=== PATIENT | female | born 1955 | race Caucasian/White ===

== ENCOUNTER 2016-05-12 13:57 | Emergency (ER) | payer OTHER ==
[2016-05-12] MEDS ORDERED: SODIUM CHLORIDE 0.9% 1,000 ML IV STA ×2 (14:44)
[2016-05-12] MEDS ORDERED: MORPHINE SULFATE 4 MG/ML SYRINGE IV STA (14:44)
--- NOTE | 2016-05-12 14:47 | ED ---
General Adult HPI - General Chief complaint: Abdominal Pain Stated complaint: RLQ pain Time Seen by Provider: 05/12/16 14:30 Source: patient, RN notes reviewed, old records reviewed Mode of arrival: ambulatory Limitations: no limitations - History of Present Illness Initial comments: This is a 61-year-old female here for evaluation of pain. Patient having right lower quadrant without pain and off for 2 weeks. Patient does have history of abdominal surgery, appendicitis and cholecystectomy, patient also has history of high blood pressure cholesterol diabetes fibromyalgia etc. Patient has no new medications for symptoms. No nausea vomiting or diarrhea. No fevers. No sick contacts or travel history. - Related Data Home Medications Medication Instructions Recorded Confirmed Aspirin 81 mg PO DAILY 05/09/14 05/12/16 Biedqck-Tqos-Mjhw [id number] 1 each PO Q6HR 05/09/14 05/12/16 [Excedrin] Butalb/Acetaminophen/Caffeine 1 - 2 tab PO Q4HR 05/09/14 05/12/16 [Fioricet 50-300-40 mg Capsule] Cholecalciferol [Vitamin D3] 400 unit PO DAILY@1200 05/09/14 05/12/16 DULoxetine HCL [Cymbalta] 60 mg PO DAILY 05/09/14 05/12/16 Diazepam 2 mg PO HS PRN 05/09/14 05/12/16 Hydrocodone/Acetaminophen [[place] 1 tab PO Q6HR PRN 05/09/14 05/12/16 7.5-325] Latanoprost Ophth [Xalatan 0.005%] 1 drops BOTH EYES HS 05/09/14 05/12/16 Levothyroxine Sodium [Synthroid] 25 mcg PO DAILY 05/09/14 05/12/16 Lisinopril [Zestril] 5 mg PO DAILY 05/09/14 05/12/16 Multivitamins, Thera [Multivitamin] 1 tab PO DAILY 05/09/14 05/12/16 Omeprazole [PriLOSEC] 20 mg PO AC-BRKFST 05/09/14 05/12/16 metFORMIN HCL [metFORMIN HCL ER] 1,000 mg PO BID 05/09/14 05/12/16 Methocarbamol [Robaxin] 500 mg PO BID 05/12/16 05/12/16 Pravastatin Sodium [Pravachol] 20 mg PO HS 05/12/16 05/12/16 Allergies Allergy/AdvReac Type Severity Reaction Status Date / Time Penicillins Allergy Nausea & Verified 05/12/16 14:57 Vomiting Review of Systems ROS Statement: Those systems with pertinent positive or pertinent negative responses have been documented in the HPI. ROS Other: All systems not noted in ROS Statement are negative. Past Medical History Past Medical History: Diabetes Mellitus, Fibromyalgia, GERD/Reflux, Hypertension , Rheumatoid Arthritis (RA), Thyroid Disorder Additional Past Medical History / Comment(s): sarcoidosis, ibs migraines optic nerve damage short term memory issues chronic back pain keratodermia urinary incontinence glaucoma History of Any Multi-Drug Resistant Organisms: None Reported Past Surgical History: Appendectomy, Cholecystectomy Additional Past Surgical History / Comment(s): bronchoscopy laproscopic young removal cyst removal Past Psychological History: Anxiety, Depression Smoking Status: Light tobacco smoker Past Alcohol Use History: None Reported Past Drug Use History: None Reported General Exam Limitations: no limitations Course Vital Signs 05/12/16 14:02 Temperature 97.3 F L Pulse Rate 91 Respiratory 18 Rate Blood Pressure 170/76 O2 Sat by Pulse 98 Oximetry - Reevaluation(s) Reevaluation #1: 05/12/16 16:14 At this time patient's pain appears to be improved, no distress Medical Decision Making - Medical Decision Making 61 female ear with right lower quadrant of bowel pain. No nausea vomiting no diarrhea no specific symptoms. Patient is low in her pelvis, patient will follow-up with OB as directed for possible ovarian issue, CT and pelvis is negative lab is normal urine is negative patient will be discharged - Lab Data Result diagrams: 05/12/16 14:47 05/12/16 14:47 Lab Results 05/12/16 05/12/16 05/12/16 Range/Units 14:47 14:47 14:47 WBC 5.7 (3.8-10.6) k/uL RBC 4.35 (3.80-5.40) m/uL Hgb 12.4 (11.4-16.0) gm/dL Hct 38.0 (34.0-46.0) % MCV 87.4 (80.0-100.0) fL MCH 28.4 (25.0-35.0) pg MCHC 32.5 (31.0-37.0) g/dL RDW 14.3 (11.5-15.5) % Plt Count 259 (150-450) k/uL Neutrophils % 55 % Lymphocytes % 32 % Monocytes % 6 % Eosinophils % 2 % Basophils % 1 % Neutrophils # 3.1 (1.3-7.7) k/uL Lymphocytes # 1.8 (1.0-4.8) k/uL Monocytes # 0.4 (0-1.0) k/uL Eosinophils # 0.1 (0-0.7) k/uL Basophils # 0.0 (0-0.2) k/uL Sodium 141 (137-145) mmol/L Potassium 4.3 (3.5-5.1) mmol/L Chloride 101 (98-107) mmol/L Carbon Dioxide 27 (22-30) mmol/L Anion Gap 13 mmol/L BUN 15 (7-17) mg/dL Creatinine 0.81 (0.52-1.04) mg/dL Est GFR (MDRD) Af Amer >60 (>60 ml/min/1.73 sqM) Est GFR (MDRD) Non-Af >60 (>60 ml/min/1.73 sqM) Glucose 101 H (74-99) mg/dL Plasma Lactic Acid [place] (0.7-2.0) mmol/L Calcium 10.0 (8.4-10.2) mg/dL Total Bilirubin 0.7 (0.2-1.3) mg/dL AST 26 (14-36) U/L ALT 42 (9-52) U/L Alkaline Phosphatase 61 (38-126) U/L Total Creatine Kinase 54 (30-135) U/L CK-MB (CK-2) 0.6 (0.0-2.4) ng/mL CK-MB (CK-2) Rel Index 1.1 Troponin I <0.012 (0.000-0.034) ng/mL Total Protein 7.6 (6.3-8.2) g/dL Albumin 4.5 (3.5-5.0) g/dL Amylase 61 (30-110) U/L Lipase 112 (23-300) U/L Urine Color Urine Appearance (Clear) Urine pH (5.0-8.0) Ur Specific [place] (1.001-1.035) Urine Protein (Negative) Urine Glucose (UA) (Negative) Urine Ketones (Negative) Urine Blood (Negative) Urine Nitrate (Negative) Urine Bilirubin (Negative) Urine Urobilinogen (<2.0) mg/dL Ur Leukocyte Esterase (Negative) 05/12/16 05/12/16 Range/Units 14:47 15:10 WBC (3.8-10.6) k/uL RBC (3.80-5.40) m/uL Hgb (11.4-16.0) gm/dL Hct (34.0-46.0) % MCV (80.0-100.0) fL MCH (25.0-35.0) pg MCHC (31.0-37.0) g/dL RDW (11.5-15.5) % Plt Count (150-450) k/uL Neutrophils % % Lymphocytes % % Monocytes % % Eosinophils % % Basophils % % Neutrophils # (1.3-7.7) k/uL Lymphocytes # (1.0-4.8) k/uL Monocytes # (0-1.0) k/uL Eosinophils # (0-0.7) k/uL Basophils # (0-0.2) k/uL Sodium (137-145) mmol/L Potassium (3.5-5.1) mmol/L Chloride (98-107) mmol/L Carbon Dioxide (22-30) mmol/L Anion Gap mmol/L BUN (7-17) mg/dL Creatinine (0.52-1.04) mg/dL Est GFR (MDRD) Af Amer (>60 ml/min/1.73 sqM) Est GFR (MDRD) Non-Af (>60 ml/min/1.73 sqM) Glucose (74-99) mg/dL Plasma Lactic Acid [place] 1.0 (0.7-2.0) mmol/L Calcium (8.4-10.2) mg/dL Total Bilirubin (0.2-1.3) mg/dL AST (14-36) U/L ALT (9-52) U/L Alkaline Phosphatase (38-126) U/L Total Creatine Kinase (30-135) U/L CK-MB (CK-2) (0.0-2.4) ng/mL CK-MB (CK-2) Rel Index Troponin I (0.000-0.034) ng/mL Total Protein (6.3-8.2) g/dL Albumin (3.5-5.0) g/dL Amylase (30-110) U/L Lipase (23-300) U/L Urine Color Colorless Urine Appearance Clear (Clear) Urine pH 6.5 (5.0-8.0) Ur Specific [place] 1.002 (1.001-1.035) Urine Protein Negative (Negative) Urine Glucose (UA) Negative (Negative) Urine Ketones Negative (Negative) Urine Blood Negative (Negative) Urine Nitrate Negative (Negative) Urine Bilirubin Negative (Negative) Urine Urobilinogen <2.0 (<2.0) mg/dL Ur Leukocyte Esterase Negative (Negative) - Radiology Data Radiology results: report reviewed (X-ray KUB and computed tomography scan of pelvis negative for acute disease), image reviewed Disposition Clinical Impression: Abdominal pain, Pelvic pain Disposition: HOME SELF-CARE Condition: Good Instructions: Abdominal Pain (ED), Pelvic Pain in Women (ED) Referrals: Esther Barragan MD [Primary Care Provider] - 1-2 days
[2016-05-12 15:00] LABS: Basophils % (A) 1 %; CH 28.1; CHCM 32.3; Eosinophils # (A) 0.1 k/uL (0-0.7); Eosinophils % (A) 2 %; HDW 2.48; HGB 12.4 gm/dL (11.4-16.0); Luc # (Auto) 0.24; Luc % (Auto) 4; Lymphocytes # (A) 1.8 k/uL (1.0-4.8); Lymphocytes % (A) 32 %; MCH 28.4 pg (25.0-35.0); MCHC 32.5 g/dL (31.0-37.0); MCV 87.4 fL (80.0-100.0); Mean Platelet Volume 7.4; Monocytes # (A) 0.4 k/uL (0-1.0); Monocytes % (A) 6 %; Neutrophils # (A) 3.1 k/uL (1.3-7.7); Neutrophils % (A) 55 %; RBC 4.35 m/uL (3.80-5.40); RDW 14.3 % (11.5-15.5); WBC 5.7 k/uL (3.8-10.6); WBC (Perox) 5.71
--- NOTE | 2016-05-12 15:11 | XR ---
EXAMINATION TYPE: XR KUB DATE OF EXAM: 05/12/2016 3:07 PM CLINICAL HISTORY: Right lower quadrant pain for a few weeks. TECHNIQUE: 2 upright KUB images of the abdomen are obtained COMPARISON: CT abdomen pelvis May 03, 2014. FINDINGS: Scattered gas is seen in non-distended small bowel loops. Gas and fecal material is seen in non-distended colon. Cholecystectomy clips are present. Surgical sutures right lower quadrant are noted consistent with prior appendectomy. Lung bases are clear. No pneumoperitoneum is identified. Th ere is moderate joint space loss in both hips, right slightly worse than left. There is prior vertebr oplasty at right T12 level redemonstrated. IMPRESSION: Overall nonobstructive bowel gas pattern.
[2016-05-12 15:12] LABS: Amylase 61 U/L (30-110); Carbon Dioxide 27 mmol/L (22-30)
[2016-05-12 15:18] LABS: ALT 42 U/L (9-52); AST 26 U/L (14-36); Alkaline Phosphatase 61 U/L (38-126); Anion Gap 13 mmol/L; Blood Urea Nitrogen 15 mg/dL (7-17); Chloride 101 mmol/L (98-107); Creatine Kinase 54 U/L (30-135); Glucose 101 mg/dL (74-99); Non-African American GFR(MDRD) >60 (>60 ml/min/1.73 sqM); Potassium 4.3 mmol/L (3.5-5.1); Sodium 141 mmol/L (137-145); Total Bilirubin 0.7 mg/dL (0.2-1.3); Total Protein 7.6 g/dL (6.3-8.2)
[2016-05-12] MEDS ORDERED: RX INFO: IV CONTRAST WAS GIVEN 1 EACH MISC MISCELLANE PRN (15:18)
[2016-05-12 15:28] LABS: Appearance,Urine Clear (Clear); Bilirubin,Urine Negative (Negative); Glucose,Urine (UA) Negative (Negative); Ketones,Urine Negative (Negative); Leukocyte Esterase,Urine Negative (Negative); Nitrite,Urine Negative (Negative); PH, Urine 6.5 (5.0-8.0); Protein,Urine Negative (Negative); Specific Gravity,Urine 1.002 (1.001-1.035); UA Billing (MACRO vs. MICRO) CHEM; Urobilinogen,Urine <2.0 mg/dL (<2.0)
[2016-05-12 15:30] LABS: Creatine Kinase MB 0.6 ng/mL (0.0-2.4); Troponin I <0.012 ng/mL (0.000-0.034)
--- NOTE | 2016-05-12 16:20 | CT ---
EXAMINATION TYPE: CT abdomen pelvis w con DATE OF EXAM: 05/12/2016 3:56 PM COMPARISON: 05/03/2014 INDICATION: Right lower quadrant pain DLP: 884.6 mGycm, Automated exposure control for dose reduction was used. CONTRAST: 100 mL of Omnipaque 300. Study performed without Oral Contrast TECHNIQUE: Axial images were obtained from above the diaphragm to the pubic rami in the axial plane a t 5 mm thick sections. Reconstructed images are reviewed on the computer in the coronal plane. FINDINGS: Limited CT sections are obtained the lung bases. The lung bases are clear. CT ABDOMEN: Liver: There is moderate fatty infiltration of the liver. Spleen: Normal Pancreas: Normal Adrenal glands: The adrenal glands are normal. Gallbladder: Surgically absent. Kidneys: No masses are evident. No hydronephrosis is present. No cysts are present. Delayed images were obtained through the kidneys, which remain unremarkable. Aorta: Minimal Vascular calcification is within the aorta. Inferior vena cava: Normal. CT PELVIS: Loops of bowel within the abdomen and pelvis are normal. There are loops of bowel which are incom pletely distended or lack oral contrast limiting their evaluation. Appendix: Surgically absent. Urinary bladder: Normal. Genitourinary structures: Uterus and adnexal regions appear clear Osseous structures: No suspicious lytic or sclerotic lesions. There may be prior vertebroplasty at th e T12 level. IMPRESSIONS: 1. No suspicious acute changes.
[2016-05-12 16:38] VITALS: BP 132/62; PULSE 67; RESP 16; TEMP 98
== END 2016-05-12 16:38 | disposition home or self-care (01) ==
LOC: EC 13:57
DX: R10.2 Pelvic and perineal pain (principal); R10.31 Right lower quadrant pain; E07.9 Disorder of thyroid, unspecified; E11.9 Type 2 diabetes mellitus without complications; M79.7 Fibromyalgia; K21.9 Gastro-esophageal reflux disease without esophagitis; I10 Essential (primary) hypertension; M19.90 Unspecified osteoarthritis, unspecified site; F41.9 Anxiety disorder, unspecified; F32.9 Major depressive disorder, single episode, unspecified; F17.200 Nicotine dependence, unspecified, uncomplicated; Z79.82 Long term (current) use of aspirin; Z79.899 Other long term (current) drug therapy; Z79.84 Long term (current) use of oral hypoglycemic drugs; Z88.0 Allergy status to penicillin; Z90.49 Acquired absence of other specified parts of digestive tract
CPT/HCPCS: 36415; 80053; 82150; 82550; 82553; 83605; 83690; 84484; 85025; 81003; 87086; 74000; 74177; 99285; 96374; 96361 ×2; J2270; Q9967

== ENCOUNTER → 2016-07-28 | Outpatient (CLI) | payer OTHER ==
[2016-07-28 15:24] LABS: Blood Urea Nitrogen 17 mg/dL (7-17); Non-African American GFR(MDRD) >60 (>60 ml/min/1.73 sqM)
== END | disposition home or self-care (01) ==
LOC: LABWHC1 14:47
PROVIDERS: ATTEND Psychiatry & Neurology Pain Medicine
DX: Z01.812 Encounter for preprocedural laboratory examination (principal); R51 Headache
CPT/HCPCS: 36415; 82565; 84520

== ENCOUNTER → 2016-07-29 | Outpatient (CLI) | payer OTHER ==
--- NOTE | 2016-07-29 21:45 | MR ---
EXAMINATION TYPE: MR brain wo/w con DATE OF EXAM: 07/29/2016 COMPARISON: MRI brain November 20, 2015. Prior MRI brain June 15, 2014. HISTORY: Headaches unusual duration per order. Headaches with memory problems, difficulty sleeping, l eft-sided hearing loss, and history of neurosarcoidosis per patient. TECHNIQUE: Multiplanar, multisequence images of the brain and brainstem is performed without and with IV contras t, utilizing 15 mL intravenous MultiHance . FINDINGS: Diffusion weighted images demonstrate no evidence of a recent infarct or other diffusion ab normality. There is no extra-axial fluid collection or significant white matter signal abnormality. The ventricular system and cisternal spaces are normal in size and appearance. The brain volume is age appropriate. Midline structures demonstrate normal morphology. There is stable appearance to the clivus with poste rior tubular shaped area of low T1 signal seen on sagittal image 10 redemonstrated, possible venous a ngioma. The craniocervical junction appears within normal limits. Post contrast images demonstrate n o new areas of abnormal enhancement. Possible 2 small venous angiomas over bilateral frontal temporal lobes are felt stable from older studies. The dural venous sinuses appear patent. There is no air-fl uid level in left maxillary sinus with mild mucosal thickening inferiorly. IMPRESSION: New left maxillary sinus disease, other findings stable and presumed benign.
== END | disposition home or self-care (01) ==
LOC: RADMRIMAIN 19:11
PROVIDERS: ATTEND Psychiatry & Neurology Pain Medicine
DX: R51 Headache (principal)
CPT/HCPCS: 70553; A9577

== ENCOUNTER → 2016-09-17 | Outpatient (CLI) | payer OTHER ==
--- NOTE | 2016-09-17 23:04 | MR ---
EXAMINATION TYPE: MR cervical spine wo con DATE OF EXAM: 09/17/2016 COMPARISON: NONE HISTORY: Neck pain. Decreased range of motion. TECHNIQUE: Multiplanar, multisequence images of the cervical spine were acquired. The cervical vertebra have normal alignment. There are is a small posterior disc herniation at C5-6 i nto the spinal canal in the midline and to the left side.. Cervical spinal cord has normal signal pat tern. There is no evidence of edema. Disc herniation is more towards the left side at the C5-6. The b rainstem appears intact. There is no compression fracture. There is mild multilevel hypertrophic face t arthropathy. There is a small posterior disc herniation at C6-7. I see no focal bone destruction. T here is no cervical paraspinal mass. 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 This i s worse at C5-6 the left side. There is left-sided neural foraminal impingement. The canal measures 9 mm. No significant spinal stenosis.
== END | disposition home or self-care (01) ==
LOC: RADMRIMAIN 18:27
PROVIDERS: ATTEND Psychiatry & Neurology Pain Medicine
DX: M50.222 Other cervical disc displacement at C5-C6 level (principal); M47.812 Spondylosis without myelopathy or radiculopathy, cervical region
CPT/HCPCS: 72141

== ENCOUNTER 2016-09-26 20:40 | Emergency (ER) | payer OTHER ==
[2016-09-26 20:52] VITALS: RESP 18
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
[2016-09-26 21:43] LABS: Basophils % (A) 1 %; CH 27.8; CHCM 31.9; Eosinophils # (A) 0.2 k/uL (0-0.7); Eosinophils % (A) 3 %; HCT 37.9 % (34.0-46.0); HDW 2.52; Luc # (Auto) 0.21; Luc % (Auto) 4; Lymphocytes # (A) 2.4 k/uL (1.0-4.8); Lymphocytes % (A) 40 %; MCH 27.7 pg (25.0-35.0); MCHC 31.7 g/dL (31.0-37.0); MCV 87.3 fL (80.0-100.0); Mean Platelet Volume 7.2; Monocytes # (A) 0.4 k/uL (0-1.0); Monocytes % (A) 7 %; Neutrophils # (A) 2.8 k/uL (1.3-7.7); Neutrophils % (A) 47 %; RBC 4.34 m/uL (3.80-5.40); RDW 14.8 % (11.5-15.5)
[2016-09-26 21:54] LABS: ALT 38 U/L (9-52); AST 26 U/L (14-36); Alcohol <10 mg/dL; Alkaline Phosphatase 56 U/L (38-126); Anion Gap 15 mmol/L; Blood Urea Nitrogen 18 mg/dL (7-17); Calcium 9.6 mg/dL (8.4-10.2); Carbon Dioxide 24 mmol/L (22-30); Chloride 103 mmol/L (98-107); Glucose 177 mg/dL (74-99); Non-African American GFR(MDRD) >60 (>60 ml/min/1.73 sqM); Potassium 4.3 mmol/L (3.5-5.1); Sodium 142 mmol/L (137-145); Total Bilirubin 0.4 mg/dL (0.2-1.3); Total Protein 7.3 g/dL (6.3-8.2)
[2016-09-26 21:59] LABS: Prothrombin Time 10.1 sec (9.0-12.0)
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
[2016-09-26 23:03] VITALS: BP 118/70; PULSE 82; TEMP 98.6
[2016-09-26 23:29] LABS: Appearance,Urine Cloudy (Clear); Bacteria,Urine Rare /hpf; Bilirubin,Urine Negative (Negative); Glucose,Urine (UA) Negative (Negative); Ketones,Urine Negative (Negative); Leukocyte Esterase,Urine Small (Negative); Mucus,Urine Rare /hpf; Nitrite,Urine Negative (Negative); Particle Count 2699; Protein,Urine Trace (Negative); RBC,Urine 2 /hpf (0-5); Specific Gravity,Urine 1.013 (1.001-1.035); Squamous Epithelial Cell,Urine 1 /hpf (0-4); UA Billing (MACRO vs. MICRO) MICRO; Urobilinogen,Urine <2.0 mg/dL (<2.0); WBC,Urine 11 /hpf (0-5)
== END 2016-09-26 23:50 | disposition home or self-care (01) ==
LOC: EC 20:40
DX: M54.2 Cervicalgia (principal); R51 Headache; I10 Essential (primary) hypertension; K21.9 Gastro-esophageal reflux disease without esophagitis; E11.9 Type 2 diabetes mellitus without complications; M06.9 Rheumatoid arthritis, unspecified; G89.29 Other chronic pain; E07.9 Disorder of thyroid, unspecified; F32.9 Major depressive disorder, single episode, unspecified; F41.9 Anxiety disorder, unspecified; F17.200 Nicotine dependence, unspecified, uncomplicated; Z79.82 Long term (current) use of aspirin; Z79.84 Long term (current) use of oral hypoglycemic drugs; Z79.899 Other long term (current) drug therapy; Z88.0 Allergy status to penicillin; Z86.69 Personal history of other diseases of the nervous system and sense organs; V43.52XA Car driver injured in collision with other type car in traffic accident, initial encounter; Y92.410 Unspecified street and highway as the place of occurrence of the external cause
CPT/HCPCS: 36415; 70450; 72125; 80053; 80306; 80320; 81001; 84484; 85025; 85610; 85730; 93005; 99285

== ENCOUNTER → 2016-10-13 | Outpatient (CLI) | payer OTHER ==
--- NOTE | 2016-10-15 08:12 | MM ---
Reason for exam: screening (asymptomatic). Last mammogram was performed 1 year and 2 months ago. History: Patient is postmenopausal. Family history of breast cancer in paternal grandmother. Benign stereotactic core biopsy. Physical Findings: A clinical breast exam by your physician is recommended on an annual basis and results should be correlated with mammographic findings. MG Screening Mammo w CAD Bilateral CC and MLO view(s) were taken. Prior study comparison: August 20, 2015, bilateral MG diagnostic mammo w CAD [facility]. There are scattered fibroglandular densities. Previous mammotome biopsy in the left breast. No significant changes when compared with prior studies. ASSESSMENT: Negative, BI-RAD 1 RECOMMENDATION: Routine screening mammogram of both breasts in 1 year.
== END | disposition home or self-care (01) ==
LOC: RADMAMWWP 14:02
PROVIDERS: ATTEND Family Medicine
DX: Z12.31 Encounter for screening mammogram for malignant neoplasm of breast (principal)

== ENCOUNTER → 2016-10-13 | Outpatient (CLI) | payer OTHER ==
--- NOTE | 2016-10-13 15:21 | US ---
EXAMINATION TYPE: US carotid duplex BILAT DATE OF EXAM: 10/13/2016 COMPARISON: US CLINICAL HISTORY: R55 Syncope. Syncope EXAM MEASUREMENTS: RIGHT: Peak Systolic Velocity (PSV) cm/sec ----- Right CCA: 51.0 ----- Right ICA: 94.3 ----- Right ECA: 79.0 ICA/CCA ratio: 1.8 RIGHT: End Diastole cm/sec ----- Right CCA: 17.4 ----- Right ICA: 34.3 ----- Right ECA: 17.8 LEFT: Peak Systolic Velocity (PSV) cm/sec ----- Left CCA: 69.8 ----- Left ICA: 88.9 ----- Left ECA: 88.8 ICA/CCA ratio: 1.3 LEFT: End Diastole cm/sec ----- Left CCA: 26.9 ----- Left ICA: 36.5 ----- Left ECA: 25.4 VERTEBRALS (direction of flow): Right Vertebral: Antegrade Left Vertebral: Antegrade IMPRESSION: Bilateral intimal thickening, plaque bilateral bulb, no elevated velocities, no signific ant stenosis. Criteria for Assigning % of Stenosis / Diameter reduction (Estimation based on the indirect measurements of the internal carotid artery velocities (ICA PSV). 1. Normal (no stenosis)=ICA PSV < 125 cm/s: ratio < 2.0: ICA EDV<40 cm/s. 2. Less than 50% stenosis=ICA PSV < 125 cm/s: ratio < 2.0: ICA EDV<40 cm/s. 3. 50 to 69% stenosis=ICA PSV of 125 to 230 cm/s: ration 2.0 ? 4.0: ICA EDV 40-100 cm/s. 4. Greater than 70% stenosis to near occlusion= ICA PSV > 230 cm/s: ratio > 4.0: ICA EDV > 100 cm/s. 5. Near occlusion= ICA PSV velocities may be low or undetectable: variable ratio and ICA EDV. 6. Total occlusion=unable to detect flow.
== END | disposition home or self-care (01) ==
LOC: RADUSWWP 13:48
PROVIDERS: ATTEND Psychiatry & Neurology Neurology
DX: I77.89 Other specified disorders of arteries and arterioles (principal); R55 Syncope and collapse
CPT/HCPCS: 93880

== ENCOUNTER → 2017-01-05 | Outpatient (CLI) | payer OTHER ==
--- NOTE | 2017-01-05 15:22 | WWHP ---
[facility] - HISTORY AND PHYSICAL DATE OF SERVICE: 01/05/2017 CHIEF COMPLAINT: The patient is here for her routine gynecologic exam. HPI: This is a 61-year-old G1, P1, with an LMP of 2000. She is without gynecologic complaints and denies any postmenopausal bleeding. 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 MEDICATIONS: 1. Levothyroxine 25 mcg daily. 2. Omeprazole 20 mg daily. 3. Cymbalta generic 60 mg 1 daily. 4. Lisinopril 5 mg daily. 5. Metformin 1000 mg b.i.d. 6. Pravastatin 20 mg daily. 7. Aspirin 81 mg daily. 8. Latanoprost eyedrops 1 drop in each eye at bedtime. 9. Calcium 1200 mg with 1000 units of vitamin D3 daily. 10.Multivitamin daily. 11.She also takes a digestive supplement daily. 12.Methocarbamol 500 mg p.r.n. 13.Diazepam 2 mg p.r.n. 14.[place] generic 7.5 mg p.r.n. 15.Fiorinal with codeine generic p.r.n. ALLERGIES: PENICILLIN and SULFA. PAST SURGICAL, OFFICE SPEC AND FAMILY HISTORIES: Unchanged from the 08/20/2015. SOCIAL HISTORY: She smokes about 2 packs of cigarettes per week. She quit alcohol use and previously used marijuana, but denies any drug use at this time. She is considered disabled. REVIEW OF SYSTEMS: Weight has been stable. She denies respiratory or cardiac problems. GI: She does have IBS and gastric reflux symptoms at times. PHYSICAL EXAM: Blood pressure 138/71, height 5 feet 7-1/2 inches, weight 175 pounds, BMI 27, temperature 96.6, pulse 79. This is a well-developed, well-nourished, white female, who is alert and oriented x3, in no acute distress. HEENT is within normal limits. NECK: Supple without mass or thyromegaly. CHEST AND LUNGS: Clear to auscultation. HEART: Regular rate and rhythm. Breasts are without mass or discharge. Axillary exam is negative for adenopathy. BACK: Negative for CVA tenderness. ABDOMEN: Soft, nontender, without palpable masses. PELVIC EXAM: External genitalia reveals [id number] atrophy without lesions. Cervix and vagina reveal [id number]-[id number] atrophy without lesions. There is no evidence of prolapse. The uterus is mid position, nongravid size and nontender. There are no palpable adnexal masses or tenderness. Rectovaginal exam is negative for mass or tenderness and is negative for occult blood. EXTREMITIES: Nontender. IMPRESSION: A 61-year-old menopausal female with normal gynecologic exam. PLAN: 1. Pap smear was deferred since she had a normal one last year. 2. Self breast examination was discussed. 3. Mammogram was done on 10/13/2016 and was benign and this will be repeated in 1 year. 4. Osteoporosis prevention was discussed. I have recommended repeating the bone density testing since her bone density test was in 2010 and this one was normal. She states she would like to do this next year. 5. She will return in 1 year. MMODL / IJN: [id number] /
== END | disposition home or self-care (01) ==
LOC: WWCWWP 12:44
PROVIDERS: ATTEND Obstetrics & Gynecology
DX: Z01.419 Encounter for gynecological examination (general) (routine) without abnormal findings (principal)

== ENCOUNTER → 2017-05-21 | Outpatient (CLI) | payer OTHER ==
[2017-05-21 11:20] LABS: ALT 29 U/L (9-52); AST 20 U/L (14-36); Albumin 4.6 g/dL (3.5-5.0); Alkaline Phosphatase 63 U/L (38-126); Anion Gap 15 mmol/L; Blood Urea Nitrogen 14 mg/dL (7-17); Carbon Dioxide 26 mmol/L (22-30); Chloride 101 mmol/L (98-107); Cholesterol 234 mg/dL (<200); Glucose 151 mg/dL (74-99); HDL Cholesterol 68 mg/dL (40-60); LDL Cholesterol,Calculated 134 mg/dL (0-99); Potassium 4.5 mmol/L (3.5-5.1); Sodium 142 mmol/L (137-145); Total Bilirubin 0.5 mg/dL (0.2-1.3); Total Protein 7.7 g/dL (6.3-8.2); Triglycerides 160 mg/dL (<150)
[2017-05-21 11:34] LABS: T4, Free (Free Thyroxine) 1.06 ng/dL (0.78-2.19)
[2017-05-21 18:35] LABS: Hemoglobin A1C 7.3 % (4.0-6.0)
== END | disposition home or self-care (01) ==
LOC: LABWHC1 10:17
PROVIDERS: ATTEND Family Medicine
DX: E11.65 Type 2 diabetes mellitus with hyperglycemia (principal); E03.9 Hypothyroidism, unspecified; E55.9 Vitamin D deficiency, unspecified; E78.2 Mixed hyperlipidemia
CPT/HCPCS: 36415; 80053; 80061; 82306; 83036; 84439; 84443; 84481

== ENCOUNTER 2017-06-20 00:35 | Emergency (ER) | payer OTHER ==
[2017-06-20] MEDS ORDERED: KETOROLAC 30 MG/ML 1 ML VIAL IVP STA (01:14)
[2017-06-20] MEDS ORDERED: ACETAMINOPHEN TAB 500 MG TAB PO STA (01:47)
[2017-06-20 02:03] LABS: Anisocytosis Slight; Basophils % (A) 1 %; Eosinophils # (A) 0.2 k/uL (0-0.7); Eosinophils % (A) 3 %; HCT 36.4 % (34.0-46.0); HGB 11.4 gm/dL (11.4-16.0); Hypochromasia Slight; Lymphocytes # (A) 2.8 k/uL (1.0-4.8); Lymphocytes % (A) 48 %; MCH 25.4 pg (25.0-35.0); MCHC 31.4 g/dL (31.0-37.0); Mean Platelet Volume 6.8; Monocytes # (A) 0.5 k/uL (0-1.0); Monocytes % (A) 9 %; Neutrophils # (A) 2.1 k/uL (1.3-7.7); Neutrophils % (A) 37 %; Platelet Count 301 k/uL (150-450); RDW 16.1 % (11.5-15.5); WBC 5.9 k/uL (3.8-10.6)
[2017-06-20 02:06] LABS: Calcium 10.1 mg/dL (8.4-10.2); Potassium 4.5 mmol/L (3.5-5.1)
--- NOTE | 2017-06-20 02:20 | XR ---
EXAMINATION TYPE: XR chest 2V DATE OF EXAM: 06/20/2017 COMPARISON: 08/29/2010 HISTORY: Sarcoidosis. Chest pain TECHNIQUE: Frontal and lateral views of the chest are obtained. FINDINGS: Heart is normal. There are calcified granulomata in the mediastinum. There is no pleural e ffusion. Lungs are clear of infiltrate. Bony thorax is intact. IMPRESSION: Old granulomatous disease. Normal heart. No acute lung disease. Calcification is increas ed compared to old exam.
--- NOTE | 2017-06-20 02:21 | XR ---
EXAMINATION TYPE: XR knee complete RT DATE OF EXAM: 06/20/2017 COMPARISON: NONE HISTORY: Knee pain TECHNIQUE: 3 views FINDINGS: There is minor spurring of the medial femoral and tibial condyles. Joint spaces are fairly normal. There is a small knee joint effusion. I see no fracture. There is mild spurring on the superi or patella. IMPRESSION: Small joint effusion. Minimal spurring. No fracture.
--- NOTE | 2017-06-20 02:24 | CT ---
EXAMINATION TYPE: CT brain wo con DATE OF EXAM: 06/20/2017 COMPARISON: 09/26/2016 HISTORY: headache CT DLP: 978.20 mGycm Automated exposure control for dose reduction was used. FINDINGS: Ventricles and sulci appear normal. There is no mass effect nor midline shift. There is no sign of in tracranial hemorrhage. The calvarium is intact. IMPRESSION: NORMAL CT SCAN OF THE BRAIN. NO CHANGE.
--- NOTE | 2017-06-20 03:10 | ED ---
General Adult HPI - General Chief complaint: Extremity Problem,Nontraumatic Stated complaint: Knee injury Time Seen by Provider: 06/20/17 00:46 Source: patient, RN notes reviewed, old records reviewed Mode of arrival: wheelchair Limitations: no limitations - History of Present Illness Initial comments: Patient is a 62-year-old female chief complaint of right knee pain. She reports that she's been walking more frequently for exercise and complains of worsening pain over the past few days. She did walk multiple miles for exercise yesterday. Patient also reports that she stop her Cymbalta. She complains of a lightheaded feeling since then. She also complains of a headache. She reports that she's had a history of brain lesions. Patient appears somewhat anxious of all of these symptoms. - Related Data Home Medications Medication Instructions Recorded Confirmed Aspirin 81 mg PO DAILY 05/09/14 12/16/16 [id number] 1 tab PO Q6HR PRN 05/09/14 12/16/16 [Excedrin] Butalb/Acetaminophen/Caffeine 1 - 2 tab PO Q4HR 05/09/14 12/16/16 [Fioricet 50-300-40 mg Capsule] Cholecalciferol [Vitamin D3] 400 unit PO DAILY@1200 05/09/14 12/16/16 DULoxetine HCL [Cymbalta] 60 mg PO DAILY 05/09/14 12/16/16 Diazepam 2 mg PO HS PRN 05/09/14 12/16/16 Hydrocodone/Acetaminophen [[place] 1 tab PO Q6HR PRN 05/09/14 12/16/16 7.5-325] Latanoprost Ophth [Xalatan 0.005%] 1 drops BOTH EYES HS 05/09/14 12/16/16 Levothyroxine Sodium [Synthroid] 25 mcg PO DAILY 05/09/14 12/16/16 Lisinopril [Zestril] 5 mg PO DAILY 05/09/14 12/16/16 Multivitamins, Thera [Multivitamin] 1 tab PO DAILY 05/09/14 12/16/16 Omeprazole [PriLOSEC] 20 mg PO AC-BRKFST 05/09/14 12/16/16 metFORMIN HCL [metFORMIN HCL ER] 1,000 mg PO BID 05/09/14 12/16/16 Methocarbamol [Robaxin] 500 mg PO BID 05/12/16 12/16/16 Pravastatin Sodium [Pravachol] 20 mg PO HS 05/12/16 12/16/16 Previous Rx's Medication Instructions Recorded Naproxen [Naprosyn] 500 mg PO Q12HR #20 tab 06/20/17 Allergies Allergy/AdvReac Type Severity Reaction Status Date / Time Penicillins Allergy Nausea & Verified 12/16/16 16:01 Vomiting Review of Systems ROS Statement: Those systems with pertinent positive or pertinent negative responses have been documented in the HPI. ROS Other: All systems not noted in ROS Statement are negative. Past Medical History Past Medical History: Diabetes Mellitus, Fibromyalgia, GERD/Reflux, Hypertension , Rheumatoid Arthritis (RA), Thyroid Disorder Additional Past Medical History / Comment(s): sarcoidosis, ibs migraines optic nerve damage short term memory issues chronic back pain keratodermia urinary incontinence glaucoma, brain lesion, pulmonary leasion History of Any Multi-Drug Resistant Organisms: None Reported Past Surgical History: Appendectomy, Cholecystectomy Additional Past Surgical History / Comment(s): bronchoscopy laproscopic young removal cyst removal Past Psychological History: Anxiety, Depression Smoking Status: Light tobacco smoker Past Alcohol Use History: None Reported Past Drug Use History: None Reported General Exam - General Exam Comments Initial Comments: This patient is a 62 year old anxious female, no distress. Limitations: no limitations General appearance: alert, in no apparent distress Head exam: Present: atraumatic, normocephalic, normal inspection Eye exam: Present: normal appearance, PERRL, EOMI. Absent: scleral icterus, conjunctival injection, periorbital swelling ENT exam: Present: normal exam, mucous membranes moist Neck exam: Present: normal inspection. Absent: tenderness, meningismus, lymphadenopathy Respiratory exam: Present: normal lung sounds bilaterally. Absent: respiratory distress, wheezes, rales, rhonchi, stridor Cardiovascular Exam: Present: regular rate, normal rhythm, normal heart sounds. Absent: systolic murmur, diastolic murmur, rubs, gallop, clicks GI/Abdominal exam: Present: soft, normal bowel sounds. Absent: distended, tenderness, guarding, rebound, rigid Right Upper Leg exam: Present: normal inspection, full ROM Knee exam: Present: normal inspection, full ROM (pain with Flexion. ), tenderness, swelling Lower Leg exam: Present: normal inspection, full ROM Foot/Toe exam: Present: normal inspection, full ROM Neurovascular tendon exam: Present: no vascular compromise Gait: observed and normal Back exam: Present: normal inspection Neurological exam: Present: alert, oriented X3, CN II-XII intact Expanded Patient oriented to: Present: person, place, time Speech: Present: fluid speech Cranial nerves: EOM's Intact: Normal, Facial Sensation: Normal Cerebellar function: Finger to Nose: Normal Upper motor neuron: Pronator Drift: Normal Sensory exam: Upper Extremity Light Touch: Normal, Lower Extremity Light Touch: Normal Motor strength exam: RUE: 5, LUE: 5, RLE: 5, LLE: 5 Eye Response: (4) open spontaneously Motor Response: (6) obeys commands Verbal Response: (5) oriented Mike Total: 15 Psychiatric exam: Present: normal affect, normal mood Skin exam: Present: warm, dry, intact, normal color. Absent: rash Course Vital Signs 06/20/17 06/20/17 00:38 03:35 Temperature 97.3 F L 98.7 F Pulse Rate 75 74 Respiratory 16 18 Rate Blood Pressure 144/62 134/76 O2 Sat by Pulse 99 99 Oximetry Medical Decision Making - Medical Decision Making This is a 62 year old female with CC of knee pain, and lightheadedness after stopping her Cymbalta. She has a history of sarcoidosis and conective tissue disorders. She has been walking frequently to cuase the knee pain. Moderate effusion noted. Xray show no fracture, discussed possibility of meniscus tear due to repeated stress due to her long walking. She was also concerned about her light headed feeling. CT was negative for any acute process. Labs were unremarkable. CXR shows sarcoid dosis and slightly increased calficifation compared to previous study. Discussed her symptoms are likely related to discontinuing her celelxa and "feeling foggy". Discussed ortho and PCP follow up. - Lab Data Result diagrams: 06/20/17 01:50 06/20/17 01:50 Lab Results 06/20/17 06/20/17 Range/Units 01:50 01:50 WBC 5.9 (3.8-10.6) k/uL RBC 4.50 (3.80-5.40) m/uL Hgb 11.4 (11.4-16.0) gm/dL Hct 36.4 (34.0-46.0) % MCV 81.0 (80.0-100.0) fL MCH 25.4 (25.0-35.0) pg MCHC 31.4 (31.0-37.0) g/dL RDW 16.1 H (11.5-15.5) % Plt Count 301 (150-450) k/uL Neutrophils % 37 % Lymphocytes % 48 % Monocytes % 9 % Eosinophils % 3 % Basophils % 1 % Neutrophils # 2.1 (1.3-7.7) k/uL Lymphocytes # 2.8 (1.0-4.8) k/uL Monocytes # 0.5 (0-1.0) k/uL Eosinophils # 0.2 (0-0.7) k/uL Basophils # 0.0 (0-0.2) k/uL Hypochromasia Slight Anisocytosis Slight Sodium 143 (137-145) mmol/L Potassium 4.5 (3.5-5.1) mmol/L Chloride 100 (98-107) mmol/L Carbon Dioxide 27 (22-30) mmol/L Anion Gap 16 mmol/L BUN 21 H (7-17) mg/dL Creatinine 0.90 (0.52-1.04) mg/dL Est GFR (CKD-EPI)AfAm 79 (>60 ml/min/1.73 sqM) Est GFR (CKD-EPI)NonAf 69 (>60 ml/min/1.73 sqM) Glucose 120 H (74-99) mg/dL Calcium 10.1 (8.4-10.2) mg/dL - Radiology Data Radiology results: report reviewed CXR shows old granulomatous disease. Normal heart. No acute lung disease. Calcification is increased ompared to old exam. Knee X-ray shows small joint effusion. Minimal spurring. No fracture. CT brain is normal. Disposition Clinical Impression: Effusion, right knee, Light-headed feeling Disposition: HOME SELF-CARE Condition: Good Instructions: Osteoarthritis (ED), Swollen Knee Joint (ED) Additional Instructions: I advised the restart your Cymbalta medication. Take anti-inflammatory medicine. Ice the knee is much as possible. Wear the [place] wrap and ambulate with crutches. Follow-up with orthopedic. Prescriptions: Naproxen [Naprosyn] 500 mg PO Q12HR #20 tab Is patient prescribed a controlled substance at d/c from ED?: No If prescribed controlled substance>3 days was MAPS reviewed?: No When asked, does pt state using other controlled substances?: No Referrals: Esther Barragan MD [Primary Care Provider] - 1-2 days Ranjit Bobby DO [Doctor of Osteopathic Medicine] - 1-2 days Time of Disposition: 03:09
[2017-06-20 03:36] VITALS: BP 134/76; PULSE 74; RESP 18; TEMP 98.7
== END 2017-06-20 03:35 | disposition home or self-care (01) ==
LOC: EC 00:35
DX: M25.461 Effusion, right knee (principal); R42 Dizziness and giddiness; R51 Headache; D86.9 Sarcoidosis, unspecified; E11.9 Type 2 diabetes mellitus without complications; M79.7 Fibromyalgia; K21.9 Gastro-esophageal reflux disease without esophagitis; I10 Essential (primary) hypertension; E07.9 Disorder of thyroid, unspecified; F41.9 Anxiety disorder, unspecified; F32.9 Major depressive disorder, single episode, unspecified; F17.200 Nicotine dependence, unspecified, uncomplicated; Z79.82 Long term (current) use of aspirin; Z79.84 Long term (current) use of oral hypoglycemic drugs; Z79.899 Other long term (current) drug therapy; Z88.0 Allergy status to penicillin
CPT/HCPCS: 36415; 80048; 85025; 73562; 71046; 70450; 99284; 96374; J1885

== ENCOUNTER → 2017-10-19 | Outpatient (CLI) | payer OTHER ==
[2017-10-19 14:02] LABS: Basophils % (A) 1 %; Eosinophils # (A) 0.1 k/uL (0-0.7); Eosinophils % (A) 3 %; HGB 11.6 gm/dL (11.4-16.0); Hypochromasia Moderate; Lymphocytes # (A) 1.8 k/uL (1.0-4.8); Lymphocytes % (A) 39 %; MCH 25.4 pg (25.0-35.0); MCHC 30.4 g/dL (31.0-37.0); MCV 83.5 fL (80.0-100.0); Mean Platelet Volume 6.2; Monocytes # (A) 0.3 k/uL (0-1.0); Monocytes % (A) 7 %; Neutrophils # (A) 2.2 k/uL (1.3-7.7); Neutrophils % (A) 48 %; Platelet Count 353 k/uL (150-450); RBC 4.56 m/uL (3.80-5.40); RDW 15.4 % (11.5-15.5); WBC 4.6 k/uL (3.8-10.6)
[2017-10-19 14:05] LABS: Albumin 4.4 g/dL (3.5-5.0); Calcium 9.8 mg/dL (8.4-10.2); Potassium 4.6 mmol/L (3.5-5.1); Total Bilirubin 0.6 mg/dL (0.2-1.3); Total Protein 7.6 g/dL (6.3-8.2)
[2017-10-19 14:21] LABS: T4, Free (Free Thyroxine) 0.88 ng/dL (0.78-2.19)
[2017-10-19 19:22] LABS: Vitamin D 25 Hydroxy 29.8 ng/mL (30.0-100.0)
[2017-10-19 19:29] LABS: Folate, Serum >24.0 ng/mL
[2017-10-19 21:42] LABS: Hemoglobin A1C 7.5 % (4.0-6.0)
[2017-10-20 15:07] LABS: Hepatits C Virus RNA Not detected (Not detected); Hepatits C Virus RNA, Quant <12 IU/mL (<12); LOG HCV IU/mL <1.08 (<1.08)
== END | disposition home or self-care (01) ==
LOC: LABWHC1 13:29
PROVIDERS: ATTEND Family Medicine
DX: E11.65 Type 2 diabetes mellitus with hyperglycemia (principal); E55.9 Vitamin D deficiency, unspecified; E03.9 Hypothyroidism, unspecified; I10 Essential (primary) hypertension; E78.2 Mixed hyperlipidemia
CPT/HCPCS: 36415; 80053; 80061; 82306; 82607; 82746; 83036; 84439; 84443; 85025; 87340; 87522

== ENCOUNTER → 2018-01-06 | Outpatient (CLI) | payer OTHER ==
--- NOTE | 2018-01-10 10:06 | MM ---
Reason for exam: screening (asymptomatic). Last mammogram was performed 1 year and 3 months ago. History: Patient is postmenopausal. Family history of breast cancer in paternal grandmother. Benign stereotactic core biopsy of the left breast. Excisional biopsy of the right breast. Physical Findings: A clinical breast exam by your physician is recommended on an annual basis and results should be correlated with mammographic findings. MG Screening Mammo w CAD Bilateral CC and MLO view(s) were taken. Prior study comparison: October 13, 2016, bilateral MG screening mammo w CAD. August 20, 2015, bilateral MG diagnostic mammo w CAD [facility]. Previous mammotome biopsy in the left breast. Focal asymmetry in the left breast. No significant changes when compared with prior studies. ASSESSMENT: Benign, BI-RAD 2 RECOMMENDATION: Routine screening mammogram of both breasts in 1 year.
== END | disposition home or self-care (01) ==
LOC: RADMAMWWP 14:53
PROVIDERS: ATTEND Family Medicine
DX: Z12.31 Encounter for screening mammogram for malignant neoplasm of breast (principal)
CPT/HCPCS: 77067

== ENCOUNTER 2018-02-18 17:14 | Emergency (ER) | payer OTHER ==
[2018-02-18] MEDS ORDERED: SODIUM CHLORIDE 0.9% 1,000 ML IV ONE (18:20)
[2018-02-18] MEDS ORDERED: ASPIRIN 81 MG PO STA (18:20)
[2018-02-18] MEDS ORDERED: IPRATROPIUM-ALBUTEROL 3 ML NEB INHALATION STA (18:20)
[2018-02-18] MEDS ORDERED: methylPREDNISolone SOD SUCCI 125 MG/2 ML VIAL IV STA (18:20)
[2018-02-18 18:31] LABS: Anisocytosis Slight; Basophils % (A) 1 %; Eosinophils # (A) 0.2 k/uL (0-0.7); Eosinophils % (A) 2 %; HGB 11.6 gm/dL (11.4-16.0); Hypochromasia Slight; Lymphocytes # (A) 2.5 k/uL (1.0-4.8); Lymphocytes % (A) 34 %; MCH 25.8 pg (25.0-35.0); MCHC 31.4 g/dL (31.0-37.0); MCV 82.1 fL (80.0-100.0); Mean Platelet Volume 6.6; Monocytes # (A) 0.4 k/uL (0-1.0); Monocytes % (A) 5 %; Neutrophils # (A) 4.1 k/uL (1.3-7.7); Neutrophils % (A) 55 %; Platelet Count 303 k/uL (150-450); RBC 4.51 m/uL (3.80-5.40); RDW 16.7 % (11.5-15.5); WBC 7.4 k/uL (3.8-10.6)
--- NOTE | 2018-02-18 18:36 | ED ---
General Adult HPI - General Chief complaint: Shortness of Breath Stated complaint: Diff Breathing Time Seen by Provider: 02/18/18 17:56 Source: patient Mode of arrival: ambulatory Limitations: no limitations - History of Present Illness Initial comments: Patient is a 62-year-old female with a history of sarcoidosis who presents with a chief complaint of shortness of breath and decreased exercise tolerance over the last 3 or 4 days. Patient cannot identify inciting incident, aggravating factors including exertion, there are no alleviating factors. Having been constant. Patient is concerned that she may be having a sarcoidosis flareup. - Related Data Home Medications Medication Instructions Recorded Confirmed Aspirin 81 mg PO DAILY 05/09/14 02/18/18 Butalb/Acetaminophen/Caffeine 1 - 2 tab PO Q4HR PRN 05/09/14 02/18/18 [Fioricet 50-300-40 mg Capsule] DULoxetine HCL [Cymbalta] 60 mg PO DAILY 05/09/14 02/18/18 Diazepam 2 mg PO HS PRN 05/09/14 02/18/18 Hydrocodone/Acetaminophen [[place] 1 tab PO Q6HR PRN 05/09/14 02/18/18 7.5-325] Latanoprost Ophth [Xalatan 0.005%] 1 drops BOTH EYES HS 05/09/14 02/18/18 Levothyroxine Sodium [Synthroid] 25 mcg PO DAILY 05/09/14 02/18/18 Lisinopril [Zestril] 5 mg PO DAILY 05/09/14 02/18/18 Multivitamins, Thera [Multivitamin] 1 tab PO DAILY 05/09/14 02/18/18 Omeprazole [PriLOSEC] 20 mg PO AC-BRKFST 05/09/14 02/18/18 metFORMIN HCL [metFORMIN HCL ER] 1,000 mg PO BID 05/09/14 02/18/18 Methocarbamol [Robaxin] 500 mg PO BID PRN 05/12/16 02/18/18 Calcium Carbonate/Vitamin D3 1 cap PO DAILY 02/18/18 02/18/18 [Calcium 600-Vit D3 500 Softgel] L.acidoph,Paracasei, B.lactis 1 cap PO DAILY 02/18/18 02/18/18 [Probiotic] Melatonin 10 mg PO HS 02/18/18 02/18/18 Pravastatin Sodium [Pravachol] 40 mg PO HS 02/18/18 02/18/18 Previous Rx's Medication Instructions Recorded Albuterol Inhaler [Ventolin Hfa 1 - 2 puff INHALATION RT-Q6H #1 02/18/18 Inhaler] inhaler predniSONE 60 mg PO DAILY 4 Days #12 tab 02/18/18 Allergies Allergy/AdvReac Type Severity Reaction Status Date / Time Sulfa (Sulfonamide Allergy Unknown Verified 02/18/18 18:06 Antibiotics) Penicillins AdvReac Nausea & Verified 02/18/18 18:06 Vomiting Review of Systems ROS Statement: Those systems with pertinent positive or pertinent negative responses have been documented in the HPI. ROS Other: All systems not noted in ROS Statement are negative. Respiratory: Reports: dyspnea Cardiovascular: Reports: chest pain Past Medical History Past Medical History: Diabetes Mellitus, Fibromyalgia, GERD/Reflux, Hypertension , Rheumatoid Arthritis (RA), Thyroid Disorder Additional Past Medical History / Comment(s): sarcoidosis, ibs migraines optic nerve damage short term memory issues chronic back pain keratodermia urinary incontinence glaucoma, brain lesion, pulmonary leasion History of Any Multi-Drug Resistant Organisms: None Reported Past Surgical History: Appendectomy, Cholecystectomy Additional Past Surgical History / Comment(s): bronchoscopy laproscopic young removal cyst removal Past Psychological History: Anxiety, Depression Smoking Status: Former smoker Past Alcohol Use History: None Reported Past Drug Use History: None Reported General Exam Limitations: no limitations General appearance: alert, in no apparent distress Head exam: Present: atraumatic, normocephalic Eye exam: Present: normal appearance ENT exam: Present: normal exam Neck exam: Present: normal inspection Respiratory exam: Present: normal lung sounds bilaterally, respiratory distress Cardiovascular Exam: Present: regular rate, normal rhythm GI/Abdominal exam: Present: soft. Absent: distended, tenderness Rectal exam: Present: deferred Extremities exam: Present: normal inspection, joint swelling Back exam: Present: normal inspection Neurological exam: Present: alert, oriented X3 Psychiatric exam: Present: normal affect, normal mood Skin exam: Present: warm, dry, intact Course Vital Signs 02/18/18 02/18/18 02/18/18 17:36 19:33 19:49 Temperature 98.3 F Pulse Rate 90 90 90 Respiratory 20 Rate Blood Pressure 141/88 O2 Sat by Pulse 97 Oximetry 02/18/18 02/18/1818 20:02 21:00 22:00 Temperature Pulse Rate 96 Respiratory 16 16 18 Rate Blood Pressure 143/77 O2 Sat by Pulse 97 Oximetry Medical Decision Making - Medical Decision Making Presents with a chief complaint of weakness and chest pain 3-4 days. On initial evaluation, vitals are stable, patient is in no acute distress. Patient states that she had a stress test recently within the last few months that was unremarkable. Patient will be evaluated with basic labs, cardiac enzymes, computed tomography scan of the chest with IV contrast. Patient given aspirin. 10:55 PM Evaluation this patient is unremarkable. Urinalysis is negative. Patient states that her breathing treatments and steroids she feels improved. She states that after the albuterol she is able to cough and feels as if she is clearing mucous out of her lungs. Patient remains stable for discharge. She was instructed to follow up with primary care and recommended 2 days, return to the ED if symptoms worsen or change. She was prescribed prednisone and albuterol to cover bronchitis and a flare of sarcoidosis. - Lab Data Result diagrams: 02/18/18 18:06 02/18/18 18:06 Lab Results 02/18/18 02/18/18 02/18/18 Range/Units 18:06 18:06 18:06 WBC 7.4 (3.8-10.6) k/uL RBC 4.51 (3.80-5.40) m/uL Hgb 11.6 (11.4-16.0) gm/dL Hct 37.0 (34.0-46.0) % MCV 82.1 (80.0-100.0) fL MCH 25.8 (25.0-35.0) pg MCHC 31.4 (31.0-37.0) g/dL RDW 16.7 H (11.5-15.5) % Plt Count 303 (150-450) k/uL Neutrophils % 55 % Lymphocytes % 34 % Monocytes % 5 % Eosinophils % 2 % Basophils % 1 % Neutrophils # 4.1 (1.3-7.7) k/uL Lymphocytes # 2.5 (1.0-4.8) k/uL Monocytes # 0.4 (0-1.0) k/uL Eosinophils # 0.2 (0-0.7) k/uL Basophils # 0.0 (0-0.2) k/uL Hypochromasia Slight Anisocytosis Slight PT (9.0-12.0) sec INR (<1.2) Sodium 138 (137-145) mmol/L Potassium 4.3 (3.5-5.1) mmol/L Chloride 102 (98-107) mmol/L Carbon Dioxide 24 (22-30) mmol/L Anion Gap 12 mmol/L BUN 14 (7-17) mg/dL Creatinine 0.93 (0.52-1.04) mg/dL Est GFR (CKD-EPI)AfAm 76 (>60 ml/min/1.73 sqM) Est GFR (CKD-EPI)NonAf 66 (>60 ml/min/1.73 sqM) Glucose 115 H (74-99) mg/dL Calcium 9.9 (8.4-10.2) mg/dL Troponin I <0.012 (0.000-0.034) ng/mL NT-Pro-B Natriuret Pep pg/mL Urine Color Urine Appearance (Clear) Urine pH (5.0-8.0) Ur Specific [place] (1.001-1.035) Urine Protein (Negative) Urine Glucose (UA) (Negative) Urine Ketones (Negative) Urine Blood (Negative) Urine Nitrite (Negative) Urine Bilirubin (Negative) Urine Urobilinogen (<2.0) mg/dL Ur Leukocyte Esterase (Negative) Urine RBC (0-5) /hpf Urine Mucus (None) /hpf 02/18/18 02/18/18 02/18/18 Range/Units 18:06 18:06 19:36 WBC (3.8-10.6) k/uL RBC (3.80-5.40) m/uL Hgb (11.4-16.0) gm/dL Hct (34.0-46.0) % MCV (80.0-100.0) fL MCH (25.0-35.0) pg MCHC (31.0-37.0) g/dL RDW (11.5-15.5) % Plt Count (150-450) k/uL Neutrophils % % Lymphocytes % % Monocytes % % Eosinophils % % Basophils % % Neutrophils # (1.3-7.7) k/uL Lymphocytes # (1.0-4.8) k/uL Monocytes # (0-1.0) k/uL Eosinophils # (0-0.7) k/uL Basophils # (0-0.2) k/uL Hypochromasia Anisocytosis PT 10.1 (9.0-12.0) sec INR 0.9 (<1.2) Sodium (137-145) mmol/L Potassium (3.5-5.1) mmol/L Chloride (98-107) mmol/L Carbon Dioxide (22-30) mmol/L Anion Gap mmol/L BUN (7-17) mg/dL Creatinine (0.52-1.04) mg/dL Est GFR (CKD-EPI)AfAm (>60 ml/min/1.73 sqM) Est GFR (CKD-EPI)NonAf (>60 ml/min/1.73 sqM) Glucose (74-99) mg/dL Calcium (8.4-10.2) mg/dL Troponin I (0.000-0.034) ng/mL NT-Pro-B Natriuret Pep 87 pg/mL Urine Color Light Yellow Urine Appearance Cloudy H (Clear) Urine pH 5.5 (5.0-8.0) Ur Specific [place] 1.008 (1.001-1.035) Urine Protein Negative (Negative) Urine Glucose (UA) Negative (Negative) Urine Ketones Negative (Negative) Urine Blood Negative (Negative) Urine Nitrite Negative (Negative) Urine Bilirubin Negative (Negative) Urine Urobilinogen <2.0 (<2.0) mg/dL Ur Leukocyte Esterase Negative (Negative) Urine RBC 4 (0-5) /hpf Urine Mucus Rare H (None) /hpf Disposition Clinical Impression: Bronchitis, Sarcoidosis Disposition: HOME SELF-CARE Condition: Good Instructions: Bronchiolitis (ED) Prescriptions: Albuterol Inhaler [Ventolin Hfa Inhaler] 1 - 2 puff INHALATION RT-Q6H #1 inhaler predniSONE 60 mg PO DAILY 4 Days #12 tab Is patient prescribed a controlled substance at d/c from ED?: No Referrals: Esther Barragan MD [Primary Care Provider] - 1-2 days
[2018-02-18 18:42] LABS: INR 0.9 (<1.2); Prothrombin Time 10.1 sec (9.0-12.0)
[2018-02-18 18:45] LABS: Calcium 9.9 mg/dL (8.4-10.2); Potassium 4.3 mmol/L (3.5-5.1)
--- NOTE | 2018-02-18 20:32 | CT ---
EXAMINATION TYPE: CT chest angio for PE DATE OF EXAM: 02/18/2018 COMPARISON: June 30, 2012 HISTORY: difficulty breathing, hx asthma, HTN CT DLP: 353 mGycm Automated exposure control for dose reduction was used. CONTRAST: CT Chest for pulmonary embolism performed with with IV Contrast, patient injected with 100 mL of Isov ue 370. FINDINGS: There are 3-D post processed images. The lungs are clear of infiltrate. There is no pleural effusion. Heart size is normal. There is no mediastinal adenopathy. There are calcified granulomata in the ant erior mediastinum. There is normal contrast opacification of the pulmonary arteries. There are no javier ling defects. Heart size is normal. There is no pleural effusion. The bony thorax is intact. There ar e numerous calcified bronchial and subcarinal lymph nodes. IMPRESSION: No evidence of pulmonary embolism. Old granulomatous disease.
[2018-02-18] MEDS ORDERED: HYDROcodone/APAP 5-325MG 1 EACH TAB PO STA (21:03)
[2018-02-18 22:28] LABS: Appearance,Urine Cloudy (Clear); Bilirubin,Urine Negative (Negative); Blood,Urine Negative (Negative); Color,Urine Light Yellow; Glucose,Urine (UA) Negative (Negative); Ketones,Urine Negative (Negative); Leukocyte Esterase,Urine Negative (Negative); Mucus,Urine Rare /hpf; Nitrite,Urine Negative (Negative); PH, Urine 5.5 (5.0-8.0); Protein,Urine Negative (Negative); RBC,Urine 4 /hpf (0-5); Specific Gravity,Urine 1.008 (1.001-1.035); Urobilinogen,Urine <2.0 mg/dL (<2.0)
[2018-02-18 23:09] VITALS: BP 138/74; PULSE 77; RESP 16; TEMP 97.4
== END 2018-02-18 23:05 | disposition home or self-care (01) ==
LOC: EC 17:14
DX: J40 Bronchitis, not specified as acute or chronic (principal); D86.9 Sarcoidosis, unspecified; I10 Essential (primary) hypertension; K21.9 Gastro-esophageal reflux disease without esophagitis; H40.9 Unspecified glaucoma; E07.9 Disorder of thyroid, unspecified; M06.9 Rheumatoid arthritis, unspecified; F32.9 Major depressive disorder, single episode, unspecified; F41.9 Anxiety disorder, unspecified; Z87.891 Personal history of nicotine dependence; Z88.0 Allergy status to penicillin; Z88.2 Allergy status to sulfonamides; Z79.82 Long term (current) use of aspirin; Z79.84 Long term (current) use of oral hypoglycemic drugs; Z79.899 Other long term (current) drug therapy
CPT/HCPCS: 36415; 94640; 83880; 80048; 84484; 85025; 85610; 81001; 71275; 99285; 96374; 96361 ×2; J2930; Q9967

== ENCOUNTER 2018-03-02 13:55 | Emergency (ER) | payer OTHER ==
[2018-03-02 14:56] LABS: Anisocytosis Slight; Basophils % (A) 1 %; Eosinophils # (A) 0.1 k/uL (0-0.7); Eosinophils % (A) 2 %; HCT 37.5 % (34.0-46.0); HGB 11.3 gm/dL (11.4-16.0); Hypochromasia Slight; Lymphocytes # (A) 2.5 k/uL (1.0-4.8); Lymphocytes % (A) 37 %; MCH 24.8 pg (25.0-35.0); MCHC 30.3 g/dL (31.0-37.0); MCV 81.8 fL (80.0-100.0); Mean Platelet Volume 6.2; Monocytes # (A) 0.5 k/uL (0-1.0); Monocytes % (A) 7 %; Neutrophils # (A) 3.4 k/uL (1.3-7.7); Neutrophils % (A) 50 %; Platelet Count 354 k/uL (150-450); RBC 4.58 m/uL (3.80-5.40); RDW 16.3 % (11.5-15.5); WBC 6.8 k/uL (3.8-10.6)
[2018-03-02 15:07] LABS: Albumin 4.5 g/dL (3.5-5.0); Calcium 10.1 mg/dL (8.4-10.2); Potassium 4.9 mmol/L (3.5-5.1); Total Bilirubin 0.5 mg/dL (0.2-1.3); Total Protein 7.7 g/dL (6.3-8.2)
--- NOTE | 2018-03-02 15:15 | XR ---
EXAMINATION TYPE: XR KUB DATE OF EXAM: 03/02/2018 CLINICAL DATA: 62-year-old female with abdominal pain, H COMPARISON: 05/12/2016 FINDINGS: Lung bases are clear. No evidence for free intraperitoneal air. No dilated small bowel or air-fluid levels. Cholecystectomy clips. Vertebroplasty cement within the T12 vertebral body. Some additional surgical material along the right mid abdomen. Moderate overall stool burden. No suspicious calcifications seen. IMPRESSION: No evidence for free air or bowel obstruction. Moderate stool burden.
[2018-03-02 15:21] LABS: Appearance,Urine Clear (Clear); Bilirubin,Urine Negative (Negative); Blood,Urine Negative (Negative); Color,Urine Light Yellow; Glucose,Urine (UA) Negative (Negative); Ketones,Urine Negative (Negative); Leukocyte Esterase,Urine Negative (Negative); Nitrite,Urine Negative (Negative); PH, Urine 5.5 (5.0-8.0); Protein,Urine Negative (Negative); Specific Gravity,Urine 1.003 (1.001-1.035); Urobilinogen,Urine <2.0 mg/dL (<2.0)
--- NOTE | 2018-03-02 17:13 | CT ---
EXAMINATION TYPE: CT abdomen pelvis w con DATE OF EXAM: 03/02/2018 COMPARISON: 05/12/2016 HISTORY: RLQ pain for [address] DLP: 897.1 mGycm Automated exposure control for dose reduction was used. TECHNIQUE: Helical acquisition of images was performed from the lung bases through the pelvis. CONTRAST: Performed without Oral Contrast and with IV Contrast, patient injected with 100 mL of Isovue 300. FINDINGS: Heart size is normal. There is no pericardial effusion. Liver shows no focal defect. There are clips from cholecystectomy. Spleen appears normal. There is no pancreatic mass. There is no adrenal mass. Kidneys show satisfactory contrast opacification. There is no hydronephrosi s. The ureters are not dilated. There is no retroperitoneal adenopathy. Bladder distends smoothly. There is no inguinal hernia. There is no free fluid in the pelvis. There a re clips at the cecum consistent with appendectomy. Appendix is not seen. There is no ascites. There is no mesenteric edema. There is no evidence of free air. There is apparen t vertebroplasty of T12. There is no significant compression deformity. I see no focal bone destructi on. Uterus is anteverted. There are a few calcifications at the vagina the could be phleboliths. I se e no intestinal wall thickening. There is no evidence of a bowel obstruction. Stomach appears normal. IMPRESSION: NEGATIVE CT SCAN ABDOMEN AND PELVIS. NO ADVERSE CHANGE COMPARED TO OLD EXAM. I DO NOT SEE A CAUSE FOR RIGHT LOWER QUADRANT PAIN.
[2018-03-02] MEDS ORDERED: SODIUM CHLORIDE 0.9% 1,000 ML IV STA (17:32)
[2018-03-02] MEDS ORDERED: PANTOPRAZOLE 40 MG/10 ML VIAL IVP STA (17:32)
[2018-03-02] MEDS ORDERED: MORPHINE SULFATE 4 MG/ML SYRINGE IVP STA ×2 (17:32→20:37)
[2018-03-02] MEDS ORDERED: ONDANSETRON 4 MG/2 ML VIAL IVP STA (17:32)
--- NOTE | 2018-03-02 17:44 | ED ---
Abdominal Pain HPI - General Chief Complaint: Abdominal Pain Stated Complaint: Abd pain, Dr Barragan sent Time Seen by Provider: 03/02/18 16:10 Source: patient, RN notes reviewed, old records reviewed Mode of arrival: ambulatory Limitations: no limitations - History of Present Illness Initial Comments: This is a 62-year-old female the ER for evaluation of abdominal pain. 5 days of right lower quadrant abdominal pain. Patient is accompanied to medical history chronic neck his tissue disease sarcoidosis, diabetes. No real recent surgical history. Patient did see family doctor earlier today and instructed to come to emergency room. Patient denies fevers no change in bowel habits no dysuria. She admits to right, suprapubic pelvic pain. No travel history no sick contacts no prior history of sore pain. Pain 5 days. -: days(s) (5) Location: RLQ Radiation: RLQ Migration to: suprapubic Severity: mild Severity scale (1-10): 3 Quality: cramping, aching Consistency: constant Improves With: nothing Worsens With: nothing Associated Symptoms: nausea Treatments Prior to Arrival: prescription analgesics, other (None) - Related Data Home Medications Medication Instructions Recorded Confirmed Aspirin 81 mg PO DAILY 05/09/14 03/02/18 Butalb/Acetaminophen/Caffeine 1 - 2 tab PO Q4HR PRN 05/09/14 03/02/18 [Fioricet 50-300-40 mg Capsule] DULoxetine HCL [Cymbalta] 60 mg PO DAILY 05/09/14 03/02/18 Diazepam 2 mg PO HS PRN 05/09/14 03/02/18 Hydrocodone/Acetaminophen [[place] 1 tab PO Q6HR PRN 05/09/14 03/02/18 7.5-325] Latanoprost Ophth [Xalatan 0.005%] 1 drops BOTH EYES HS 05/09/14 03/02/18 Levothyroxine Sodium [Synthroid] 25 mcg PO DAILY 05/09/14 03/02/18 Lisinopril [Zestril] 5 mg PO DAILY 05/09/14 03/02/18 Multivitamins, Thera [Multivitamin] 1 tab PO DAILY 05/09/14 03/02/18 Omeprazole [PriLOSEC] 20 mg PO AC-BRKFST 05/09/14 03/02/18 metFORMIN HCL [metFORMIN HCL ER] 1,000 mg PO BID 05/09/14 03/02/18 Methocarbamol [Robaxin] 500 mg PO BID PRN 05/12/16 03/02/18 Calcium Carbonate/Vitamin D3 1 cap PO DAILY 02/18/18 03/02/18 [Calcium 600-Vit D3 500 Softgel] L.acidoph,Paracasei, B.lactis 1 cap PO DAILY 02/18/18 03/02/18 [Probiotic] Melatonin 10 mg PO HS 02/18/18 03/02/18 Pravastatin Sodium [Pravachol] 40 mg PO HS 02/18/18 03/02/18 Magnesium Oxide [[place]] 500 mg PO DAILY 03/02/18 03/02/18 Allergies Allergy/AdvReac Type Severity Reaction Status Date / Time Sulfa (Sulfonamide Allergy Unknown Verified 03/02/18 17:06 Antibiotics) Penicillins AdvReac Nausea & Verified 03/02/18 17:06 Vomiting Review of Systems ROS Statement: Those systems with pertinent positive or pertinent negative responses have been documented in the HPI. ROS Other: All systems not noted in ROS Statement are negative. Past Medical History Past Medical History: Diabetes Mellitus, Fibromyalgia, GERD/Reflux, Hypertension , Rheumatoid Arthritis (RA), Thyroid Disorder Additional Past Medical History / Comment(s): sarcoidosis, ibs migraines optic nerve damage short term memory issues chronic back pain keratodermia urinary incontinence glaucoma, brain lesion, pulmonary leasion History of Any Multi-Drug Resistant Organisms: None Reported Past Surgical History: Appendectomy, Cholecystectomy Additional Past Surgical History / Comment(s): bronchoscopy laproscopic young removal cyst removal Past Psychological History: Anxiety, Depression Smoking Status: Former smoker Past Alcohol Use History: None Reported Past Drug Use History: None Reported General Exam Limitations: no limitations General appearance: alert, in no apparent distress Head exam: Present: atraumatic, normocephalic, normal inspection Eye exam: Present: normal appearance, PERRL, EOMI. Absent: scleral icterus, conjunctival injection, periorbital swelling ENT exam: Present: normal exam, mucous membranes moist Neck exam: Present: normal inspection. Absent: tenderness, meningismus, lymphadenopathy Respiratory exam: Present: normal lung sounds bilaterally. Absent: respiratory distress, wheezes, rales, rhonchi, stridor Cardiovascular Exam: Present: regular rate, normal rhythm, normal heart sounds. Absent: systolic murmur, diastolic murmur, rubs, gallop, clicks GI/Abdominal exam: Present: soft, tenderness (Right lower quadrant, suprapubic) , normal bowel sounds. Absent: distended, guarding, rebound, rigid Extremities exam: Present: normal inspection, full ROM, normal capillary refill. Absent: tenderness, pedal edema, joint swelling, calf tenderness Back exam: Present: normal inspection Neurological exam: Present: alert, oriented X3, CN II-XII intact Psychiatric exam: Present: normal affect, normal mood Skin exam: Present: warm, dry, intact, normal color. Absent: rash Course Vital Signs 03/02/18 03/02/18 03/02/18 14:22 18:51 19:20 Temperature 98.4 F Pulse Rate 90 81 81 Respiratory 18 16 18 Rate Blood Pressure 109/73 102/64 155/105 O2 Sat by Pulse 96 97 99 Oximetry 03/02/18 20:46 Temperature 98.7 F Pulse Rate 84 Respiratory 19 Rate Blood Pressure 149/73 O2 Sat by Pulse 99 Oximetry - Reevaluation(s) Reevaluation #1: 03/02/18 17:44 Medical record is reviewed Reevaluation #2: 03/02/18 17:44 Patient does have mild improvement in symptoms Reevaluation #3: 03/02/18 17:44 Patient severely frustrated that time, wait time, patient being put in a hallway with no privacy. Medical Decision Making - Medical Decision Making 62 female the ER for evaluation of abdominal pain. Left suprapubic pain. Patient is CT as well as ultrasound are negative. The emergency room. Labwork normal patient can be discharged home - Lab Data Result diagrams: 03/02/18 14:33 03/02/18 14:33 Lab Results 03/02/18 03/02/18 03/02/18 Range/Units 14:33 14:33 14:33 WBC 6.8 (3.8-10.6) k/uL RBC 4.58 (3.80-5.40) m/uL Hgb 11.3 L (11.4-16.0) gm/dL Hct 37.5 (34.0-46.0) % MCV 81.8 (80.0-100.0) fL MCH 24.8 L (25.0-35.0) pg MCHC 30.3 L (31.0-37.0) g/dL RDW 16.3 H (11.5-15.5) % Plt Count 354 (150-450) k/uL Neutrophils % 50 % Lymphocytes % 37 % Monocytes % 7 % Eosinophils % 2 % Basophils % 1 % Neutrophils # 3.4 (1.3-7.7) k/uL Lymphocytes # 2.5 (1.0-4.8) k/uL Monocytes # 0.5 (0-1.0) k/uL Eosinophils # 0.1 (0-0.7) k/uL Basophils # 0.0 (0-0.2) k/uL Hypochromasia Slight Anisocytosis Slight ESR (0-20) mm/hr Sodium 139 (137-145) mmol/L Potassium 4.9 (3.5-5.1) mmol/L Chloride 102 (98-107) mmol/L Carbon Dioxide 25 (22-30) mmol/L Anion Gap 12 mmol/L BUN 14 (7-17) mg/dL Creatinine 0.86 (0.52-1.04) mg/dL Est GFR (CKD-EPI)AfAm 84 (>60 ml/min/1.73 sqM) Est GFR (CKD-EPI)NonAf 73 (>60 ml/min/1.73 sqM) Glucose 110 H (74-99) mg/dL Calcium 10.1 (8.4-10.2) mg/dL Total Bilirubin 0.5 (0.2-1.3) mg/dL AST 25 (14-36) U/L ALT 28 (9-52) U/L Alkaline Phosphatase 51 (38-126) U/L C-Reactive Protein <5.0 (<10.0) mg/L Total Protein 7.7 (6.3-8.2) g/dL Albumin 4.5 (3.5-5.0) g/dL Amylase 64 (30-110) U/L Lipase 86 (23-300) U/L Urine Color Urine Appearance (Clear) Urine pH (5.0-8.0) Ur Specific [place] (1.001-1.035) Urine Protein (Negative) Urine Glucose (UA) (Negative) Urine Ketones (Negative) Urine Blood (Negative) Urine Nitrite (Negative) Urine Bilirubin (Negative) Urine Urobilinogen (<2.0) mg/dL Ur Leukocyte Esterase (Negative) 03/02/18 03/02/18 Range/Units 14:53 17:40 WBC (3.8-10.6) k/uL RBC (3.80-5.40) m/uL Hgb (11.4-16.0) gm/dL Hct (34.0-46.0) % MCV (80.0-100.0) fL MCH (25.0-35.0) pg MCHC (31.0-37.0) g/dL RDW (11.5-15.5) % Plt Count (150-450) k/uL Neutrophils % % Lymphocytes % % Monocytes % % Eosinophils % % Basophils % % Neutrophils # (1.3-7.7) k/uL Lymphocytes # (1.0-4.8) k/uL Monocytes # (0-1.0) k/uL Eosinophils # (0-0.7) k/uL Basophils # (0-0.2) k/uL Hypochromasia Anisocytosis ESR 24 H (0-20) mm/hr Sodium (137-145) mmol/L Potassium (3.5-5.1) mmol/L Chloride (98-107) mmol/L Carbon Dioxide (22-30) mmol/L Anion Gap mmol/L BUN (7-17) mg/dL Creatinine (0.52-1.04) mg/dL Est GFR (CKD-EPI)AfAm (>60 ml/min/1.73 sqM) Est GFR (CKD-EPI)NonAf (>60 ml/min/1.73 sqM) Glucose (74-99) mg/dL Calcium (8.4-10.2) mg/dL Total Bilirubin (0.2-1.3) mg/dL AST (14-36) U/L ALT (9-52) U/L Alkaline Phosphatase (38-126) U/L C-Reactive Protein (<10.0) mg/L Total Protein (6.3-8.2) g/dL Albumin (3.5-5.0) g/dL Amylase (30-110) U/L Lipase (23-300) U/L Urine Color Light Yellow Urine Appearance Clear (Clear) Urine pH 5.5 (5.0-8.0) Ur Specific [place] 1.003 (1.001-1.035) Urine Protein Negative (Negative) Urine Glucose (UA) Negative (Negative) Urine Ketones Negative (Negative) Urine Blood Negative (Negative) Urine Nitrite Negative (Negative) Urine Bilirubin Negative (Negative) Urine Urobilinogen <2.0 (<2.0) mg/dL Ur Leukocyte Esterase Negative (Negative) - Radiology Data Radiology results: report reviewed (CT abdomen pelvis ultrasound pelvis negative for acute disease), image reviewed Disposition Clinical Impression: Abdominal pain, Sarcoidosis Disposition: HOME SELF-CARE Condition: Good Instructions: Abdominal Pain (ED) Is patient prescribed a controlled substance at d/c from ED?: No Referrals: Esther Barragan MD [Primary Care Provider] - 1-2 days
--- NOTE | 2018-03-02 20:17 | US ---
EXAMINATION TYPE: US transvaginal DATE OF EXAM: 03/02/2018 COMPARISON: NONE CLINICAL HISTORY: Pain. RLQ Pain TECHNIQUE: Transvaginal (TV). EXAM MEASUREMENTS: Uterus: 4.1 x 2.2 x 2.7 cm 1. Uterus: Retroflexed Heterogenous 2. Endometrium: Not well visualized. 3. Right Ovary: Obscured by overlying bowel gas 4. Left Ovary: Obscured by overlying bowel gas 5. Bilateral Adnexa: wnl 6. Posterior cul-de-sac: wnl IMPRESSION: Limited visualization of the uterus. Ovaries are not seen. No demonstrated abnormality. N o free fluid.
[2018-03-02 21:00] VITALS: BP 149/73; PULSE 84; RESP 19; TEMP 98.7
== END 2018-03-02 20:47 | disposition home or self-care (01) ==
LOC: EC 13:55
DX: D86.9 Sarcoidosis, unspecified (principal); R10.31 Right lower quadrant pain; E11.9 Type 2 diabetes mellitus without complications; M79.7 Fibromyalgia; K21.9 Gastro-esophageal reflux disease without esophagitis; I10 Essential (primary) hypertension; M06.9 Rheumatoid arthritis, unspecified; E07.9 Disorder of thyroid, unspecified; K58.9 Irritable bowel syndrome, unspecified; H40.9 Unspecified glaucoma; F32.9 Major depressive disorder, single episode, unspecified; F41.9 Anxiety disorder, unspecified; Z87.891 Personal history of nicotine dependence; Z79.82 Long term (current) use of aspirin; Z79.84 Long term (current) use of oral hypoglycemic drugs; Z79.899 Other long term (current) drug therapy; Z88.0 Allergy status to penicillin; Z88.2 Allergy status to sulfonamides; Z90.49 Acquired absence of other specified parts of digestive tract
CPT/HCPCS: 36415; 80053; 85652; 82150; 83690; 85025; 86140; 81003; 74018; 76830; 74177; 99285; 96374; 96375 ×2; 96376; 96361; J2270; J2405; C9113; Q9967

== ENCOUNTER → 2018-03-25 | Outpatient (CLI) | payer OTHER | END | disposition home or self-care (01) | LOC: LABWHC1 15:20 | PROVIDERS: ATTEND Internal Medicine Critical Care Medicine | DX: D86.0 Sarcoidosis of lung (principal) | CPT/HCPCS: 36415; 82164 ==

== ENCOUNTER → 2018-04-05 | Outpatient (CLI) | payer OTHER ==
--- NOTE | 2018-04-05 15:30 | US ---
EXAMINATION TYPE: US extremity nonvasculr ltd RT DATE OF EXAM: 04/05/2018 COMPARISON: NONE CLINICAL HISTORY: R22.9 Localized swelling, mass and lump, unspecifi. Patient states she has palp area anterior right arm, just below elbow, for years. It is more prominen t and painful since last fall, when aggravated by doing lawn work. Patient states she has sarcoidosis and other immune deficiencies. Scanned area of concern over lump, just below elbow, as well as left arm for comparison purposes. No definite abnormality noted. IMPRESSION: 1. No discrete abnormality at the palpable region just below the medial below
== END | disposition home or self-care (01) ==
LOC: RADUSWWP 13:47
PROVIDERS: ATTEND Family Medicine
DX: R22.31 Localized swelling, mass and lump, right upper limb (principal)

== ENCOUNTER → 2018-05-24 | Outpatient (CLI) | payer OTHER ==
[2018-05-24 12:04] LABS: Basophils % (A) 1 %; Eosinophils # (A) 0.2 k/uL (0-0.7); Eosinophils % (A) 4 %; HCT 36.7 % (34.0-46.0); HGB 11.4 gm/dL (11.4-16.0); Hypochromasia Marked; Lymphocytes # (A) 1.6 k/uL (1.0-4.8); Lymphocytes % (A) 37 %; MCH 25.9 pg (25.0-35.0); MCV 83.5 fL (80.0-100.0); Mean Platelet Volume 7.1; Monocytes # (A) 0.3 k/uL (0-1.0); Monocytes % (A) 7 %; Neutrophils # (A) 2.1 k/uL (1.3-7.7); Neutrophils % (A) 49 %; Platelet Count 339 k/uL (150-450); RBC 4.39 m/uL (3.80-5.40); RDW 15.5 % (11.5-15.5); WBC 4.3 k/uL (3.8-10.6)
[2018-05-24 16:33] LABS: Albumin 4.5 g/dL (3.80-4.90); Albumin/Globulin Ratio 2.05 (1.60-3.17); Anion Gap 10.7 mmol/L (4.00-12.00); Calcium 9.3 mg/dL (8.7-10.3); Carbon Dioxide 25.3 mmol/L (21.6-31.8); Globulin 2.2 g/dL (1.6-3.3); Magnesium 1.6 mg/dL (1.5-2.4); Potassium 4.4 mmol/L (3.5-5.5); Total Bilirubin 0.4 mg/dL (0.3-1.2); Total Protein 6.7 g/dL (6.2-8.2)
[2018-05-24 16:37] LABS: Vitamin D 25 Hydroxy 35.6 ng/mL (30.0-100.0)
[2018-05-24 16:41] LABS: T4, Free (Free Thyroxine) 1.1 ng/dL (0.80-1.80)
[2018-05-24 16:58] LABS: Folate, Serum >24.0 ng/mL
== END | disposition home or self-care (01) ==
LOC: LABWHC1 11:14
PROVIDERS: ATTEND Family Medicine
DX: E11.65 Type 2 diabetes mellitus with hyperglycemia (principal); E55.9 Vitamin D deficiency, unspecified; E03.9 Hypothyroidism, unspecified; E78.2 Mixed hyperlipidemia; R05 Cough; R06.2 Wheezing
CPT/HCPCS: 36415; 80053; 80061; 82043; 82306; 82570; 82607; 82746; 83735; 84439; 84443; 85025

== ENCOUNTER 2018-10-30 19:55 | Emergency (ER) | payer OTHER ==
[2018-10-30 20:05] VITALS: TEMP 98.2
[2018-10-30] MEDS: SODIUM CHLORIDE 0.9% 500 ML 500 ML IV SCH (21:54)
[2018-10-30 22:15] LABS: Anisocytosis Slight; Basophils # (A) 0.1 k/uL (0-0.2); Basophils % (A) 1 %; Eosinophils # (A) 0.2 k/uL (0-0.7); Eosinophils % (A) 2 %; HCT 34.3 % (34.0-46.0); HGB 10.9 gm/dL (11.4-16.0); Hypochromasia Moderate; Lymphocytes # (A) 2.9 k/uL (1.0-4.8); Lymphocytes % (A) 37 %; MCH 25.8 pg (25.0-35.0); MCHC 31.9 g/dL (31.0-37.0); MCV 80.6 fL (80.0-100.0); Mean Platelet Volume 6.7; Monocytes # (A) 0.5 k/uL (0-1.0); Monocytes % (A) 6 %; Neutrophils % (A) 51 %; Platelet Count 386 k/uL (150-450); RBC 4.25 m/uL (3.80-5.40); RDW 16.4 % (11.5-15.5); WBC 7.7 k/uL (3.8-10.6)
[2018-10-30 22:24] LABS: Albumin 4.5 g/dL (3.5-5.0); Calcium 9.8 mg/dL (8.4-10.2); Potassium 4.6 mmol/L (3.5-5.1); Total Bilirubin 0.3 mg/dL (0.2-1.3); Total Protein 7.8 g/dL (6.3-8.2)
[2018-10-30 22:29] LABS: INR 0.9 (<1.2); Prothrombin Time 9.7 sec (9.0-12.0)
[2018-10-30 22:32] LABS: Partial Thromboplastin Time 20.7 sec (22.0-30.0)
--- NOTE | 2018-10-30 22:32 | ED ---
Abdominal Pain HPI - General Chief Complaint: Abdominal Pain Stated Complaint: Abd pain Time Seen by Provider: 10/30/18 21:17 Source: patient Mode of arrival: ambulatory Limitations: no limitations - History of Present Illness Initial Comments: Bernice is a 63-year-old female who presents to the emergency department today for evaluation of pressure-like crampy abdominal pain throughout her abdomen. Patient reports this is been progressively worsening for a few days. Patient reports today she had waves of crampy pain and felt like her stomach was bulging more on the right than the left. Patient reports waves of nausea but no vomiting. She reports she had some loose stools today but hasn't had a solid bowel movement in a couple of days. She denies any dysuria or hematuria. Patient states initially she thought this crampy pain was a kidney stone however she hasn't had any pain radiating to her back or her flank like she has experienced in the past. Patient reports that she is arty had an appendectomy and cholecystectomy she's never had a small bowel obstruction. She also complains of intermittent cramps in her right lower extremity though she's noted no color change or edema. Describes the cramps as cramping in her calf. - Related Data Home Medications Medication Instructions Recorded Confirmed Aspirin 81 mg PO DAILY 05/09/14 10/30/18 Butalb/Acetaminophen/Caffeine 1 - 2 tab PO Q4HR PRN 05/09/14 10/30/18 [Fioricet 50-300-40 mg Capsule] DULoxetine HCL [Cymbalta] 60 mg PO DAILY 05/09/14 10/30/18 Diazepam 2 mg PO HS PRN 05/09/14 10/30/18 Hydrocodone/Acetaminophen [[place] 1 tab PO Q6HR PRN 05/09/14 10/30/18 7.5-325] Latanoprost Ophth [Xalatan 0.005%] 1 drops BOTH EYES HS 05/09/14 10/30/18 Levothyroxine Sodium [Synthroid] 25 mcg PO DAILY 05/09/14 10/30/18 Lisinopril [Zestril] 5 mg PO DAILY 05/09/14 10/30/18 Multivitamins, Thera [Multivitamin] 1 tab PO DAILY 05/09/14 10/30/18 Omeprazole [PriLOSEC] 20 mg PO AC-BRKFST 05/09/14 10/30/18 metFORMIN HCL [metFORMIN HCL ER] 1,000 mg PO BID 05/09/14 10/30/18 Methocarbamol [Robaxin] 500 mg PO BID PRN 05/12/16 10/30/18 Calcium Carbonate/Vitamin D3 1 cap PO DAILY 02/18/18 10/30/18 [Calcium 600-Vit D3 500 Softgel] L.acidoph,Paracasei, B.lactis 1 cap PO DAILY 02/18/18 10/30/18 [Probiotic] Melatonin 10 mg PO HS 02/18/18 10/30/18 Pravastatin Sodium [Pravachol] 40 mg PO HS 02/18/18 10/30/18 Magnesium Oxide [Beckham] 500 mg PO DAILY 03/02/18 10/30/18 Allergies Allergy/AdvReac Type Severity Reaction Status Date / Time Sulfa (Sulfonamide Allergy Unknown Verified 10/30/18 21:11 Antibiotics) Penicillins AdvReac Nausea & Verified 10/30/18 21:11 Vomiting Review of Systems ROS Statement: Those systems with pertinent positive or pertinent negative responses have been documented in the HPI. ROS Other: All systems not noted in ROS Statement are negative. Past Medical History Past Medical History: Diabetes Mellitus, Fibromyalgia, GERD/Reflux, Hypertension, Rheumatoid Arthritis (RA), Thyroid Disorder Additional Past Medical History / Comment(s): sarcoidosis, ibs migraines optic nerve damage short term memory issues chronic back pain keratodermia urinary incontinence glaucoma, brain lesion, pulmonary leasion History of Any Multi-Drug Resistant Organisms: None Reported Past Surgical History: Appendectomy, Cholecystectomy Additional Past Surgical History / Comment(s): bronchoscopy laproscopic young removal cyst removal Past Psychological History: Anxiety, Depression Smoking Status: Former smoker Past Alcohol Use History: Rare Past Drug Use History: None Reported General Exam - General Exam Comments Initial Comments: Physical Exam GENERAL: Patient is well-developed and well-nourished. Patient is nontoxic and well- hydrated and is in no distress. HENT: Normocephalic, Atraumatic. EYES: PERRL, EOMI PULMONARY: Unlabored respirations. No audible rales rhonchi or wheezing was noted. CARDIOVASCULAR: There is a regular rate and rhythm without any murmurs gallops or rubs. Warm and well perfused lower extremities, no edema no discoloration ABDOMEN: Soft with normal bowel sounds. Mild tenderness to deep palpation in all quadrants, no focal tenderness SKIN: Skin is clear with no lesions or rashes and otherwise unremarkable. : Deferred NEUROLOGIC: Patient is alert and oriented x3. Moving all extremities spontaneously MUSCULOSKELETAL: Normal extremities with adequate strength and full range of motion. No lower extremity swelling or edema. No calf tenderness. PSYCHIATRIC: Normal psychiatric evaluation. Limitations: no limitations Course Vital Signs 10/30/18 10/30/18 10/30/18 20:03 21:58 22:00 Temperature 98.2 F Pulse Rate 120 H 88 78 Respiratory 18 18 17 Rate Blood Pressure 135/73 118/76 118/76 O2 Sat by Pulse 97 99 98 Oximetry 10/30/18 10/30/18 10/30/18 22:30 23:00 23:30 Temperature Pulse Rate 86 87 77 Respiratory 14 13 13 Rate Blood Pressure 114/87 138/79 107/95 O2 Sat by Pulse 98 98 98 Oximetry Medical Decision Making - Medical Decision Making The patient was seen and evaluated, history is obtained from the patient Physical exam is relatively unremarkable, the abdomen is obese mildly distended mildly tender non-peritoneal Patient has been experiencing crampy pain in her right calf however there is no edema no color change no signs of DVT Labs and imaging were ordered Labs are relatively unremarkable, CT imaging reveals significant colonic stool burden no other abnormalities This results were discussed with patient. I offered the patient medication including lactulose, magnesium citrate and relax. Patient states that she doesn't want to try anything aggressive as she doesn't do well when she does bowel prep for colonoscopies. Patient states she will take some MiraLAX tomorrow and drink plenty of fluids. - Lab Data Result diagrams: 10/30/18 21:55 10/30/18 21:55 Lab Results 10/30/18 10/30/18 10/30/18 Range/Units 21:55 21:55 21:55 WBC 7.7 (3.8-10.6) k/uL RBC 4.25 (3.80-5.40) m/uL Hgb 10.9 L (11.4-16.0) gm/dL Hct 34.3 (34.0-46.0) % MCV 80.6 (80.0-100.0) fL MCH 25.8 (25.0-35.0) pg MCHC 31.9 (31.0-37.0) g/dL RDW 16.4 H (11.5-15.5) % Plt Count 386 (150-450) k/uL Neutrophils % 51 % Lymphocytes % 37 % Monocytes % 6 % Eosinophils % 2 % Basophils % 1 % Neutrophils # 4.0 (1.3-7.7) k/uL Lymphocytes # 2.9 (1.0-4.8) k/uL Monocytes # 0.5 (0-1.0) k/uL Eosinophils # 0.2 (0-0.7) k/uL Basophils # 0.1 (0-0.2) k/uL Hypochromasia Moderate Anisocytosis Slight PT (9.0-12.0) sec INR (<1.2) APTT (22.0-30.0) sec Sodium 139 (137-145) mmol/L Potassium 4.6 (3.5-5.1) mmol/L Chloride 100 (98-107) mmol/L Carbon Dioxide 26 (22-30) mmol/L Anion Gap 13 mmol/L BUN 17 (7-17) mg/dL Creatinine 1.00 (0.52-1.04) mg/dL Est GFR (CKD-EPI)AfAm 69 (>60 ml/min/1.73 sqM) Est GFR (CKD-EPI)NonAf 60 (>60 ml/min/1.73 sqM) Glucose 116 H (74-99) mg/dL Lactic Ac Sepsis Rflx Plasma Lactic Acid Tya 2.5 H* (0.7-2.0) mmol/L Calcium 9.8 (8.4-10.2) mg/dL Total Bilirubin 0.3 (0.2-1.3) mg/dL AST 24 (14-36) U/L ALT 25 (9-52) U/L Alkaline Phosphatase 57 (38-126) U/L Total Protein 7.8 (6.3-8.2) g/dL Albumin 4.5 (3.5-5.0) g/dL 10/30/18 10/30/18 Range/Units 21:55 22:31 WBC (3.8-10.6) k/uL RBC (3.80-5.40) m/uL Hgb (11.4-16.0) gm/dL Hct (34.0-46.0) % MCV (80.0-100.0) fL MCH (25.0-35.0) pg MCHC (31.0-37.0) g/dL RDW (11.5-15.5) % Plt Count (150-450) k/uL Neutrophils % % Lymphocytes % % Monocytes % % Eosinophils % % Basophils % % Neutrophils # (1.3-7.7) k/uL Lymphocytes # (1.0-4.8) k/uL Monocytes # (0-1.0) k/uL Eosinophils # (0-0.7) k/uL Basophils # (0-0.2) k/uL Hypochromasia Anisocytosis PT 9.7 (9.0-12.0) sec INR 0.9 (<1.2) APTT 20.7 L (22.0-30.0) sec Sodium (137-145) mmol/L Potassium (3.5-5.1) mmol/L Chloride (98-107) mmol/L Carbon Dioxide (22-30) mmol/L Anion Gap mmol/L BUN (7-17) mg/dL Creatinine (0.52-1.04) mg/dL Est GFR (CKD-EPI)AfAm (>60 ml/min/1.73 sqM) Est GFR (CKD-EPI)NonAf (>60 ml/min/1.73 sqM) Glucose (74-99) mg/dL Lactic Ac Sepsis Rflx Y Plasma Lactic Acid Tay (0.7-2.0) mmol/L Calcium (8.4-10.2) mg/dL Total Bilirubin (0.2-1.3) mg/dL AST (14-36) U/L ALT (9-52) U/L Alkaline Phosphatase (38-126) U/L Total Protein (6.3-8.2) g/dL Albumin (3.5-5.0) g/dL Disposition Clinical Impression: Abdominal pain Disposition: HOME SELF-CARE Instructions (If sedation given, give patient instructions): Abdominal Pain (ED) Additional Instructions: I recommend he take MiraLAX and drink plenty of fluids as you have significant stool burden in your colon. Is patient prescribed a controlled substance at d/c from ED?: No Referrals: Esther Barragan MD [Primary Care Provider] - 1-2 days
[2018-10-30] MEDS ORDERED: MORPHINE SULFATE 4 MG/ML SYRINGE IVP STA (22:42)
--- NOTE | 2018-10-30 22:56 | CT ---
EXAM: CT Abdomen and Pelvis With Intravenous Contrast CLINICAL HISTORY: ITS.REASON CT Reason: Pain TECHNIQUE: Axial computed tomography images of the abdomen and pelvis with intravenous contrast. CTDI is 26 mGy and DLP is 1191 mGy-cm. This CT exam was performed using one or more of the following dose reduction techniques: automated exposure control, adjustment of the mA and/or kV according to patient size, and/or use of iterative reconstruction technique. COMPARISON: 03/02/2018 CT abdomen FINDINGS: Lung bases: No mass. No consolidation. ABDOMEN: Liver: Steatosis. Enlarged. Gallbladder and bile ducts: Removed. Pancreas: Unremarkable. Spleen: Unremarkable. Adrenals: Unremarkable. Kidneys and ureters: No hydronephrosis. Stomach and bowel: No bowel obstruction. No bowel wall thickening. Copious amounts of stool throughout the colon. PELVIS: Appendix: No appendicitis. Bladder: Unremarkable. Reproductive: Unremarkable. ABDOMEN and PELVIS: Intraperitoneal space: Unremarkable. Bones/joints: No acute fractures. Cement placed in the T12 vertebral body without significant height loss. Soft tissues: Unremarkable. Vasculature: No abdominal aortic aneurysm. Lymph nodes: No enlarged lymph nodes. IMPRESSION: 1. Hepatomegaly with steatosis. 2. Copious amounts of stool throughout the colon.
[2018-10-30 23:23] VITALS: RESP 13
[2018-10-30 23:47] VITALS: BP 107/95; PULSE 77
== END 2018-10-30 23:59 | disposition home or self-care (01) ==
LOC: EC 19:55
DX: R10.84 Generalized abdominal pain (principal); R14.0 Abdominal distension (gaseous); M79.661 Pain in right lower leg; R11.0 Nausea; E11.9 Type 2 diabetes mellitus without complications; K21.9 Gastro-esophageal reflux disease without esophagitis; M79.7 Fibromyalgia; I10 Essential (primary) hypertension; M06.9 Rheumatoid arthritis, unspecified; H40.9 Unspecified glaucoma; E07.9 Disorder of thyroid, unspecified; F32.9 Major depressive disorder, single episode, unspecified; F41.9 Anxiety disorder, unspecified; Z87.891 Personal history of nicotine dependence; Z88.0 Allergy status to penicillin; Z88.2 Allergy status to sulfonamides; Z79.82 Long term (current) use of aspirin; Z79.84 Long term (current) use of oral hypoglycemic drugs; Z79.890 Hormone replacement therapy; Z79.899 Other long term (current) drug therapy; Z90.49 Acquired absence of other specified parts of digestive tract
CPT/HCPCS: 36415; 93005; 80053; 83605; 85025; 85610; 85730; 87040; 74177; 99284; 96374; 96361 ×2; J2270; Q9967

== ENCOUNTER → 2018-12-07 | Outpatient (CLI) | payer OTHER ==
[2018-12-07 11:41] LABS: Basophils # (A) 0.1 k/uL (0-0.2); Basophils % (A) 1 %; Eosinophils # (A) 0.1 k/uL (0-0.7); Eosinophils % (A) 2 %; HCT 34.4 % (34.0-46.0); HGB 10.7 gm/dL (11.4-16.0); Hypochromasia Marked; Lymphocytes # (A) 1.9 k/uL (1.0-4.8); Lymphocytes % (A) 39 %; MCH 25.6 pg (25.0-35.0); MCHC 31.1 g/dL (31.0-37.0); MCV 82.2 fL (80.0-100.0); Mean Platelet Volume 5.8; Monocytes # (A) 0.3 k/uL (0-1.0); Monocytes % (A) 7 %; Neutrophils # (A) 2.4 k/uL (1.3-7.7); Neutrophils % (A) 48 %; Platelet Count 368 k/uL (150-450); RBC 4.18 m/uL (3.80-5.40); RDW 15.3 % (11.5-15.5); WBC 4.9 k/uL (3.8-10.6)
[2018-12-07 16:26] LABS: Vitamin D 25 Hydroxy 36.4 ng/mL (30.0-100.0)
[2018-12-07 16:56] LABS: African American GFR (CKD) 68.9 (60.0-200.0); Albumin 4.7 g/dL (3.80-4.90); Albumin/Globulin Ratio 2.14 (1.60-3.17); Anion Gap 10.3 mmol/L (4.00-12.00); Calcium 10.4 mg/dL (8.7-10.3); Carbon Dioxide 25.7 mmol/L (21.6-31.8); Chol/HDL Ratio 3.2; Globulin 2.2 g/dL (1.6-3.3); LDL Cholesterol,Calculated 134.6 mg/dL (0.0-131.0); Magnesium 1.5 mg/dL (1.5-2.4); Potassium 4.7 mmol/L (3.5-5.5); Total Bilirubin 0.4 mg/dL (0.3-1.2); Total Protein 6.9 g/dL (6.2-8.2); Uric Acid 5.9 mg/dL (2.9-7.7); VLDL Calculation 19.4 mg/dL (5.00-40.00)
[2018-12-07 16:58] LABS: Folate, Serum >24.0 ng/mL
== END | disposition home or self-care (01) ==
LOC: LABWHC1 10:32
PROVIDERS: ATTEND Family Medicine
DX: E11.65 Type 2 diabetes mellitus with hyperglycemia (principal); E03.9 Hypothyroidism, unspecified; E78.2 Mixed hyperlipidemia; R10.31 Right lower quadrant pain; R10.2 Pelvic and perineal pain
CPT/HCPCS: 36415; 80053; 80061; 82150; 82306; 82607; 82746; 83690; 83735; 84550; 85025

== ENCOUNTER → 2018-12-19 | Outpatient (CLI) | payer OTHER ==
--- NOTE | 2018-12-19 16:18 | US ---
EXAMINATION TYPE: US pelvic complete DATE OF EXAM: 12/19/2018 COMPARISON: US 03/02/18, CT 10/30/18 CLINICAL HISTORY: 63-year-old female R10.31 RLQ ABD PAIN/R10.2 PELVIC PAIN. TECHNIQUE: Transvaginal (TV) and Transabdominal (TA) . Transabdominal sonographic images of the pel vis were acquired. Transvaginal sonographic images were medically necessary to better assess the fol lowing anatomy: Ovaries Date of LMP: Post menopausal FINDINGS: EXAM MEASUREMENTS: Uterus: 6.8 x 4.6 x 4.2 cm Endometrial Stripe: Not well seen Right Ovary: Not seen Left Ovary: Not seen 1. Uterus: Retroverted and largely obscured by overlying bowel gas 2. Endometrium: Not well seen. 3. Right Ovary: Not seen 4. Left Ovary: Not seen. 6. Posterior cul-de-sac: wnl IMPRESSION: Retroverted uterus visualized with difficulty on transabdominal scanning. Uterus is largely obscured on both transabdominal and transvaginal scanning due to bowel gas. Neither ovary could be visualized.
== END | disposition home or self-care (01) ==
LOC: RADUSWWP 12:39
PROVIDERS: ATTEND Family Medicine
DX: N85.4 Malposition of uterus (principal)
CPT/HCPCS: 76830; 76856

== ENCOUNTER → 2019-02-09 | Outpatient (CLI) | payer OTHER ==
--- NOTE | 2019-02-13 08:46 | MM ---
Reason for exam: screening (asymptomatic). Last mammogram was performed 1 year and 1 month ago. History: Patient is postmenopausal. Family history of breast cancer in paternal grandmother. Benign stereotactic core biopsy of the left breast. Excisional biopsy of the right breast. Physical Findings: A clinical breast exam by your physician is recommended on an annual basis and results should be correlated with mammographic findings. MG 3D Screening Mammo W/Cad Bilateral CC and MLO view(s) were taken. Prior study comparison: January 06, 2018, bilateral MG screening mammo w CAD. October 13, 2016, bilateral MG screening mammo w CAD. The breast tissue is heterogeneously dense. This may lower the sensitivity of mammography. Previous mammotome biopsy in the left breast. No significant changes when compared with prior studies. ASSESSMENT: Benign, BI-RAD 2 RECOMMENDATION: Routine screening mammogram of both breasts in 1 year.
== END | disposition home or self-care (01) ==
LOC: RADMAMWWP 13:41
PROVIDERS: ATTEND Family Medicine
DX: Z12.39 Encounter for other screening for malignant neoplasm of breast (principal)
CPT/HCPCS: 77063; 77067

== ENCOUNTER 2019-03-17 04:03 | Emergency (ER) | payer MEDICARE, OTHER ==
[2019-03-17 04:12] VITALS: TEMP 99.4
[2019-03-17] MEDS ORDERED: ALBUTEROL NEBULIZED 2.5 MG/3 ML INHALATION STA (04:50)
--- NOTE | 2019-03-17 05:10 | XR ---
EXAMINATION TYPE: XR chest 2V DATE OF EXAM: 03/17/2019 COMPARISON: 06/20/2017 HISTORY: Cough TECHNIQUE: FINDINGS: Heart is normal. Lungs are clear of consolidation. There are densely calcified bilateral br onchial lymph nodes. There is vertebroplasty of lower thoracic T12 vertebra. There is no pleural effu tracy. IMPRESSION: Old granulomatous disease. No active cardiopulmonary disease. No change.
[2019-03-17] MEDS ORDERED: predniSONE 20 MG TAB PO STA (05:29)
--- NOTE | 2019-03-17 05:29 | ED ---
URI HPI - General Chief Complaint: Upper Respiratory Infection Stated Complaint: URI Time Seen by Provider: 03/17/19 04:44 Source: patient Mode of arrival: ambulatory Limitations: no limitations - History of Present Illness Initial Comments: 's patient is a 63-year-old woman who presents with upper respiratory symptoms as well as cough and rib aching with the cough. Patient states that her had been having similar symptoms, was seen here and was diagnosed with bronchitis. Patient states her symptoms started with congestion and cough. She then was feeling the symptoms moved down to her chest. She also has sore throat and left ear pressure. MD Complaint: cough, sore throat, rhinorrhea -: days(s) Severity: mild Consistency: constant Improves With: nothing Context: sick contacts Associated Symptoms: rhinorrhea, sore throat, cough, shortness of breath Treatments Prior to Arrival: none - Related Data Home Medications Medication Instructions Recorded Confirmed Aspirin 81 mg PO DAILY 05/09/14 10/30/18 Butalb/Acetaminophen/Caffeine 1 - 2 tab PO Q4HR PRN 05/09/14 10/30/18 [Fioricet 50-300-40 mg Capsule] DULoxetine HCL [Cymbalta] 60 mg PO DAILY 05/09/14 10/30/18 Diazepam 2 mg PO HS PRN 05/09/14 10/30/18 Hydrocodone/Acetaminophen [[place] 1 tab PO Q6HR PRN 05/09/14 10/30/18 7.5-325] Latanoprost Ophth [Xalatan 0.005%] 1 drops BOTH EYES HS 05/09/14 10/30/18 Levothyroxine Sodium [Synthroid] 25 mcg PO DAILY 05/09/14 10/30/18 Lisinopril [Zestril] 5 mg PO DAILY 05/09/14 10/30/18 Multivitamins, Thera [Multivitamin] 1 tab PO DAILY 05/09/14 10/30/18 Omeprazole [PriLOSEC] 20 mg PO AC-BRKFST 05/09/14 10/30/18 metFORMIN HCL [metFORMIN HCL ER] 1,000 mg PO BID 05/09/14 10/30/18 Methocarbamol [Robaxin] 500 mg PO BID PRN 05/12/16 10/30/18 Calcium Carbonate/Vitamin D3 1 cap PO DAILY 02/18/18 10/30/18 [Calcium 600-Vit D3 500 Softgel] L.acidoph,Paracasei, B.lactis 1 cap PO DAILY 02/18/18 10/30/18 [Probiotic] Melatonin 10 mg PO HS 02/18/18 10/30/18 Pravastatin Sodium [Pravachol] 40 mg PO HS 02/18/18 10/30/18 Magnesium Oxide [[place]] 500 mg PO DAILY 03/02/18 10/30/18 Previous Rx's Medication Instructions Recorded Albuterol Inhaler [Ventolin Hfa 1 - 2 puff INHALATION Q6HR PRN #1 03/17/19 Inhaler] inhaler predniSONE 60 mg PO DAILY #30 tab 03/17/19 Allergies Allergy/AdvReac Type Severity Reaction Status Date / Time Sulfa (Sulfonamide Allergy Unknown Verified 03/17/19 04:12 Antibiotics) Penicillins AdvReac Nausea & Verified 03/17/19 04:12 Vomiting Review of Systems ROS Statement: Those systems with pertinent positive or pertinent negative responses have been documented in the HPI. ROS Other: All systems not noted in ROS Statement are negative. Constitutional: Denies: fever, weakness ENT: Reports: ear pain, throat pain, congestion. Denies: hearing loss Respiratory: Reports: cough, dyspnea, wheezes. Denies: hemoptysis Cardiovascular: Denies: chest pain, palpitations, edema, syncope Gastrointestinal: Denies: abdominal pain, nausea, vomiting Genitourinary: Denies: dysuria, hematuria Musculoskeletal: Denies: back pain Skin: Denies: rash Neurological: Denies: headache, weakness, numbness Past Medical History Past Medical History: Diabetes Mellitus, Fibromyalgia, GERD/Reflux, Hypertension, Rheumatoid Arthritis (RA), Thyroid Disorder Additional Past Medical History / Comment(s): sarcoidosis, ibs migraines optic nerve damage short term memory issues chronic back pain keratodermia urinary inc ontinence glaucoma, brain lesion, pulmonary leasion, eye probelms History of Any Multi-Drug Resistant Organisms: None Reported Past Surgical History: Appendectomy, Cholecystectomy Additional Past Surgical History / Comment(s): bronchoscopy laproscopic young removal cyst removal Past Psychological History: Anxiety, Depression Smoking Status: Former smoker Past Alcohol Use History: Rare Past Drug Use History: None Reported General Exam Limitations: no limitations General appearance: alert, in no apparent distress Head exam: Present: atraumatic, normocephalic Eye exam: Present: normal appearance. Absent: scleral icterus, conjunctival injection ENT exam: Present: normal oropharynx, mucous membranes moist, normal external ear exam, other (Left ear with clear effusion) Respiratory exam: Present: wheezes. Absent: respiratory distress, rales, rhonch i, stridor, chest wall tenderness, accessory muscle use, decreased breath sounds Cardiovascular Exam: Present: regular rate, normal rhythm, normal heart sounds. Absent: systolic murmur, diastolic murmur, rubs, gallop GI/Abdominal exam: Present: soft. Absent: distended, tenderness, guarding, rebound, rigid, mass Extremities exam: Present: normal inspection, normal capillary refill. Absent: pedal edema, calf tenderness Back exam: Present: normal inspection. Absent: CVA tenderness (R), CVA tend erness (L) Neurological exam: Present: alert Skin exam: Present: warm, dry, intact, normal color. Absent: rash Course Vital Signs 03/17/19 03/17/19 03/17/19 04:10 05:12 05:23 Temperature 99.4 F Pulse Rate 112 H 100 104 H Respiratory 20 Rate Blood Pressure 148/88 O2 Sat by Pulse 97 Oximetry 03/17/19 05:51 Temperature Pulse Rate 103 H Respiratory 16 Rate Blood Pressure 122/61 O2 Sat by Pulse 97 Oximetry Medical Decision Making - Lab Data Lab Results 03/17/19 Range/Units 05:00 Influenza Type A RNA Not Detected (Not Detectd) Influenza Type B (PCR) Not Detected (Not Detectd) Disposition Clinical Impression: Bronchitis Disposition: HOME SELF-CARE Condition: Good Instructions (If sedation given, give patient instructions): Acute Bronchitis (ED) Prescriptions: predniSONE 60 mg PO DAILY #30 tab Albuterol Inhaler [Ventolin Hfa Inhaler] 1 - 2 puff INHALATION Q6HR PRN #1 inhaler PRN Reason: Wheezing Is patient prescribed a controlled substance at d/c from ED?: No Referrals: Esther Barragan MD [Primary Care Provider] - 1-2 days
[2019-03-17 05:52] VITALS: BP 122/61; PULSE 103; RESP 16
== END 2019-03-17 05:54 | disposition home or self-care (01) ==
LOC: EC 04:03
DX: J40 Bronchitis, not specified as acute or chronic (principal); H93.8X2 Other specified disorders of left ear; E11.9 Type 2 diabetes mellitus without complications; M79.7 Fibromyalgia; K21.9 Gastro-esophageal reflux disease without esophagitis; I10 Essential (primary) hypertension; M06.9 Rheumatoid arthritis, unspecified; E07.9 Disorder of thyroid, unspecified; H40.9 Unspecified glaucoma; G89.29 Other chronic pain; F32.9 Major depressive disorder, single episode, unspecified; Z88.0 Allergy status to penicillin; F41.9 Anxiety disorder, unspecified; Z88.2 Allergy status to sulfonamides; Z79.82 Long term (current) use of aspirin; Z79.84 Long term (current) use of oral hypoglycemic drugs; Z79.890 Hormone replacement therapy; Z79.899 Other long term (current) drug therapy; Z87.09 Personal history of other diseases of the respiratory system; Z98.890 Other specified postprocedural states
CPT/HCPCS: 94640; 87502; 71046; 99285; J7512

== ENCOUNTER 2019-03-24 18:19 | Inpatient (IN) | payer MEDICARE, OTHER ==
[2019-03-24] MEDS ORDERED: IPRATROPIUM-ALBUTEROL 3 ML NEB INHALATION STA ×2 (19:02→21:45)
--- NOTE | 2019-03-24 19:04 | ED ---
SOB HPI - General Chief Complaint: Shortness of Breath Stated Complaint: cough, SOB Time Seen by Provider: 03/24/19 18:27 Source: patient, RN notes reviewed, old records reviewed Mode of arrival: ambulatory Limitations: no limitations - History of Present Illness Initial Comments: This is a 63-year-old female here for evaluation shortness of breath persistent shortness of breath and not feeling well. Increased cough and congestion history of sarcoid patient of pulmonology here in town. Patient states she is been on outpatient treatment for shortness of breath. Congestion and not feeling well. No improvement here. Patient is denying significant chest pain currently but no fevers increased cough no congestion no travel history no sick contacts. Patient has multiple prior hospitalizations and visits for similar complaints MD Complaint: shortness of breath, cough -: week(s) Severity: moderate Severity scale (1-10): 7 Quality: aching Consistency: constant Improves With: oxygen, rest, medication Worsens With: exertion, movement Known History Of: COPD, other (sarcoidosis) Context: recent URI Associated Symptoms: chest pain, pain with inspiration, fever, cough, sputum production Treatments Prior to Arrival: none - Related Data Home Medications Medication Instructions Recorded Confirmed Butalb/Acetaminophen/Caffeine 1 - 2 tab PO Q4HR PRN 05/09/14 03/24/19 [Fioricet 50-300-40 mg Capsule] DULoxetine HCL [Cymbalta] 60 mg PO DAILY 05/09/14 03/24/19 Hydrocodone/Acetaminophen [[place] 1 tab PO Q6HR PRN 05/09/14 03/24/19 7.5-325] Latanoprost Ophth [Xalatan 0.005%] 1 drops BOTH EYES HS 05/09/14 03/24/19 Levothyroxine Sodium [Synthroid] 25 mcg PO DAILY 05/09/14 03/24/19 Lisinopril [Zestril] 5 mg PO DAILY 05/09/14 03/24/19 Multivitamins, Thera [Multivitamin] 1 tab PO Q48H 05/09/14 03/24/19 Omeprazole [PriLOSEC] 20 mg PO AC-BRKFST 05/09/14 03/24/19 RX: Aspirin 81 mg PO DAILY 05/09/14 03/24/19 RX: Diazepam 2 mg PO HS PRN 05/09/14 03/24/19 metFORMIN HCL [metFORMIN HCL ER] 1,000 mg PO BID 05/09/14 03/24/19 Methocarbamol [Robaxin] 500 mg PO BID PRN 05/12/16 03/24/19 Calcium Carbonate/Vitamin D3 1 cap PO Q48H 02/18/18 03/24/19 [Calcium 600-Vit D3 500 Softgel] L.acidoph,Paracasei, B.lactis 1 cap PO DAILY 02/18/18 03/24/19 [Probiotic] Pravastatin Sodium [Pravachol] 40 mg PO HS 02/18/18 03/24/19 RX: Melatonin 10 mg PO HS PRN 02/18/18 03/24/19 Magnesium Oxide [[place]] 500 mg PO DAILY 03/02/18 03/24/19 Pseudoephedrine 12Hr [Sudafed 12Hr] 120 mg PO Q12H 03/24/19 03/24/19 Previous Rx's Medication Instructions Recorded RX: Albuterol Inhaler [Ventolin 1 - 2 puff INHALATION Q6HR PRN #1 03/17/19 Hfa Inhaler] inhaler Allergies Allergy/AdvReac Type Severity Reaction Status Date / Time Sulfa (Sulfonamide Allergy Unknown Verified 03/24/19 21:01 Antibiotics) Penicillins AdvReac Nausea & Verified 03/24/19 21:01 Vomiting Review of Systems ROS Statement: Those systems with pertinent positive or pertinent negative responses have been documented in the HPI. ROS Other: All systems not noted in ROS Statement are negative. Past Medical History Past Medical History: Diabetes Mellitus, Fibromyalgia, GERD/Reflux, Hypertension, Rheumatoid Arthritis (RA), Thyroid Disorder Additional Past Medical History / Comment(s): sarcoidosis, ibs migraines optic nerve damage short term memory issues chronic back pain keratodermia urinary incontinence glaucoma, brain lesion, pulmonary leasion, eye probelms History of Any Multi-Drug Resistant Organisms: None Reported Past Surgical History: Appendectomy, Cholecystectomy Additional Past Surgical History / Comment(s): bronchoscopy laproscopic young removal cyst removal Past Psychological History: Anxiety, Depression Smoking Status: Former smoker Past Alcohol Use History: Rare Past Drug Use History: None Reported General Exam General appearance: alert, in no apparent distress Head exam: Present: atraumatic, normocephalic, normal inspection Eye exam: Present: normal appearance, PERRL, EOMI. Absent: scleral icterus, con junctival injection, periorbital swelling ENT exam: Present: normal exam, mucous membranes moist Neck exam: Present: normal inspection. Absent: tenderness, meningismus, lymphadenopathy Respiratory exam: Present: respiratory distress, wheezes, accessory muscle use, decreased breath sounds, prolonged expiratory. Absent: rales, rhonchi, stridor Cardiovascular Exam: Present: normal rhythm, tachycardia, normal heart sounds. Absent: systolic murmur, diastolic murmur, rubs, gallop, clicks GI/Abdominal exam: Present: soft, normal bowel sounds. Absent: distended, tenderness, guarding, rebound, rigid Extremities exam: Present: normal inspection, full ROM, normal capillary refill. Absent: tenderness, pedal edema, joint swelling, calf tenderness Back exam: Present: normal inspection Neurological exam: Present: alert, oriented X3, CN II-XII intact Psychiatric exam: Present: normal affect, normal mood Skin exam: Present: warm, dry, intact, normal color. Absent: rash Course Vital Signs 03/24/19 03/24/19 03/24/19 18:21 19:00 20:00 Temperature 98.2 F 98.5 F 98.7 F Pulse Rate 130 H 117 H 96 Respiratory 20 17 23 Rate Blood Pressure 122/79 130/67 131/73 O2 Sat by Pulse 98 98 96 Oximetry 03/24/19 03/24/19 03/24/19 20:25 20:31 20:52 Temperature 98.6 F Pulse Rate 96 96 101 H Respiratory 22 Rate Blood Pressure 157/97 O2 Sat by Pulse 96 Oximetry - Reevaluation(s) Reevaluation #1: 03/24/19 21:51 Medical records reviewed Reevaluation #2: 03/24/19 21:51 No other complaints noted currently. No current chest pain Reevaluation #3: 03/24/19 21:51 Feeling improved but no significant improvement in symptoms. Treatment here in the ER - Consultations Consultation #1: spoke w KATIE paula for admission Medical Decision Making - Medical Decision Making 63 female here for evaluation patient has cough congestion shortness of breath likely underlying bronchitis possible pneumonia with failed outpatient treatment, patient does have underlying sarcoidosis as well. Patient will be admitted for continued hydration as she does have significant dehydration here i n the ER, no real improvement here breathing situation status - Lab Data Result diagrams: 03/24/19 18:50 03/24/19 18:50 Lab Results 03/24/19 03/24/19 03/24/19 Range/Units 18:50 18:50 18:50 WBC 12.4 H (3.8-10.6) k/uL RBC 4.91 (3.80-5.40) m/uL Hgb 11.9 (11.4-16.0) gm/dL Hct 39.0 (34.0-46.0) % MCV 79.4 L (80.0-100.0) fL MCH 24.2 L (25.0-35.0) pg MCHC 30.5 L (31.0-37.0) g/dL RDW 16.7 H (11.5-15.5) % Plt Count 490 H (150-450) k/uL Neutrophils % 57 % Lymphocytes % 31 % Monocytes % 5 % Eosinophils % 2 % Basophils % 3 % Neutrophils # 7.0 (1.3-7.7) k/uL Lymphocytes # 3.9 (1.0-4.8) k/uL Monocytes # 0.6 (0-1.0) k/uL Eosinophils # 0.3 (0-0.7) k/uL Basophils # 0.3 H (0-0.2) k/uL Hypochromasia Moderate Anisocytosis Slight Microcytosis Slight PT 10.1 (9.0-12.0) sec INR 1.0 (<1.2) APTT 21.7 L (22.0-30.0) sec D-Dimer 0.61 H (<0.60) mg/L FEU Sodium 136 L (137-145) mmol/L Potassium 5.1 (3.5-5.1) mmol/L Chloride 99 (98-107) mmol/L Carbon Dioxide 21 L (22-30) mmol/L Anion Gap 16 mmol/L BUN 19 H (7-17) mg/dL Creatinine 0.92 (0.52-1.04) mg/dL Est GFR (CKD-EPI)AfAm 76 (>60 ml/min/1.73 sqM) Est GFR (CKD-EPI)NonAf 66 (>60 ml/min/1.73 sqM) Glucose 242 H (74-99) mg/dL Plasma Lactic Acid Tay (0.7-2.0) mmol/L Calcium 9.8 (8.4-10.2) mg/dL Magnesium 1.4 L (1.6-2.3) mg/dL Total Bilirubin 0.4 (0.2-1.3) mg/dL AST 26 (14-36) U/L ALT 24 (4-34) U/L Alkaline Phosphatase 70 (38-126) U/L Troponin I (0.000-0.034) ng/mL NT-Pro-B Natriuret Pep pg/mL Total Protein 7.8 (6.3-8.2) g/dL Albumin 4.5 (3.5-5.0) g/dL 03/24/19 03/24/19 03/24/19 Range/Units 18:50 18:50 18:50 WBC (3.8-10.6) k/uL RBC (3.80-5.40) m/uL Hgb (11.4-16.0) gm/dL Hct (34.0-46.0) % MCV (80.0-100.0) fL MCH (25.0-35.0) pg MCHC (31.0-37.0) g/dL RDW (11.5-15.5) % Plt Count (150-450) k/uL Neutrophils % % Lymphocytes % % Monocytes % % Eosinophils % % Basophils % % Neutrophils # (1.3-7.7) k/uL Lymphocytes # (1.0-4.8) k/uL Monocytes # (0-1.0) k/uL Eosinophils # (0-0.7) k/uL Basophils # (0-0.2) k/uL Hypochromasia Anisocytosis Microcytosis PT (9.0-12.0) sec INR (<1.2) APTT (22.0-30.0) sec D-Dimer (<0.60) mg/L FEU Sodium (137-145) mmol/L Potassium (3.5-5.1) mmol/L Chloride (98-107) mmol/L Carbon Dioxide (22-30) mmol/L Anion Gap mmol/L BUN (7-17) mg/dL Creatinine (0.52-1.04) mg/dL Est GFR (CKD-EPI)AfAm (>60 ml/min/1.73 sqM) Est GFR (CKD-EPI)NonAf (>60 ml/min/1.73 sqM) Glucose (74-99) mg/dL Plasma Lactic Acid Tay 3.9 H* (0.7-2.0) mmol/L Calcium (8.4-10.2) mg/dL Magnesium (1.6-2.3) mg/dL Total Bilirubin (0.2-1.3) mg/dL AST (14-36) U/L ALT (4-34) U/L Alkaline Phosphatase (38-126) U/L Troponin I <0.012 (0.000-0.034) ng/mL NT-Pro-B Natriuret Pep 39 pg/mL Total Protein (6.3-8.2) g/dL Albumin (3.5-5.0) g/dL - EKG Data -: EKG Interpreted by Me (EKG shows sinus tachycardia rate of 113, para 150, QRS 74, QTc 458) - Radiology Data Radiology results: report reviewed (Chest x-ray CT chest negative for significant new acute disease), image reviewed Disposition Clinical Impression: Bronchitis, Acute exacerbation of chronic obstructive pulmonary disease Disposition: ADMITTED IP TO THIS HOSP Condition: Fair Is patient prescribed a controlled substance at d/c from ED?: No Referrals: Esther Barragan MD [Primary Care Provider] - 1-2 days
[2019-03-24 19:20] LABS: Anisocytosis Slight; Basophils # (A) 0.3 k/uL (0-0.2); Basophils % (A) 3 %; Eosinophils # (A) 0.3 k/uL (0-0.7); Eosinophils % (A) 2 %; HGB 11.9 gm/dL (11.4-16.0); Hypochromasia Moderate; Lymphocytes # (A) 3.9 k/uL (1.0-4.8); Lymphocytes % (A) 31 %; MCH 24.2 pg (25.0-35.0); MCHC 30.5 g/dL (31.0-37.0); MCV 79.4 fL (80.0-100.0); Mean Platelet Volume 7.2; Microcytosis Slight; Monocytes # (A) 0.6 k/uL (0-1.0); Monocytes % (A) 5 %; Neutrophils % (A) 57 %; Platelet Count 490 k/uL (150-450); RBC 4.91 m/uL (3.80-5.40); RDW 16.7 % (11.5-15.5); WBC 12.4 k/uL (3.8-10.6)
[2019-03-24 19:29] LABS: Albumin 4.5 g/dL (3.5-5.0); Calcium 9.8 mg/dL (8.4-10.2); Magnesium 1.4 mg/dL (1.6-2.3); Potassium 5.1 mmol/L (3.5-5.1); Total Bilirubin 0.4 mg/dL (0.2-1.3); Total Protein 7.8 g/dL (6.3-8.2)
[2019-03-24] MEDS ORDERED: SODIUM CHLORIDE 0.9% 2,000 ML IV ONE (19:37)
--- NOTE | 2019-03-24 19:47 | XR ---
EXAMINATION TYPE: XR chest 2V DATE OF EXAM: 03/24/2019 COMPARISON: 03/17/2019 HISTORY: Cough TECHNIQUE: 2 views FINDINGS: There is no heart failure nor confluent pneumonic infiltrate. There are calcified bronchial granulomata. Mediastinum is normal. There is no pleural effusion. There are chest leads. Bony thorax is intact. IMPRESSION: Old granulomatous disease. No active cardiopulmonary disease. No change.
[2019-03-24 20:13] LABS: Partial Thromboplastin Time 21.7 sec (22.0-30.0); Prothrombin Time 10.1 sec (9.0-12.0)
[2019-03-24 20:16] LABS: D-Dimer 0.61 mg/L FEU (<0.60)
--- NOTE | 2019-03-24 21:09 | CT ---
EXAMINATION TYPE: CT angio chest DATE OF EXAM: 03/24/2019 COMPARISON: 02/18/2018 HISTORY: elevated d-dimer CT DLP: 374.2 mGycm Automated exposure control for dose reduction was used. CONTRAST: Performed with IV Contrast, patient injected with 75cc mL of Isovue 370. There are 3-D post processed images. There is no mediastinal adenopathy. Thoracic aorta is intact. There are numerous calcified mediastina l and bronchial lymph nodes. I see no filling defects in the pulmonary arteries. Heart size is normal . There is no pericardial effusion. There is no pleural effusion. The lungs are clear of infiltrate. The thoracic spine is intact. There is lower thoracic vertebroplasty at T12. IMPRESSION: Old granulomatous disease. No evidence of pulmonary embolism. No adverse change compared to old exam. No acute lung disease.
[2019-03-24] MEDS ORDERED: methylPREDNISolone SOD SUCCI 125 MG/2 ML VIAL IV STA (21:45)
[2019-03-24] MEDS: SODIUM CHLORIDE 0.9% 1,000 ML IV SCH (22:16)
[2019-03-24] MEDS ORDERED: ACETAMINOPHEN TAB 325 MG TAB PO STA (22:17)
[2019-03-24] MEDS ORDERED: AZITHROMYCIN 500 MG in SODIUM CHLORIDE 0.9% 250 ML IVPB ONE (23:00)
[2019-03-24 23:10] LABS: Glucose,Whole Blood 171 mg/dL (75-99)
[2019-03-24] MEDS: methylPREDNISolone SOD SUCCI 125 MG/2 ML VIAL IV SCH (23:46)
[2019-03-25] MEDS: LATANOPROST 0.005% OPHTH DROPS 2.5 ML BTL BOTH EYES SCH ×2 (00:43→21:49)
[2019-03-25] MEDS: PRAVASTATIN SODIUM 40 MG TAB PO SCH ×2 (00:43→21:47)
[2019-03-25] MEDS: methylPREDNISolone SOD SUCCI 125 MG/2 ML VIAL IV SCH (05:28)
[2019-03-25] MEDS: SODIUM CHLORIDE 0.9% 1,000 ML IV SCH ×3 (05:29→22:03)
[2019-03-25] MEDS: PANTOPRAZOLE 40 MG TABLET PO SCH (05:34)
--- NOTE | 2019-03-25 05:52 | XR ---
EXAMINATION TYPE: XR chest 1V portable DATE OF EXAM: 03/25/2019 COMPARISON: 03/24/2019 HISTORY: Difficulty breathing TECHNIQUE: FINDINGS: Heart is normal. Lungs are clear of infiltrate. There is densely calcified granulomata at t he pulmonary kenny. There is no pleural effusion. IMPRESSION: Old granulomatous disease. No acute lung disease. No change.
[2019-03-25] MEDS ORDERED: LEVOTHYROXINE 25 MCG TAB PO SCH (06:30)
[2019-03-25 07:04] LABS: Glucose,Whole Blood 277 mg/dL (75-99)
[2019-03-25] MEDS ORDERED: MELATONIN 5 MG TABLET PO PRN (07:52)
[2019-03-25] MEDS ORDERED: METHOCARBAMOL 500 MG TAB PO PRN (07:52)
[2019-03-25] MEDS: INSULIN ASPART (NovoLOG) 100 UNIT/ML VIAL SQ SCH ×4 (08:02→21:59)
[2019-03-25] MEDS: IPRATROPIUM-ALBUTEROL 3 ML NEB INHALATION SCH ×4 (08:19→19:52)
--- NOTE | 2019-03-25 08:39 | P.HPIM ---
History of Present Illness This is a pleasant 64 years old female with past medical history of sarcoidosis, rheumatoid arthritis, hypertension, fibromyalgia, diabetes mellitus, GERD, irritable bowel syndrome, migraine, chronic back pain, urinary incontinence, optic nerve damage with glaucoma, short-term memory problems Patient presents because of dyspnea, patient states that she's been dyspneic for more than a week or week and a half. She came to the emergency room about one week ago she was given steroids and discharged home after finishing her steroids in one week her shortness of breath came back, and it is associated with stuffy nose with yellowish greenish discharge, only minimal cuff but not currently and no more chest pain or heaviness. She complains from pain all over her body but no specific chest pain or abdominal pain. She complains from pain in her legs. She has history of mild depression but no overt hopelessness or helplessness, no suicidal or homicidal ideation. Used to smoke about 3 packs per week and she quit about more than a year in 2018.No alcohol or illicit drugs. 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 Layton last week but she canceled that because of her health issue. Vitals stable and she is saturating 94% on room air, she is slightly tachycardic with heart rate this morning 93-105. Blood pressure 119/73. On admission her WBC is 12.4 K. Hemoglobin 11.9. D-dimer is elevated at 0.61. Elevated lactic acid 3.9, 3.3 and 5.9. Glucose 171-277. Creatinine and electrolytes are normal, sodium 136, liver enzymes elevated. Troponin are negative, proBNP 39. Chest x-ray showing no acute process. Chest CTA: No pulmonary embolism, alternatives disease. Sinus tachycardia on EKG with heart rate at 113, QTC 458, no significant ST-T changes. In the emergency room patient received 2 L of normal saline and started on antibiotics with Rocephin and Zithromax and Solu- Medrol MAPS was checked and patient knows those off [place] 7.5 mg given to her was on 04/25/2018 which is about 1 year ago and Urised was on 03/13/2018 and Valium was on 03/09/2018 Review of Systems CONSTITUTIONAL: No fever, no malaise, no fatigue. HEENT: No recent visual problems or hearing problems. Denied any sore throat. CARDIOVASCULAR: No orthopnea, PND, no palpitations, no syncope. PULMONARY: No shortness of breath, no cough, no hemoptysis. GASTROINTESTINAL: No diarrhea, no nausea, no vomiting, no abdominal pain. Normoactive bowel sounds. NEUROLOGICAL: No headaches, no weakness, no numbness. HEMATOLOGICAL: Denies any bleeding or petechiae. GENITOURINARY: Denies any burning micturition, frequency, or urgency. MUSCULOSKELETAL/RHEUMATOLOGICAL: Denies any joint pain, swelling, or any muscle pain. ENDOCRINE: Denies any polyuria or polydipsia. Past Medical History Past Medical History: Diabetes Mellitus, Fibromyalgia, GERD/Reflux, Hypertension, Rheumatoid Arthritis (RA), Thyroid Disorder Additional Past Medical History / Comment(s): sarcoidosis, ibs migraines optic nerve damage short term memory issues chronic back pain keratodermia urinary incontinence glaucoma, brain lesion, pulmonary leasion, eye probelms History of Any Multi-Drug Resistant Organisms: None Reported Past Surgical History: Appendectomy, Cholecystectomy Additional Past Surgical History / Comment(s): bronchoscopy laproscopic young removal cyst removal , cataracts Past Anesthesia/Blood Transfusion Reactions: No Reported Reaction Past Psychological History: Anxiety, Depression Smoking Status: Former smoker Past Alcohol Use History: Rare Additional Past Alcohol Use History / Comment(s): quit smoking in 2018 Past Drug Use History: None Reported - Past Family History Mother Family Medical History: Cancer, Hyperlipidemia Additional Family Medical History / Comment(s): lung cancer Father Family Medical History: Cancer, Diabetes Mellitus, Hyperlipidemia Medications and Allergies Home Medications Medication Instructions Recorded Confirmed Type Aspirin 81 mg PO DAILY 05/09/14 03/24/19 History Butalb/Acetaminophen/Caffeine 1 - 2 tab PO Q4HR PRN 05/09/14 03/24/19 History [Fioricet 50-300-40 mg Capsule] DULoxetine HCL [Cymbalta] 60 mg PO DAILY 05/09/14 03/24/19 History Diazepam 2 mg PO HS PRN 05/09/14 03/24/19 History Hydrocodone/Acetaminophen [[place] 1 tab PO Q6HR PRN 05/09/14 03/24/19 History 7.5-325] Latanoprost Ophth [Xalatan 0.005%] 1 drops BOTH EYES HS 05/09/14 03/24/19 History Levothyroxine Sodium [Synthroid] 25 mcg PO DAILY 05/09/14 03/24/19 History Lisinopril [Zestril] 5 mg PO DAILY 05/09/14 03/24/19 History Multivitamins, Thera [Multivitamin] 1 tab PO Q48H 05/09/14 03/24/19 History Omeprazole [PriLOSEC] 20 mg PO AC-BRKFST 05/09/14 03/24/19 History metFORMIN HCL [metFORMIN HCL ER] 1,000 mg PO BID 05/09/14 03/24/19 History Methocarbamol [Robaxin] 500 mg PO BID PRN 05/12/16 03/24/19 History Calcium Carbonate/Vitamin D3 1 cap PO Q48H 02/18/18 03/24/19 History [Calcium 600-Vit D3 500 Softgel] L.acidoph,Paracasei, B.lactis 1 cap PO DAILY 02/18/18 03/24/19 History [Probiotic] Melatonin 10 mg PO HS PRN 02/18/18 03/24/19 History Pravastatin Sodium [Pravachol] 40 mg PO HS 02/18/18 03/24/19 History Magnesium Oxide [[place]] 500 mg PO DAILY 03/02/18 03/24/19 History Albuterol Inhaler [Ventolin Hfa 1 - 2 puff INHALATION Q6HR PRN #1 03/17/19 03/24/19 Rx Inhaler] inhaler Pseudoephedrine 12Hr [Sudafed 12Hr] 120 mg PO Q12H 03/24/19 03/24/19 History Allergies Allergy/AdvReac Type Severity Reaction Status Date / Time Sulfa (Sulfonamide Allergy Unknown Verified 03/24/19 21:01 Antibiotics) Penicillins AdvReac Nausea & Verified 03/24/19 21:01 Vomiting Physical Exam Vitals: Vital Signs Temp Pulse Pulse Resp BP BP Pulse Ox 03/25/19 04:58 97.7 F 93 18 119/73 94 L 03/25/19 00:00 105 H 20 03/24/19 22:22 105 H 03/24/19 22:07 97.7 F 20 152/77 01/24/20 22:04 98 03/24/19 22:00 103 H 20 117/70 100 03/24/19 20:52 98.6 F 101 H 22 157/97 96 03/24/19 20:31 96 03/24/19 20:25 96 03/24/19 20:00 98.7 F 96 23 131/73 96 03/24/19 19:00 98.5 F 117 H 17 130/67 98 03/24/19 18:21 98.2 F 130 H 20 122/79 98 Intake and Output 03/24/19 03/25/19 03/25/19 22:59 06:59 14:59 Intake Total 1999 Balance 1999 Intake: Amount of Fluid Infused ( 2000 ml) Other: Voiding Method Toilet Toilet # Voids 2 Weight 79.379 kg 81.9 kg GENERAL: The patient is alert and oriented x3, not in any acute distress. Well developed, well nourished. -HEENT: Pupils are round and equally reacting to light. EOMI. No scleral icterus. No conjunctival pallor. Normocephalic, atraumatic. No pharyngeal erythema. No thyromegaly. Bilateral conjunctivitis CARDIOVASCULAR: S1 and S2 present. No murmurs, rubs, or gallops. -PULMONARY: Chest is clear to auscultation, no wheezing or crackles. No expiratory prolongation or obstruction is appreciated on my exam ABDOMEN: Soft, nontender, nondistended, normoactive bowel sounds. No palpable organomegaly. MUSCULOSKELETAL: No joint swelling or deformity. EXTREMITIES: No cyanosis, clubbing, or pedal edema. NEUROLOGICAL: Gross neurological examination did not reveal any focal deficits. SKIN: No rashes. No petechiae Results CBC & Chem 7: 03/24/19 18:50 03/24/19 18:50 Labs: Abnormal Lab Results - Last 24 Hours (Table) 03/24/19 03/24/19 03/24/19 Range/Units 18:50 18:50 18:50 WBC 12.4 H (3.8-10.6) k/uL MCV 79.4 L (80.0-100.0) fL MCH 24.2 L (25.0-35.0) pg MCHC 30.5 L (31.0-37.0) g/dL RDW 16.7 H (11.5-15.5) % Plt Count 490 H (150-450) k/uL Basophils # 0.3 H (0-0.2) k/uL APTT 21.7 L (22.0-30.0) sec D-Dimer 0.61 H (<0.60) mg/L FEU Sodium 136 L (137-145) mmol/L Carbon Dioxide 21 L (22-30) mmol/L BUN 19 H (7-17) mg/dL Glucose 242 H (74-99) mg/dL POC Glucose (mg/dL) (75-99) mg/dL Plasma Lactic Acid Tay (0.7-2.0) mmol/L Magnesium 1.4 L (1.6-2.3) mg/dL 03/24/19 03/24/19 03/24/19 Range/Units 18:50 23:06 23:09 WBC (3.8-10.6) k/uL MCV (80.0-100.0) fL MCH (25.0-35.0) pg MCHC (31.0-37.0) g/dL RDW (11.5-15.5) % Plt Count (150-450) k/uL Basophils # (0-0.2) k/uL APTT (22.0-30.0) sec D-Dimer (<0.60) mg/L FEU Sodium (137-145) mmol/L Carbon Dioxide (22-30) mmol/L BUN (7-17) mg/dL Glucose (74-99) mg/dL POC Glucose (mg/dL) 171 H (75-99) mg/dL Plasma Lactic Acid Tay 3.9 H* 3.3 H* (0.7-2.0) mmol/L Magnesium (1.6-2.3) mg/dL 03/25/19 03/25/19 Range/Units 03:45 07:01 WBC (3.8-10.6) k/uL MCV (80.0-100.0) fL MCH (25.0-35.0) pg MCHC (31.0-37.0) g/dL RDW (11.5-15.5) % Plt Count (150-450) k/uL Basophils # (0-0.2) k/uL APTT (22.0-30.0) sec D-Dimer (<0.60) mg/L FEU Sodium (137-145) mmol/L Carbon Dioxide (22-30) mmol/L BUN (7-17) mg/dL Glucose (74-99) mg/dL POC Glucose (mg/dL) 277 H (75-99) mg/dL Plasma Lactic Acid Tay 5.9 H* (0.7-2.0) mmol/L Magnesium (1.6-2.3) mg/dL Thrombosis Risk Factor Assmnt - Choose All That Apply Each Risk Factor Represents 2 Points: Age 61-74 years Thrombosis Risk Factor Assessment Total Risk Factor Score: 2 Thrombosis Risk Factor Assessment Level: Low Risk Assessment and Plan Assessment: Ongoing dyspnea, failed outpatient therapy. Could be viral upper respiratory infection with acute bronchitis. Rule out cardiac causes\ Bilateral leg pain Elevated lactic acid Sarcoidosis Generalized body pain in view of her fibromyalgia and possible viral infection Rheumatoid arthritis Diabetes mellitus, type II Hypertension Gastroesophageal reflux disease Irritable bowel syndrome Migraine Chronic back pain Urinary incontinence Optic nerve damage with glaucoma Short-term memory problems Plan: This is a pleasant 64 years old female who presents with dyspnea and resolved with steroids and outpatient therapy. Continue with steroids and antibiotics, consult cardiology to rule out cardiac causes, and do serial troponins and EKG. We'll check Doppler of the lower extremity in view of her leg pain and elevated d-dimer. We'll check the influenza. Check TSH. Hold metformin in view of her lactic acid and continue with normal saline at 75 mL/h Labs and medication were reviewed.. Continue same treatment. Continue with symptomatic treatment. Resume home medication. Monitor lytes and vitals. DVT and GI prophylaxis. Further recommendations of the clinical course of the patient DVT prophylaxis: Subcutaneous heparin GI Prophylaxis: Pepcid PT/OT: Pending Prognosis is guarded
--- NOTE | 2019-03-25 10:01 | US ---
EXAMINATION TYPE: US venous doppler duplex LE DATE OF EXAM: 03/25/2019 9:32 AM COMPARISON: NONE CLINICAL HISTORY: Rule out DVT. pain in legs, no swelling, no h/o dvt SIDE PERFORMED: Bilateral TECHNIQUE: The lower extremity deep venous system is examined utilizing real time linear array sonog venus with graded compression, doppler sonography and color-flow sonography. VESSELS IMAGED: External Iliac Vein (EIV) Common Femoral Vein Deep Femoral Vein Greater Saphenous Vein * Femoral Vein Popliteal Vein Small Saphenous Vein * Proximal Calf Veins (* superficial vessels) Right Leg: Appears negative for DVT Left Leg: Appears negative for DVT 4.9cm fluid collection seen anterior and medial to vessels, pro bable Land's cyst IMPRESSION: 1. THIS EXAMINATION IS NEGATIVE FOR DVT WITHIN BOTH LEGS. 2. LEFT-SIDED POPLITEAL FOSSA CYST.
[2019-03-25] MEDS: DULoxetine HCL 60 MG CAPSULE.DR PO SCH (10:11)
[2019-03-25] MEDS: CALCIUM CARB-VIT D 500MG-200UN 1 EACH TAB PO SCH (10:11)
[2019-03-25] MEDS: FAMOTIDINE 20 MG/2 ML VIAL IV SCH ×2 (10:11→21:48)
[2019-03-25] MEDS: ASPIRIN 81 MG PO SCH (10:11)
[2019-03-25] MEDS: HEPARIN SODIUM,PORCINE 5,000 UNIT/ML 1 ML VIAL SQ SCH ×2 (10:12→21:48)
[2019-03-25] MEDS: LISINOPRIL 5 MG TAB PO SCH (10:12)
[2019-03-25 11:00] LABS: T4, Free (Free Thyroxine) 1.27 ng/dL (0.78-2.19)
[2019-03-25 11:31] LABS: Glucose,Whole Blood 260 mg/dL (75-99)
--- NOTE | 2019-03-25 12:52 | CONS ---
CONSULTATION PULMONARY/CRITICAL CARE CONSULTATION: REASON FOR CONSULTATION: Shortness of breath. This is a 64-year-old female who has seen my partner Dr. Stanley in the past for sarcoidosis. Currently, her sarcoid is inactive. She comes into the emergency room with complaints of increasing shortness of breath which has been present for a couple of days. It has gotten progressively worse and at that time she presented to the emergency room, she thought she was going to "." In addition to shortness of breath, she complains of cough and chest congestion. The patient has not seen Dr. Stanley for about a year or so. There is no fever or chills. There is no chest pain or chest discomfort. No nausea, vomiting, diarrhea. No genitourinary complaints. Currently, she is feeling much better. She is sitting at the bedside with her . She is able to talk in full sentences without any difficulty whatsoever. She even admits to the fact that she is feeling much improved. HOME MEDICATIONS: Quite extensive and include Fioricet, Cymbalta, [place], eye drops, Synthroid, lisinopril, multivitamins, Prilosec, aspirin, Valium, metformin, Robaxin, calcium with vitamin D, probiotic, Pravachol, melatonin, magnesium, and Sudafed. She also has a rescue inhaler at home. ALLERGIES: SULFA, ANTIBIOTICS and PENICILLIN. PAST MEDICAL HISTORY: Positive for diabetes mellitus, fibromyalgia, acid reflux disease, hypertension, rheumatoid arthritis, and hypothyroidism. Other medical problems include quiescent or inactive sarcoidosis, migraine cephalgia, short-term memory loss, urinary incontinence, glaucoma, and a number of different eye issues. SURGICAL HISTORY: Includes previous bronchoscopy, laparoscopy, appendectomy, cholecystectomy. SOCIAL HISTORY: Positive for previous tobacco use. Does not smoke currently. She denies illicit drug use. Drinks rarely. FAMILY HISTORY: Noncontributory. Both mother and father were healthy. REVIEW OF SYSTEMS: CONSTITUTIONAL: Negative. NEUROLOGIC: Negative. HEENT: Negative. CARDIOVASCULAR: Negative. PULMONARY: Shortness of breath, chest tightness, wheezing, cough, minimal phlegm production. GI: Negative. : Negative. RHEUMATOLOGIC: Negative. IMMUNOLOGIC: Negative. ENDOCRINOLOGIC: Negative. DERMATOLOGIC: Negative. Current vital signs are reviewed, temperature is 97.7, heart rate 90, respiratory rate 18, blood pressure 119/73 mean 88, saturations on room air are 94%. She appears in no acute distress. There is no audible wheezing, use of accessory muscles or conversational dyspnea. HEENT: Examination is grossly unremarkable. Mucous membranes are moist. NECK: Supple, full range of motion. No adenopathy or thyromegaly. Neck veins are flat. CARDIOVASCULAR:: Examination reveals regular rhythm and rate. S1, S2 normal. LUNGS: Reveal some mild expiratory rhonchi and wheezes. She has prolongation on forced maneuver. Adventitious lung sounds are more prominent on forced maneuver. Breath sounds equal bilaterally. No crackles. ABDOMEN: Soft, bowel sounds are heard. EXTREMITIES: Intact. No cyanosis, clubbing, or edema. SKIN: Without rash. NEUROLOGIC: Examination is brief but nonfocal. Her chest x-ray shows changes of old granulomatous disease. There is no acute infiltrate. Chest CT shows granulomatous disease without evidence of pulmonary embolism. Venous Doppler studies are negative. LABS: Reviewed. White count 12.4, hemoglobin 11.9, hematocrit 39.0, platelet count 490,000. PT, INR normal, PTT normal,. D-dimer is 0.61. Sodium 136, potassium 5.1, chloride 99, CO2 is 21, anion gap is 16, BUN and creatinine were 19 and 0.92, glucose 242. Lactic acid 3.3 and 4.2 respectively. Magnesium 1.4. TSH 0.419, free T4 was normal. Influenza studies were negative. Microbiologic studies were negative or pending. Medications are reviewed. The patient is currently on Zithromax IV and Rocephin IV. She is also on updrafts and corticosteroids. ASSESSMENT: 1. Acute bronchitis with bronchospasm, much improved. 2. No evidence of pneumonia on chest x-ray or CT scan. 3. History of inactive sarcoidosis. 4. Prior history of tobacco use, with only mild COPD based on office PFTs. 5. History of diabetes mellitus. 6. Fibromyalgia. 7. Gastroesophageal reflux disease. 8. Hypertension. 9. Rheumatoid arthritis. 10.Hypothyroidism. 11.Irritable bowel syndrome. 12.Migraine cephalgia. 13.Memory impairment. PLAN: The patient's antibiotics can be escalated. She does not have an active infection at least not pneumonia. Steroids are appropriate. Breathing treatments are appropriate. We will continue to follow. Possible discharge in 24-48 hours. The patient should follow up with Dr. Stanley in the future. MMEDSONL / IJN: [id number] /
[2019-03-25] MEDS ORDERED: BUTALB/APAP/CAFF 50-325-40MG TAB PO STA (14:46)
[2019-03-25] MEDS ORDERED: traMADol 50 MG TAB PO PRN (14:46)
[2019-03-25] MEDS ORDERED: BUTA/APAP/CAF/COD 50-325-40-30 CAP PO STA (15:15)
[2019-03-25] MEDS: methylPREDNISolone SOD SUCCI 40 MG/ML 1 ML VIAL IV SCH (16:02)
--- NOTE | 2019-03-25 16:43 | P.CRDCN ---
History of Present Illness Consult date: 03/25/19 Consult reason: shortness of breath History of present illness: The patient is a 64-year-old female with past medical history of sarcoidosis, rheumatoid arthritis, hypertension, fibromyalgia, diabetes mellitus, who presents to the emergency room with new onset of shortness of breath. She was recently treated for bronchitis and was given steroids. She states she was not discharged on antibiotics. On admission to the emergency room she was noted to have an elevated d-dimer at 0.61 followed by a CAT scan which was negative for PE and lower extremity venous Doppler which was negative for DVT. Her troponins were negative 1. And her lactic acid has been trending upward, which started at 3.9. Cardiology was consulted for tachycardia, for which EKG shows sinus tachycardia with a rate of 113 bpm. She was referred to see Dr. Larios in the office and recently underwent echocardiogram and carotid Doppler. This diagnosis with vascular atherosclerosis by her business records manager. Unfortunately she had to cancel her Lexiscan scheduled for last week due to diarrhea. She is currently resting comfortably in bed. She states she does have some shortness of breath with exertion but denies any orthopnea or dyspnea at rest. She denies any chest pain, chest pressure, palpitations, dizziness, or lightheadedness. PAST MEDICAL HISTORY: sarcoidosis, rheumatoid arthritis, hypertension, fibromyalgia, diabetes mellitus, GERD, IBS, migraine, chronic back pain REVIEW OF SYSTEMS: No fever or chills. No cough or expectoration. No diaphoresis. Patient denies headache, dizziness, blurred vision, double vision. Patient denies any stomach discomfort. No nausea, vomiting. No hematochezia. No hematemesis. Denies any black stools or blood in his stools. Denies dysuria or hematuria. No muscle weakness or numbness. Positive for shortness of breath. PHYSICAL EXAMINATION: This is a 64-year-old email in no apparent distress at the time of my examination. HEENT: Head is atraumatic, normocephalic. Pupils are equal, round. Sclerae anicteric. Conjunctivae are clear. Mucous membranes of the mouth are moist. Neck is supple. There is no jugular venous distention. No carotid bruit is heard. CHEST EXAMINATION: Lungs are clear to auscultation. No chest wall tenderness is noted on palpation or with deep breathing. HEART EXAMINATION: Heart regular rate and rhythm. S1, S2 heard. No murmurs, gall ops or rub. ABDOMEN: Soft, nontender. Bowel sounds are heard. No organomegaly noted. EXTREMITIES: 2+ peripheral pulses with no evidence of peripheral edema and no calf tenderness noted. NEUROLOGIC EXAMINATION: Patient is awake, alert and oriented x3. LABORATORY DATA: WBC 12.4, hemoglobin 11.9, hematocrit 39.0, platelet 490, d- dimer 0.61 sodium 136, potassium 5.1, BUN 19, creatinine 0.92, AST 26, ALT 24, troponin negative 1, TSH 0.419 Chest x-ray shows no acute lung disease FINAL ASSESSMENT AND PLAN: #1 shortness of breath, URI versus acute bronchitis #2 tachycardia, TSH currently 0.419 and elevated lactic acid #3 hypertension #4 hypothyroidism #5 elevated lactic acid #6 Diabetes mellitus type 2 PLAN: We will continue current medication regimen as her vital signs are stable. Primary care provider to address abnormal TSH, which is likely attributed to her tachycardia. Continue to follow outpatient with Dr. Larios and reschedule stress testing. Thank you kindly for this consultation and we will continue to follow on an as-needed basis. Past Medical History Past Medical History: Diabetes Mellitus, Fibromyalgia, GERD/Reflux, Hypertension, Rheumatoid Arthritis (RA), Thyroid Disorder Additional Past Medical History / Comment(s): sarcoidosis, ibs migraines optic nerve damage short term memory issues chronic back pain keratodermia urinary incontinence glaucoma, brain lesion, pulmonary leasion, eye probelms History of Any Multi-Drug Resistant Organisms: None Reported Past Surgical History: Appendectomy, Cholecystectomy Additional Past Surgical History / Comment(s): bronchoscopy laproscopic young removal cyst removal , cataracts Past Anesthesia/Blood Transfusion Reactions: No Reported Reaction Past Psychological History: Anxiety, Depression Smoking Status: Former smoker Past Alcohol Use History: Rare Additional Past Alcohol Use History / Comment(s): quit smoking in 2018 Past Drug Use History: None Reported - Past Family History Mother Family Medical History: Cancer, Hyperlipidemia Additional Family Medical History / Comment(s): lung cancer Father Family Medical History: Cancer, Diabetes Mellitus, Hyperlipidemia Medications and Allergies Home Medications Medication Instructions Recorded Confirmed Type Aspirin 81 mg PO DAILY 05/09/14 03/24/19 History DULoxetine HCL [Cymbalta] 60 mg PO DAILY 05/09/14 03/24/19 History Diazepam 2 mg PO HS PRN 05/09/14 03/24/19 History Hydrocodone/Acetaminophen [[place] 1 tab PO Q6HR PRN 05/09/14 03/24/19 History 7.5-325] Latanoprost Ophth [Xalatan 0.005%] 1 drops BOTH EYES HS 05/09/14 03/24/19 History Levothyroxine Sodium [Synthroid] 25 mcg PO DAILY 05/09/14 03/24/19 History Lisinopril [Zestril] 5 mg PO DAILY 05/09/14 03/24/19 History Multivitamins, Thera [Multivitamin] 1 tab PO Q48H 05/09/14 03/24/19 History Omeprazole [PriLOSEC] 20 mg PO AC-BRKFST 05/09/14 03/24/19 History metFORMIN HCL [metFORMIN HCL ER] 1,000 mg PO BID 05/09/14 03/24/19 History Methocarbamol [Robaxin] 500 mg PO BID PRN 05/12/16 03/24/19 History Calcium Carbonate/Vitamin D3 1 cap PO Q48H 02/18/18 03/24/19 History [Calcium 600-Vit D3 500 Softgel] L.acidoph,Paracasei, B.lactis 1 cap PO DAILY 02/18/18 03/24/19 History [Probiotic] Melatonin 10 mg PO HS PRN 02/18/18 03/24/19 History Pravastatin Sodium [Pravachol] 40 mg PO HS 02/18/18 03/24/19 History Magnesium Oxide [[place]] 500 mg PO DAILY 03/02/18 03/24/19 History Albuterol Inhaler [Ventolin Hfa 1 - 2 puff INHALATION Q6HR PRN #1 03/17/19 03/24/19 Rx Inhaler] inhaler Pseudoephedrine 12Hr [Sudafed 12Hr] 120 mg PO Q12H 03/24/19 03/24/19 History Buta/APAP/Caf/Cod 72-403-36-30 1 cap PO BID PRN 03/25/19 03/25/19 History [Fioricet w/Cod 20-518-38-30MG] Allergies Allergy/AdvReac Type Severity Reaction Status Date / Time Sulfa (Sulfonamide Allergy Unknown Verified 03/24/19 21:01 Antibiotics) Penicillins AdvReac Nausea & Verified 03/24/19 21:01 Vomiting Physical Exam Vitals: Vital Signs Temp Pulse Pulse Resp BP BP Pulse Ox 03/25/19 16:09 92 03/25/19 15:53 92 03/25/19 14:34 98.3 F 100 16 174/76 97 03/25/19 11:54 96 03/25/19 11:36 95 03/25/19 08:29 95 03/25/19 08:19 95 03/25/19 04:58 97.7 F 93 18 119/73 94 L 03/25/19 00:00 105 H 20 03/24/19 22:22 105 H 03/24/19 22:07 97.7 F 20 152/77 03/24/19 22:04 98 03/24/19 22:00 103 H 20 117/70 100 03/24/19 20:52 98.6 F 101 H 22 157/97 96 03/24/19 20:31 96 03/24/19 20:25 96 03/24/19 20:00 98.7 F 96 23 131/73 96 03/24/19 19:00 98.5 F 117 H 17 130/67 98 03/24/19 18:21 98.2 F 130 H 20 122/79 98 Intake and Output 03/25/19 03/25/19 03/25/19 06:59 14:59 22:59 Other: Voiding Method Toilet Toilet # Voids 2 2 Weight 81.9 kg Results 03/24/19 18:50 03/24/19 18:50 Cardiac Enzymes 03/24/19 03/24/19 Range/Units 18:50 18:50 AST 26 (14-36) U/L Troponin I <0.012 (0.000-0.034) ng/mL Coagulation 03/24/19 Range/Units 18:50 PT 10.1 (9.0-12.0) sec APTT 21.7 L (22.0-30.0) sec CBC 03/24/19 Range/Units 18:50 WBC 12.4 H (3.8-10.6) k/uL RBC 4.91 (3.80-5.40) m/uL Hgb 11.9 (11.4-16.0) gm/dL Hct 39.0 (34.0-46.0) % Plt Count 490 H (150-450) k/uL Comprehensive Metabolic Panel 03/24/19 Range/Units 18:50 Sodium 136 L (137-145) mmol/L Potassium 5.1 (3.5-5.1) mmol/L Chloride 99 (98-107) mmol/L Carbon Dioxide 21 L (22-30) mmol/L BUN 19 H (7-17) mg/dL Creatinine 0.92 (0.52-1.04) mg/dL Glucose 242 H (74-99) mg/dL Calcium 9.8 (8.4-10.2) mg/dL AST 26 (14-36) U/L ALT 24 (4-34) U/L Alkaline Phosphatase 70 (38-126) U/L Total Protein 7.8 (6.3-8.2) g/dL Albumin 4.5 (3.5-5.0) g/dL Current Medications Generic Name Dose Route Start Last Admin Trade Name Freq PRN Reason Stop Dose Admin Albuterol/Ipratropium 3 ml 03/25/19 08:00 03/25/19 15:52 Duoneb 0.5 Mg-3 Mg/3 Ml Soln INHALATION 3 ml RT-QID REINALDO Administration Aspirin 81 mg 03/25/19 09:00 03/25/19 10:11 Aspirin PO 81 mg DAILY REINALDO Administration Azithromycin 500 mg 03/25/19 21:00 Zithromax PO HS REINALDO Calcium Carbonate 1 each 03/25/19 09:00 03/25/19 10:11 Oscal 500+D PO 1 each Q48H REINALDO Administration Duloxetine HCl 60 mg 03/25/19 09:00 03/25/19 10:11 Cymbalta PO 60 mg DAILY REINALDO Administration Famotidine 20 mg 03/25/19 09:00 03/25/19 10:11 Pepcid IV 20 mg Q12HR REINALDO Administration Heparin Sodium (Porcine) 5,000 unit 03/25/19 09:00 03/25/19 10:12 Heparin SQ 5,000 unit Q12HR REINALDO Administration Sodium Chloride 1,000 mls @ 75 mls/hr 03/24/19 21:45 03/25/19 10:12 Saline 0.9% IV 75 mls/hr .[id number] REINALDO Administration Insulin Aspart 0 unit 03/25/19 07:30 03/25/19 12:48 Novolog SQ 260 unit ACHS REINALDO Administration Protocol Latanoprost 1 drops 03/25/19 00:15 03/25/19 00:43 Xalatan 0.005% BOTH EYES 1 drops HS REINALDO Administration Levothyroxine Sodium 25 mcg 03/25/19 06:30 03/25/19 05:28 Synthroid PO 25 mcg DAILY@0630 REINALDO Administration Lisinopril 5 mg 03/25/19 09:00 03/25/19 10:12 Zestril PO 5 mg DAILY REINALDO Administration Melatonin 10 mg 03/25/19 07:52 Melatonin PO HS PRN SLEEP Methocarbamol 500 mg 03/25/19 07:52 Robaxin PO BID PRN Muscle Spasm Methylprednisolone Sodium Succinate 40 mg 03/25/19 16:00 03/25/19 16:02 Solu-Medrol IV 40 mg Q8HR REINALDO Administration Pantoprazole Sodium 40 mg 03/25/19 07:30 03/25/19 05:34 Protonix PO 40 mg AC-BRKFST REINALDO Administration Pravastatin Sodium 40 mg 03/25/19 00:15 03/25/19 00:43 Pravachol PO 40 mg HS [facility] Administration Tramadol HCl 25 mg 03/25/19 14:46 Ultram PO TID PRN Pain Intake and Output 03/25/19 03/25/19 03/25/19 06:59 14:59 22:59 Other: Voiding Method Toilet Toilet # Voids 2 2 Weight 81.9 kg 03/24/19 18:50 03/24/19 18:50
[2019-03-25 16:47] LABS: Glucose,Whole Blood 251 mg/dL (75-99)
[2019-03-25 20:21] LABS: Hemoglobin A1C 8.7 % (4.0-6.0)
[2019-03-25] MEDS ORDERED: Magnesium Replacement Protocol 1 EACH MISC MISCELLANE PRN (20:28)
[2019-03-25 20:34] LABS: Glucose,Whole Blood 206 mg/dL (75-99)
[2019-03-25] MEDS ORDERED: AZITHROMYCIN 500 MG in SODIUM CHLORIDE 0.9% 250 ML IVPB SCH (21:00)
[2019-03-25] MEDS: AZITHROMYCIN 500 MG TAB PO SCH (21:47)
[2019-03-26] MEDS: methylPREDNISolone SOD SUCCI 40 MG/ML 1 ML VIAL IV SCH ×3 (01:20→16:34)
[2019-03-26] MEDS: PANTOPRAZOLE 40 MG TABLET PO SCH (06:28)
[2019-03-26 07:05] LABS: Glucose,Whole Blood 244 mg/dL (75-99)
[2019-03-26] MEDS: FAMOTIDINE 20 MG/2 ML VIAL IV SCH ×2 (07:05→22:12)
[2019-03-26] MEDS: INSULIN ASPART (NovoLOG) 100 UNIT/ML VIAL SQ SCH ×4 (07:33→22:25)
--- NOTE | 2019-03-26 08:22 | P.PN ---
Subjective This is a pleasant 64 years old female with past medical history of sarcoidosis, rheumatoid arthritis, hypertension, fibromyalgia, diabetes mellitus, GERD, irritable bowel syndrome, migraine, chronic back pain, urinary incontinence, optic nerve damage with glaucoma, short-term memory problems Patient presents because of dyspnea, patient states that she's been dyspneic for more than a week or week and a half. She came to the emergency room about one week ago she was given steroids and discharged home after finishing her steroids in one week her shortness of breath came back, and it is associated with stuffy nose with yellowish greenish discharge, only minimal cuff but not currently and no more chest pain or heaviness. She complains from pain all over her body but no specific chest pain or abdominal pain. She complains from pain in her legs. She has history of mild depression but no overt hopelessness or helplessness, no suicidal or homicidal ideation. Used to smoke about 3 packs per week and she quit about more than a year in 2018 .No alcohol or illicit drugs. 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 Layton last week but she canceled that because of her health issue. Vitals stable and she is saturating 94% on room air, she is slightly tachycardic with heart rate this morning 93-105. Blood pressure 119/73. On admission her WBC is 12.4 K. Hemoglobin 11.9. D-dimer is elevated at 0.61. Elevated lactic acid 3.9, 3.3 and 5.9. Glucose 171-277. Creatinine and electrolytes are norm al, sodium 136, liver enzymes elevated. Troponin are negative, proBNP 39. Chest x-ray showing no acute process. Chest CTA: No pulmonary embolism, alternatives disease. Sinus tachycardia on EKG with heart rate at 113, QTC 458, no significant ST-T changes. In the emergency room patient received 2 L of normal saline and started on antibiotics with Rocephin and Zithromax and Solu- Medrol MAPS was checked and patient knows those off [place] 7.5 mg given to her was on 04/25/2018 which is about 1 year ago and Urised was on 03/13/2018 and Valium was on 03/09/2018 03/26/2019 Patient still feeling stuffiness in her nose, this chest tightness. She is constipated with some abdominal discomfort on the right side. Vitals are stable and patient is afebrile. Lactic acid is back to normal. Serial troponins are negative. Magnesium 2.0. Sugar is 244. Ultrasound of the lower extremity is negative for DVT. She is on normal saline at 50 milliliters per hour, salmeterol 14 mg and Zithromax 500 mg daily. Flonase and Senokot . freight rate specialist recommended stress test as an outpatient Objective - Vital Signs Vital signs: Vital Signs Temp 97.8 F 03/26/19 05:00 Pulse 81 03/26/19 05:00 Resp 18 03/26/19 05:00 BP 161/83 03/26/19 05:00 Pulse Ox 96 03/26/19 05:00 Intake & Output 03/25/19 03/26/19 03/26/19 18:59 06:59 18:59 Intake Total 800 Balance 800 Intake: Oral 800 Other: Voiding Method Toilet Toilet # Voids 2 2 # Bowel Movements 0 - Exam GENERAL: The patient is alert and oriented x3, not in any acute distress. Well developed, well nourished. -HEENT: Pupils are round and equally reacting to light. EOMI. No scleral ict erus. No conjunctival pallor. Normocephalic, atraumatic. No pharyngeal erythema. No thyromegaly. Bilateral conjunctivitis CARDIOVASCULAR: S1 and S2 present. No murmurs, rubs, or gallops. -PULMONARY: Chest is clear to auscultation, no wheezing or crackles. No expiratory prolongation or obstruction is appreciated on my exam ABDOMEN: Soft, nontender, nondistended, normoactive bowel sounds. No palpable organomegaly. MUSCULOSKELETAL: No joint swelling or deformity. EXTREMITIES: No cyanosis, clubbing, or pedal edema. NEUROLOGICAL: Gross neurological examination did not reveal any focal deficits. SKIN: No rashes. No petechiae - Labs CBC & Chem 7: 03/24/19 18:50 03/24/19 18:50 Labs: Abnormal Lab Results - Last 24 Hours (Table) 03/25/19 03/25/19 03/25/19 Range/Units 07:47 07:47 08:06 POC Glucose (mg/dL) (75-99) mg/dL Hemoglobin A1c 8.7 H (4.0-6.0) % Plasma Lactic Acid Tay 4.2 H* (0.7-2.0) mmol/L TSH 0.419 L (0.465-4.680) mIU/L 03/25/19 03/25/19 03/25/19 Range/Units 11:24 14:03 16:42 POC Glucose (mg/dL) 260 H 251 H (75-99) mg/dL Hemoglobin A1c (4.0-6.0) % Plasma Lactic Acid Tay 3.8 H* (0.7-2.0) mmol/L TSH (0.465-4.680) mIU/L 03/25/19 03/25/19 03/25/19 Range/Units 18:34 20:30 22:33 POC Glucose (mg/dL) 206 H (75-99) mg/dL Hemoglobin A1c (4.0-6.0) % Plasma Lactic Acid Tay 4.3 H* 2.6 H* (0.7-2.0) mmol/L TSH (0.465-4.680) mIU/L 03/26/19 Range/Units 07:03 POC Glucose (mg/dL) 244 H (75-99) mg/dL Hemoglobin A1c (4.0-6.0) % Plasma Lactic Acid Tay (0.7-2.0) mmol/L TSH (0.465-4.680) mIU/L Microbiology - Last 24 Hours (Table) 03/24/19 15:40 Blood Culture - Preliminary Blood No Growth after 24 hours Assessment and Plan Assessment: Ongoing dyspnea, failed outpatient therapy. Could be viral upper respiratory infection with acute bronchitis. Rule out cardiac causes\ Bilateral leg pain Elevated lactic acid , came back to normal constipation Sarcoidosis Generalized body pain in view of her fibromyalgia and possible viral infection Rheumatoid arthritis Diabetes mellitus, type II Hypertension Gastroesophageal reflux disease Irritable bowel syndrome Migraine Chronic back pain Urinary incontinence Optic nerve damage with glaucoma Short-term memory problems Plan: This is a pleasant 64 years old female who presents with dyspnea and resolved with steroids and outpatient therapy. Continue with steroids and antibiotics, consult cardiology to rule out cardiac causes, and do serial troponins and EKG. We'll check Doppler of the lower extremity in view of her leg pain and elevated d-dimer. We'll check the influenza. Check TSH. Hold metformin in view of her lactic acid and continue with normal saline at 75 mL/h Labs and medication were reviewed.. Continue same treatment. Continue with symptomatic treatment. Resume home medication. Monitor lytes and vitals. DVT and GI prophylaxis. Further recommendations of the clinical course of the patient DVT prophylaxis: Subcutaneous heparin GI Prophylaxis: Pepcid PT/OT: Pending Prognosis is guarded
[2019-03-26] MEDS: ASPIRIN 81 MG PO SCH (08:36)
[2019-03-26] MEDS: DULoxetine HCL 60 MG CAPSULE.DR PO SCH (08:36)
[2019-03-26] MEDS: SENNOSIDES-DOCUSATE SODIUM 1 EACH TAB PO SCH ×2 (08:37→22:11)
[2019-03-26] MEDS: LISINOPRIL 5 MG TAB PO SCH (08:37)
[2019-03-26] MEDS: HEPARIN SODIUM,PORCINE 5,000 UNIT/ML 1 ML VIAL SQ SCH ×2 (08:37→22:12)
[2019-03-26] MEDS: IPRATROPIUM-ALBUTEROL 3 ML NEB INHALATION SCH ×4 (09:14→20:21)
[2019-03-26 11:49] LABS: Glucose,Whole Blood 313 mg/dL (75-99)
[2019-03-26] MEDS: SODIUM CHLORIDE 0.9% 1,000 ML IV SCH (12:15)
--- NOTE | 2019-03-26 15:34 | PN ---
PROGRESS NOTE DATE OF SERVICE: March 26, 2019 This is a 64-year-old female that we saw in consultation yesterday. We thought she had acute bronchitis with reactive bronchospasm and bronchial inflammation. The patient was still having some difficulty with breathing. She probably will not be discharged until maybe tomorrow. There is no evidence of any pneumonia on chest x-ray. In addition, she has a history of inactive sarcoidosis, prior tobacco use with mild COPD, diabetes, fibromyalgia, GERD, hypertension, rheumatoid arthritis, hypothyroidism, irritable bowel syndrome, migraine cephalgia, and memory impairment. The patient is feeling better. Still has some tightness in her chest with additional cough and wheezing. She was seen by the primary. The primary says the patient will not be discharged at the very earliest till tomorrow. PHYSICAL EXAMINATION: VITAL SIGNS: Current vital signs are reviewed. Temperature 97.8. Heart rate 97. Respiratory rate 18, blood pressure 161/83, mean 109, saturations on room air 95% to 96%. GENERAL: Appears in no acute distress. HEENT examination is grossly unremarkable. Mucous membranes are moist. No oral lesions. NECK: Supple. Full range of motion. No adenopathy or thyromegaly. Neck veins are flat. CARDIOVASCULAR: Examination reveals regular rhythm and rate. S1, S2 normal. No S3, S4, or murmur. LUNGS: Reveal some expiratory wheezes, rhonchi. There is prolongation. She coughs and wheezes on forced maneuver. No crackles. ABDOMEN: Soft. Bowel sounds are heard. EXTREMITIES are intact. No cyanosis, clubbing, or edema. SKIN: Without rash. NEUROLOGIC: Examination is brief but nonfocal. No new labs from today. Microbiology is pending. No recent chest x-rays or other x-rays to evaluate. Medications are reviewed as they were yesterday. ASSESSMENT: 1. Acute bronchitis with bronchospasm and reactive bronchial inflammation. 2. No evidence of pneumonia on chest x-ray or CT scan. 3. History of quiescent sarcoidosis. 4. Prior history of tobacco use, with only mild chronic obstructive pulmonary disease based on office PFTs. 5. History of diabetes mellitus. 6. Fibromyalgia. 7. Gastroesophageal reflux disease. 8. Hypertension. 9. Rheumatoid arthritis. 10.Hypothyroidism. 11.Irritable bowel syndrome. 12.Migraine cephalgia. 13.Memory impairment. PLANS: Currently, the patient is doing reasonably well. We are hoping for discharge in next 24-48 hours. From the medication standpoint, she is on oral Zithromax. We also have her on updrafts with both albuterol and Atrovent. In addition, she is on a small dose of Solu-Medrol 40 mg q.8h. She is feeling improved. We will continue to follow. Prognosis is guarded. She should follow up with her primary associate sales representative who I believe is Dr. Wooten. MMSEDRICK / YVONNEN: [id number] /
[2019-03-26 16:30] LABS: Glucose,Whole Blood 232 mg/dL (75-99)
[2019-03-26 18:47] LABS: African American GFR (CKD) >90 (>60 ml/min/1.73 sqM); Anion Gap 11 mmol/L; Blood Urea Nitrogen 16 mg/dL (7-17); Calcium 9.6 mg/dL (8.4-10.2); Carbon Dioxide 26 mmol/L (22-30); Chloride 100 mmol/L (98-107); Glucose 255 mg/dL (74-99); Non-African American GFR(CKD) 80 (>60 ml/min/1.73 sqM); Potassium 4.7 mmol/L (3.5-5.1); Sodium 137 mmol/L (137-145)
[2019-03-26 20:57] LABS: Glucose,Whole Blood 195 mg/dL (75-99)
[2019-03-26] MEDS: LATANOPROST 0.005% OPHTH DROPS 2.5 ML BTL BOTH EYES SCH (22:11)
[2019-03-26] MEDS: AZITHROMYCIN 500 MG TAB PO SCH (22:11)
[2019-03-26] MEDS: PRAVASTATIN SODIUM 40 MG TAB PO SCH (22:11)
[2019-03-27] MEDS: methylPREDNISolone SOD SUCCI 40 MG/ML 1 ML VIAL IV SCH ×4 (00:18→23:03)
[2019-03-27 07:09] LABS: Glucose,Whole Blood 226 mg/dL (75-99)
[2019-03-27] MEDS ORDERED: LACTULOSE 20 GM/30 ML CUP PO PRN (07:49)
--- NOTE | 2019-03-27 07:52 | P.PN ---
Subjective This is a pleasant 64 years old female with past medical history of sarcoidosis, rheumatoid arthritis, hypertension, fibromyalgia, diabetes mellitus, GERD, irritable bowel syndrome, migraine, chronic back pain, urinary incontinence, optic nerve damage with glaucoma, short-term memory problems Patient presents because of dyspnea, patient states that she's been dyspneic for more than a week or week and a half. She came to the emergency room about one week ago she was given steroids and discharged home after finishing her steroids in one week her shortness of breath came back, and it is associated with stuffy nose with yellowish greenish discharge, only minimal cuff but not currently and no more chest pain or heaviness. She complains from pain all over her body but no specific chest pain or abdominal pain. She complains from pain in her legs. She has history of mild depression but no overt hopelessness or helplessness, no suicidal or homicidal ideation. Used to smoke about 3 packs per week and she quit about more than a year in 2018 .No alcohol or illicit drugs. 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 Layton last week but she canceled that because of her health issue. Vitals stable and she is saturating 94% on room air, she is slightly tachycardic with heart rate this morning 93-105. Blood pressure 119/73. On admission her WBC is 12.4 K. Hemoglobin 11.9. D-dimer is elevated at 0.61. Elevated lactic acid 3.9, 3.3 and 5.9. Glucose 171-277. Creatinine and electrolytes are norm al, sodium 136, liver enzymes elevated. Troponin are negative, proBNP 39. Chest x-ray showing no acute process. Chest CTA: No pulmonary embolism, alternatives disease. Sinus tachycardia on EKG with heart rate at 113, QTC 458, no significant ST-T changes. In the emergency room patient received 2 L of normal saline and started on antibiotics with Rocephin and Zithromax and Solu- Medrol MAPS was checked and patient knows those off Sunray 7.5 mg given to her was on 04/25/2018 which is about 1 year ago and Urised was on 03/13/2018 and Valium was on 03/09/2018 03/26/2019 Patient still feeling stuffiness in her nose, this chest tightness. She is constipated with some abdominal discomfort on the right side. Vitals are stable and patient is afebrile. Lactic acid is back to normal. Serial troponins are negative. Magnesium 2.0. Sugar is 244. Ultrasound of the lower extremity is negative for DVT. She is on normal saline at 50 milliliters per hour, salmeterol 14 mg and Zithromax 500 mg daily. Flonase and Senokot . snow plow tractor operator recommended stress test as an outpatient 03/27/2019 Patient with only mild improvement, her nose is still stable and her chest still tight, she has difficulty blowing of her nose. She still complains from wheezing but no chest pain and she still constipated. Patient does not feel she is ready to go home this morning however she will see how she feels by the day. Vitals are stable and she is saturating 97% on room air. She still on Solu- Medrol 40 mg, Zithromax 500 mg on normal saline at 50 mL per hour. He is going to add Flonase She has maxillary tenderness and stuffiness, she complains from chronic sinusitis. Objective - Vital Signs Vital signs: Vital Signs Temp 98.0 F 03/27/19 06:25 Pulse 66 03/27/19 06:25 Resp 18 03/27/19 06:25 BP 154/71 03/27/19 06:25 Pulse Ox 97 03/27/19 06:25 Intake & Output 03/26/19 03/27/19 03/27/19 18:59 06:59 18:59 Other: Voiding Method Toilet Toilet # Voids 3 2 # Bowel Movements 0 - Exam GENERAL: The patient is alert and oriented x3, not in any acute distress. Well developed, well nourished. -HEENT: Pupils are round and equally reacting to light. EOMI. No scleral icterus. No conjunctival pallor. Normocephalic, atraumatic. No pharyngeal erythema. No thyromegaly. Bilateral conjunctivitis CARDIOVASCULAR: S1 and S2 present. No murmurs, rubs, or gallops. -PULMONARY: Chest is clear to auscultation, no wheezing or crackles. No expiratory prolongation or obstruction is appreciated on my exam ABDOMEN: Soft, nontender, nondistended, normoactive bowel sounds. No palpable organomegaly. MUSCULOSKELETAL: No joint swelling or deformity. EXTREMITIES: No cyanosis, clubbing, or pedal edema. NEUROLOGICAL: Gross neurological examination did not reveal any focal deficits. SKIN: No rashes. No petechiae - Labs CBC & Chem 7: 03/24/19 18:50 03/26/19 18:16 Labs: Abnormal Lab Results - Last 24 Hours (Table) 03/26/19 03/26/19 03/26/19 Range/Units 11:48 16:28 18:16 Glucose 255 H (74-99) mg/dL POC Glucose (mg/dL) 313 H 232 H (75-99) mg/dL 03/26/19 03/27/19 Range/Units 20:55 07:06 Glucose (74-99) mg/dL POC Glucose (mg/dL) 195 H 226 H (75-99) mg/dL Microbiology - Last 24 Hours (Table) 03/24/19 15:40 Blood Culture - Preliminary Blood No Growth after 48 hours Assessment and Plan Assessment: Ongoing dyspnea, failed outpatient therapy. Could be viral upper respiratory infection with acute bronchitis. Bilateral leg pain with negative Doppler for DVT in both legs Acute on chronic sinusitis Elevated lactic acid , came back to normal constipation Sarcoidosis Generalized body pain in view of her fibromyalgia and possible viral infection Rheumatoid arthritis Diabetes mellitus, type II Hypertension Gastroesophageal reflux disease Irritable bowel syndrome Migraine Chronic back pain Urinary incontinence Optic nerve damage with glaucoma Short-term memory problems Plan: This is a pleasant 64 years old female who presents with dyspnea and resolved with steroids and outpatient therapy. Continue with steroids and antibiotics, cardiology recommended stress test as an outpatient. Continue with symptomatic treatment and follow-up with pulmonary recommendation. Labs and medication were reviewed.. Continue same treatment. Continue with symptomatic treatment. Resume home medication. Monitor lytes and vitals. DVT and GI prophylaxis. Further recommendations of the clinical course of the patient DVT prophylaxis: Subcutaneous heparin GI Prophylaxis: Pepcid PT/OT: Pending Prognosis is guarded
[2019-03-27] MEDS: HEPARIN SODIUM,PORCINE 5,000 UNIT/ML 1 ML VIAL SQ SCH ×2 (07:59→21:20)
[2019-03-27] MEDS: FAMOTIDINE 20 MG/2 ML VIAL IV SCH ×2 (08:00→21:20)
[2019-03-27] MEDS: INSULIN ASPART (NovoLOG) 100 UNIT/ML VIAL SQ SCH ×4 (08:00→21:21)
[2019-03-27] MEDS: PANTOPRAZOLE 40 MG TABLET PO SCH (08:01)
[2019-03-27] MEDS: ASPIRIN 81 MG PO SCH (08:01)
[2019-03-27] MEDS: SENNOSIDES-DOCUSATE SODIUM 1 EACH TAB PO SCH ×2 (08:01→21:21)
[2019-03-27] MEDS: CALCIUM CARB-VIT D 500MG-200UN 1 EACH TAB PO SCH (08:01)
[2019-03-27] MEDS: DULoxetine HCL 60 MG CAPSULE.DR PO SCH (08:02)
[2019-03-27] MEDS: LISINOPRIL 5 MG TAB PO SCH (08:02)
[2019-03-27] MEDS: FLUTICASONE 50MCG/SPRAY NASAL 16GM EA NOSTRIL SCH (08:55)
[2019-03-27] MEDS: IPRATROPIUM-ALBUTEROL 3 ML NEB INHALATION SCH ×4 (11:23→19:12)
[2019-03-27 11:51] LABS: Glucose,Whole Blood 133 mg/dL (75-99)
[2019-03-27] MEDS: SODIUM CHLORIDE 0.9% 1,000 ML IV SCH (12:34)
[2019-03-27 15:13] VITALS: RESP 16
[2019-03-27 17:05] LABS: Glucose,Whole Blood 228 mg/dL (75-99)
--- NOTE | 2019-03-27 17:18 | P.PN ---
Subjective Progress Note Date: 03/27/19 Principal diagnosis: The patient is seen today March 27 2019 in follow-up on the regular medical floor. She is awake and alert in no acute distress. Up ambulating in her room. She is still short of breath with exertion. Still somewhat bronchospastic and wheezy. Not quite back to her baseline. Blood culture reveals no growth. She is continued on DuoNeb inhalations, IV Solu-Medrol, azithromycin. Objective - Vital Signs Vital signs: Vital Signs Temp 97.8 F 03/27/19 15:00 Pulse 90 03/27/19 15:43 Resp 16 03/27/19 16:00 BP 133/76 03/27/19 15:00 Pulse Ox 97 03/27/19 15:33 Intake & Output 03/26/19 03/27/19 03/27/19 18:59 06:59 18:59 Intake Total 240 Balance 240 Intake: Oral 240 Other: Voiding Method Toilet Toilet Toilet # Voids 3 2 2 # Bowel Movements 0 - Exam GENERAL EXAM: Alert, active, pleasant 64-year-old female patient, on room air, comfortable in no apparent distress. HEAD: Normocephalic. EYES: Normal reaction of pupils, equal size. NOSE: Clear with pink turbinates. THROAT: No erythema or exudates. NECK: No masses, no JVD. CHEST: No chest wall deformity. LUNGS: Equal air entry with bilateral end x-ray wheeze. CVS: S1 and S2 normal with no audible murmur, regular rhythm. ABDOMEN: No hepatosplenomegaly, normal bowel sounds, no guarding or rigidity. SPINE: No scoliosis or deformity SKIN: No rashes CENTRAL NERVOUS SYSTEM: No focal deficits, tone is normal in all 4 extremities. EXTREMITIES: There is no peripheral edema. No clubbing, no cyanosis. Peripheral pulses are intact. - Labs CBC & Chem 7: 03/24/19 18:50 03/26/19 18:16 Labs: Abnormal Lab Results - Last 24 Hours (Table) 03/26/19 03/26/19 03/27/19 Range/Units 18:16 20:55 07:06 Glucose 255 H (74-99) mg/dL POC Glucose (mg/dL) 195 H 226 H (75-99) mg/dL 03/27/19 03/27/19 Range/Units 11:49 17:03 Glucose (74-99) mg/dL POC Glucose (mg/dL) 133 H 228 H (75-99) mg/dL Microbiology - Last 24 Hours (Table) 03/24/19 15:40 Blood Culture - Preliminary Blood No Growth after 48 hours Assessment and Plan Assessment: 1 Acute bronchitis with bronchospasm and reactive bronchial inflammation, no evidence of pneumonia 2 Remote history of sarcoidosis 3 Previous chronic tobacco dependence with mild chronic obstructive pulmonary disease 4 Diabetes mellitus 5 Fibromyalgia 6 GERD 7 Hypertension 8 Rheumatoid arthritis 9 Hypothyroidism 10 Irritable bowel syndrome 11 Migraine cephalgia Plan: The patient was seen and evaluated by Dr. Stanley. She is improved today compared to yesterday. We'll continue with the current treatment plan. Probable discharge in the a.m. Continue to follow. I, the cosigning physician, performed a history & physical examination of the patient. Lungs sounds bilateral end expiratory wheezes. Maintaining good O2 saturations in the 90s on room air. I discussed the assessment and plan of care with my nurse practitioner, Roxane Obrien. I attest to the above note as dictated by her.
[2019-03-27 20:56] LABS: Glucose,Whole Blood 261 mg/dL (75-99)
[2019-03-27] MEDS: AZITHROMYCIN 500 MG TAB PO SCH (21:21)
[2019-03-27] MEDS: LATANOPROST 0.005% OPHTH DROPS 2.5 ML BTL BOTH EYES SCH (21:21)
[2019-03-27] MEDS: PRAVASTATIN SODIUM 40 MG TAB PO SCH (21:21)
[2019-03-28] MEDS: SODIUM CHLORIDE 0.9% 1,000 ML IV SCH (05:42)
[2019-03-28 06:28] VITALS: BP 187/89; TEMP 98
[2019-03-28 07:29] LABS: Glucose,Whole Blood 216 mg/dL (75-99)
[2019-03-28] MEDS: methylPREDNISolone SOD SUCCI 40 MG/ML 1 ML VIAL IV SCH (08:19)
[2019-03-28] MEDS: LISINOPRIL 5 MG TAB PO SCH (08:19)
[2019-03-28] MEDS: SENNOSIDES-DOCUSATE SODIUM 1 EACH TAB PO SCH (08:19)
[2019-03-28] MEDS: INSULIN ASPART (NovoLOG) 100 UNIT/ML VIAL SQ SCH (08:19)
[2019-03-28] MEDS: PANTOPRAZOLE 40 MG TABLET PO SCH (08:19)
[2019-03-28] MEDS: HEPARIN SODIUM,PORCINE 5,000 UNIT/ML 1 ML VIAL SQ SCH (08:20)
[2019-03-28] MEDS: ASPIRIN 81 MG PO SCH (08:20)
[2019-03-28] MEDS: FLUTICASONE 50MCG/SPRAY NASAL 16GM EA NOSTRIL SCH (08:20)
[2019-03-28] MEDS: FAMOTIDINE 20 MG/2 ML VIAL IV SCH (08:20)
[2019-03-28] MEDS: DULoxetine HCL 60 MG CAPSULE.DR PO SCH (08:20)
[2019-03-28] MEDS: IPRATROPIUM-ALBUTEROL 3 ML NEB INHALATION SCH (08:53)
[2019-03-28 09:04] VITALS: PULSE 100
--- NOTE | 2019-03-28 10:11 | P.PN ---
Subjective Progress Note Date: 03/28/19 Principal diagnosis: Acute bronchitis with bronchospasm and reactive bronchial inflammation, no evidence of pneumonia On 03/28/2019 patient seen in follow-up on general medical floor, patient is on room air, her pulse ox is 95%, her lung sounds are clear, no wheezing, no rhonchi, occasional nonproductive cough, patient states she has a sore throat, but upon inspection there are no exudates, no redness, no evidence of yeast in the posterior oral pharynx, no significant nasal drainage noted in the posterior pharynx. Patient has been afebrile, white blood cell count is within normal limits, no tachycardia, no fever or chills, remains on Zithromax, IV steroids, nebulized bronchodilators, improving, she has been tolerating ambulation, she states she has had some sinus issues for which she has to follow up with the ENT service. CTA chest has shown no evidence of pulmonary embolism, no evidence of acute pulmonary process, but did show old granulomatous disease. Bilateral lower extremity ultrasounds were negative for evidence of DVT. Objective - Vital Signs Vital signs: Vital Signs Temp 98.0 F 03/28/19 05:38 Pulse 100 03/28/19 09:03 Resp 16 03/28/19 05:38 BP 187/89 03/28/19 05:38 Pulse Ox 95 03/28/19 05:38 Intake & Output 03/27/19 03/28/19 03/28/19 18:59 06:59 18:59 Intake Total 240 Balance 240 Intake: Oral 240 Other: Voiding Method Toilet Toilet # Voids 2 2 - Exam GENERAL EXAM: Alert, very pleasant, 64-year-old white female on room air, with a pulse ox of 95% comfortable in no apparent distress. HEAD: Normocephalic/atraumatic. EYES: Normal reaction of pupils, equal size. Conjunctiva pink, sclera white. NOSE: Clear with pink turbinates. THROAT: No erythema or exudates. NECK: No masses, no JVD, no thyroid enlargement, no adenopathy. CHEST: No chest wall deformity. Symmetrical expansion. LUNGS: Equal air entry with no crackles, wheeze, rhonchi or dullness. CVS: Regular rate and rhythm, normal S1 and S2, no gallops, no murmurs, no rubs ABDOMEN: Soft, nontender. No hepatosplenomegaly, normal bowel sounds, no guarding or rigidity. EXTREMITIES: No clubbing, no edema, no cyanosis, 2+ pulses and upper and lower extremities. MUSCULOSKELETAL: Muscle strength and tone normal. SPINE: No scoliosis or deformity SKIN: No rashes CENTRAL NERVOUS SYSTEM: Alert and oriented -3. No focal deficits, tone is normal in all 4 extremities. PSYCHIATRIC: Alert and oriented -3. Appropriate affect. Intact judgment and insight. - Labs CBC & Chem 7: 03/24/19 18:50 03/26/19 18:16 Labs: Abnormal Lab Results - Last 24 Hours (Table) 03/27/19 03/27/19 03/27/19 Range/Units 11:49 17:03 20:54 POC Glucose (mg/dL) 133 H 228 H 261 H (75-99) mg/dL 03/28/19 Range/Units 07:26 POC Glucose (mg/dL) 216 H (75-99) mg/dL Microbiology - Last 24 Hours (Table) 03/24/19 15:40 Blood Culture - Preliminary Blood No Growth after 72 hours Assessment and Plan Plan: Assessment: 1 Acute bronchitis with bronchospasm and reactive bronchial inflammation, no evidence of pneumonia 2 Remote history of sarcoidosis 3 Previous chronic tobacco dependence with mild chronic obstructive pulmonary disease 4 Diabetes mellitus 5 Fibromyalgia 6 GERD 7 Hypertension 8 Rheumatoid arthritis 9 Hypothyroidism 10 Irritable bowel syndrome 11 Migraine cephalgia Plan: Vital signs are stable, patient is tolerating ambulation, she is mentating stable oxygenation on room air, she is 95% on room air, no fever or chills, no tachycardia, no wheezing, no congestion, from pulmonary perspective patient is stable for discharge home today and she can finish outpatient course of Zithromax and prednisone taper, we will give her a prescription for nebulizer machine and nebulized treatments follow-up with Dr. Cantu in the office I performed a history & physical examination of the patient and discussed their management with my nurse practitioner, Trisha Morris. I reviewed the nurse practitioner's note and agree with the documented findings and plan of care. Lung sounds are positive for clear breath sounds. The findings and the impressi on was discussed with the patient. I attest to the documentation by the nurse practitioner. Time with Patient: Less than 30
[2019-03-28 11:16] LABS: Anisocytosis Slight; Basophils # (A) 0.1 k/uL (0-0.2); Basophils % (A) 1 %; Eosinophils % (A) 0 %; HCT 31.6 % (34.0-46.0); Hypochromasia Marked; Lymphocytes # (A) 2.5 k/uL (1.0-4.8); Lymphocytes % (A) 28 %; MCH 23.7 pg (25.0-35.0); MCHC 29.6 g/dL (31.0-37.0); MCV 80.2 fL (80.0-100.0); Mean Platelet Volume 7.8; Monocytes # (A) 0.6 k/uL (0-1.0); Monocytes % (A) 6 %; Neutrophils # (A) 5.8 k/uL (1.3-7.7); Neutrophils % (A) 64 %; Platelet Count 452 k/uL (150-450); RBC 3.93 m/uL (3.80-5.40); RDW 16.9 % (11.5-15.5)
[2019-03-28 11:19] LABS: Albumin 3.7 g/dL (3.5-5.0); Calcium 9.1 mg/dL (8.4-10.2); Potassium 4.7 mmol/L (3.5-5.1); Total Bilirubin 0.5 mg/dL (0.2-1.3); Total Protein 6.6 g/dL (6.3-8.2)
[2019-03-28 11:21] LABS: HGB 9.3 gm/dL (11.4-16.0)
--- NOTE | 2019-03-29 07:14 | DS ---
DISCHARGE SUMMARY DATE OF SERVICE: 03/28/2019 FINAL DIAGNOSES: 1. Acute asthmatic bronchitis with acute purulent tracheobronchitis. 2. Bilateral leg pain with negative Doppler. 3. Acute on chronic sinusitis. 4. Elevated lactic acid. 5. Constipation. 6. Sarcoidosis. 7. Generalized pain. 8. Rheumatoid arthritis. 9. Diabetes mellitus type 2. 10.Hypertension. 11.Gastroesophageal reflux disease. 12.Irritable bowel system syndrome. 13.Migraine. 14.Chronic back pain. 15.Urinary incontinence. 16.Optic nerve damage with glaucoma history. 17.Short-term memory problems. DISCHARGE DISPOSITION: PATIENT LEFT THE HOSPITAL AGAINST MEDICAL ADVICE. HISTORY OF PRESENT ILLNESS: This is a 64-year-old woman with a past medical history of multiple medical problems being followed by Dr. Esther Barragan in the outpatient was admitted with shortness of breath and multiple medical problems as mentioned earlier. Patient was treated conditionally by Dr. Stanley, but; however, the PATIENT LEFT THE HOSPITAL AGAINST MEDICAL ADVICE. Please refer to the discharge medication list or recommendations. The patient become very upset and the patient apparently had a panic reaction but; however, the patient is not willing to stay. The patient signed out AMA and left with ex- . MMODL / IJN: [id number] /
== END 2019-03-28 11:45 | disposition left against medical advice (07) | DRG 192 ==
LOC: EC 18:19 → 6NMEDSUR 21:45
PROVIDERS: ADMIT Hospitalist; ATTEND Hospitalist
DX: J44.0 Chronic obstructive pulmonary disease with (acute) lower respiratory infection (principal); D86.9 Sarcoidosis, unspecified; J01.90 Acute sinusitis, unspecified; E11.39 Type 2 diabetes mellitus with other diabetic ophthalmic complication; E03.9 Hypothyroidism, unspecified; J20.9 Acute bronchitis, unspecified; I10 Essential (primary) hypertension; E86.0 Dehydration; J44.1 Chronic obstructive pulmonary disease with (acute) exacerbation; H40.9 Unspecified glaucoma; H42 Glaucoma in diseases classified elsewhere; M79.7 Fibromyalgia; J32.9 Chronic sinusitis, unspecified; M06.9 Rheumatoid arthritis, unspecified; K21.9 Gastro-esophageal reflux disease without esophagitis; G43.909 Migraine, unspecified, not intractable, without status migrainosus; Q82.8 Other specified congenital malformations of skin; H26.9 Unspecified cataract; R32 Unspecified urinary incontinence; K58.9 Irritable bowel syndrome, unspecified; F32.9 Major depressive disorder, single episode, unspecified; F41.9 Anxiety disorder, unspecified; R41.3 Other amnesia; G93.9 Disorder of brain, unspecified; G89.29 Other chronic pain; M54.9 Dorsalgia, unspecified; Z79.82 Long term (current) use of aspirin; Z79.890 Hormone replacement therapy; Z79.84 Long term (current) use of oral hypoglycemic drugs; Z79.899 Other long term (current) drug therapy; Z87.891 Personal history of nicotine dependence; Z86.69 Personal history of other diseases of the nervous system and sense organs; Z98.890 Other specified postprocedural states; Z88.0 Allergy status to penicillin; Z88.2 Allergy status to sulfonamides; Z80.1 Family history of malignant neoplasm of trachea, bronchus and lung; Z83.49 Family history of other endocrine, nutritional and metabolic diseases; Z83.3 Family history of diabetes mellitus
CPT/HCPCS: 36415; 71045; 71046; 71275; 80048; 80053; 83036; 83605; 83735; 83880; 84439; 84443; 84484; 85025; 85379; 85610; 85730; 87040; 87502; 93005; 93970; 94640; 94760; 96361; 96374; 99285

== ENCOUNTER 2019-04-10 17:22 | Emergency (ER) | payer MEDICARE, OTHER ==
[2019-04-10 17:50] VITALS: TEMP 98.4
[2019-04-10 19:41] LABS: Amorphous Sediment,Urine Rare /hpf; Appearance,Urine Cloudy (Clear); Bacteria,Urine Rare /hpf; Bilirubin,Urine Negative (Negative); Blood,Urine Negative (Negative); Color,Urine Light Yellow; Glucose,Urine (UA) 4+ (Negative); Ketones,Urine Negative (Negative); Leukocyte Esterase,Urine Negative (Negative); Nitrite,Urine Negative (Negative); Protein,Urine Negative (Negative); RBC,Urine 6 /hpf (0-5); Specific Gravity,Urine 1.017 (1.001-1.035); Urobilinogen,Urine <2.0 mg/dL (<2.0); WBC,Urine 1 /hpf (0-5)
[2019-04-10 19:46] LABS: ALT 25 U/L (4-34); AST 24 U/L (14-36); African American GFR (CKD) 86 (>60 ml/min/1.73 sqM); Albumin 4.3 g/dL (3.5-5.0); Alkaline Phosphatase 51 U/L (38-126); Anion Gap 9 mmol/L; Blood Urea Nitrogen 17 mg/dL (7-17); Calcium 9.4 mg/dL (8.4-10.2); Carbon Dioxide 24 mmol/L (22-30); Chloride 100 mmol/L (98-107); Glucose 271 mg/dL (74-99); Non-African American GFR(CKD) 75 (>60 ml/min/1.73 sqM); Phosphorus 3.8 mg/dL (2.5-4.5); Potassium 5.1 mmol/L (3.5-5.1); Sodium 133 mmol/L (137-145); Total Bilirubin 0.5 mg/dL (0.2-1.3); Total Protein 7.1 g/dL (6.3-8.2)
[2019-04-10 19:50] LABS: Anisocytosis Slight; Basophils % (A) 0 %; Eosinophils # (A) 0.1 k/uL (0-0.7); Eosinophils % (A) 1 %; HCT 35.8 % (34.0-46.0); HGB 11.1 gm/dL (11.4-16.0); Hypochromasia Marked; Lymphocytes # (A) 2.8 k/uL (1.0-4.8); Lymphocytes % (A) 37 %; MCHC 30.9 g/dL (31.0-37.0); Mean Platelet Volume 6.8; Monocytes # (A) 0.4 k/uL (0-1.0); Monocytes % (A) 5 %; Neutrophils # (A) 4.1 k/uL (1.3-7.7); Neutrophils % (A) 54 %; Platelet Count 362 k/uL (150-450); RBC 4.42 m/uL (3.80-5.40); RDW 17.1 % (11.5-15.5); WBC 7.6 k/uL (3.8-10.6)
[2019-04-10] MEDS ORDERED: SODIUM CHLORIDE 0.9% 1,000 ML IV ONE (20:18)
[2019-04-10] MEDS ORDERED: SODIUM CHLORIDE 0.9% 500 ML 500 ML IV ONE (20:18)
--- NOTE | 2019-04-10 20:23 | XR ---
EXAMINATION TYPE: XR chest 2V DATE OF EXAM: 04/10/2019 COMPARISON: 03/25/2019 HISTORY: Shortness of breath TECHNIQUE: Frontal and lateral views of the chest are obtained. FINDINGS: Scattered senescent parenchymal changes noted. Hyperinflation compatible with COPD. No evidence for infiltrate. No evidence for atelectasis. Heart size is stable. Mediastinal structures are stable and grossly unremarkable. No evidence for hilar prominence. Degenerative changes dorsal spine. IMPRESSION: 1. No evidence for acute pulmonary disease.
[2019-04-10] MEDS ORDERED: SODIUM CHLORIDE 0.9% 1,000 ML IV SCH (20:30)
[2019-04-10 21:05] VITALS: BP 126/84; PULSE 94; RESP 18
--- NOTE | 2019-04-10 21:45 | ED ---
Recheck HPI - General Chief Complaint: Recheck/Abnormal Lab/Rx Stated Complaint: sore throat, swollen glands, sugar high, Dr sent Time Seen by Provider: 04/10/19 18:53 Source: patient Mode of arrival: ambulatory Limitations: no limitations - History of Present Illness Initial Comments: 64yo female with history of sarcoidosis, DMII on metformin, recent ec hocardiogram, holter monitor admission for bronchitis and SOB presenting to the ER today for cc of sore throat. Patient states that she was seen at an urgent care for sore throat itches why she presented which has been ongoing for the past few days. She states that they noted patient had elevation of heart rate as well as glucose and sent her to the ER for evaluation. Patient had negative monospot, rapid strep and influenza testing at the urgent care (results provided reviewed), UA revealed glucose in urine no ketones. Patient currently has 1 day left of 10 day steroid taper. Patient states she has cough that seems to be slightly improving but still has the SOB she experienced during her admission previously denies increase and states she is following this outpatient with cardiology and pulmonology. Patient denies leg swelling, hemoptysis, history of DVT. Denies fever, admits to chills and sensation that her glands of neck are swollen anteriorly. Patient denies abdominal pain, vomiting, diarrhea. Denies any other complaints, on arrival she appears well is very pleasant, appearing no ntoxic in no distress. HR noted to be elevated. - Related Data Home Medications Medication Instructions Recorded Confirmed Aspirin 81 mg PO DAILY 05/09/14 03/24/19 DULoxetine HCL [Cymbalta] 60 mg PO DAILY 05/09/14 03/24/19 Diazepam 2 mg PO HS PRN 05/09/14 03/24/19 Hydrocodone/Acetaminophen [[place] 1 tab PO Q6HR PRN 05/09/14 03/24/19 7.5-325] Latanoprost Ophth [Xalatan 0.005%] 1 drops BOTH EYES HS 05/09/14 03/24/19 Levothyroxine Sodium [Synthroid] 25 mcg PO DAILY 05/09/14 03/24/19 Lisinopril [Zestril] 5 mg PO DAILY 05/09/14 03/24/19 Multivitamins, Thera [Multivitamin] 1 tab PO Q48H 05/09/14 03/24/19 Omeprazole [PriLOSEC] 20 mg PO AC-BRKFST 05/09/14 03/24/19 metFORMIN HCL [metFORMIN HCL ER] 1,000 mg PO BID 05/09/14 03/24/19 Methocarbamol [Robaxin] 500 mg PO BID PRN 05/12/16 03/24/19 Calcium Carbonate/Vitamin D3 1 cap PO Q48H 02/18/18 03/24/19 [Calcium 600-Vit D3 500 Softgel] L.acidoph,Paracasei, B.lactis 1 cap PO DAILY 02/18/18 03/24/19 [Probiotic] Melatonin 10 mg PO HS PRN 02/18/18 03/24/19 Pravastatin Sodium [Pravachol] 40 mg PO HS 02/18/18 03/24/19 Magnesium Oxide [[place]] 500 mg PO DAILY 03/02/18 03/24/19 Pseudoephedrine 12Hr [Sudafed 12Hr] 120 mg PO Q12H 03/24/19 03/24/19 Buta/APAP/Caf/Cod [id number] 1 cap PO BID PRN 03/25/19 03/25/19 [Fioricet w/Cod [id number]] Previous Rx's Medication Instructions Recorded Albuterol Inhaler [Ventolin Hfa 1 - 2 puff INHALATION Q6HR PRN #1 03/17/19 Inhaler] inhaler Azithromycin [Zithromax] 500 mg PO HS 3 Days #3 tab 03/28/19 Fluticasone Nasal [place] [Flonase 2 spray EA NOSTRIL DAILY 30 Days 03/28/19 Nasal [place]] #1 spr Ipratropium-Albuterol Nebulize 3 ml INHALATION RT-QID 30 Days 03/28/19 [Duoneb 0.5 mg-3 mg/3 ml Soln] #120 ml Sennosides-Docusate Sodium 1 each PO BID 30 Days #60 tab 03/28/19 [Senokot-S] predniSONE 10 mg PO DIRECTED #30 tab 03/28/19 traMADol HCl [Ultram] 25 mg PO TID PRN #21 tab 03/28/19 Allergies Allergy/AdvReac Type Severity Reaction Status Date / Time Sulfa (Sulfonamide Allergy Unknown Verified 04/10/19 17:45 Antibiotics) Penicillins AdvReac Nausea & Verified 04/10/19 17:45 Vomiting Review of Systems ROS Statement: Those systems with pertinent positive or pertinent negative responses have been documented in the HPI. ROS Other: All systems not noted in ROS Statement are negative. Past Medical History Past Medical History: Diabetes Mellitus, Fibromyalgia, GERD/Reflux, Hypertension, Rheumatoid Arthritis (RA), Thyroid Disorder Additional Past Medical History / Comment(s): sarcoidosis, ibs migraines optic nerve damage short term memory issues chronic back pain keratodermia urinary incontinence glaucoma, brain lesion, pulmonary leasion, eye probelms History of Any Multi-Drug Resistant Organisms: None Reported Past Surgical History: Appendectomy, Cholecystectomy Additional Past Surgical History / Comment(s): bronchoscopy laproscopic young removal cyst removal , cataracts Past Anesthesia/Blood Transfusion Reactions: No Reported Reaction Past Psychological History: Anxiety, Depression Smoking Status: Former smoker Past Alcohol Use History: Rare Past Drug Use History: None Reported - Past Family History Mother Family Medical History: Cancer, Hyperlipidemia Additional Family Medical History / Comment(s): lung cancer Father Family Medical History: Cancer, Diabetes Mellitus, Hyperlipidemia General Exam - General Exam Comments Initial Comments: General: The patient is awake and alert, in no distress, and does not appear acutely ill. Eye: +3 mm pupils are equal, round and reactive to light, extra-ocular movements are intact. No nystagmus. There is normal conjunctiva bilaterally. No signs of icterus. Ears, nose, mouth and throat: There are moist mucous membranes and no oral lesions. Neck: The neck is supple, there is no tenderness or JVD. Cardiovascular: There is a regular rate and rhythm. No murmur, rub or gallop is appreciated. Respiratory: Lungs are clear to auscultation, respirations are non-labored, breath sounds are equal. No wheezes, stridor, rales, or rhonchi. Gastrointestinal: [Soft, non-distended, non-tender abdomen without masses or organomegaly noted. There is no rebound or guarding present. Musculoskeletal: Normal ROM, no tenderness. Strength 5/5. Sensation intact. Radial pulses equal bilaterally 2+. Neurological: A&O x 3. CN II-XII intact, There are no obvious motor or sensory deficits. Coordination appears grossly intact. Speech is normal. Skin: Skin is warm and dry and no rashes or lesions are noted. No LE edema. Psychiatric: Cooperative, appropriate mood & affect, normal judgment. Limitations: no limitations Course Vital Signs 04/10/19 04/10/19 04/10/19 17:45 19:24 21:04 Temperature 98.4 F Pulse Rate 125 H 94 Respiratory 18 20 18 Rate Blood Pressure 146/84 126/84 O2 Sat by Pulse 97 95 Oximetry Medical Decision Making - Medical Decision Making Very well appearing 64yo female presenting for sore throat. Monospot, strep pharyngitis and influenz testing (-). Mild erythema of the tonsils noted on physical examination. This is most likely viral pharyngitis. Patient CXR clear. Lung sounds clear. HR normalized. Patient ws in no distress. NO increase of SOB. Patient Troponin (-). EKG no acute findings. No LE edema. Discussed the case in detail by attending provider Dr. Cherry we feel patient is stable for discharge with outpatient pulmonology and cardiology follow-up as scheduled as well as primary care provider one to 2 days. Patient is agreeable to discharge at this time and aware of importance of return parameters. - Lab Data Result diagrams: 04/10/19 19:20 04/10/19 19:20 Lab Results 04/10/19 04/10/19 04/10/19 Range/Units 19:20 19:20 19:20 WBC 7.6 (3.8-10.6) k/uL RBC 4.42 (3.80-5.40) m/uL Hgb 11.1 L (11.4-16.0) gm/dL Hct 35.8 (34.0-46.0) % MCV 81.0 (80.0-100.0) fL MCH 25.0 (25.0-35.0) pg MCHC 30.9 L (31.0-37.0) g/dL RDW 17.1 H (11.5-15.5) % Plt Count 362 (150-450) k/uL Neutrophils % 54 % Lymphocytes % 37 % Monocytes % 5 % Eosinophils % 1 % Basophils % 0 % Neutrophils # 4.1 (1.3-7.7) k/uL Lymphocytes # 2.8 (1.0-4.8) k/uL Monocytes # 0.4 (0-1.0) k/uL Eosinophils # 0.1 (0-0.7) k/uL Basophils # 0.0 (0-0.2) k/uL Hypochromasia Marked Anisocytosis Slight Sodium 133 L (137-145) mmol/L Potassium 5.1 (3.5-5.1) mmol/L Chloride 100 (98-107) mmol/L Carbon Dioxide 24 (22-30) mmol/L Anion Gap 9 mmol/L BUN 17 (7-17) mg/dL Creatinine 0.83 (0.52-1.04) mg/dL Est GFR (CKD-EPI)AfAm 86 (>60 ml/min/1.73 sqM) Est GFR (CKD-EPI)NonAf 75 (>60 ml/min/1.73 sqM) Glucose 271 H (74-99) mg/dL Calcium 9.4 (8.4-10.2) mg/dL Phosphorus 3.8 (2.5-4.5) mg/dL Magnesium 2.0 (1.6-2.3) mg/dL Total Bilirubin 0.5 (0.2-1.3) mg/dL AST 24 (14-36) U/L ALT 25 (4-34) U/L Alkaline Phosphatase 51 (38-126) U/L Troponin I (0.000-0.034) ng/mL NT-Pro-B Natriuret Pep pg/mL Total Protein 7.1 (6.3-8.2) g/dL Albumin 4.3 (3.5-5.0) g/dL TSH (0.465-4.680) mIU/L Urine Color Light Yellow Urine Appearance Cloudy H (Clear) Urine pH 6.0 (5.0-8.0) Ur Specific [place] 1.017 (1.001-1.035) Urine Protein Negative (Negative) Urine Glucose (UA) 4+ H (Negative) Urine Ketones Negative (Negative) Urine Blood Negative (Negative) Urine Nitrite Negative (Negative) Urine Bilirubin Negative (Negative) Urine Urobilinogen <2.0 (<2.0) mg/dL Ur Leukocyte Esterase Negative (Negative) Urine RBC 6 H (0-5) /hpf Urine WBC 1 (0-5) /hpf Amorphous Sediment Rare H (None) /hpf Urine Bacteria Rare H (None) /hpf Acetone, Qual Negative (Negative) 04/10/19 04/10/19 04/10/19 Range/Units 19:20 20:11 20:11 WBC (3.8-10.6) k/uL RBC (3.80-5.40) m/uL Hgb (11.4-16.0) gm/dL Hct (34.0-46.0) % MCV (80.0-100.0) fL MCH (25.0-35.0) pg MCHC (31.0-37.0) g/dL RDW (11.5-15.5) % Plt Count (150-450) k/uL Neutrophils % % Lymphocytes % % Monocytes % % Eosinophils % % Basophils % % Neutrophils # (1.3-7.7) k/uL Lymphocytes # (1.0-4.8) k/uL Monocytes # (0-1.0) k/uL Eosinophils # (0-0.7) k/uL Basophils # (0-0.2) k/uL Hypochromasia Anisocytosis Sodium (137-145) mmol/L Potassium (3.5-5.1) mmol/L Chloride (98-107) mmol/L Carbon Dioxide (22-30) mmol/L Anion Gap mmol/L BUN (7-17) mg/dL Creatinine (0.52-1.04) mg/dL Est GFR (CKD-EPI)AfAm (>60 ml/min/1.73 sqM) Est GFR (CKD-EPI)NonAf (>60 ml/min/1.73 sqM) Glucose (74-99) mg/dL Calcium (8.4-10.2) mg/dL Phosphorus (2.5-4.5) mg/dL Magnesium (1.6-2.3) mg/dL Total Bilirubin (0.2-1.3) mg/dL AST (14-36) U/L ALT (4-34) U/L Alkaline Phosphatase (38-126) U/L Troponin I <0.012 (0.000-0.034) ng/mL NT-Pro-B Natriuret Pep 60 pg/mL Total Protein (6.3-8.2) g/dL Albumin (3.5-5.0) g/dL TSH 1.060 (0.465-4.680) mIU/L Urine Color Urine Appearance (Clear) Urine pH (5.0-8.0) Ur Specific [place] (1.001-1.035) Urine Protein (Negative) Urine Glucose (UA) (Negative) Urine Ketones (Negative) Urine Blood (Negative) Urine Nitrite (Negative) Urine Bilirubin (Negative) Urine Urobilinogen (<2.0) mg/dL Ur Leukocyte Esterase (Negative) Urine RBC (0-5) /hpf Urine WBC (0-5) /hpf Amorphous Sediment (None) /hpf Urine Bacteria (None) /hpf Acetone, Qual (Negative) Disposition Clinical Impression: Pharyngitis, Elevated glucose, Cough, SOB (shortness of breath) Disposition: HOME SELF-CARE Condition: Good Instructions (If sedation given, give patient instructions): Pharyngitis (ED) Additional Instructions: Please use medication as discussed. Please follow-up with family doctor in the next 2 days, as well as pulmonology and cardiology I recommend reviewing Holter monitor results, as well as echo and discussing stress testing vs cardiac catheterization. Please return to emergency room if the symptoms increase or worsen or for any other concerns. Is patient prescribed a controlled substance at d/c from ED?: No Referrals: Esther Barragan MD [Primary Care Provider] - 1-2 days Time of Disposition: 21:44
== END 2019-04-10 22:08 | disposition home or self-care (01) ==
LOC: EC 17:22
DX: E11.65 Type 2 diabetes mellitus with hyperglycemia (principal); R06.02 Shortness of breath; J02.0 Streptococcal pharyngitis; M79.7 Fibromyalgia; F41.9 Anxiety disorder, unspecified; F32.9 Major depressive disorder, single episode, unspecified; K21.9 Gastro-esophageal reflux disease without esophagitis; I10 Essential (primary) hypertension; D86.9 Sarcoidosis, unspecified; M06.9 Rheumatoid arthritis, unspecified; K58.9 Irritable bowel syndrome, unspecified; H40.9 Unspecified glaucoma; E07.9 Disorder of thyroid, unspecified; Z79.82 Long term (current) use of aspirin; Z79.890 Hormone replacement therapy; Z79.899 Other long term (current) drug therapy; Z79.84 Long term (current) use of oral hypoglycemic drugs; Z90.49 Acquired absence of other specified parts of digestive tract; Z87.891 Personal history of nicotine dependence; Z83.3 Family history of diabetes mellitus; Z88.2 Allergy status to sulfonamides; Z88.0 Allergy status to penicillin
CPT/HCPCS: 36415; 71046; 80053; 81001; 82009; 83735; 83880; 84100; 84443; 84484; 85025; 93005; 96360; 96361; 99285

== ENCOUNTER 2019-04-27 15:02 | Emergency (ER) | payer MEDICARE, OTHER ==
[2019-04-27 15:15] VITALS: RESP 18
[2019-04-27] MEDS ORDERED: SODIUM CHLORIDE 0.9% 1,000 ML IV STA (15:28)
[2019-04-27 15:44] LABS: Anisocytosis Slight; Basophils # (A) 0.1 k/uL (0-0.2); Basophils % (A) 1 %; Eosinophils # (A) 0.1 k/uL (0-0.7); Eosinophils % (A) 2 %; HCT 36.4 % (34.0-46.0); HGB 11.3 gm/dL (11.4-16.0); Hypochromasia Moderate; Lymphocytes % (A) 39 %; MCH 24.7 pg (25.0-35.0); MCV 79.8 fL (80.0-100.0); Mean Platelet Volume 7.2; Microcytosis Slight; Monocytes # (A) 0.5 k/uL (0-1.0); Monocytes % (A) 7 %; Neutrophils # (A) 3.6 k/uL (1.3-7.7); Neutrophils % (A) 47 %; Platelet Count 397 k/uL (150-450); RBC 4.56 m/uL (3.80-5.40); RDW 16.4 % (11.5-15.5); WBC 7.6 k/uL (3.8-10.6)
--- NOTE | 2019-04-27 15:49 | ED ---
General Adult HPI - General Chief complaint: Recheck/Abnormal Lab/Rx Stated complaint: High Heart rate and BP Time Seen by Provider: 04/27/19 15:06 Source: patient Mode of arrival: ambulatory Limitations: no limitations - History of Present Illness Initial comments: Dictation was produced using [employer] dictation software. please excuse any grammatical, word or spelling errors. Chief Complaint: 64-year-old female multiple comorbidities presents with tachycardia. History of Present Illness: 64-year-old female she has multiple comorbidities. She is here today because she has been experiencing some hot flashes. She checked her blood pressure was found to be high. Patient has a history of hypertension. She was recently admitted to the hospital where she was evaluated by cardiology. She was switched to metoprolol. Patient's been taking her metoprolol per usual. She tried to follow-up with cardiology however they would not be able to see her today so instead they told her to go to the emergency room. Patient tried to follow-up with her primary care physician who was not available today. She then decided come to the emergency department for medical evaluation. Patient has no pain complaints. Patient states she feels clammy. She reports that menopause occurred several years ago. Denies any shortness of breath nausea or abdominal pain. No diarrhea The ROS documented in this emergency department record has been reviewed and confirmed by me. Those systems with pertinent positive or negative responses have been documented in the HPI. All other systems are other negative and/or noncontributory. PHYSICAL EXAM: General Impression: Alert and oriented x3, not in acute distress HEENT: Normocephalic atraumatic, extra-ocular movements intact, pupils equal and reactive to light bilaterally, mucous membranes moist. Cardiovascular: Heart regular rate and rhythm, S1&S2 audible, no murmurs, rubs or gallops Chest: Lungs clear to auscultation bilaterally, no rhonchi, no wheeze, no rales Abdomen: Bowel sounds present, abdomen soft, non-tender, non-distended, no organomegaly Musculoskeletal: Pulses present and equal in all extremities, no peripheral edema Motor: no focal deficits noted Neurological: CN II-XII grossly intact, no focal motor or sensory deficits noted Skin: Intact with no visualized rashes Psych: Normal affect and mood ED course: 64-year-old female with chief complaint of tachycardia. His upon arrival are within acceptable limits. She is well-appearing at bedside. EKGs benign. Laboratory evaluation obtained. CBC, metabolic panel is unremarkable. No electrolyte derangement. Patient is given intravenous fluids and observed in emergency department for couple hours. Disposition options were discussed with patient. She was agreeable for discharge. She is told to follow-up with [facility] physician. Discussed the patient is unclear exactly what is causing her to feel her symptoms however at this point there is no apparent life- threatening pathology occurring at this time. reassurance is provided. EKG interpretation: Ventricular rate 90, normal sinus rhythm,. Interval 160, QRS 74, QTC 462. No IN prolongation, no QTC prolongation, no ST or T-wave changes noted. . Overall, this EKG is unremarkable - Related Data Home Medications Medication Instructions Recorded Confirmed Aspirin 81 mg PO DAILY 05/09/14 03/24/19 DULoxetine HCL [Cymbalta] 60 mg PO DAILY 05/09/14 03/24/19 Diazepam 2 mg PO HS PRN 05/09/14 03/24/19 Hydrocodone/Acetaminophen [[place] 1 tab PO Q6HR PRN 05/09/14 03/24/19 7.5-325] Latanoprost Ophth [Xalatan 0.005%] 1 drops BOTH EYES HS 05/09/14 03/24/19 Levothyroxine Sodium [Synthroid] 25 mcg PO DAILY 05/09/14 03/24/19 Lisinopril [Zestril] 5 mg PO DAILY 05/09/14 03/24/19 Multivitamins, Thera [Multivitamin] 1 tab PO Q48H 05/09/14 03/24/19 Omeprazole [PriLOSEC] 20 mg PO AC-BRKFST 05/09/14 03/24/19 metFORMIN HCL [metFORMIN HCL ER] 1,000 mg PO BID 05/09/14 03/24/19 Methocarbamol [Robaxin] 500 mg PO BID PRN 05/12/16 03/24/19 Calcium Carbonate/Vitamin D3 1 cap PO Q48H 02/18/18 03/24/19 [Calcium 600-Vit D3 500 Softgel] L.acidoph,Paracasei, B.lactis 1 cap PO DAILY 02/18/18 03/24/19 [Probiotic] Melatonin 10 mg PO HS PRN 02/18/18 03/24/19 Pravastatin Sodium [Pravachol] 40 mg PO HS 02/18/18 03/24/19 Magnesium Oxide [[place]] 500 mg PO DAILY 03/02/18 03/24/19 Pseudoephedrine 12Hr [Sudafed 12Hr] 120 mg PO Q12H 03/24/19 03/24/19 [place]/APAP/Caf/Cod [id number] 1 cap PO BID PRN 03/25/19 03/25/19 [Fioricet w/Cod [id number]] Previous Rx's Medication Instructions Recorded Albuterol Inhaler [Ventolin Hfa 1 - 2 puff INHALATION Q6HR PRN #1 03/17/19 Inhaler] inhaler Azithromycin [Zithromax] 500 mg PO HS 3 Days #3 tab 03/28/19 Fluticasone Nasal [place] [Flonase 2 spray EA NOSTRIL DAILY 30 Days 03/28/19 Nasal [place]] #1 spr Ipratropium-Albuterol Nebulize 3 ml INHALATION RT-QID 30 Days 03/28/19 [Duoneb 0.5 mg-3 mg/3 ml Soln] #120 ml Sennosides-Docusate Sodium 1 each PO BID 30 Days #60 tab 03/28/19 [Senokot-S] predniSONE 10 mg PO DIRECTED #30 tab 03/28/19 traMADol HCl [Ultram] 25 mg PO TID PRN #21 tab 03/28/19 Allergies Allergy/AdvReac Type Severity Reaction Status Date / Time Sulfa (Sulfonamide Allergy Unknown Verified 04/10/19 17:45 Antibiotics) Penicillins AdvReac Nausea & Verified 04/10/19 17:45 Vomiting Review of Systems ROS Statement: Those systems with pertinent positive or pertinent negative responses have been documented in the HPI. ROS Other: All systems not noted in ROS Statement are negative. Past Medical History Past Medical History: Diabetes Mellitus, Fibromyalgia, GERD/Reflux, Hypertension, Rheumatoid Arthritis (RA), Thyroid Disorder Additional Past Medical History / Comment(s): sarcoidosis, ibs migraines optic nerve damage short term memory issues chronic back pain keratodermia urinary incontinence glaucoma, brain lesion, pulmonary leasion, eye probelms History of Any Multi-Drug Resistant Organisms: None Reported Past Surgical History: Appendectomy, Cholecystectomy Additional Past Surgical History / Comment(s): bronchoscopy laproscopic young removal cyst removal , cataracts Past Anesthesia/Blood Transfusion Reactions: No Reported Reaction Past Psychological History: Anxiety, Depression Smoking Status: Former smoker Past Alcohol Use History: Rare Past Drug Use History: None Reported - Past Family History Mother Family Medical History: Cancer, Hyperlipidemia Additional Family Medical History / Comment(s): lung cancer Father Family Medical History: Cancer, Diabetes Mellitus, Hyperlipidemia General Exam Limitations: no limitations Course Vital Signs 04/27/19 04/27/19 04/27/19 15:11 15:15 15:48 Temperature 98.0 F 99.4 F Pulse Rate 100 86 Respiratory 18 18 Rate Blood Pressure 170/86 137/75 O2 Sat by Pulse 97 96 Oximetry 04/27/19 16:15 Temperature Pulse Rate 85 Respiratory 18 Rate Blood Pressure 137/75 O2 Sat by Pulse 100 Oximetry Medical Decision Making - Lab Data Result diagrams: 04/27/19 15:20 04/27/19 15:20 Lab Results 04/27/19 04/27/19 04/27/19 Range/Units 15:20 15:20 16:27 WBC 7.6 (3.8-10.6) k/uL RBC 4.56 (3.80-5.40) m/uL Hgb 11.3 L (11.4-16.0) gm/dL Hct 36.4 (34.0-46.0) % MCV 79.8 L (80.0-100.0) fL MCH 24.7 L (25.0-35.0) pg MCHC 31.0 (31.0-37.0) g/dL RDW 16.4 H (11.5-15.5) % Plt Count 397 (150-450) k/uL Neutrophils % 47 % Lymphocytes % 39 % Monocytes % 7 % Eosinophils % 2 % Basophils % 1 % Neutrophils # 3.6 (1.3-7.7) k/uL Lymphocytes # 3.0 (1.0-4.8) k/uL Monocytes # 0.5 (0-1.0) k/uL Eosinophils # 0.1 (0-0.7) k/uL Basophils # 0.1 (0-0.2) k/uL Hypochromasia Moderate Anisocytosis Slight Microcytosis Slight Sodium 136 L (137-145) mmol/L Potassium 4.5 (3.5-5.1) mmol/L Chloride 101 (98-107) mmol/L Carbon Dioxide 23 (22-30) mmol/L Anion Gap 12 mmol/L BUN 16 (7-17) mg/dL Creatinine 0.80 (0.52-1.04) mg/dL Est GFR (CKD-EPI)AfAm 90 (>60 ml/min/1.73 sqM) Est GFR (CKD-EPI)NonAf 78 (>60 ml/min/1.73 sqM) Glucose 190 H (74-99) mg/dL POC Glucose (mg/dL) 207 H (75-99) mg/dL POC Glu Tunnel Form Placing Supervisor ID Sailaja Higgins Calcium 9.8 (8.4-10.2) mg/dL Magnesium 1.7 (1.6-2.3) mg/dL Disposition Clinical Impression: Dizziness Disposition: HOME SELF-CARE Condition: Good Instructions (If sedation given, give patient instructions): Dehydration (ED) Is patient prescribed a controlled substance at d/c from ED?: No Referrals: Esther Barragan MD [Primary Care Provider] - 1-2 days Time of Disposition: 16:49
[2019-04-27 15:52] LABS: Calcium 9.8 mg/dL (8.4-10.2); Magnesium 1.7 mg/dL (1.6-2.3); Potassium 4.5 mmol/L (3.5-5.1)
[2019-04-27 16:30] LABS: Glucose,Whole Blood 207 mg/dL (75-99)
[2019-04-27 17:09] VITALS: BP 125/73; PULSE 79; TEMP 98.3
== END 2019-04-27 17:09 | disposition home or self-care (01) ==
LOC: EC 15:02
DX: R42 Dizziness and giddiness (principal); R00.0 Tachycardia, unspecified; E11.9 Type 2 diabetes mellitus without complications; M79.7 Fibromyalgia; K21.9 Gastro-esophageal reflux disease without esophagitis; I10 Essential (primary) hypertension; M06.9 Rheumatoid arthritis, unspecified; E07.9 Disorder of thyroid, unspecified; D86.9 Sarcoidosis, unspecified; F41.9 Anxiety disorder, unspecified; F32.9 Major depressive disorder, single episode, unspecified; G43.909 Migraine, unspecified, not intractable, without status migrainosus; G89.29 Other chronic pain; H40.9 Unspecified glaucoma; Z79.82 Long term (current) use of aspirin; Z79.890 Hormone replacement therapy; Z79.84 Long term (current) use of oral hypoglycemic drugs; Z79.899 Other long term (current) drug therapy; Z88.2 Allergy status to sulfonamides; Z88.0 Allergy status to penicillin; Z90.49 Acquired absence of other specified parts of digestive tract; Z87.891 Personal history of nicotine dependence
CPT/HCPCS: 36415; 80048; 83735; 85025; 93005; 96360; 99285

== ENCOUNTER → 2019-05-11 | Outpatient (CLI) | payer MEDICARE, OTHER ==
--- NOTE | 2019-05-11 14:59 | CT ---
EXAMINATION TYPE: CT chest wo con DATE OF EXAM: 05/11/2019 COMPARISON: 03/24/2019 HISTORY: Shortness of breath. History of sarcoidosis. CT DLP: 492 mGycm. Automated Exposure Control for Dose Reduction was Utilized. TECHNIQUE: CT scan of the thorax is performed without IV contrast. FINDINGS: LUNGS: There is no pneumothorax. There is mild hyperexpansion. Subpleural thickening seen bilaterally in the lung apices and posteriorly within the lungs. In the right perihilar region there is a faint tree-in-bud appearance. Best noted on axial image 21. No consolidative pneumonia or pleural effusion. No pneumothorax. Linear density axial image 26 within the anterior segment right upper lobe inferior ly is too small to characterize measuring 3 mm. MEDIASTINUM: Lack of IV contrast is noted to limit evaluation for mediastinal and especially hilar ad enopathy. There are no definitive greater than 1 cm hilar or mediastinal lymph nodes numerous calcifi ed mediastinal and hilar lymph nodes are seen compatible with granulomatous disease. Aorta of normal caliber. Heart size normal with no sizable pericardial effusion. Right pulmonary artery measures appr oximately 2 cm in the proximal left pulmonary artery measures 1.7 cm. OTHER: Evidence of vertebroplasty at the thoracolumbar junction noted. There is multilevel hypertroph ic and degenerative change of the spine. Benign calcification within the left breast.. IMPRESSION: 1. There is hyperexpansion correlate for COPD. There is a localized area of tree-in-bud pattern seen on axial image 21 which could be associated with an area of alveolitis measuring approximately 1.5 cm . This also could be associated with granulomatous disease or mycobacterium. 2. Numerous calcified lymph nodes compatible with chronic granulomatous disease. No pathologic sized adenopathy identified.
== END | disposition home or self-care (01) ==
LOC: RADCTMAIN 14:00
PROVIDERS: ATTEND Internal Medicine Pulmonary Disease
DX: R91.8 Other nonspecific abnormal finding of lung field (principal); I89.8 Other specified noninfective disorders of lymphatic vessels and lymph nodes; J44.9 Chronic obstructive pulmonary disease, unspecified; D86.9 Sarcoidosis, unspecified; E11.9 Type 2 diabetes mellitus without complications; M79.7 Fibromyalgia; F32.9 Major depressive disorder, single episode, unspecified; E78.00 Pure hypercholesterolemia, unspecified; I10 Essential (primary) hypertension; Z88.0 Allergy status to penicillin; Z88.2 Allergy status to sulfonamides
CPT/HCPCS: 71250

== ENCOUNTER 2019-09-28 13:59 | Emergency (ER) | payer MEDICARE, OTHER ==
[2019-09-28 14:13] VITALS: RESP 18
--- NOTE | 2019-09-28 15:03 | ED ---
General Adult HPI - General Chief complaint: Shortness of Breath Stated complaint: shortnes of breath, sore throat Time Seen by Provider: 09/28/19 14:21 Source: patient, RN notes reviewed, old records reviewed Mode of arrival: ambulatory Limitations: no limitations - History of Present Illness Initial comments: 64-year-old female presenting for evaluation of sore throat, cough and chest congestion. Patient has had symptoms for the past 3 days. Denies severe central radiating chest pain. Denies lower extremity pain or swelling. She is concerned she may have contracted coronavirus although she does not have any known direct contacts. No abdominal pain nausea vomiting. She does have some mild associated dyspnea. - Related Data Home Medications Medication Instructions Recorded Confirmed DULoxetine HCL [Cymbalta] 60 mg PO DAILY 05/09/14 09/28/19 Diazepam 2 mg PO DAILY PRN 05/09/14 09/28/19 Hydrocodone/Acetaminophen [[place] 1 tab PO BID PRN 05/09/14 09/28/19 7.5-325] Latanoprost Ophth [Xalatan 0.005%] 1 drop BOTH EYES HS 05/09/14 09/28/19 Omeprazole [PriLOSEC] 20 mg PO AC-BRKFST@0600 05/09/14 09/28/19 methocarbamoL [Robaxin] 500 mg PO BID PRN 05/12/16 09/28/19 L.acidoph,Paracasei, B.lactis 1 cap PO DAILY 02/18/18 09/28/19 [Probiotic] Melatonin 10 mg PO HS 02/18/18 09/28/19 Pravastatin Sodium [Pravachol] 40 mg PO HS 02/18/18 09/28/19 Albuterol Sulfate [Ventolin HFA] 2 puff INHALATION RT-QID PRN 09/28/19 09/28/19 Ascorbic Acid [Vitamin C] 500 mg PO DAILY 09/28/19 09/28/19 Aspirin EC [Ecotrin Low Dose] 81 mg PO DAILY 09/28/19 09/28/19 Budesonide [Pulmicort Flexhaler] 2 puff INHALATION RT-BID 09/28/19 09/28/19 Butalb/APAP/Caff 50-325-40Mg 1 tab PO TID PRN 09/28/19 09/28/19 [Fioricet 50-325-40] Calcium 1200mg/Vitamin D3 25mg 1 tab PO Q48H 09/28/19 09/28/19 Cholecalciferol [Vitamin D3 (25 2,000 unit PO DAILY 09/28/19 09/28/19 Mcg = 1000 Iu)] Cyanocobalamin (Vitamin B-12) 5,000 mcg PO Q48H 09/28/19 09/28/19 [Vitamin B-12] Elderberry Sambucus 1250mg 1 tab PO DAILY 09/28/19 09/28/19 Magnesium Oxide [Mag-Ox] 250 mg PO DAILY 09/28/19 09/28/19 Metoprolol Succinate [Toprol XL] 25 mg PO DAILY 09/28/19 09/28/19 Montelukast [Singulair] 10 mg PO HS 09/28/19 09/28/19 Multivit-Min/FA/Lycopen/Lutein 1 tab PO DAILY 09/28/19 09/28/19 [Centrum Silver Tablet] Potassium Gluconate 99 mg PO Q72H 09/28/19 09/28/19 metFORMIN HCL 1,000 mg PO BID 09/28/19 09/28/19 Allergies Allergy/AdvReac Type Severity Reaction Status Date / Time Penicillins AdvReac Nausea & Verified 09/28/19 15:50 Vomiting Sulfa (Sulfonamide AdvReac Nausea & Verified 09/28/19 15:50 Antibiotics) Vomiting Review of Systems ROS Statement: Those systems with pertinent positive or pertinent negative responses have been documented in the HPI. ROS Other: All systems not noted in ROS Statement are negative. Past Medical History Past Medical History: Diabetes Mellitus, Fibromyalgia, GERD/Reflux, Hypertension, Rheumatoid Arthritis (RA), Thyroid Disorder Additional Past Medical History / Comment(s): sarcoidosis, ibs migraines optic nerve damage short term memory issues chronic back pain keratodermia urinary incontinence glaucoma, brain lesion, pulmonary leasion, eye probelms History of Any Multi-Drug Resistant Organisms: None Reported Past Surgical History: Appendectomy, Cholecystectomy Additional Past Surgical History / Comment(s): bronchoscopy laproscopic young removal cyst removal , cataracts Past Anesthesia/Blood Transfusion Reactions: No Reported Reaction Past Psychological History: Anxiety, Depression Smoking Status: Former smoker Past Alcohol Use History: Rare Past Drug Use History: None Reported - Past Family History Mother Family Medical History: Cancer, Hyperlipidemia Additional Family Medical History / Comment(s): lung cancer Father Family Medical History: Cancer, Diabetes Mellitus, Hyperlipidemia General Exam Limitations: no limitations General appearance: alert, in no apparent distress Head exam: Present: atraumatic, normocephalic Eye exam: Present: normal appearance, PERRL ENT exam: Present: normal exam, normal oropharynx Neck exam: Present: normal inspection. Absent: tenderness, meningismus Respiratory exam: Present: normal lung sounds bilaterally. Absent: respiratory distress, wheezes, rales, rhonchi, stridor Cardiovascular Exam: Present: regular rate, normal rhythm GI/Abdominal exam: Present: soft. Absent: distended, tenderness, guarding Extremities exam: Present: normal inspection, normal capillary refill. Absent: pedal edema Back exam: Present: normal inspection, full ROM Neurological exam: Present: alert, oriented X3, CN II-XII intact Psychiatric exam: Present: normal affect, normal mood Skin exam: Present: warm, dry, intact. Absent: cyanosis, diaphoretic Course Vital Signs 09/28/19 09/28/19 14:11 14:17 Temperature 98.6 F Pulse Rate 82 Respiratory 18 18 Rate Blood Pressure 143/87 O2 Sat by Pulse 99 Oximetry EKG Findings - EKG Comments: EKG Findings:: EKG: Normal sinus rhythm, LVH, rate of 76, [place] interval 164, QRS duration 78, QTC 447, no ST segment elevation Medical Decision Making - Medical Decision Making 64-year-old female with concern that she may have contracted coronavirus. Chest is performed emergency department takes approximately 24 hours at this time. Additionally she did have a sore throat and is negative for strep. She has nor mal white blood cell count, hemoglobin is low at 10.1 but this is the patient's baseline. She has a mild lactic acid 2.5 likely secondary to dehydration. Negative troponin. Chest x-ray negative for focal pneumonia. She is afebrile and otherwise well-appearing. She does agree to quarantine herself until test results are available which is approximately 24 hours. She will monitor symptoms at home and return with worsening or changing symptoms. - Lab Data Result diagrams: 09/28/19 14:49 09/28/19 14:49 Lab Results 09/28/19 09/28/19 09/28/19 Range/Units 14:49 14:49 14:49 WBC 5.4 (3.8-10.6) k/uL RBC 4.36 (3.80-5.40) m/uL Hgb 10.1 L (11.4-16.0) gm/dL Hct 33.5 L (34.0-46.0) % MCV 76.8 L (80.0-100.0) fL MCH 23.1 L (25.0-35.0) pg MCHC 30.1 L (31.0-37.0) g/dL RDW 16.7 H (11.5-15.5) % Plt Count 339 (150-450) k/uL Neutrophils % 48 % Lymphocytes % 34 % Monocytes % 10 % Eosinophils % 3 % Basophils % 1 % Neutrophils # 2.6 (1.3-7.7) k/uL Lymphocytes # 1.8 (1.0-4.8) k/uL Monocytes # 0.6 (0-1.0) k/uL Eosinophils # 0.2 (0-0.7) k/uL Basophils # 0.0 (0-0.2) k/uL Hypochromasia Marked Anisocytosis Slight Microcytosis Slight PT 9.9 (9.0-12.0) sec INR 1.0 (<1.2) APTT 20.8 L (22.0-30.0) sec Sodium 135 L (137-145) mmol/L Potassium 4.1 (3.5-5.1) mmol/L Chloride 101 (98-107) mmol/L Carbon Dioxide 23 (22-30) mmol/L Anion Gap 11 mmol/L BUN 10 (7-17) mg/dL Creatinine 0.71 (0.52-1.04) mg/dL Est GFR (CKD-EPI)AfAm >90 (>60 ml/min/1.73 sqM) Est GFR (CKD-EPI)NonAf >90 (>60 ml/min/1.73 sqM) Glucose 195 H (74-99) mg/dL Plasma Lactic Acid Tay (0.7-2.0) mmol/L Calcium 9.6 (8.4-10.2) mg/dL Magnesium 1.6 (1.6-2.3) mg/dL Total Bilirubin 0.3 (0.2-1.3) mg/dL AST 26 (14-36) U/L ALT 22 (4-34) U/L Alkaline Phosphatase 57 (38-126) U/L Troponin I (0.000-0.034) ng/mL Total Protein 7.1 (6.3-8.2) g/dL Albumin 4.3 (3.5-5.0) g/dL Group A Strep Rapid (Negative) 09/28/19 09/28/19 09/28/19 Range/Units 14:49 14:49 15:51 WBC (3.8-10.6) k/uL RBC (3.80-5.40) m/uL Hgb (11.4-16.0) gm/dL Hct (34.0-46.0) % MCV (80.0-100.0) fL MCH (25.0-35.0) pg MCHC (31.0-37.0) g/dL RDW (11.5-15.5) % Plt Count (150-450) k/uL Neutrophils % % Lymphocytes % % Monocytes % % Eosinophils % % Basophils % % Neutrophils # (1.3-7.7) k/uL Lymphocytes # (1.0-4.8) k/uL Monocytes # (0-1.0) k/uL Eosinophils # (0-0.7) k/uL Basophils # (0-0.2) k/uL Hypochromasia Anisocytosis Microcytosis PT (9.0-12.0) sec INR (<1.2) APTT (22.0-30.0) sec Sodium (137-145) mmol/L Potassium (3.5-5.1) mmol/L Chloride (98-107) mmol/L Carbon Dioxide (22-30) mmol/L Anion Gap mmol/L BUN (7-17) mg/dL Creatinine (0.52-1.04) mg/dL Est GFR (CKD-EPI)AfAm (>60 ml/min/1.73 sqM) Est GFR (CKD-EPI)NonAf (>60 ml/min/1.73 sqM) Glucose (74-99) mg/dL Plasma Lactic Acid Tay 2.5 H* (0.7-2.0) mmol/L Calcium (8.4-10.2) mg/dL Magnesium (1.6-2.3) mg/dL Total Bilirubin (0.2-1.3) mg/dL AST (14-36) U/L ALT (4-34) U/L Alkaline Phosphatase (38-126) U/L Troponin I <0.012 (0.000-0.034) ng/mL Total Protein (6.3-8.2) g/dL Albumin (3.5-5.0) g/dL Group A Strep Rapid Negative (Negative) Disposition Clinical Impression: Viral upper respiratory illness Disposition: HOME SELF-CARE Condition: Fair Instructions (If sedation given, give patient instructions): Viral Syndrome (ED) Additional Instructions: Please quaritine until test results are available likely these results will be available tomorrow. Please return with worsening or changing symptoms. Is patient prescribed a controlled substance at d/c from ED?: No Referrals: Esther Barragan MD [Primary Care Provider] - 1-2 days Time of Disposition: 16:35
[2019-09-28 15:09] LABS: Anisocytosis Slight; Basophils % (A) 1 %; Eosinophils # (A) 0.2 k/uL (0-0.7); Eosinophils % (A) 3 %; HCT 33.5 % (34.0-46.0); HGB 10.1 gm/dL (11.4-16.0); Hypochromasia Marked; Lymphocytes # (A) 1.8 k/uL (1.0-4.8); Lymphocytes % (A) 34 %; MCH 23.1 pg (25.0-35.0); MCHC 30.1 g/dL (31.0-37.0); MCV 76.8 fL (80.0-100.0); Mean Platelet Volume 6.8; Microcytosis Slight; Monocytes # (A) 0.6 k/uL (0-1.0); Monocytes % (A) 10 %; Neutrophils # (A) 2.6 k/uL (1.3-7.7); Neutrophils % (A) 48 %; Platelet Count 339 k/uL (150-450); RBC 4.36 m/uL (3.80-5.40); RDW 16.7 % (11.5-15.5); WBC 5.4 k/uL (3.8-10.6)
[2019-09-28 15:11] LABS: ALT 22 U/L (4-34); AST 26 U/L (14-36); African American GFR (CKD) >90 (>60 ml/min/1.73 sqM); Albumin 4.3 g/dL (3.5-5.0); Alkaline Phosphatase 57 U/L (38-126); Anion Gap 11 mmol/L; Blood Urea Nitrogen 10 mg/dL (7-17); Calcium 9.6 mg/dL (8.4-10.2); Carbon Dioxide 23 mmol/L (22-30); Chloride 101 mmol/L (98-107); Glucose 195 mg/dL (74-99); Magnesium 1.6 mg/dL (1.6-2.3); Non-African American GFR(CKD) >90 (>60 ml/min/1.73 sqM); Potassium 4.1 mmol/L (3.5-5.1); Sodium 135 mmol/L (137-145); Total Bilirubin 0.3 mg/dL (0.2-1.3); Total Protein 7.1 g/dL (6.3-8.2)
[2019-09-28 15:20] LABS: Prothrombin Time 9.9 sec (9.0-12.0)
[2019-09-28 15:40] LABS: Partial Thromboplastin Time 20.8 sec (22.0-30.0)
[2019-09-28] MEDS ORDERED: SODIUM CHLORIDE 0.9% 500 ML 500 ML IV ONE (15:40)
--- NOTE | 2019-09-28 15:41 | XR ---
EXAMINATION TYPE: XR chest 2V DATE OF EXAM: 09/28/2019 COMPARISON: Prior chest x-ray 04/10/2019 HISTORY: Difficulty breathing TECHNIQUE: Frontal and lateral views of the chest are obtained. FINDINGS: There is no focal air space opacity, pleural effusion, or pneumothorax seen. The cardiac silhouette size is within normal limits. Again noted are findings of old granulomatous disease. The osseous structures are intact. IMPRESSION: No acute cardiopulmonary process.
[2019-09-28 17:18] VITALS: BP 135/82; PULSE 71; TEMP 98
== END 2019-09-28 17:15 | disposition home or self-care (01) ==
LOC: EC 13:59
DX: J02.9 Acute pharyngitis, unspecified (principal); E87.2 Acidosis; E11.9 Type 2 diabetes mellitus without complications; M79.7 Fibromyalgia; K21.9 Gastro-esophageal reflux disease without esophagitis; I10 Essential (primary) hypertension; M06.9 Rheumatoid arthritis, unspecified; E07.9 Disorder of thyroid, unspecified; D86.9 Sarcoidosis, unspecified; G43.909 Migraine, unspecified, not intractable, without status migrainosus; K58.9 Irritable bowel syndrome, unspecified; H40.9 Unspecified glaucoma; F41.9 Anxiety disorder, unspecified; F32.9 Major depressive disorder, single episode, unspecified; Z79.51 Long term (current) use of inhaled steroids; Z79.82 Long term (current) use of aspirin; Z79.84 Long term (current) use of oral hypoglycemic drugs; Z79.899 Other long term (current) drug therapy; Z87.891 Personal history of nicotine dependence; Z88.0 Allergy status to penicillin; Z88.2 Allergy status to sulfonamides; Z20.828 Contact with and (suspected) exposure to other viral communicable diseases
CPT/HCPCS: 99285; 96360; 36415; 93005; 80053; 83605; 83735; 84484; 85025; 85610; 85730; 87081; 87430; 71046; U0003

== ENCOUNTER → 2019-12-22 | Outpatient (CLI) | payer MEDICARE, OTHER ==
--- NOTE | 2019-12-25 09:23 | CT ---
EXAMINATION TYPE: CT angio head neck DATE OF EXAM: 12/22/2019 HISTORY: Headaches, dizziness, memory changes. COMPARISON: CT brain 06/20/2017. CT DLP: 1537.2 mGycm. Automated Exposure Control for Dose Reduction was Utilized. TECHNIQUE: CT exam of the head without contrast is performed. CTA scan of the head and neck is perfo rmed without and with IV Contrast, patient injected with 65 mL of Isovue 370, axial images are obtain ed, coronal and sagittal reformatted images are reviewed. Three-D reconstructed images are created on an independent workstation and reviewed. NASCET criteria utilized. FINDINGS: CT of the brain demonstrates no evidence of intracranial hemorrhage, midline shift, or mass effect. V entricles, sulci, and cisterns are normal in size. Diffuse volume loss. No extra-axial fluid collecti on. The globes are grossly symmetric with cataract changes. Mastoid air cells and paranasal sinuses a re clear. Calvarium is intact. Carotid/Vascular Structures: Calcified atherosclerotic disease of the bilateral carotid bulbs. No hem odynamically significant stenosis, occlusion, aneurysm, or dissection. Cervical of [place]: Vertebral basilar system appears normal. Posterior cerebral vasculature is unrema rkable. Internal carotid arteries bifurcate normally into A1 and M1 segments. A2 segments are normal. The anterior communicating artery is patent. Left Posterior communicating artery is patent. Right po sterior communicating artery is patent. IMPRESSION: 1. No flow-limiting stenosis bilateral carotid bifurcations. 2. Normal [place] 3. No acute intracranial hemorrhage, midline shift, or mass effect.
== END | disposition home or self-care (01) ==
LOC: RADCTMAIN 17:04
PROVIDERS: ATTEND Psychiatry & Neurology Neurology
DX: R42 Dizziness and giddiness (principal); R51.9 Headache, unspecified; R90.82 White matter disease, unspecified
CPT/HCPCS: 82565; 84520; 70496; 70498; 36415; Q9967

== ENCOUNTER → 2020-03-04 | Outpatient (CLI) | payer MEDICARE, OTHER ==
[2020-03-04 14:21] LABS: Anisocytosis Slight; Basophils % (A) 1 %; Eosinophils # (A) 0.2 k/uL (0-0.7); Eosinophils % (A) 3 %; HCT 37.3 % (34.0-46.0); HGB 11.1 gm/dL (11.4-16.0); Hypochromasia Marked; Lymphocytes # (A) 1.8 k/uL (1.0-4.8); Lymphocytes % (A) 36 %; MCH 22.9 pg (25.0-35.0); MCHC 29.7 g/dL (31.0-37.0); MCV 76.9 fL (80.0-100.0); Mean Platelet Volume 6.8; Microcytosis Slight; Monocytes # (A) 0.3 k/uL (0-1.0); Monocytes % (A) 6 %; Neutrophils # (A) 2.7 k/uL (1.3-7.7); Neutrophils % (A) 52 %; Platelet Count 382 k/uL (150-450); RBC 4.85 m/uL (3.80-5.40); RDW 16.7 % (11.5-15.5); WBC 5.1 k/uL (3.8-10.6)
[2020-03-04 20:58] LABS: % Iron Saturation 6.75 (12.00-45.00); Chol/HDL Ratio 4.61; Cholesterol 263 mg/dL (0-200); Iron 32 ug/dL (50-170); LDL Cholesterol,Calculated 161.4 mg/dL (0.0-131.0); Magnesium 1.6 mg/dL (1.5-2.4); Total Iron Binding Capacity 474 ug/dL (228-460); Uric Acid 5.2 mg/dL (2.9-7.7)
[2020-03-05 01:21] LABS: Ferritin 4.7 ng/mL (10.0-291.0); Folate, Serum >24.0 ng/mL
== END | disposition home or self-care (01) ==
LOC: LABWHC1 13:19
PROVIDERS: ATTEND Family Medicine
DX: Z12.31 Encounter for screening mammogram for malignant neoplasm of breast (principal); R10.31 Right lower quadrant pain; E78.2 Mixed hyperlipidemia; E55.9 Vitamin D deficiency, unspecified; E11.65 Type 2 diabetes mellitus with hyperglycemia; E03.9 Hypothyroidism, unspecified
CPT/HCPCS: 36415; 80061; 82306; 82607; 82728; 82746; 83540; 83550; 83735; 84439; 84443; 84550; 85025

== ENCOUNTER → 2020-03-07 | Outpatient (CLI) | payer MEDICARE, OTHER ==
--- NOTE | 2020-03-07 10:27 | US ---
EXAMINATION TYPE: US pelvic complete DATE OF EXAM: 03/07/2020 COMPARISON: NONE CLINICAL HISTORY: R10.31 RLQ abdominal pain. Lower abdomen and pelvic pain, post menopausal, 1, para 1 TECHNIQUE: . Transabdominal sonographic images of the pelvis were acquired. Transvaginal sonographi c images were medically necessary to better assess the following anatomy: uterus, endometrium, and ov gosia Date of LMP: 15+ years ago EXAM MEASUREMENTS: Uterus: 4.0 x 1.9 x 2.3 cm Endometrial Stripe: 0.2 cm 1. Uterus: limited visualization, retroverted, heterogeneous 2. Endometrium: limited visualization, appears wnl 3. Right Ovary: not seen 4. Left Ovary: not seen 5. Bilateral Adnexa: wnl 6. Posterior cul-de-sac: wnl IMPRESSION: 1. Pelvic ultrasound as visualized appears normal.
--- NOTE | 2020-03-07 11:15 | US ---
EXAMINATION TYPE: US abdomen complete DATE OF EXAM: 03/07/2020 COMPARISON: NONE CLINICAL HISTORY: R10.31 RLQ abdominal pain. Lower abdomen and pelvic pain, nausea, history of dennys cystectomy EXAM MEASUREMENTS: Liver Length: 17.6 cm CBD: 0.4 cm Spleen: 8.7 cm Right Kidney: 9.6 x 4.7 x 4.2 cm Left Kidney: 10.1 x 5.2 x 4.4 cm Pancreas: visualized portions wnl, limited by overlying midline bowel gas Liver: measures in upper limits of normal, attenuating, heterogeneous Gallbladder: surgically absent Evidence for sonographic Dias's sign: no CBD: visualized portions wnl, limited by overlying bowel gas Spleen: visualized portions wnl, limited by overlying bowel gas Right Kidney: wnl Left Kidney: wnl Upper IVC: wnl Abd Aorta: wnl IMPRESSION: 1. Hepatomegaly.
== END | disposition home or self-care (01) ==
LOC: RADUSWWP 08:55
PROVIDERS: ATTEND Family Medicine
DX: R16.0 Hepatomegaly, not elsewhere classified (principal); R10.31 Right lower quadrant pain
CPT/HCPCS: 76700; 76830; 76856

== ENCOUNTER → 2020-04-25 | Outpatient (CLI) | payer MEDICARE, OTHER ==
--- NOTE | 2020-04-29 09:53 | MM ---
Reason for exam: screening (asymptomatic). Last mammogram was performed 1 year and 2 months ago. History: Patient is postmenopausal. Family history of breast cancer in paternal grandmother. Benign stereotactic core biopsy of the left breast. Excisional biopsy of the right breast. Took hormonal contraceptives for 6 months. Physical Findings: A clinical breast exam by your physician is recommended on an annual basis and results should be correlated with mammographic findings. MG 3D Screening Mammo W/Cad Bilateral CC and MLO view(s) were taken. Prior study comparison: February 09, 2019, bilateral MG 3d screening mammo w/cad. January 06, 2018, bilateral MG screening mammo w CAD. There are scattered fibroglandular densities. Previous mammotome biopsy in the left breast. No significant changes when compared with prior studies. ASSESSMENT: Benign, BI-RAD 2 RECOMMENDATION: Routine screening mammogram of both breasts in 1 year.
== END | disposition home or self-care (01) ==
LOC: RADMAMWWP 13:09
PROVIDERS: ATTEND Family Medicine
DX: Z12.31 Encounter for screening mammogram for malignant neoplasm of breast (principal)
CPT/HCPCS: 77063; 77067

== ENCOUNTER → 2020-09-09 | Outpatient (CLI) | payer MEDICARE, OTHER ==
[2020-09-09 13:32] LABS: Anisocytosis Slight; Basophils % (A) 1 %; Eosinophils # (A) 0.1 k/uL (0-0.7); Eosinophils % (A) 3 %; HCT 37.6 % (34.0-46.0); HGB 11.4 gm/dL (11.4-16.0); Hypochromasia Marked; Lymphocytes % (A) 39 %; MCH 23.4 pg (25.0-35.0); MCHC 30.2 g/dL (31.0-37.0); MCV 77.5 fL (80.0-100.0); Mean Platelet Volume 6.7; Microcytosis Slight; Monocytes # (A) 0.3 k/uL (0-1.0); Monocytes % (A) 5 %; Neutrophils # (A) 2.6 k/uL (1.3-7.7); Neutrophils % (A) 50 %; Platelet Count 412 k/uL (150-450); RBC 4.86 m/uL (3.80-5.40); RDW 16.7 % (11.5-15.5); WBC 5.2 k/uL (3.8-10.6)
[2020-09-09 19:06] LABS: % Iron Saturation 5.84 (12.00-45.00); ALT 28 U/L (8-44); AST 25 U/L (13-35); African American GFR (CKD) 77.2 (60.0-200.0); Albumin/Globulin Ratio 1.78 (1.60-3.17); Alkaline Phosphatase 59 U/L (41-126); BUN/Creat Ratio 15.56 Ratio (12.00-20.00); Calcium 9.8 mg/dL (8.7-10.3); Carbon Dioxide 25.4 mmol/L (21.6-31.8); Chloride 101 mmol/L (96-109); Chol/HDL Ratio 4.85; Cholesterol 257 mg/dL (0-200); Globulin 2.7 g/dL (1.6-3.3); Glucose 221 mg/dL (70-110); Iron 29 ug/dL (50-170); LDL Cholesterol,Calculated 154.6 mg/dL (0.0-131.0); Non-African American GFR(CKD) 66.6 (60.0-200.0); Potassium 4.3 mmol/L (3.5-5.5); Sodium 138 mmol/L (135-145); Total Bilirubin 0.6 mg/dL (0.2-1.2); Total Iron Binding Capacity 497 ug/dL (228-460); Total Protein 7.5 g/dL (6.2-8.2); Uric Acid 5.8 mg/dL (2.9-7.7)
[2020-09-09 19:42] LABS: Ferritin 4.9 ng/mL (10.0-291.0); Folate, Serum >24.0 ng/mL
[2020-09-09 19:46] LABS: Hepatitis C IgG Antibody Non-Reactive (Non-Reactive)
[2020-09-09 21:46] LABS: Gliadin AB IgA, Deaminated NEGATIVE (NEGATIVE); Gliadin AB IgA, Unit 0.4 U/mL; Gliadin AB IgG, Deaminated NEGATIVE (NEGATIVE)
[2020-09-09 22:06] LABS: HIV 2 AB Non-Reactive (Non-Reactive); HIV AB P24 Non-Reactive (Non-Reactive); HIV P24 AG Non-Reactive (Non-Reactive)
== END | disposition home or self-care (01) ==
LOC: LABWHC1 12:19
PROVIDERS: ATTEND Family Medicine
DX: Z11.4 Encounter for screening for human immunodeficiency virus [HIV] (principal); Z13.820 Encounter for screening for osteoporosis; I10 Essential (primary) hypertension; E11.65 Type 2 diabetes mellitus with hyperglycemia; E78.2 Mixed hyperlipidemia; E61.1 Iron deficiency; Z87.19 Personal history of other diseases of the digestive system
CPT/HCPCS: 36415; 80053; 80061; 82306; 82607; 82728; 82746; 83516; 83540; 83550; 84443; 84550; 84681; 85025; 86803; 87390

== ENCOUNTER 2020-11-09 21:48 | Emergency (ER) | payer MEDICARE, OTHER ==
[2020-11-09 22:12] VITALS: BP 126/86; PULSE 96; RESP 20; TEMP 98
[2020-11-09] MEDS ORDERED: CLINDAMYCIN 150 MG CAP PO STA (22:50)
--- NOTE | 2020-11-09 22:51 | ED ---
Skin/Abscess/FB HPI - General Chief complaint: Skin/Abscess/Foreign Body Stated complaint: abscess Time Seen by Provider: 11/09/20 22:16 Source: patient, RN notes reviewed, old records reviewed Mode of arrival: ambulatory Limitations: no limitations - History of Present Illness Initial comments: This is a 65-year-old female to the ER today. She presents today with severe left arm pain left x-ray pain believed to be developing abscess which she has a history of. Otherwise no fevers and no new complaints patient does suffer from from diabetes MD complaint: abscess/boil, other (Axillary abscess) -: days(s) Tetanus Up to Date: yes Location: LUE Severity: moderate Severity scale (1-10): 7 Consistency: constant Improves with: none Worsens with: none Context: none Associated symptoms: denies other symptoms Treatments Prior to Arrival: none - Related Data Home Medications Medication Instructions Recorded Confirmed DULoxetine HCL [Cymbalta] 60 mg PO DAILY 05/09/14 09/28/19 Diazepam 2 mg PO DAILY PRN 05/09/14 09/28/19 Hydrocodone/Acetaminophen [[place] 1 tab PO BID PRN 05/09/14 09/28/19 7.5-325] Latanoprost Ophth [Xalatan 0.005%] 1 drop BOTH EYES HS 05/09/14 09/28/19 Omeprazole [PriLOSEC] 20 mg PO AC-BRKFST@0600 05/09/14 09/28/19 methocarbamoL [Robaxin] 500 mg PO BID PRN 05/12/16 09/28/19 L.acidoph,Paracasei, B.lactis 1 cap PO DAILY 02/18/18 09/28/19 [Probiotic] Melatonin 10 mg PO HS 02/18/18 09/28/19 Pravastatin Sodium [Pravachol] 40 mg PO HS 02/18/18 09/28/19 Albuterol Sulfate [Ventolin HFA] 2 puff INHALATION RT-QID PRN 09/28/19 09/28/19 Ascorbic Acid [Vitamin C] 500 mg PO DAILY 09/28/19 09/28/19 Aspirin EC [Ecotrin Low Dose] 81 mg PO DAILY 09/28/19 09/28/19 Budesonide [Pulmicort Flexhaler] 2 puff INHALATION RT-BID 09/28/19 09/28/19 Butalb/APAP/Caff 50-325-40Mg 1 tab PO TID PRN 09/28/19 09/28/19 [Fioricet 50-325-40] Calcium 1200mg/Vitamin D3 25mg 1 tab PO Q48H 09/28/19 09/28/19 Cholecalciferol [Vitamin D3 (25 2,000 unit PO DAILY 09/28/19 09/28/19 Mcg = 1000 Iu)] Cyanocobalamin (Vitamin B-12) 5,000 mcg PO Q48H 09/28/19 09/28/19 [Vitamin B-12] Elderberry Sambucus 1250mg 1 tab PO DAILY 09/28/19 09/28/19 Magnesium Oxide [Mag-Ox] 250 mg PO DAILY 09/28/19 09/28/19 Metoprolol Succinate [Toprol XL] 25 mg PO DAILY 09/28/19 09/28/19 Montelukast [Singulair] 10 mg PO HS 09/28/19 09/28/19 Multivit-Min/FA/Lycopen/Lutein 1 tab PO DAILY 09/28/19 09/28/19 [Centrum Silver Tablet] Potassium Gluconate [Potassium 99 mg PO Q72H 09/28/19 09/28/19 Gluconate ER] metFORMIN HCL [Glucophage] 1,000 mg PO BID 09/28/19 09/28/19 Previous Rx's Medication Instructions Recorded Clindamycin [Cleocin] 450 mg PO Q6H #30 cap 11/09/20 Allergies Allergy/AdvReac Type Severity Reaction Status Date / Time Penicillins AdvReac Nausea & Verified 11/09/20 22:12 Vomiting Sulfa (Sulfonamide AdvReac Nausea & Verified 11/09/20 22:12 Antibiotics) Vomiting Review of Systems ROS Statement: Those systems with pertinent positive or pertinent negative responses have been documented in the HPI. ROS Other: All systems not noted in ROS Statement are negative. Past Medical History Past Medical History: Diabetes Mellitus, Fibromyalgia, GERD/Reflux, Hypertension, Rheumatoid Arthritis (RA), Thyroid Disorder Additional Past Medical History / Comment(s): sarcoidosis, ibs migraines optic nerve damage short term memory issues chronic back pain keratodermia urinary incontinence glaucoma, brain lesion, pulmonary leasion, eye probelms History of Any Multi-Drug Resistant Organisms: None Reported Past Surgical History: Appendectomy, Cholecystectomy Additional Past Surgical History / Comment(s): bronchoscopy laproscopic young removal cyst removal , cataracts Past Anesthesia/Blood Transfusion Reactions: No Reported Reaction Past Psychological History: Anxiety, Depression Smoking Status: Former smoker Past Alcohol Use History: Rare Past Drug Use History: None Reported - Past Family History Mother Family Medical History: Cancer, Hyperlipidemia Additional Family Medical History / Comment(s): lung cancer Father Family Medical History: Cancer, Diabetes Mellitus, Hyperlipidemia General Exam - General Exam Comments Initial Comments: Patient does have left axillary abscess area of induration surrounding cellulitis Limitations: no limitations General appearance: alert, in no apparent distress Head exam: Present: atraumatic, normocephalic, normal inspection Eye exam: Present: normal appearance, PERRL, EOMI. Absent: scleral icterus, conjunctival injection, periorbital swelling ENT exam: Present: normal exam, mucous membranes moist Neck exam: Present: normal inspection. Absent: tenderness, meningismus, lymphadenopathy Respiratory exam: Present: normal lung sounds bilaterally. Absent: respiratory distress, wheezes, rales, rhonchi, stridor Cardiovascular Exam: Present: regular rate, normal rhythm, normal heart sounds. Absent: systolic murmur, diastolic murmur, rubs, gallop, clicks GI/Abdominal exam: Present: soft, normal bowel sounds. Absent: distended, tenderness, guarding, rebound, rigid Extremities exam: Present: normal inspection, full ROM, normal capillary refill. Absent: tenderness, pedal edema, joint swelling, calf tenderness Back exam: Present: normal inspection Neurological exam: Present: alert, oriented X3, CN II-XII intact Psychiatric exam: Present: normal affect, normal mood Skin exam: Present: warm, dry, intact, normal color. Absent: rash Course Vital Signs 11/09/20 22:09 Temperature 98.0 F Pulse Rate 96 Respiratory 20 Rate Blood Pressure 126/86 O2 Sat by Pulse 99 Oximetry - Reevaluation(s) Reevaluation #1: Medical record is reviewed Patient symptoms are improved here in the emergency department Patient is informed of results and questions are answered Patient no significant distress Procedures - Incision & Drainage Consent Obtained: verbal consent Site: upper extremity Anesthetic Used: lidocaine 1%, with epi I&D Cleaning Method: Chloroprep Sterile Field Used?: Yes Scalpel Used: #11 Needle Aspiration Performed?: Yes Irrigation Performed?: No I&D Drainage Obtained: Pus Culture Obtained?: No Patient Tolerated Procedure: well Medical Decision Making - Medical Decision Making 65 female with left axillary abscess. Incised and drained here in the emergency department patient can be discharged home Disposition Clinical Impression: Abscess of left axilla Disposition: HOME SELF-CARE Condition: Good Instructions (If sedation given, give patient instructions): Abscess (ED), Abscess Incision and Drainage (DC) Prescriptions: Clindamycin [Cleocin] 450 mg PO Q6H #30 cap Is patient prescribed a controlled substance at d/c from ED?: No Referrals: Esther Barragan MD [Primary Care Provider] - 1-2 days
== END 2020-11-09 23:28 | disposition home or self-care (01) ==
LOC: EC 21:48
DX: L02.412 Cutaneous abscess of left axilla (principal); E11.36 Type 2 diabetes mellitus with diabetic cataract; I10 Essential (primary) hypertension; K21.9 Gastro-esophageal reflux disease without esophagitis; Z79.51 Long term (current) use of inhaled steroids; Z79.84 Long term (current) use of oral hypoglycemic drugs; Z87.891 Personal history of nicotine dependence; Z88.0 Allergy status to penicillin; Z88.2 Allergy status to sulfonamides; Z79.899 Other long term (current) drug therapy
CPT/HCPCS: 10060; 99283

== ENCOUNTER 2021-01-28 03:09 | Emergency (ER) | payer MEDICARE, OTHER ==
[2021-01-28 05:20] VITALS: RESP 18; TEMP 97.9
[2021-01-28] MEDS ORDERED: IBUPROFEN 400 MG TAB PO STA (05:31)
[2021-01-28] MEDS ORDERED: methocarbamoL 750 MG TAB PO STA (05:32)
--- NOTE | 2021-01-28 07:23 | XR ---
EXAM: XR Cervical Spine, 2 or 3 Views CLINICAL HISTORY: ITS.REASON XR Reason: pain TECHNIQUE: Frontal and lateral views of the cervical spine. COMPARISON: No relevant prior studies available. FINDINGS: Vertebrae: No definite fracture. Normal alignment. Disc spaces: Multilevel cervical spondylosis noted, suboptimally evaluated by x-ray. Soft tissues: Unremarkable. IMPRESSION: Multilevel cervical spondylosis, suboptimally evaluated by x-ray.
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
[2021-01-28 08:13] VITALS: BP 169/77; PULSE 76
== END 2021-01-28 08:13 | disposition home or self-care (01) ==
LOC: EC 03:09
DX: M47.812 Spondylosis without myelopathy or radiculopathy, cervical region (principal); M54.2 Cervicalgia; G89.29 Other chronic pain; I10 Essential (primary) hypertension; K21.9 Gastro-esophageal reflux disease without esophagitis; M06.9 Rheumatoid arthritis, unspecified; E11.9 Type 2 diabetes mellitus without complications; Z87.891 Personal history of nicotine dependence; Z88.0 Allergy status to penicillin; Z88.2 Allergy status to sulfonamides; Z79.82 Long term (current) use of aspirin; Z79.899 Other long term (current) drug therapy; Z79.84 Long term (current) use of oral hypoglycemic drugs
CPT/HCPCS: 72050; 99283

== ENCOUNTER 2021-02-06 09:11 | Emergency (ER) | payer MEDICARE, OTHER ==
[2021-02-06 09:33] VITALS: BP 155/95; PULSE 105; RESP 18; TEMP 99.1
[2021-02-06] MEDS ORDERED: ACET/COD 300 MG/30 MG STARTER PACK 6 TAB BTL PO STA (10:10)
--- NOTE | 2021-02-06 10:13 | ED ---
ENT HPI - General Chief complaint: Dental/Oral Stated complaint: Swollen Lip/Abscess on neck Time Seen by Provider: 02/06/21 09:44 Source: patient, RN notes reviewed Mode of arrival: ambulatory Limitations: no limitations - History of Present Illness Initial comments: 65-year-old female presents to the emergency department complaining of right- sided lip swelling. She notes that she had a sore and which she popped and then it gradually got bigger. She notes she came to the emergency room for evaluation. Patient denied other symptoms or complaints. She was otherwise well-appearing. She denied any alleviating or aggravating factors. She denied chest pain first breath headache nausea vomiting diarrhea constipation fever fatigue chills difficulty swallowing eating or drinking. - Related Data Home Medications Medication Instructions Recorded Confirmed DULoxetine HCL [Cymbalta] 60 mg PO DAILY 05/09/14 09/28/19 Diazepam 2 mg PO DAILY PRN 05/09/14 09/28/19 Hydrocodone/Acetaminophen [[place] 1 tab PO BID PRN 05/09/14 09/28/19 7.5-325] Latanoprost Ophth [Xalatan 0.005%] 1 drop BOTH EYES HS 05/09/14 09/28/19 Omeprazole [PriLOSEC] 20 mg PO AC-BRKFST@0600 05/09/14 09/28/19 methocarbamoL [Robaxin] 500 mg PO BID PRN 05/12/16 09/28/19 L.acidoph,Paracasei, B.lactis 1 cap PO DAILY 02/18/18 09/28/19 [Probiotic] Melatonin 10 mg PO HS 02/18/18 09/28/19 Pravastatin Sodium [Pravachol] 40 mg PO HS 02/18/18 09/28/19 Albuterol Sulfate [Ventolin HFA] 2 puff INHALATION RT-QID PRN 09/28/19 09/28/19 Ascorbic Acid [Vitamin C] 500 mg PO DAILY 09/28/19 09/28/19 Aspirin EC [Ecotrin Low Dose] 81 mg PO DAILY 09/28/19 09/28/19 Budesonide [Pulmicort Flexhaler] 2 puff INHALATION RT-BID 09/28/19 09/28/19 Butalb/APAP/Caff 50-325-40Mg 1 tab PO TID PRN 09/28/19 09/28/19 [Fioricet 50-325-40] Calcium 1200mg/Vitamin D3 25mg 1 tab PO Q48H 09/28/19 09/28/19 Cholecalciferol [Vitamin D3 (25 2,000 unit PO DAILY 09/28/19 09/28/19 Mcg = 1000 Iu)] Cyanocobalamin (Vitamin B-12) 5,000 mcg PO Q48H 09/28/19 09/28/19 [Vitamin B-12] Elderberry Sambucus 1250mg 1 tab PO DAILY 09/28/19 09/28/19 Magnesium Oxide [Mag-Ox] 250 mg PO DAILY 09/28/19 09/28/19 Metoprolol Succinate [Toprol XL] 25 mg PO DAILY 09/28/19 09/28/19 Montelukast [Singulair] 10 mg PO HS 09/28/19 09/28/19 Multivit-Min/FA/Lycopen/Lutein 1 tab PO DAILY 09/28/19 09/28/19 [Centrum Silver Tablet] Potassium Gluconate [Potassium 99 mg PO Q72H 09/28/19 09/28/19 Gluconate ER] metFORMIN HCL [Glucophage] 1,000 mg PO BID 09/28/19 09/28/19 Previous Rx's Medication Instructions Recorded Clindamycin [Cleocin] 450 mg PO Q6H #30 cap 11/09/20 Doxycycline Monohydrate [Monodox] 100 mg PO Q12HR #20 cap 02/06/21 Allergies Allergy/AdvReac Type Severity Reaction Status Date / Time Penicillins AdvReac Nausea & Verified 02/06/21 09:30 Vomiting Sulfa (Sulfonamide AdvReac Nausea & Verified 02/06/21 09:30 Antibiotics) Vomiting Review of Systems ROS Statement: Those systems with pertinent positive or pertinent negative responses have been documented in the HPI. ROS Other: All systems not noted in ROS Statement are negative. Past Medical History Past Medical History: Diabetes Mellitus, Fibromyalgia, GERD/Reflux, Hypertension, Rheumatoid Arthritis (RA), Thyroid Disorder Additional Past Medical History / Comment(s): sarcoidosis, ibs migraines optic nerve damage short term memory issues chronic back pain keratodermia urinary incontinence glaucoma, brain lesion, pulmonary leasion, eye probelms History of Any Multi-Drug Resistant Organisms: None Reported Past Surgical History: Appendectomy, Cholecystectomy Additional Past Surgical History / Comment(s): bronchoscopy laproscopic young removal cyst removal , cataracts Past Anesthesia/Blood Transfusion Reactions: No Reported Reaction Past Psychological History: Anxiety, Depression Smoking Status: Former smoker Past Alcohol Use History: Rare Past Drug Use History: None Reported - Past Family History Mother Family Medical History: Cancer, Hyperlipidemia Additional Family Medical History / Comment(s): lung cancer Father Family Medical History: Cancer, Diabetes Mellitus, Hyperlipidemia General Exam Limitations: no limitations General appearance: alert, in no apparent distress Head exam: Present: atraumatic, normocephalic, normal inspection Eye exam: Present: normal appearance, PERRL, EOMI. Absent: scleral icterus, conjunctival injection, periorbital swelling ENT exam: Present: normal exam, mucous membranes moist Neck exam: Present: normal inspection Respiratory exam: Present: normal lung sounds bilaterally. Absent: respiratory distress, wheezes, rales, rhonchi, stridor Cardiovascular Exam: Present: regular rate, normal rhythm, normal heart sounds. Absent: systolic murmur, diastolic murmur, rubs, gallop, clicks Extremities exam: Present: normal inspection, full ROM, normal capillary refill. Absent: tenderness, pedal edema, joint swelling, calf tenderness Neurological exam: Present: alert, oriented X3 Psychiatric exam: Present: normal affect, normal mood Skin exam: Present: warm (Erythema and swelling to her right side upper lip consistent with a localized cellulitis), dry, intact, normal color. Absent: rash Course Vital Signs 02/06/21 09:30 Temperature 99.1 F Pulse Rate 105 H Respiratory 18 Rate Blood Pressure 155/95 O2 Sat by Pulse 96 Oximetry Medical Decision Making - Medical Decision Making 65-year-old female with a right upper lip cellulitis. Upon physical exam patient had localized swelling and tenderness to right upper lip. No difficulties eating drinking or swallowing. Antibiotics will be sent to pharmacy. Tylenol 3 starter pack ordered. Case discussed with Dr. Lambert. Patient is agreeable discharge home with follow-up to primary care and dentist as needed. Disposition Clinical Impression: Cellulitis Disposition: HOME SELF-CARE Condition: Stable Instructions (If sedation given, give patient instructions): Cellulitis (ED) Additional Instructions: Please return to the Emergency Department if symptoms worsen or any other concerns. Follow-up with primary care in 1-2 days. Take antibiotics as prescribed. Use Tylenol Motrin as needed for inflammation and pain. Can use ice packs or heating packs to help alleviate symptoms. Prescriptions: Doxycycline Monohydrate [Monodox] 100 mg PO Q12HR #20 cap Is patient prescribed a controlled substance at d/c from ED?: No Referrals: Esther Barragan MD [Primary Care Provider] - 1-2 days Time of Disposition: 10:13
== END 2021-02-06 10:35 | disposition home or self-care (01) ==
LOC: EC 09:11
DX: K13.0 Diseases of lips (principal); E11.9 Type 2 diabetes mellitus without complications; I10 Essential (primary) hypertension; K21.9 Gastro-esophageal reflux disease without esophagitis; M06.9 Rheumatoid arthritis, unspecified; Z88.0 Allergy status to penicillin; Z88.2 Allergy status to sulfonamides; Z79.899 Other long term (current) drug therapy; Z79.82 Long term (current) use of aspirin; Z87.891 Personal history of nicotine dependence; Z79.84 Long term (current) use of oral hypoglycemic drugs
CPT/HCPCS: 99283

== ENCOUNTER → 2021-03-14 | Outpatient (CLI) | payer MEDICARE, OTHER ==
[2021-03-14 20:18] LABS: Basophils # (A) 0.04 X 10*3/uL (0.00-0.10); Basophils % (A) 0.7 %; Eosinophils # (A) 0.19 X 10*3/uL (0.04-0.35); Eosinophils % (A) 3.5 %; HCT 38.6 % (37.2-46.3); HGB 11.4 g/dL (12.0-15.0); Lymphocytes # (A) 2.32 X 10*3/uL (0.90-5.00); Lymphocytes % (A) 43.2 %; MCH 23.6 pg (27.0-32.0); MCHC 29.5 g/dL (32.0-37.0); MCV 79.9 fL (80.0-97.0); Mean Platelet Volume 9.6 fL (9.5-12.2); Monocytes # (A) 0.38 X 10*3/uL (0.20-1.00); Monocytes % (A) 7.1 %; Neutrophils # (A) 2.43 X 10*3/uL (1.80-7.70); Neutrophils % (A) 45.3 %; Platelet Count 400 X 10*3/uL (140-440); RBC 4.83 X 10*6/uL (4.10-5.20); RDW 17.1 % (11.5-14.5); WBC 5.37 X 10*3/uL (4.50-10.00)
[2021-03-14 21:58] LABS: Ferritin 12.3 ng/mL (10.0-291.0)
[2021-03-14 22:49] LABS: Folate, Serum >20.00 ng/mL (4.40-31.00)
[2021-03-15] LABS: % Iron Saturation 6.67 (12.00-45.00); ALT 31 U/L (8-44); AST 20 U/L (13-35); African American GFR (CKD) 77.1 (60.0-200.0); Albumin 4.6 g/dL (3.8-4.9); Albumin/Globulin Ratio 1.58 (1.60-3.17); Alkaline Phosphatase 61 U/L (41-126); BUN/Creat Ratio 16.98 Ratio (12.00-20.00); Blood Urea Nitrogen 15.3 mg/dL (9.0-27.0); Calcium 10.1 mg/dL (8.7-10.3); Carbon Dioxide 25.1 mmol/L (20.0-27.5); Chloride 99 mmol/L (96-109); Chol/HDL Ratio 5.26 Ratio; Globulin 2.9 g/dL (1.6-3.3); Glucose 207 mg/dL (70-110); Iron 38 ug/dL (50-170); LDL Cholesterol,Calculated 208.7 mg/dL (0.0-131.0); Non-African American GFR(CKD) 66.5 (60.0-200.0); Potassium 4.7 mmol/L (3.5-5.5); Sodium 141 mmol/L (135-145); Total Iron Binding Capacity 575 ug/dL (228-460); Total Protein 7.5 g/dL (6.2-8.2); Uric Acid 5.5 mg/dL (2.9-7.7)
== END | disposition home or self-care (01) ==
LOC: LABWHC1 13:13
PROVIDERS: ATTEND Family Medicine
DX: I10 Essential (primary) hypertension (principal); M54.2 Cervicalgia; E11.65 Type 2 diabetes mellitus with hyperglycemia; E03.9 Hypothyroidism, unspecified; E78.2 Mixed hyperlipidemia; Z11.59 Encounter for screening for other viral diseases
CPT/HCPCS: 36415; 80053; 80061; 82306; 82607; 82728; 82746; 83540; 83550; 83735; 84443; 84550; 85025; 86803; 87522

== ENCOUNTER → 2021-03-25 | Outpatient (CLI) | payer MEDICARE, OTHER ==
--- NOTE | 2021-03-25 16:34 | MR ---
EXAMINATION TYPE: MR cervical spine wo con DATE OF EXAM: 03/25/2021 COMPARISON: MR cervical spine 09/17/2016 HISTORY: Neck pain that radiates down both arms to fingers TECHNIQUE: Multiplanar, multisequence images of the cervical spine were acquired without contrast. C2-C3: No disc herniation or significant spinal stenosis. No foraminal encroachment. C3-C4: Posterior extension and disc complex causes minimal anterior mass effect on the thecal sac. So me uncovertebral joint hypertrophy results in some foraminal encroachment similar to prior exam on th e left. No significant spinal stenosis. C4-C5: Right posterior paracentral extension of endplates is complex causes anterolateral aspect of t he thecal sac, there is uncovertebral joint hypertrophy resulting in right-sided foraminal encroachme nt, no significant spinal stenosis, findings similar to prior exam. C5-C6: Posterior extension of endplate disc complex causes anterior aspect of the thecal sac and crea benjie some spinal stenosis similar to prior exam due to progression of some disc bulging which is an in terval change, uncovertebral joint hypertrophy and facet arthropathy results in left-sided greater th an right foraminal encroachment similar to prior exam. C6-C7: Bilateral foraminal encroachment is present due to uncovertebral joint hypertrophy. Posterior disc bulge is present causing anterior mass effect on the thecal sac. There is mild spinal stenosis. C7-T1: No evidence for degenerative disc disease. No disc bulge/herniation or protrusion. No Canal stenosis. Foramina are patent bilaterally. Cervical segments are intact. There is normal alignment. Cervical spinal cord is of normal signal. Craniovertebral junction relationships are within normal limits. There is mild multilevel spondylos is with endplate discogenic marrow signal change. Cervical vertebral bodies show preserved height and alignment. IMPRESSION: There is been some progression of patient's degenerative disc disease at C5-6, there is multilevel fo raminal encroachment, degenerative disc disease as described.
== END | disposition home or self-care (01) ==
LOC: RADMRIMAIN 15:57
PROVIDERS: ATTEND Family Medicine
DX: M50.322 Other cervical disc degeneration at C5-C6 level (principal)
CPT/HCPCS: 72141

== ENCOUNTER → 2021-04-30 | Outpatient (CLI) | payer MEDICARE, OTHER ==
--- NOTE | 2021-05-01 14:42 | MM ---
Reason for exam: screening (asymptomatic). Last mammogram was performed 1 year ago. History: Patient is postmenopausal. Family history of breast cancer in paternal grandmother. Benign stereotactic core biopsy of the left breast. Excisional biopsy of the right breast. Took hormonal contraceptives for 6 months. Physical Findings: A clinical breast exam by your physician is recommended on an annual basis and results should be correlated with mammographic findings. MG 3D Screening Mammo W/Cad Bilateral CC and MLO view(s) were taken. Prior study comparison: April 25, 2020, bilateral MG 3d screening mammo w/cad. February 09, 2019, bilateral MG 3d screening mammo w/cad. The breast tissue is heterogeneously dense. This may lower the sensitivity of mammography. Asymmetries bilaterally. No significant changes when compared with prior studies. ASSESSMENT: Benign, BI-RAD 2 RECOMMENDATION: Routine screening mammogram of both breasts in 1 year.
== END | disposition home or self-care (01) ==
LOC: RADMAMWWP 15:48
PROVIDERS: ATTEND Family Medicine
DX: Z12.31 Encounter for screening mammogram for malignant neoplasm of breast (principal)
CPT/HCPCS: 77063; 77067

== ENCOUNTER 2021-06-30 12:42 | Emergency (ER) | payer MEDICARE, OTHER ==
[2021-06-30 12:48] VITALS: BP 133/84; PULSE 103; RESP 18; TEMP 98.2
--- NOTE | 2021-06-30 14:29 | XR ---
EXAMINATION TYPE: XR ankle complete RT DATE OF EXAM: 06/30/2021 COMPARISON: NONE HISTORY: Pain TECHNIQUE: Frontal, lateral and oblique images of the right ankle are obtained. COMPARISON: None. FINDINGS: Tiny ossific density adjacent to the lateral malleolus may reflect remote avulsion fracture . No radiopaque foreign body identified. The joint spaces appear within normal limits. The overlyin g soft tissue appears unremarkable. IMPRESSION: There is no acute fracture or dislocation seen.
[2021-06-30] MEDS ORDERED: KETOROLAC 15 MG/ML 1 ML VIAL IM STA (15:19)
--- NOTE | 2021-06-30 15:29 | ED ---
General Adult HPI - General Chief complaint: Extremity Injury, Lower Stated complaint: Foot injury Time Seen by Provider: 06/30/21 12:53 Source: patient Mode of arrival: ambulatory Limitations: no limitations - History of Present Illness Initial comments: This 66-year-old female presents emergency Department with scratch and irritation to right medial ankle x3 days. Patient states she was outside gardening on Wednesday when a piece of wire off blush scratched her right medial ankle. Patient states she did wash his scratch out with water and states ye began to have erythema and increased pain. Patient states she has had a history of a MRSA infection. Patient states on Wednesday there was a little bit of white pus draining out of state, however she states that this Has now formed and no oozing has been present for the last 2 days. Patient states she does have [place] at home which she has been taking to relieve pain. Patient states when she pushes on the area it causes pain. She denies any loss of sensation, loss of range of motion of right lower extremity. Patient denies any right calf pain, erythema or warmth. She denies any chest pain, shortness of breath, abdominal pain, nausea, vomiting, fever, rash, change in bowel or bladder, change in vision, lightheadedness, dizziness, change in appetite. - Related Data Home Medications Medication Instructions Recorded Confirmed DULoxetine HCL [Cymbalta] 60 mg PO DAILY 05/09/14 09/28/19 Diazepam 2 mg PO DAILY PRN 05/09/14 09/28/19 Hydrocodone/Acetaminophen [[place] 1 tab PO BID PRN 05/09/14 09/28/19 7.5-325] Latanoprost Ophth [Xalatan 0.005%] 1 drop BOTH EYES HS 05/09/14 09/28/19 Omeprazole [PriLOSEC] 20 mg PO AC-BRKFST@0600 05/09/14 09/28/19 methocarbamoL [Robaxin] 500 mg PO BID PRN 05/12/16 09/28/19 L.acidoph,Paracasei, B.lactis 1 cap PO DAILY 02/18/18 09/28/19 [Probiotic] Melatonin 10 mg PO HS 02/18/18 09/28/19 Pravastatin Sodium [Pravachol] 40 mg PO HS 02/18/18 09/28/19 Albuterol Sulfate [Ventolin HFA] 2 puff INHALATION RT-QID PRN 09/28/19 09/28/19 Ascorbic Acid [Vitamin C] 500 mg PO DAILY 09/28/19 09/28/19 Aspirin EC [Ecotrin Low Dose] 81 mg PO DAILY 09/28/19 09/28/19 Budesonide [Pulmicort Flexhaler] 2 puff INHALATION RT-BID 09/28/19 09/28/19 Butalb/APAP/Caff 50-325-40Mg 1 tab PO TID PRN 09/28/19 09/28/19 [Fioricet 50-325-40] Calcium 1200mg/Vitamin D3 25mg 1 tab PO Q48H 09/28/19 09/28/19 Cholecalciferol [Vitamin D3 (25 2,000 unit PO DAILY 09/28/19 09/28/19 Mcg = 1000 Iu)] Cyanocobalamin (Vitamin B-12) 5,000 mcg PO Q48H 09/28/19 09/28/19 [Vitamin B-12] Elderberry Sambucus 1250mg 1 tab PO DAILY 09/28/19 09/28/19 Magnesium Oxide [Mag-Ox] 250 mg PO DAILY 09/28/19 09/28/19 Metoprolol Succinate [Toprol XL] 25 mg PO DAILY 09/28/19 09/28/19 Montelukast [Singulair] 10 mg PO HS 09/28/19 09/28/19 Multivit-Min/FA/Lycopen/Lutein 1 tab PO DAILY 09/28/19 09/28/19 [Centrum Silver Tablet] Potassium Gluconate [Potassium 99 mg PO Q72H 09/28/19 09/28/19 Gluconate ER] metFORMIN HCL [Glucophage] 1,000 mg PO BID 09/28/19 09/28/19 Previous Rx's Medication Instructions Recorded Clindamycin [Cleocin] 450 mg PO Q6H #30 cap 11/09/20 Doxycycline Monohydrate [Monodox] 100 mg PO Q12HR #20 cap 02/06/21 Cephalexin [Keflex] 500 mg PO Q12HR 7 Days #14 cap 05/19/21 Clindamycin [Cleocin] 450 mg PO TID 10 Days #90 cap 06/30/21 Allergies Allergy/AdvReac Type Severity Reaction Status Date / Time Penicillins AdvReac Nausea & Verified 05/19/21 15:07 Vomiting Sulfa (Sulfonamide AdvReac Nausea & Verified 05/19/21 15:07 Antibiotics) Vomiting Review of Systems ROS Statement: Those systems with pertinent positive or pertinent negative responses have been documented in the HPI. ROS Other: All systems not noted in ROS Statement are negative. Past Medical History Past Medical History: Diabetes Mellitus, Fibromyalgia, GERD/Reflux, Hypertension, Rheumatoid Arthritis (RA), Thyroid Disorder Additional Past Medical History / Comment(s): sarcoidosis, ibs migraines optic nerve damage short term memory issues chronic back pain keratodermia urinary i ncontinence glaucoma, brain lesion, pulmonary leasion, eye probelms History of Any Multi-Drug Resistant Organisms: None Reported Past Surgical History: Appendectomy, Cholecystectomy Additional Past Surgical History / Comment(s): bronchoscopy laproscopic young removal cyst removal , cataracts Past Anesthesia/Blood Transfusion Reactions: No Reported Reaction Past Psychological History: Anxiety, Depression Smoking Status: Former smoker Past Alcohol Use History: Rare Past Drug Use History: None Reported - Past Family History Mother Family Medical History: Cancer, Hyperlipidemia Additional Family Medical History / Comment(s): lung cancer Father Family Medical History: Cancer, Diabetes Mellitus, Hyperlipidemia General Exam Limitations: no limitations General appearance: alert, in no apparent distress Head exam: Present: atraumatic, normocephalic, normal inspection Eye exam: Present: normal appearance, PERRL, EOMI. Absent: scleral icterus, conjunctival injection, periorbital swelling ENT exam: Present: normal exam, mucous membranes moist Neck exam: Present: normal inspection. Absent: tenderness, meningismus, lymphadenopathy Respiratory exam: Present: normal lung sounds bilaterally. Absent: respiratory distress, wheezes, rales, rhonchi, stridor Cardiovascular Exam: Present: regular rate, normal rhythm, normal heart sounds. Absent: systolic murmur, diastolic murmur, rubs, gallop, clicks GI/Abdominal exam: Present: soft, normal bowel sounds. Absent: distended, tenderness, guarding, rebound, rigid Extremities exam: Present: normal inspection (Patient with 1 cm abrasion to right medial/inner ankle with area of erythema the size of a quarter around area;scab formed over abrasion. No increased warmth present. No drainage present. Mild tenderness to palpation. DP pulses palpable. No induration or fluctuance noted. No abscess formation noted.), full ROM, normal capillary refill, other (Full range of motion of right leg, ankle and foot. Patient states it is painful when she is walking around on it as it causes pressure in the area.). Absent: tenderness, pedal edema, joint swelling, calf tenderness Back exam: Present: normal inspection, full ROM. Absent: CVA tenderness (R), CVA tenderness (L), paraspinal tenderness, vertebral tenderness Neurological exam: Present: alert, oriented X3, CN II-XII intact Psychiatric exam: Present: normal affect, normal mood Skin exam: Present: warm, dry, intact, normal color. Absent: rash Course Vital Signs 06/30/21 12:46 Temperature 98.2 F Pulse Rate 103 H Respiratory 18 Rate Blood Pressure 133/84 O2 Sat by Pulse 98 Oximetry Medical Decision Making - Medical Decision Making This 66-year-old female presents emergency Department with abrasion to her right medial ankle. Area of erythema the size of a quarter surrounding abrasion. X- ray without any acute abnormality seen. Patient placed on clindamycin 10 days. Patient instructed to follow up with her primary care provider next 1-2 days. Strict return precautions were discussed. Patient verbally agree to plan. Patient sent home in stable condition. Case discussed in detail my attending, Disposition Clinical Impression: Cellulitis of right ankle Disposition: HOME SELF-CARE Condition: Stable Instructions (If sedation given, give patient instructions): Cellulitis (ED) Additional Instructions: Please take antibiotics as directed. Follow up with her primary care provider in 1-2 days. Return to the emergency department with any new, worsening, or concerning symptoms. Prescriptions: Clindamycin [Cleocin] 450 mg PO TID 10 Days #90 cap Is patient prescribed a controlled substance at d/c from ED?: No Referrals: Esther Barragan MD [Primary Care Provider] - 1-2 days Time of Disposition: 15:20
== END 2021-06-30 15:37 | disposition home or self-care (01) ==
LOC: EC 12:42
DX: L03.115 Cellulitis of right lower limb (principal); E11.9 Type 2 diabetes mellitus without complications; I10 Essential (primary) hypertension; K21.9 Gastro-esophageal reflux disease without esophagitis; Z79.899 Other long term (current) drug therapy; E07.9 Disorder of thyroid, unspecified; Z79.1 Long term (current) use of non-steroidal anti-inflammatories (NSAID); Z87.891 Personal history of nicotine dependence; Z88.0 Allergy status to penicillin; Z88.2 Allergy status to sulfonamides
CPT/HCPCS: 73610; 99284; 96372; J1885

== ENCOUNTER 2021-10-04 19:20 | Emergency (ER) | payer MEDICARE, OTHER ==
[2021-10-04 19:35] VITALS: TEMP 98
--- NOTE | 2021-10-04 20:56 | ED ---
General Adult HPI - General Chief complaint: Dental/Oral Stated complaint: Lip pain Time Seen by Provider: 10/04/21 20:40 Source: patient, RN notes reviewed Mode of arrival: ambulatory Limitations: no limitations - History of Present Illness Initial comments: Patient is a pleasant 66-year-old female presenting to the emergency department with sore on her right lateral lip. He should states this started a couple days ago. Patient states some comfortable and does increase with movement. No discomfort inside of the mouth. No difficulty swallowing or breathing. No history of similar symptoms previously. - Related Data Home Medications Medication Instructions Recorded Confirmed DULoxetine HCL [Cymbalta] 60 mg PO DAILY 05/09/14 09/28/19 Diazepam 2 mg PO DAILY PRN 05/09/14 09/28/19 Hydrocodone/Acetaminophen [[place] 1 tab PO BID PRN 05/09/14 09/28/19 7.5-325] Latanoprost Ophth [Xalatan 0.005%] 1 drop BOTH EYES HS 05/09/14 09/28/19 Omeprazole [PriLOSEC] 20 mg PO AC-BRKFST@0600 05/09/14 09/28/19 methocarbamoL [Robaxin] 500 mg PO BID PRN 05/12/16 09/28/19 L.acidoph,Paracasei, B.lactis 1 cap PO DAILY 02/18/18 09/28/19 [Probiotic] Melatonin [Melatonin ER] 10 mg PO HS 02/18/18 09/28/19 Pravastatin Sodium [Pravachol] 40 mg PO HS 02/18/18 09/28/19 Albuterol Sulfate [Ventolin HFA] 2 puff INHALATION RT-QID PRN 09/28/19 09/28/19 Ascorbic Acid [Vitamin C] 500 mg PO DAILY 09/28/19 09/28/19 Aspirin EC [Ecotrin Low Dose] 81 mg PO DAILY 09/28/19 09/28/19 Budesonide [Pulmicort Flexhaler] 2 puff INHALATION RT-BID 09/28/19 09/28/19 Butalb/APAP/Caff 50-325-40Mg 1 tab PO TID PRN 09/28/19 09/28/19 [Fioricet 50-325-40] Calcium 1200mg/Vitamin D3 25mg 1 tab PO Q48H 09/28/19 09/28/19 Cholecalciferol [Vitamin D3 (25 2,000 unit PO DAILY 09/28/19 09/28/19 Mcg = 1000 Iu)] Cyanocobalamin (Vitamin B-12) 5,000 mcg PO Q48H 09/28/19 09/28/19 [Vitamin B-12] Elderberry Sambucus 1250mg 1 tab PO DAILY 09/28/19 09/28/19 Magnesium Oxide [Mag-Ox] 250 mg PO DAILY 09/28/19 09/28/19 Metoprolol Succinate [Toprol XL] 25 mg PO DAILY 09/28/19 09/28/19 Montelukast [Singulair] 10 mg PO HS 09/28/19 09/28/19 Multivit-Min/FA/Lycopen/Lutein 1 tab PO DAILY 09/28/19 09/28/19 [Centrum Silver Tablet] Potassium Gluconate [Potassium 99 mg PO Q72H 09/28/19 09/28/19 Gluconate ER] metFORMIN HCL [Glucophage] 1,000 mg PO BID 09/28/19 09/28/19 Previous Rx's Medication Instructions Recorded Clindamycin [Cleocin] 450 mg PO Q6H #30 cap 11/09/20 Doxycycline Monohydrate [Monodox] 100 mg PO Q12HR #20 cap 02/06/21 Cephalexin [Keflex] 500 mg PO Q12HR 7 Days #14 cap 05/19/21 Clindamycin [Cleocin] 450 mg PO TID 10 Days #90 cap 06/30/21 Mupirocin 2% Oint [Bactroban 2% 1 applic TOPICAL TID #22 gm 10/04/21 Oint] valACYclovir HCL [Valtrex] 1 tab PO BID #6 tablet 10/04/21 Allergies Allergy/AdvReac Type Severity Reaction Status Date / Time Penicillins AdvReac Nausea & Verified 10/04/21 19:35 Vomiting Sulfa (Sulfonamide AdvReac Nausea & Verified 10/04/21 19:35 Antibiotics) Vomiting Review of Systems ROS Statement: Those systems with pertinent positive or pertinent negative responses have been documented in the HPI. ROS Other: All systems not noted in ROS Statement are negative. Constitutional: Denies: fever Eyes: Denies: eye pain ENT: Denies: ear pain Respiratory: Denies: cough Cardiovascular: Denies: chest pain Endocrine: Denies: fatigue Gastrointestinal: Denies: nausea Genitourinary: Denies: urgency Past Medical History Past Medical History: Diabetes Mellitus, Fibromyalgia, GERD/Reflux, Hypertension, Rheumatoid Arthritis (RA), Thyroid Disorder Additional Past Medical History / Comment(s): sarcoidosis, ibs migraines optic nerve damage short term memory issues chronic back pain keratodermia urinary incontinence glaucoma, brain lesion, pulmonary leasion, eye probelms History of Any Multi-Drug Resistant Organisms: None Reported, MRSA Date of last positivie culture/infection: 08/08/2020 MDRO Source:: [facility] Past Surgical History: Appendectomy, Cholecystectomy Additional Past Surgical History / Comment(s): bronchoscopy laproscopic young removal cyst removal , cataracts Past Anesthesia/Blood Transfusion Reactions: No Reported Reaction Past Psychological History: Anxiety, Depression Smoking Status: Former smoker Past Alcohol Use History: Rare Past Drug Use History: None Reported - Past Family History Mother Family Medical History: Cancer, Hyperlipidemia Additional Family Medical History / Comment(s): lung cancer Father Family Medical History: Cancer, Diabetes Mellitus, Hyperlipidemia General Exam Limitations: no limitations General appearance: alert, in no apparent distress Head exam: Present: normocephalic Eye exam: Present: normal appearance ENT exam: Present: other (Right lower lateral lip with small area of erythema and possible early minimal ulceration) Neck exam: Present: normal inspection Respiratory exam: Present: normal lung sounds bilaterally Cardiovascular Exam: Present: regular rate, normal rhythm GI/Abdominal exam: Present: soft. Absent: tenderness Neurological exam: Present: alert Psychiatric exam: Present: normal affect, normal mood Course Vital Signs 10/04/21 19:31 Temperature 98.0 F Pulse Rate 94 Respiratory 17 Rate Blood Pressure 142/84 O2 Sat by Pulse 97 Oximetry Disposition Clinical Impression: Aphthous ulcer Disposition: HOME SELF-CARE Condition: Stable Instructions (If sedation given, give patient instructions): Canker Sores (ED) Additional Instructions: Prescription sent to pharmacy. Please follow-up with primary care physician in the next couple days for recheck. Return for increased pain, swelling, fever, worsening or changing symptoms or other concerns. Prescriptions: Mupirocin 2% Oint [Bactroban 2% Oint] 1 applic TOPICAL TID #22 gm valACYclovir HCL [Valtrex] 1 tab PO BID #6 tablet Is patient prescribed a controlled substance at d/c from ED?: No Referrals: Esther Barragan MD [Primary Care Provider] - 1-2 days Time of Disposition: 20:51
[2021-10-04 21:06] VITALS: BP 136/91; PULSE 72; RESP 16
== END 2021-10-04 21:06 | disposition home or self-care (01) ==
LOC: EC 19:20
DX: K12.0 Recurrent oral aphthae (principal); E11.9 Type 2 diabetes mellitus without complications; I10 Essential (primary) hypertension; K21.9 Gastro-esophageal reflux disease without esophagitis; Z79.83 Long term (current) use of bisphosphonates; Z87.891 Personal history of nicotine dependence; Z88.0 Allergy status to penicillin; Z88.2 Allergy status to sulfonamides
CPT/HCPCS: 99283

== ENCOUNTER → 2021-12-15 | Outpatient (CLI) | payer MEDICARE, OTHER ==
[2021-12-17 05:59] LABS: Herpes simplex I and/or II IgM 0.22 INDEX (<=0.90); Herpes simplex IgG I Ab 0.23 (< or = 0.90); Herpes simplex IgG II Ab 0.16 (< or = 0.90)
== END | disposition home or self-care (01) ==
LOC: LABWHC1 15:58
PROVIDERS: ATTEND Internal Medicine Infectious Disease
DX: L08.9 Local infection of the skin and subcutaneous tissue, unspecified (principal)
CPT/HCPCS: 36415; 86140; 86694; 86695; 86696

== ENCOUNTER → 2021-12-29 | Outpatient (CLI) | payer MEDICARE, OTHER ==
--- NOTE | 2021-12-30 06:30 | MR ---
EXAMINATION TYPE: MR lumbar spine wo con DATE OF EXAM: 12/29/2021 COMPARISON: NONE HISTORY: Low back pain that radiates down left leg. TECHNIQUE: Multiplanar, multisequence imaging of the lumbar spine is performed without IV contrast. FINDINGS: Sagittal images of the lumbar spine show vertebral body heights and alignment to appear sat isfactory. Multilevel disc desiccation. Mild to moderate disc space narrowing with vacuum disc phenom enon at L5-S1 level. The conus medullaris is normal in position and signal ending mid L1 level. Large hemangioma occupies the L1 vertebra. There is low T1 and T2 signal consistent with vertebroplasty in volving the T12 vertebra. Axial images at T12-L1 level appear within normal limits. Axial images at L1-L2 level mild broad-based right paracentral disc protrusion minimally effaces the anterior thecal sac. Patent bilateral neural foramina. Axial images at L2-L3 level show mild/moderate broad disc bulge mildly effacing the anterior thecal s ac along with mild facet arthropathy and ligamentum flavum hypertrophy effacing posterior lateral the dbeo sac. Patent bilateral neural foramina. Axial images at the L3-L4 level shows mild/moderate broad-based disc bulge minimally effacing the ant erior thecal sac. There is [id number] facet arthropathy and ligamentum flavum hypertrophy produ cing posterior lateral thecal sac. There is mild bilateral anterior inferior neural foraminal narrowi ng. Axial images at L4-L5 level moderate facet arthropathy and ligamentum flavum hypertrophy effacing pos terior left thecal sac. There is mild broad-based posterior disc protrusion. Patent bilateral neural foramina. Axial images at L5-S1 level show focal left paracentral disc protrusion encroaching near central left S1 nerve. Spinal canal is preserved as is increased epidural fat. Mild facet arthropathy bilaterally . Patent bilateral neural foramina. Paraspinal muscle bulk is maintained. IMPRESSION: Multilevel degenerative changes of the lumbar spine as detailed above. Attention to L5-S1 level where left paracentral disc protrusion encroaches in very close proximity to the central left S1 nerve.
== END | disposition home or self-care (01) ==
LOC: RADMRIMAIN 15:16
PROVIDERS: ATTEND Psychiatry & Neurology Neurology
DX: M51.37 Other intervertebral disc degeneration, lumbosacral region (principal); M47.817 Spondylosis without myelopathy or radiculopathy, lumbosacral region
CPT/HCPCS: 72148

== ENCOUNTER 2022-02-24 01:40 | Emergency (ER) | payer MEDICARE, OTHER ==
[2022-02-24 01:46] VITALS: RESP 18
[2022-02-24] MEDS ORDERED: diphenhydrAMINE 50 MG/ML 1 ML VIAL IVP STA (02:11)
[2022-02-24] MEDS ORDERED: SODIUM CHLORIDE 0.9% 1,000 ML IV STA (02:11)
[2022-02-24] MEDS ORDERED: KETOROLAC 15 MG/ML 1 ML VIAL IVP STA (02:11)
[2022-02-24] MEDS ORDERED: METOCLOPRAMIDE 5 MG/ML 2 ML VIAL IVP STA (02:11)
--- NOTE | 2022-02-24 02:15 | ED ---
Headache HPI - General Chief Complaint: Headache Stated Complaint: Left sided head pain Time Seen by Provider: 02/24/22 02:01 Source: RN notes reviewed Mode of arrival: ambulatory Limitations: no limitations - History of Present Illness Initial Comments: This is a pleasant 66-year-old female with a history of multiple medical issues. This includes diabetes mellitus, fibromyalgia, GERD, hypertension, rheumatoid arthritis, thyroid disorder, sarcoidosis, migraine headaches, optic nerve damage, multiple previous episodes of shingles, glaucoma, brain lesion, I problems. Patient presents to the emergency department today Finding of a nondescript headache in the parietal region on her left scalp. Patient states it started 1 week ago. Patient states was initially intermittent but now seems to be staying longer. Patient states it's fairly severe. Patient also ascertains that there is some numbness and tingling on the left side of her face, mainly around her left temporal area and just inferior to her left eye. Patient denying any vision disturbance. No slurred speech. Weakness. No difficulty swallowing. No difficulty hearing. No arm or leg weakness. He states earlier today she felt a bit tingly all over as well. The patient states that she suffers from autoimmune disorders. Patient denying any trauma. Denies any fever. no fever or chills, no changes in vision or hearing, no sore throat or difficulty with speech, no neck pain, no chest pain or shortness of breath, no abdominal pain, no nausea or vomiting, no changes in urination or bowel movements, , no extremity pain, no skin rashes or lesions. Past medical, surgical, social, and family history reviewed. MD Complaint: headache - Related Data Home Medications Medication Instructions Recorded Confirmed DULoxetine HCL [Cymbalta] 60 mg PO DAILY 05/09/14 09/28/19 Diazepam 2 mg PO DAILY PRN 05/09/14 09/28/19 Hydrocodone/Acetaminophen [[place] 1 tab PO BID PRN 05/09/14 09/28/19 7.5-325] Latanoprost Ophth [Xalatan 0.005%] 1 drop BOTH EYES HS 05/09/14 09/28/19 Omeprazole [PriLOSEC] 20 mg PO AC-BRKFST@0600 05/09/14 09/28/19 methocarbamoL [Robaxin] 500 mg PO BID PRN 05/12/16 09/28/19 L.acidoph,Paracasei, B.lactis 1 cap PO DAILY 02/18/18 09/28/19 [Probiotic] Melatonin [Melatonin ER] 10 mg PO HS 02/18/18 09/28/19 Pravastatin Sodium [Pravachol] 40 mg PO HS 02/18/18 09/28/19 Albuterol Sulfate [Ventolin HFA] 2 puff INHALATION RT-QID PRN 09/28/19 09/28/19 Ascorbic Acid [Vitamin C] 500 mg PO DAILY 09/28/19 09/28/19 Aspirin EC [Ecotrin Low Dose] 81 mg PO DAILY 09/28/19 09/28/19 Budesonide [Pulmicort Flexhaler] 2 puff INHALATION RT-BID 09/28/19 09/28/19 Butalb/APAP/Caff 50-325-40Mg 1 tab PO TID PRN 09/28/19 09/28/19 [Fioricet 50-325-40] Calcium 1200mg/Vitamin D3 25mg 1 tab PO Q48H 09/28/19 09/28/19 Cholecalciferol [Vitamin D3 (25 2,000 unit PO DAILY 09/28/19 09/28/19 Mcg = 1000 Iu)] Cyanocobalamin (Vitamin B-12) 5,000 mcg PO Q48H 09/28/19 09/28/19 [Vitamin B-12] Elderberry S[place] 1250mg 1 tab PO DAILY 09/28/19 09/28/19 Magnesium Oxide [Mag-Ox] 250 mg PO DAILY 09/28/19 09/28/19 Metoprolol Succinate [Toprol XL] 25 mg PO DAILY 09/28/19 09/28/19 Montelukast [Singulair] 10 mg PO HS 09/28/19 09/28/19 Multivit-Min/FA/Lycopen/Lutein 1 tab PO DAILY 09/28/19 09/28/19 [Centrum Silver Tablet] Potassium Gluconate [Potassium 99 mg PO Q72H 09/28/19 09/28/19 Gluconate ER] metFORMIN HCL [Glucophage] 1,000 mg PO BID 09/28/19 09/28/19 Previous Rx's Medication Instructions Recorded Clindamycin [Cleocin] 450 mg PO Q6H #30 cap 09/11/21 Doxycycline Monohydrate [Monodox] 100 mg PO Q12HR #20 cap 02/06/21 Cephalexin [Keflex] 500 mg PO Q12HR 7 Days #14 cap 05/19/21 Clindamycin [Cleocin] 450 mg PO TID 10 Days #90 cap 06/30/21 Mupirocin 2% Oint [Bactroban 2% 1 applic TOPICAL TID #22 gm 10/04/21 Oint] valACYclovir HCL [Valtrex] 1 tab PO BID #6 tablet 10/04/21 Allergies Allergy/AdvReac Type Severity Reaction Status Date / Time Penicillins AdvReac Nausea & Verified 02/24/22 01:46 Vomiting Sulfa (Sulfonamide AdvReac Nausea & Verified 02/24/22 01:46 Antibiotics) Vomiting Review of Systems ROS Statement: Those systems with pertinent positive or pertinent negative responses have been documented in the HPI. ROS Other: All systems not noted in ROS Statement are negative. Past Medical History Past Medical History: Diabetes Mellitus, Fibromyalgia, GERD/Reflux, Hypertension, Rheumatoid Arthritis (RA), Thyroid Disorder Additional Past Medical History / Comment(s): sarcoidosis, ibs migraines optic nerve damage short term memory issues chronic back pain keratodermia urinary incontinence glaucoma, brain lesion, pulmonary leasion, eye probelms History of Any Multi-Drug Resistant Organisms: None Reported, MRSA Date of last positivie culture/infection: 08/08/2020 MDRO Source:: [facility] Past Surgical History: Appendectomy, Cholecystectomy Additional Past Surgical History / Comment(s): bronchoscopy laproscopic young removal cyst removal , cataracts Past Anesthesia/Blood Transfusion Reactions: No Reported Reaction Past Psychological History: Anxiety, Depression Smoking Status: Former smoker Past Alcohol Use History: Rare Past Drug Use History: None Reported - Past Family History Mother Family Medical History: Cancer, Hyperlipidemia Additional Family Medical History / Comment(s): lung cancer Father Family Medical History: Cancer, Diabetes Mellitus, Hyperlipidemia General Exam - General Exam Comments Initial Comments: Cranial nerves II through XII are intact. [place] Coma Scale is 15. Alert and oriented 4. Patient does not appear to be ill or toxic. Vital signs stable, patient afebrile. No evidence of head trauma. No rashes or lesions. Limitations: no limitations General appearance: alert, in no apparent distress Head exam: Present: atraumatic, normocephalic, normal inspection Eye exam: Present: normal appearance, PERRL, EOMI. Absent: scleral icterus, conjunctival injection, periorbital swelling ENT exam: Present: normal exam, normal oropharynx, mucous membranes moist, TM's normal bilaterally, normal external ear exam, other (No rashes or lesions. No evidence of vesicles.). Absent: mucous membranes dry Neck exam: Present: normal inspection, full ROM. Absent: tenderness, meningismus, lymphadenopathy Respiratory exam: Present: normal lung sounds bilaterally. Absent: respiratory distress, wheezes, rales, rhonchi, stridor, chest wall tenderness, accessory muscle use, decreased breath sounds, prolonged expiratory Cardiovascular Exam: Present: regular rate, normal rhythm, normal heart sounds. Absent: systolic murmur, diastolic murmur, rubs, gallop, clicks GI/Abdominal exam: Present: soft, normal bowel sounds. Absent: distended, tenderness, guarding, rebound, rigid Extremities exam: Present: normal inspection, full ROM, normal capillary refill. Absent: tenderness, pedal edema, joint swelling, calf tenderness Back exam: Present: normal inspection Neurological exam: Present: alert, oriented X3, CN II-XII intact, normal gait. Absent: motor sensory deficit Expanded Patient oriented to: Present: person, place, time Speech: Present: fluid speech Cranial nerves: EOM's Intact: Normal, Gag Reflex: Normal, Tongue Deviation: Normal, Nystagmus: Normal, Facial Sensation: Normal, Facial Palsy with Forehead Movement: Normal Cerebellar function: Finger to Nose: Normal, Heel to Hall: Normal Sensory exam: Upper Extremity Light Touch: Normal, Lower Extremity Light Touch: Normal Motor strength exam: RUE: 5, LUE: 5, RLE: 5, LLE: 5 Psychiatric exam: Present: normal affect, normal mood Skin exam: Present: warm, dry, intact, normal color, other (No skin abnormality. No evidence of vesicles.). Absent: rash, cyanosis, diaphoretic, erythema, urticaria, vesicles, petechiae, pallor, mottled, abrasion Course Vital Signs 02/24/22 01:45 Temperature 97.9 F Pulse Rate 91 Respiratory 18 Rate Blood Pressure 139/83 O2 Sat by Pulse 99 Oximetry - Reevaluation(s) Reevaluation #1: 02/24/22 03:58 Medical record is reviewed Symptoms are improved here in the emergency department Patient is informed of results and questions answered Patient in no distress Patient states the irritation is still coming and going but is improved. Medical Decision Making - Medical Decision Making Was pt. sent in by a medical professional or institution? @ -no Did you speak to anyone other than the patient for history? @ -no Did you review nursing and triage notes? @ -yes Were old charts reviewed? @ -Old records reviewed Differential Diagnosis? @ -Differential Headache: Migraine, tension, cluster, temporal arteritis, intercranial hemorrhage, mastoiditis, sinusitis, head injury, trigeminal neuralgia, early shingles, this is not meant to be an all-inclusive list. CT interpreted by me (1pt min.)? @ -[Independent interpretation of the CT brain by me reveals no evidence of acute process. I did review radiology interpretation] What testing was considered but not performed? (CT, X-rays, U/S, labs)? Why? @ none What meds were considered but not given? Why? @ -[none] Did you discuss the management of the patient with other professionals? @ -ED attending physician What co-morbidities impacted this encounter? (DM, HTN, Smoking, COPD, CAD, Cancer, CVA, Hep., AIDS, mental health diagnosis, sleep apnea, morbid obesity)? @ -Reviewed patient's comorbidities to include migraine headaches and fibromyalgia. Does not appear to be consistent with acute CVA or TIA. Patient's symptoms are intermittent. Was patient admitted / discharged? @ -[Patient presented to Hospital with intermittent discomfort to the left parietal area of her head. Some tingling radiating to her left temporal area and just below her left eye. There was no vision disturbance. No slurred speech. No focal weakness. Symptoms were intermittent for one week. This does raise a suspicion of V1 involvement of the trigeminal nerve. 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 We'll have the patient follow up with her neurologist, Dr. Tom. She was told to call morning without fail. Patient agrees with this treatment plan. She was discharged in stable condition.] Undiagnosed new problem with uncertain prognosis? @ -[none] Drug Therapy requiring intensive monitoring for toxicity (Heparin, Nitro, Insulin, Cardizem)? @ -[none] Were any procedures done? @ -[none] Diagnosis/symptom? @ -Cephalgia Acute, or Chronic, or Acute on Chronic? @ -Acute Uncomplicated (without systemic symptoms) or Complicated (systemic symptoms)? @ -Uncomplicated Side effects of treatment? @ -[none] Exacerbation, Progression, or Severe Exacerbation] @ -[no] Poses a threat to life or bodily function? @ -Unlikely Patient was told to return to the ER for any signs or symptoms worsen. Told to return immediately if any other problems arise. All questions answered. Treatment plan discussed. Patient in agreement Every effort has been made to ensure accuracy of this dictation. However, due to the limitations of electronic medical records and dictation devices, errors in charting still occur. The case was discussed in detail with ED attending physician. Presentation, findings, treatment plan discussed in detail. Coagulating Operator Dr. Espino - Lab Data Result diagrams: 02/24/22 02:27 02/24/22 02: Lab Results 02/24/22 02/24/22 Range/Units 02: 02:27 WBC 8.1 (3.8-10.6) k/uL RBC 4.53 (3.80-5.40) m/uL Hgb 13.6 (11.4-16.0) gm/dL Hct 41.9 (34.0-46.0) % MCV 92.5 (80.0-100.0) fL MCH 30.1 (25.0-35.0) pg MCHC 32.5 (31.0-37.0) g/dL RDW 13.1 (11.5-15.5) % Plt Count 306 (150-450) k/uL MPV 7.6 Neutrophils % 37 % Lymphocytes % 51 % Monocytes % 6 % Eosinophils % 2 % Basophils % 1 % Neutrophils # 3.0 (1.3-7.7) k/uL Lymphocytes # 4.1 (1.0-4.8) k/uL Monocytes # 0.5 (0-1.0) k/uL Eosinophils # 0.2 (0-0.7) k/uL Basophils # 0.1 (0-0.2) k/uL ESR Cancelled Sodium 138 (137-145) mmol/L Potassium 4.4 (3.5-5.1) mmol/L Chloride 103 (98-107) mmol/L Carbon Dioxide 23 (22-30) mmol/L Anion Gap 12 mmol/L BUN 25 H (7-17) mg/dL Creatinine 1.09 H (0.52-1.04) mg/dL Est GFR (CKD-EPI)AfAm 61 (>60 ml/min/1.73 sqM) Est GFR (CKD-EPI)NonAf 53 (>60 ml/min/1.73 sqM) Glucose 163 H (74-99) mg/dL Calcium 9.5 (8.4-10.2) mg/dL Magnesium 2.0 (1.6-2.3) mg/dL Disposition Clinical Impression: Cephalgia Disposition: HOME SELF-CARE Condition: Good Instructions (If sedation given, give patient instructions): Acute Headache (ED) Additional Instructions: Follow-up with your neurologist tomorrow morning. Is patient prescribed a controlled substance at d/c from ED?: No Referrals: Esther Barragan MD [Primary Care Provider] - 1-2 days Brooke Snow MD [STAFF PHYSICIAN] - 02/26/22 Time of Disposition: 03:47
[2022-02-24 02:43] LABS: Basophils # (A) 0.1 k/uL (0-0.2); Basophils % (A) 1 %; Eosinophils # (A) 0.2 k/uL (0-0.7); Eosinophils % (A) 2 %; HCT 41.9 % (34.0-46.0); HGB 13.6 gm/dL (11.4-16.0); Lymphocytes # (A) 4.1 k/uL (1.0-4.8); Lymphocytes % (A) 51 %; MCH 30.1 pg (25.0-35.0); MCHC 32.5 g/dL (31.0-37.0); MCV 92.5 fL (80.0-100.0); Mean Platelet Volume 7.6; Monocytes # (A) 0.5 k/uL (0-1.0); Monocytes % (A) 6 %; Neutrophils % (A) 37 %; Platelet Count 306 k/uL (150-450); RBC 4.53 m/uL (3.80-5.40); RDW 13.1 % (11.5-15.5); WBC 8.1 k/uL (3.8-10.6)
[2022-02-24 02:59] LABS: Calcium 9.5 mg/dL (8.4-10.2); Potassium 4.4 mmol/L (3.5-5.1)
--- NOTE | 2022-02-24 03:02 | CT ---
EXAMINATION TYPE: CT brain wo con DATE OF EXAM: 02/24/2022 COMPARISON: 06/20/2017 HISTORY: [facility]OM[facility] CT DLP: 1143 mGycm Automated exposure control for dose reduction was used. Ventricles of normal size. There is no mass effect or midline shift. No sign of intracranial hemorrha ge. Calvarium is intact. IMPRESSION: Normal unenhanced head CT scan. No change.
[2022-02-24 04:51] VITALS: BP 122/67; PULSE 66; TEMP 98
== END 2022-02-24 04:51 | disposition home or self-care (01) ==
LOC: EC 01:40
DX: R51.9 Headache, unspecified (principal); E11.9 Type 2 diabetes mellitus without complications; K21.9 Gastro-esophageal reflux disease without esophagitis; I10 Essential (primary) hypertension; M06.9 Rheumatoid arthritis, unspecified; F41.9 Anxiety disorder, unspecified; F32.A Depression, unspecified; Z87.891 Personal history of nicotine dependence; Z88.0 Allergy status to penicillin; Z88.2 Allergy status to sulfonamides; Z79.82 Long term (current) use of aspirin; Z79.84 Long term (current) use of oral hypoglycemic drugs; Z79.899 Other long term (current) drug therapy
CPT/HCPCS: 36415; 80048; 85652; 83735; 85025; 70450; 99284; 96374; 96375 ×2; 96361; J1200; J2765; J1885

== ENCOUNTER 2022-03-24 15:41 | Emergency (ER) | payer MEDICARE, OTHER ==
[2022-03-24 16:09] LABS: Glucose,Whole Blood 131 mg/dL (70-110)
[2022-03-24 16:10] VITALS: TEMP 98.2
[2022-03-24] MEDS ORDERED: DEXAMETHASONE SOD PHOSPHATE 10 MG/ML 1 ML VIAL IVP STA (16:29)
[2022-03-24] MEDS ORDERED: METOCLOPRAMIDE 5 MG/ML 2 ML VIAL IVP STA (16:29)
[2022-03-24] MEDS ORDERED: KETOROLAC 15 MG/ML 1 ML VIAL IVP STA (16:29)
[2022-03-24] MEDS ORDERED: SODIUM CHLORIDE 0.9% 1,000 ML IV STA (16:29)
[2022-03-24] MEDS ORDERED: diphenhydrAMINE 50 MG/ML 1 ML VIAL IVP STA (16:29)
--- NOTE | 2022-03-24 16:36 | ED ---
Headache HPI - General Chief Complaint: Headache Stated Complaint: head & neck pain Time Seen by Provider: 03/24/22 16:12 Mode of arrival: ambulatory Limitations: no limitations - History of Present Illness Initial Comments: Patient is a 66-year-old female presenting with chief complaint of headache. Patient has had recurrent issues with migraines, has had recurrent headache to the left parietal region. Patient was recently evaluated [facility], had MRI and angiogram performed which were essentially negative. Patient states that this pain has not changed in character. This episode of pain started last night, patient takes fiorcet, ibuprofen, and aspirin as needed. She denies any nausea, vomiting, dizziness, weakness, numbness, tingling, chest pain, difficult y breathing, palpitations, abdominal pain. - Related Data Home Medications Medication Instructions Recorded Confirmed DULoxetine HCL [Cymbalta] 60 mg PO DAILY 05/09/14 03/24/22 Latanoprost Ophth [Xalatan 0.005%] 1 drop BOTH EYES HS 05/09/14 03/24/22 Omeprazole [PriLOSEC] 20 mg PO AC-BRKFST 05/09/14 03/24/22 Pravastatin Sodium [Pravachol] 80 mg PO HS 02/18/18 03/24/22 Ascorbic Acid [Vitamin C] 500 mg PO DAILY 09/28/19 03/24/22 Cholecalciferol [Vitamin D3 (25 50 mcg PO DAILY 09/28/19 03/24/22 Mcg = 1000 Iu)] Cyanocobalamin (Vitamin B-12) 5,000 mcg PO Q7D 09/28/19 03/24/22 [Vitamin B-12] Elderberry Sambucus 1250mg 1 tab PO Q48H 09/28/19 03/24/22 Magnesium Oxide [Mag-Ox] 250 mg PO Q48H 09/28/19 03/24/22 Metoprolol Succinate [Toprol XL] 25 mg PO DAILY 09/28/19 03/24/22 Montelukast [Singulair] 10 mg PO HS 09/28/19 03/24/22 Potassium Gluconate [Potassium 99 mg PO Q7D 09/28/19 03/24/22 Gluconate ER] metFORMIN HCL [Glucophage] 1,000 mg PO BID 09/28/19 03/24/22 Aspirin EC [Ecotrin Low Dose] 81 mg PO DAILY 03/24/22 03/24/22 Butalb/Acetaminophen/Caffeine 1 cap PO DAILY PRN 03/24/22 03/24/22 [Fioricet 50-300-40 mg Capsule] Calcium Citrate/Vitamin D3 1 tab PO Q72H 03/24/22 03/24/22 [Citracal + D Maximum Caplet] Cyclobenzaprine [Flexeril] 5 mg PO BID PRN 03/24/22 03/24/22 Fish Oil/Dha/Epa [Fish Oil 1,200 1 cap PO DAILY 03/24/22 03/24/22 mg Fish Oil] Fluticasone Propionate [Flovent 2 puff INHALATION RT-BID 03/24/22 03/24/22 Hfa 220 mcg] Iron Complex 1 cap PO DAILY 03/24/22 03/24/22 L.acidoph,Paracasei, B.lactis 1 cap PO DAILY 03/24/22 03/24/22 [Probiotic] Levothyroxine Sodium [Synthroid] 25 mcg PO AC-BRKFST 03/24/22 03/24/22 Multivit-Min/FA/Lycopen/Lutein 1 tab PO DAILY 03/24/22 03/24/22 [Centrum Silver Tablet] Ubidecarenone [Co Q-10] 300 mg PO MOFR 03/24/22 03/24/22 Zinc Gluconate [Zinc] 50 mg PO DAILY 03/24/22 03/24/22 lisinopriL [Zestril] 5 mg PO BID 03/24/22 03/24/22 Allergies Allergy/AdvReac Type Severity Reaction Status Date / Time Penicillins AdvReac Nausea & Verified 03/24/22 18:23 Vomiting Sulfa (Sulfonamide AdvReac Nausea & Verified 03/24/22 18:23 Antibiotics) Vomiting Review of Systems ROS Statement: Those systems with pertinent positive or pertinent negative responses have been documented in the HPI. ROS Other: All systems not noted in ROS Statement are negative. Past Medical History Past Medical History: Diabetes Mellitus, Fibromyalgia, GERD/Reflux, Hypertension, Rheumatoid Arthritis (RA), Thyroid Disorder Additional Past Medical History / Comment(s): sarcoidosis, ibs migraines optic nerve damage short term memory issues chronic back pain keratodermia urinary incontinence glaucoma, brain lesion, pulmonary leasion, eye probelms History of Any Multi-Drug Resistant Organisms: None Reported, MRSA Date of last positivie culture/infection: 08/08/2020 MDRO Source:: [facility] Past Surgical History: Appendectomy, Cholecystectomy Additional Past Surgical History / Comment(s): bronchoscopy laproscopic young removal cyst removal , cataracts Past Anesthesia/Blood Transfusion Reactions: No Reported Reaction Past Psychological History: Anxiety, Depression Smoking Status: Former smoker Past Alcohol Use History: Rare Past Drug Use History: None Reported - Past Family History Mother Family Medical History: Cancer, Hyperlipidemia Additional Family Medical History / Comment(s): lung cancer Father Family Medical History: Cancer, Diabetes Mellitus, Hyperlipidemia General Exam Limitations: no limitations General appearance: alert, in no apparent distress Head exam: Present: atraumatic, normocephalic, normal inspection Eye exam: Present: normal appearance, PERRL, EOMI. Absent: scleral icterus, conjunctival injection, periorbital swelling Pupils: Present: normal accommodation Neck exam: Present: normal inspection, full ROM Respiratory exam: Present: normal lung sounds bilaterally. Absent: respiratory distress, wheezes, rales, rhonchi, stridor Cardiovascular Exam: Present: regular rate, normal rhythm, normal heart sounds. Absent: systolic murmur, diastolic murmur, rubs, gallop, clicks Neurological exam: Present: alert, oriented X3, CN II-XII intact Expanded Patient oriented to: Present: person, place, time Speech: Present: fluid speech Cranial nerves: EOM's Intact: Normal, Facial Sensation: Normal Sensory exam: Upper Extremity Light Touch: Normal, Lower Extremity Light Touch: Normal Motor strength exam: RUE: 5, LUE: 5, RLE: 5, LLE: 5 Eye Response: (4) open spontaneously Motor Response: (6) obeys commands Verbal Response: (5) oriented [place] Total: 15 Psychiatric exam: Present: normal affect, normal mood Skin exam: Present: warm, dry, intact, normal color. Absent: rash Course Vital Signs 03/24/22 03/24/22 03/24/22 16:02 18:00 19:13 Temperature 98.2 F Pulse Rate 76 68 72 Respiratory 20 18 16 Rate Blood Pressure 147/90 134/82 132/84 O2 Sat by Pulse 97 98 Oximetry Medical Decision Making - Medical Decision Making Was pt. sent in by a medical professional or institution (LALY Jc, INSTALLATION ENGINEER, urgent care, hospital, or senior living...) When possible be specific @ -No Did you speak to anyone other than the patient for history (EMS, parent, family, police, friend...)? What history was obtained from this source @ -No Did you review nursing and triage notes (agree or disagree)? Why? @ -I reviewed and agree with nursing and triage notes Were old charts reviewed (outside hosp., previous admission, EMS record, old EKG, old radiological studies, urgent care reports/EKG's, senior living records)? Report findings @ -Charts from [facility] for patient's recent admission were reviewed Differential Diagnosis (chest pain, altered mental status, abdominal pain women, abdominal pain men, vaginal bleeding, weakness, fever, dyspnea, syncope, headache, dizziness, GI bleed, back pain, seizure, CVA, palpatations, mental health)? @ -[facility] Differential Headache: Migraine, tension, cluster, carbon monoxide, central venous thrombosis, pension karma temporal arteritis, acute closure glaucoma, intercranial hemorrhage, mastoiditis, sinusitis, head injury this is not meant to be an all-inclusive list. EKG interpreted by me (3pts min.). @ -As above X-rays interpreted by me (1pt min.). @ -None done CT interpreted by me (1pt min.). @ -None done U/S interpreted by me (1pt. min.). @ -None done What testing was considered but not performed or refused? (CT, X-rays, U/S, labs)? Why? @ -None What meds were considered but not given or refused? Why? @ -None Did you discuss the management of the patient with other professionals (professionals i.e. LALY Jc, INSTALLATION ENGINEER, lab, RT, psych nurse, transition social worker, hadoop software engineer, teacher, commissioned fire officer, bilingual patient support caseworker)? Give summary @ -No Was smoking cessation discussed for >3mins.? @ -No Was critical care preformed (if so, how long)? @ -No Were there social determinants of health that impacted care today? How? (Homelessness, low income, unemployed, alcoholism, drug addiction, transportation, low edu. Level, literacy, decrease access to med. care, detention, rehab)? @ -No Was there de-escalation of care discussed even if they declined (Discuss DNR or withdrawal of care, Hospice)? DNR status @ -No What co-morbidities impacted this encounter? (DM, HTN, Smoking, COPD, CAD, Cancer, CVA, ARF, Chemo, Hep., AIDS, mental health diagnosis, sleep apnea, morbid obesity)? @ -None Was patient admitted / discharged? Hospital course, mention meds given and route, prescriptions, significant lab abnormalities, going to OR and other pertinent info. @ -Patient is a 66-year-old female presenting with chief complaint of headache. Headache is located in the left parietal region, patient has had recurrent issues with this headache off the same character. She was recently admitted at [facility] in [place] for neuro workup. Patient received MRI as well as CT angiogram during that stay which were essentially unremarkable. They attributed her symptoms to complex migraine. These records were faxed over and reviewed by myself. Patient states that this headache is the same as previous headaches, there is no change in character or location. On physical examination there are no focal neurological deficits. Patient received IV fluids, Toradol, Benadryl, Reglan, and Decadron. On reassessment patient reports some resolution of sym ptoms. She also reports drowsiness secondary to Benadryl. Due to this level of drowsiness she will not be receiving narcotic pain medication out of precaution. Patient had her drive her home. Patient is instructed to follow-up with her neurologist. Patient has an upcoming appointment with her PCP set for next week. Follow-up with PCP. Report back to ER with any new or worsening symptoms. Discussed return parameters and answered all questions. Patient conveyed verbal understanding and agreed to the plan. I discussed this case in detail with my attending Dr. Patel Undiagnosed new problem with uncertain prognosis? @ -No Drug Therapy requiring intensive monitoring for toxicity (Heparin, Nitro, Insulin, Cardizem)? @ -No Were any procedures done? @ -No Diagnosis/symptom? @ -Migraine headache Acute, or Chronic, or Acute on Chronic? @ -Acute on chronic Uncomplicated (without systemic symptoms) or Complicated (systemic symptoms)? @ -Uncomplicated Side effects of treatment? @ -No Exacerbation, Progression, or Severe Exacerbation? @ -No Poses a threat to life or bodily function? How? (Chest pain, [place], [place], pneumonia, PE, COPD, DKA, ARF, appy, cholecystitis, CVA, Diverticulitis, Homicidal, Suicidal, threat to staff... and all critical care pts) @ -Unlikely - Lab Data Lab Results 03/24/22 Range/Units 16:07 POC Glucose (mg/dL) 131 H (70-110) mg/dL POC Glu Team Leader LYNNETTE Reynolds Eleuterio Disposition Clinical Impression: Migraine headache Disposition: HOME SELF-CARE Condition: Good Instructions (If sedation given, give patient instructions): Migraine Headache (ED), Acute Headache (ED) Additional Instructions: Follow-up with PCP and neurologist. Report back to ER with any new or worsening symptoms. Is patient prescribed a controlled substance at d/c from ED?: No Referrals: Esther Barragan MD [Primary Care Provider] - 1-2 days Al Tom MD [STAFF PHYSICIAN] - 1-2 days
[2022-03-24 19:14] VITALS: BP 132/84; PULSE 72; RESP 16
== END 2022-03-24 19:14 | disposition home or self-care (01) ==
LOC: EC 15:41
DX: G43.909 Migraine, unspecified, not intractable, without status migrainosus (principal); E11.9 Type 2 diabetes mellitus without complications; K21.9 Gastro-esophageal reflux disease without esophagitis; I10 Essential (primary) hypertension; M06.9 Rheumatoid arthritis, unspecified; E07.9 Disorder of thyroid, unspecified; F41.9 Anxiety disorder, unspecified; F32.A Depression, unspecified; Z87.891 Personal history of nicotine dependence; Z88.0 Allergy status to penicillin; Z88.2 Allergy status to sulfonamides; Z79.890 Hormone replacement therapy; Z79.84 Long term (current) use of oral hypoglycemic drugs; Z79.899 Other long term (current) drug therapy
CPT/HCPCS: 36415; 99284; 96374; 96375 ×3; 96361; J1200; J1100; J2765; J1885

== ENCOUNTER → 2022-04-01 | Outpatient (CLI) | payer MEDICARE, OTHER ==
[2022-04-01 13:19] VITALS: BP 136/82; PULSE 88; RESP 18
--- NOTE | 2022-04-01 14:08 | P.PAINPG ---
PQRS Measure Charge Sheet Comment: HISTORY OF PRESENT ILLNESS: 67 yr old female as a referral from [facility] presents today w severe and chronic LBP secondary to for evaluation. Pt states pain level is at 10/10 in intensity, constant, localized in the lower aspect of the lumbar spine, deep achy in character w shooting pain towards LLE. Pain is provoked by over activity. Pain is alleviated by PT in the past, home exercise as tolerated, injections in the past from Dr Martinez, heat, ice without relief, use of a walker for ambulatory assistance, meds (Motrin, Tyl, Flexeril), topicals, repositioning and rest. PMH: DM II, Fibromyalgia, GERD, HTN, RA, Hypothyroidism, Sarcoidosis, IBS, MDD/ Anxiety PSH: Appendectomy, Cholecystectomy, Cataract Resection, Bronchoscopy, Congenital Nevi Resection SH: Former tobacco user, Rare ETOH use, No illicit drug use FH: Mo- Lung CA/ Hyperlipidemia. Fa- CA, DM, Hyperlipidemia All: See list Meds: See list REVIEW OF ORGAN SYSTEMS: CONSTITUTIONAL: No fevers or chills. No recent weight loss. NEUROLOGICAL: + numbness and tingling along the distal e xtremities. No seizure disorders or headaches. MUSCULOSKELETAL: + pain PSYCHIATRIC: Denies current depression or suicidal thoughts. Physical Examinations : Constitutional : Cooperative , not in acute distress . Neurologic : Cranial nerve II to XII intact. No focal neurological deficits. Psychiatric : alert & oriented x 3. Matching mood & appropriate affect. Judgment & insight intact. Musculoskeletal : Cervical Spine Motor strength in the deltoid and biceps: Normal right side. Normal Left side Motor strength biceps and the wrist extensors: Normal right side . Normal left side Motor strength in the triceps muscle: Normal right side. Normal left side Deep tendon reflexes: Normal at the biceps. Normal at Brachioradialis. Normal at triceps Vertebral body tenderness to deep palpation over Cervical facet loading test: positive bilaterally Spurling test: positive bilaterally Neck distraction test: positive bilaterally Christian sign: positive bilaterally Lumbar spine Motor strength lower extremities ,thigh and legs 5/5 Right side , 5/5 Left side Deep tendon reflexes : Normal Knee Jerk. Normal Ankle Jerk Vertebral body tenderness over L5 Lumbar facet Loading Test: positive Right / positive Left Range of motion of the lumbar spine Fl exion 30 degrees, extension 10 degrees Straight Leg Raise test: Left/ Right positive at degree Christine test: positive right / positive left. Severe tenderness over the Sacroiliac joint on the Right / Left sides Gaenslen test: positive bilaterally Seated flexion test: positive bilaterally. Sacral spine : Severe tenderness over the Sacroiliac joint: right side / left side Range of motion: Flexion of the lumbar spine <60 degrees Range of motion: Extension of the lumbar spine <20 degrees Gaenslen's Test positive Silvano's Test positive Christine test: positive right side / left side Thigh Thrust Test Sacral Thrust Test Imaging: MRI without contrast of the lumbar spine from 12/29/21 reviewed Assessment/ Plan : [place] DDD, Lumbar spondylosis Recommendation of NORMA L paramedian L5-S1. May need a series of injections, up to 3 within a 6 mo period, for optimal pain relief. Risks, benefits of procedure discussed and patient verbalized understanding. Admits to aspirin or anti- coagulant use or medical history of diabetes. Protocol for discontinuation/ continuation of medications radha procedure discussed. All questions answered. I have spent greater than 30 minutes on patient care today. Dr Jacobson was avai lable by phone for the evaluation of this patient. The time was used to review the medical records including relevant urine studies and Prescription history (MAPs), review of the available imaging, evaluation and examination of the patient, coordination of care with the medical staff and if applicable referring physicians, as well as creation of the medical record PQRS Narrative: Smoking Status Former smoker Home Medications: Ambulatory Orders DULoxetine HCL [Cymbalta] 60 mg PO DAILY 05/09/14 Latanoprost Ophth [Xalatan 0.005%] 1 drop BOTH EYES HS 05/09/14 Omeprazole [PriLOSEC] 20 mg PO AC-BRKFST 05/09/14 Pravastatin Sodium [Pravachol] 80 mg PO HS 02/18/18 Ascorbic Acid [Vitamin C] 500 mg PO DAILY 09/28/19 Cholecalciferol [Vitamin D3 (25 Mcg = 1000 Iu)] 50 mcg PO DAILY 09/28/19 Cyanocobalamin (Vitamin B-12) [Vitamin B-12] 5,000 mcg PO Q7D 09/28/19 Elderberry Sambucus 1250mg 1 tab PO Q48H 09/28/19 Magnesium Oxide [Mag-Ox] 250 mg PO Q48H 07/30/20 Metoprolol Succinate [Toprol XL] 25 mg PO DAILY 09/28/19 Montelukast [Singulair] 10 mg PO HS 09/28/19 Potassium Gluconate [Potassium Gluconate ER] 99 mg PO Q7D 09/28/19 metFORMIN HCL [Glucophage] 1,000 mg PO BID 09/28/19 Aspirin EC [Ecotrin Low Dose] 81 mg PO DAILY 03/24/22 Butalb/Acetaminophen/Caffeine [Fioricet 50-300-40 mg Capsule] 1 cap PO DAILY PRN 03/24/22 Calcium Citrate/Vitamin D3 [Citracal + D Maximum Caplet] 1 tab PO Q72H 03/24/22 Cyclobenzaprine [Flexeril] 5 mg PO BID PRN 03/24/22 Fish Oil/Dha/Epa [Fish Oil 1,200 mg Fish Oil] 1 cap PO DAILY 03/24/22 Fluticasone Propionate [Flovent Hfa 220 mcg] 2 puff INHALATION RT-BID 03/24/22 Iron Complex 1 cap PO DAILY 03/24/22 L.acidoph,Paracasei, B.lactis [Probiotic] 1 cap PO DAILY 03/24/22 Levothyroxine Sodium [Synthroid] 25 mcg PO AC-BRKFST 03/24/22 Multivit-Min/FA/Lycopen/Lutein [Centrum Silver Tablet] 1 tab PO DAILY 03/24/22 Ubidecarenone [Co Q-10] 300 mg PO MOFR 03/24/22 Zinc Gluconate [Zinc] 50 mg PO DAILY 03/24/22 lisinopriL [Zestril] 5 mg PO BID 03/24/22 Controlled Substance Measures - Controlled Substance Measures Is patient prescribed a controlled substance at discharge?: No
== END ==
LOC: PNWHC3 12:47
PROVIDERS: ATTEND Specialist
DX: M47.816 Spondylosis without myelopathy or radiculopathy, lumbar region (principal); M51.36 Other intervertebral disc degeneration, lumbar region; E11.9 Type 2 diabetes mellitus without complications; K21.9 Gastro-esophageal reflux disease without esophagitis; I10 Essential (primary) hypertension; E03.9 Hypothyroidism, unspecified; F41.9 Anxiety disorder, unspecified; Z79.899 Other long term (current) drug therapy; Z79.890 Hormone replacement therapy; Z79.82 Long term (current) use of aspirin; Z88.2 Allergy status to sulfonamides; Z88.0 Allergy status to penicillin; Z87.891 Personal history of nicotine dependence
CPT/HCPCS: 99211

== ENCOUNTER 2022-06-14 09:19 | Emergency (ER) | payer MEDICARE, OTHER ==
[2022-06-14 09:25] VITALS: TEMP 98.1
[2022-06-14] MEDS ORDERED: KETOROLAC 15 MG/ML 1 ML VIAL IVP STA (09:56)
[2022-06-14] MEDS ORDERED: SODIUM CHLORIDE 0.9% 1,000 ML IV STA (09:56)
[2022-06-14] MEDS ORDERED: METOCLOPRAMIDE 5 MG/ML 2 ML VIAL IVP STA (09:56)
--- NOTE | 2022-06-14 10:17 | XR ---
EXAMINATION TYPE: XR chest 2V DATE OF EXAM: 06/14/2022 COMPARISON: Prior chest x-ray September 28, 2019 HISTORY: Cough and fatigue. TECHNIQUE: Frontal and lateral views of the chest are obtained. FINDINGS: There is no suspicious focal air space opacity, pleural effusion, or pneumothorax seen. T he cardiac silhouette size is stable and within normal limits. The osseous structures are intact. IMPRESSION: No acute pulmonary process. No significant change from prior.
[2022-06-14 10:55] LABS: Basophils % (A) 0 %; Eosinophils # (A) 0.1 k/uL (0-0.7); Eosinophils % (A) 1 %; HCT 36.6 % (34.0-46.0); HGB 12.1 gm/dL (11.4-16.0); Lymphocytes # (A) 1.5 k/uL (1.0-4.8); Lymphocytes % (A) 11 %; MCH 30.3 pg (25.0-35.0); MCV 91.7 fL (80.0-100.0); Monocytes % (A) 8 %; Neutrophils # (A) 10.2 k/uL (1.3-7.7); Neutrophils % (A) 79 %; Platelet Count 234 k/uL (150-450); RBC 3.99 m/uL (3.80-5.40); RDW 13.3 % (11.5-15.5)
[2022-06-14 11:16] LABS: Potassium 4.4 mmol/L (3.5-5.1); Total Bilirubin 0.9 mg/dL (0.2-1.3); Total Protein 6.8 g/dL (6.3-8.2)
[2022-06-14 11:35] VITALS: BP 155/71; PULSE 91; RESP 20
--- NOTE | 2022-06-14 12:21 | ED ---
URI HPI - General Chief Complaint: Upper Respiratory Infection Stated Complaint: lathargic, cough Time Seen by Provider: 06/14/22 09:42 Source: patient Mode of arrival: wheelchair Limitations: no limitations - History of Present Illness Initial Comments: Patient is a 67-year-old female who presents to the emergency department for upper respiratory symptoms. Patient reports a productive cough, headache, sore throat, fatigue for the past 2 days. She reports clear and white phlegm. She denies fever, chills, chest pain, shortness of breath. No nausea or vomiting. No history of COPD or asthma - Related Data Home Medications Medication Instructions Recorded Confirmed DULoxetine HCL [Cymbalta] 60 mg PO DAILY 05/09/14 04/01/22 Latanoprost Ophth [Xalatan 0.005%] 1 drop BOTH EYES HS 05/09/14 04/01/22 Omeprazole [PriLOSEC] 20 mg PO AC-BRKFST 05/09/14 04/01/22 Pravastatin Sodium [Pravachol] 80 mg PO HS 02/18/18 04/01/22 Ascorbic Acid [Vitamin C] 500 mg PO DAILY 09/28/19 04/01/22 Cholecalciferol [Vitamin D3 (25 50 mcg PO DAILY 09/28/19 04/01/22 Mcg = 1000 Iu)] Cyanocobalamin (Vitamin B-12) 5,000 mcg PO Q7D 09/28/19 04/01/22 [Vitamin B-12] Elderberry Sambucus 1250mg 1 tab PO Q48H 09/28/19 04/01/22 Magnesium Oxide [Mag-Ox] 250 mg PO Q48H 09/28/19 04/01/22 Metoprolol Succinate [Toprol XL] 25 mg PO DAILY 09/28/19 04/01/22 Montelukast [Singulair] 10 mg PO HS 09/28/19 04/01/22 Potassium Gluconate [Potassium 99 mg PO Q7D 09/28/19 04/01/22 Gluconate ER] metFORMIN HCL [Glucophage] 1,000 mg PO BID 09/28/19 04/01/22 Aspirin EC [Ecotrin Low Dose] 81 mg PO DAILY 03/24/22 04/01/22 Butalb/Acetaminophen/Caffeine 1 cap PO DAILY PRN 03/24/22 04/01/22 [Fioricet 50-300-40 mg Capsule] Calcium Citrate/Vitamin D3 1 tab PO Q72H 03/24/22 04/01/22 [Citracal + D Maximum Caplet] Cyclobenzaprine [Flexeril] 5 mg PO BID PRN 03/24/22 04/01/22 Fish Oil/Dha/Epa [Fish Oil 1,200 1 cap PO DAILY 03/24/22 04/01/22 mg Fish Oil] Fluticasone Propionate [Flovent 2 puff INHALATION RT-BID 03/24/22 04/01/22 Hfa 220 mcg] Iron Complex 1 cap PO DAILY 03/24/22 04/01/22 L.acidoph,Paracasei, B.lactis 1 cap PO DAILY 03/24/22 04/01/22 [Probiotic] Levothyroxine Sodium [Synthroid] 25 mcg PO AC-BRKFST 03/24/22 04/01/22 Multivit-Min/FA/Lycopen/Lutein 1 tab PO DAILY 03/24/22 04/01/22 [Centrum Silver Tablet] Ubidecarenone [Co Q-10] 300 mg PO MOFR 03/24/22 04/01/22 Zinc Gluconate [Zinc] 50 mg PO DAILY 03/24/22 04/01/22 lisinopriL [Zestril] 5 mg PO BID 03/24/22 04/01/22 Previous Rx's Medication Instructions Recorded Benzocaine/Menthol Lozeng [Cepacol 1 each MUCOUS MEM Q4HR #30 lozenge 06/14/22 lozenge] Ibuprofen [Motrin] 800 mg PO Q6HR #30 tab 06/14/22 Ondansetron Odt [Zofran Odt] 4 mg PO Q8HR PRN #10 tab 06/14/22 Allergies Allergy/AdvReac Type Severity Reaction Status Date / Time Penicillins AdvReac Nausea & Verified 06/14/22 09:25 Vomiting Sulfa (Sulfonamide AdvReac Nausea & Verified 06/14/22 09:25 Antibiotics) Vomiting Review of Systems ROS Statement: Those systems with pertinent positive or pertinent negative responses have been documented in the HPI. ROS Other: All systems not noted in ROS Statement are negative. Past Medical History Past Medical History: Diabetes Mellitus, Fibromyalgia, GERD/Reflux, Hypertension, Rheumatoid Arthritis (RA), Thyroid Disorder Additional Past Medical History / Comment(s): sarcoidosis, ibs migraines optic nerve damage short term memory issues chronic back pain keratodermia urinary incontinence glaucoma, brain lesion, pulmonary leasion, eye probelms History of Any Multi-Drug Resistant Organisms: None Reported Date of last positivie culture/infection: 08/08/2020 MDRO Source:: [facility] Past Surgical History: Appendectomy, Cholecystectomy Additional Past Surgical History / Comment(s): bronchoscopy laproscopic young removal cyst removal , cataracts Past Anesthesia/Blood Transfusion Reactions: No Reported Reaction Past Psychological History: Anxiety, Depression Smoking Status: Former smoker Past Alcohol Use History: Rare Past Drug Use History: None Reported - Past Family History Mother Family Medical History: Cancer, Hyperlipidemia Additional Family Medical History / Comment(s): lung cancer Father Family Medical History: Cancer, Diabetes Mellitus, Hyperlipidemia General Exam Limitations: no limitations General appearance: alert, in no apparent distress Head exam: Present: atraumatic, normocephalic, normal inspection Eye exam: Present: normal appearance, PERRL, EOMI. Absent: scleral icterus, conjunctival injection, periorbital swelling ENT exam: Present: normal exam, normal oropharynx, mucous membranes dry. Absent: mucous membranes moist Neck exam: Present: normal inspection. Absent: tenderness, meningismus, lymphadenopathy Respiratory exam: Present: normal lung sounds bilaterally. Absent: respiratory distress, wheezes, rales, rhonchi, stridor Cardiovascular Exam: Present: regular rate, normal rhythm, normal heart sounds. Absent: systolic murmur, diastolic murmur, rubs, gallop, clicks Neurological exam: Present: alert, oriented X3, CN II-XII intact, normal gait. Absent: motor sensory deficit Psychiatric exam: Present: normal affect, normal mood Skin exam: Present: warm, dry, intact, normal color. Absent: rash Course Vital Signs 06/14/22 06/14/22 09:21 11:31 Temperature 98.1 F Pulse Rate 118 H 91 Respiratory 18 20 Rate Blood Pressure 125/82 155/71 O2 Sat by Pulse 95 96 Oximetry Medical Decision Making - Medical Decision Making Was pt. sent in by a medical professional or institution (, PA, VIDEO GAME REPAIR TECHNICIAN, urgent care, hospital, or fci...) When possible be specific @ -No Did you speak to anyone other than the patient for history (EMS, parent, family, police, friend...)? What history was obtained from this source @ -No Did you review nursing and triage notes (agree or disagree)? Why? @ -I reviewed and agree with nursing and triage notes Were old charts reviewed (outside hosp., previous admission, EMS record, old EKG, old radiological studies, urgent care reports/EKG's, fci records)? Report findings @ -No old charts were reviewed Differential Diagnosis (chest pain, altered mental status, abdominal pain women, abdominal pain men, vaginal bleeding, weakness, fever, dyspnea, syncope, h eadache, dizziness, GI bleed, back pain, seizure, CVA, palpatations, mental health)? @ -URI, sinusitus,strep pharyngitis, viral pharyngitis, pneumonia, bronchitis- this list is not meant to be all-inclusive EKG interpreted by me (3pts min.). @ -As above X-rays interpreted by me (1pt min.). @ -Yes, chest x-ray shows no acute cardiopulmonary process CT interpreted by me (1pt min.). @ -None done U/S interpreted by me (1pt. min.). @ -None done What testing was considered but not performed or refused? (CT, X-rays, U/S, labs)? Why? @ -None What meds were considered but not given or refused? Why? @ -None Did you discuss the management of the patient with other professionals (professionals i.e. , PA, VIDEO GAME REPAIR TECHNICIAN, lab, RT, psych nurse, school social worker, academic director, teacher, benefits officer, case loader operator)? Give summary @ -No Was smoking cessation discussed for >3mins.? @ -No Was critical care preformed (if so, how long)? @ -No Were there social determinants of health that impacted care today? How? (Homelessness, low income, unemployed, alcoholism, drug addiction, transportation, low edu. Level, literacy, decrease access to med. care, snf, rehab)? @ -No Was there de-escalation of care discussed even if they declined (Discuss DNR or withdrawal of care, Hospice)? DNR status @ -No What co-morbidities impacted this encounter? (DM, HTN, Smoking, COPD, CAD, Cancer, CVA, ARF, Chemo, Hep., AIDS, mental health diagnosis, sleep apnea, morbid obesity)? @ -None Was patient admitted / discharged? Hospital course, mention meds given and route, prescriptions, significant lab abnormalities, going to OR and other perti nent info. @ - patient presenting with upper respiratory symptoms. Afebrile. Patient is tachycardic I suspect secondary to dehydration. No chest pain or shortness of breath.Laboratory studies obtained. There is mild leukocytosis at 13.0. COVID- 19, RSV, influenza, strep not detected. Chest x-ray negative for pneumonia or other acute process. Patient given migraine cocktail with improvement of symptoms. Results discussed with patient. I suspect symptoms related to viral etiology. Patient will be discharged with symptomatic management. Undiagnosed new problem with uncertain prognosis? @ -No Drug Therapy requiring intensive monitoring for toxicity (Heparin, Nitro, Insulin, Cardizem)? @ -No Were any procedures done? @ -No Diagnosis/symptom? @ -URI Acute, or Chronic, or Acute on Chronic? @ -acute Uncomplicated (without systemic symptoms) or Complicated (systemic symptoms)? @ -uncomplicated Side effects of treatment? @ -No Exacerbation, Progression, or Severe Exacerbation? @ -No Poses a threat to life or bodily function? How? (Chest pain, USA, [place], pneumonia, PE, COPD, DKA, ARF, appy, cholecystitis, CVA, Diverticulitis, Homicidal, Suicida l, threat to staff... and all critical care pts) @ -[No], Dr. Patel is my attending - Lab Data Result diagrams: 06/14/22 10:40 06/14/22 10:40 Lab Results 06/14/22 06/14/22 06/14/22 Range/Units 09:57 10:40 10:40 WBC 13.0 H (3.8-10.6) k/uL RBC 3.99 (3.80-5.40) m/uL Hgb 12.1 (11.4-16.0) gm/dL Hct 36.6 (34.0-46.0) % MCV 91.7 (80.0-100.0) fL MCH 30.3 (25.0-35.0) pg MCHC 33.0 (31.0-37.0) g/dL RDW 13.3 (11.5-15.5) % Plt Count 234 (150-450) k/uL MPV 7.0 Neutrophils % 79 % Lymphocytes % 11 % Monocytes % 8 % Eosinophils % 1 % Basophils % 0 % Neutrophils # 10.2 H (1.3-7.7) k/uL Lymphocytes # 1.5 (1.0-4.8) k/uL Monocytes # 1.0 (0-1.0) k/uL Eosinophils # 0.1 (0-0.7) k/uL Basophils # 0.0 (0-0.2) k/uL Sodium 130 L (137-145) mmol/L Potassium 4.4 (3.5-5.1) mmol/L Chloride 95 L (98-107) mmol/L Carbon Dioxide 26 (22-30) mmol/L Anion Gap 9 mmol/L BUN 14 (7-17) mg/dL Creatinine 0.86 (0.52-1.04) mg/dL Est GFR (CKD-EPI)AfAm 81 (>60 ml/min/1.73 sqM) Est GFR (CKD-EPI)NonAf 70 (>60 ml/min/1.73 sqM) Glucose 285 H (74-99) mg/dL Calcium 9.0 (8.4-10.2) mg/dL Total Bilirubin 0.9 (0.2-1.3) mg/dL AST 20 (14-36) U/L ALT 25 (4-34) U/L Alkaline Phosphatase 47 (38-126) U/L Total Protein 6.8 (6.3-8.2) g/dL Albumin 4.0 (3.5-5.0) g/dL Influenza Type A (PCR) Not Detected (Not Detectd) Influenza Type B (PCR) Not Detected (Not Detectd) RSV (PCR) Not Detected (Not Detectd) SARS-CoV-2 (PCR) Not Detected (Not Detectd) Group A Strep (PCR) (Not Detectd) 06/14/22 Range/Units 11:13 WBC (3.8-10.6) k/uL RBC (3.80-5.40) m/uL Hgb (11.4-16.0) gm/dL Hct (34.0-46.0) % MCV (80.0-100.0) fL MCH (25.0-35.0) pg MCHC (31.0-37.0) g/dL RDW (11.5-15.5) % Plt Count (150-450) k/uL MPV Neutrophils % % Lymphocytes % % Monocytes % % Eosinophils % % Basophils % % Neutrophils # (1.3-7.7) k/uL Lymphocytes # (1.0-4.8) k/uL Monocytes # (0-1.0) k/uL Eosinophils # (0-0.7) k/uL Basophils # (0-0.2) k/uL Sodium (137-145) mmol/L Potassium (3.5-5.1) mmol/L Chloride (98-107) mmol/L Carbon Dioxide (22-30) mmol/L Anion Gap mmol/L BUN (7-17) mg/dL Creatinine (0.52-1.04) mg/dL Est GFR (CKD-EPI)AfAm (>60 ml/min/1.73 sqM) Est GFR (CKD-EPI)NonAf (>60 ml/min/1.73 sqM) Glucose (74-99) mg/dL Calcium (8.4-10.2) mg/dL Total Bilirubin (0.2-1.3) mg/dL AST (14-36) U/L ALT (4-34) U/L Alkaline Phosphatase (38-126) U/L Total Protein (6.3-8.2) g/dL Albumin (3.5-5.0) g/dL Influenza Type A (PCR) (Not Detectd) Influenza Type B (PCR) (Not Detectd) RSV (PCR) (Not Detectd) SARS-CoV-2 (PCR) (Not Detectd) Group A Strep (PCR) NOT DETECTED (Not Detectd) Disposition Clinical Impression: Common cold Disposition: HOME SELF-CARE Condition: Good Instructions (If sedation given, give patient instructions): Upper Respiratory Infection (ED) Additional Instructions: Take medication as directed. Increase fluid intake. Follow-up with primary care provider in 1 to 2 days. Return to emergency department if you experience new, concerning, or worsening symptoms. Prescriptions: Benzocaine/Menthol Lozeng [Cepacol lozenge] 1 each MUCOUS MEM Q4HR #30 lozenge Ibuprofen [Motrin] 800 mg PO Q6HR #30 tab Ondansetron Odt [Zofran Odt] 4 mg PO Q8HR PRN #10 tab PRN Reason: Nausea Is patient prescribed a controlled substance at d/c from ED?: No Referrals: Esther Barragan MD [Primary Care Provider] - 1-2 days
== END 2022-06-14 12:32 | disposition home or self-care (01) ==
LOC: EC 09:19
DX: J00 Acute nasopharyngitis [common cold] (principal); E11.9 Type 2 diabetes mellitus without complications; K21.9 Gastro-esophageal reflux disease without esophagitis; I10 Essential (primary) hypertension; M06.9 Rheumatoid arthritis, unspecified; E07.9 Disorder of thyroid, unspecified; F41.9 Anxiety disorder, unspecified; F32.A Depression, unspecified; Z87.891 Personal history of nicotine dependence; Z88.0 Allergy status to penicillin; Z88.2 Allergy status to sulfonamides; Z79.84 Long term (current) use of oral hypoglycemic drugs; Z79.82 Long term (current) use of aspirin; Z79.899 Other long term (current) drug therapy; Z79.890 Hormone replacement therapy; Z79.51 Long term (current) use of inhaled steroids; Z20.822 Contact with and (suspected) exposure to COVID-19
CPT/HCPCS: 36415; 87651; 80053; 85025; 87636; 71046; 99283; 96374; 96375; 96361; J2765; J1885

== ENCOUNTER 2022-06-22 18:50 | Inpatient (IN) | payer MEDICARE, OTHER ==
[2022-06-22] MEDS ORDERED: SODIUM CHLORIDE 0.9% 500 ML 500 ML IV STA (19:14)
[2022-06-22] MEDS ORDERED: ACETAMINOPHEN TAB 325 MG TAB PO STA (19:14)
--- NOTE | 2022-06-22 19:20 | ED ---
Fever HPI - General Chief Complaint: Fever Stated Complaint: asthma Time Seen by Provider: 06/22/22 19:03 Source: patient, RN notes reviewed, old records reviewed Mode of arrival: ambulatory Limitations: no limitations - History of Present Illness Initial Comments: This is a nontoxic-appearing 67-year-old female that presents to the emergency room with family member stating that she has had cough since for the past 10 days. Was seen in the ER on 06/14 and viral testing and chest xray negative. Did finish a course of Zithromax and Medrol Dosepak last week but did not get better. Today went to the urgent care and was placed on Levaquin. States her s ister is a nurse and told her to come to the emergency room for evaluation for possible sepsis. MD Complaint: fever, malaise -: days(s) (10) Temperature Source: oral Context: recent antibiotic use (zithromax) Associated Symptoms: myalgias, cough Treatments Prior to Arrival: antibiotics (levaquin, sent by [facility] today ) - Related Data Home Medications Medication Instructions Recorded Confirmed DULoxetine HCL [Cymbalta] 60 mg PO DAILY 05/09/14 06/22/22 Latanoprost Ophth [Xalatan 0.005%] 1 drop BOTH EYES HS 05/09/14 06/22/22 Omeprazole [PriLOSEC] 20 mg PO AC-BRKFST 05/09/14 06/22/22 Ascorbic Acid [Vitamin C] 500 mg PO DAILY 09/28/19 06/22/22 Cholecalciferol [Vitamin D3 (25 50 mcg PO DAILY 09/28/19 06/22/22 Mcg = 1000 Iu)] Cyanocobalamin (Vitamin B-12) 5,000 mcg PO Q7D 09/28/19 06/22/22 [Vitamin B-12] Elderberry Sambucus 1250mg 1 tab PO Q48H 09/28/19 06/22/22 Magnesium Oxide [Mag-Ox] 250 mg PO Q48H 09/28/19 06/22/22 Metoprolol Succinate [Toprol XL] 25 mg PO DAILY 09/28/19 06/22/22 Montelukast [Singulair] 10 mg PO HS 09/28/19 06/22/22 Potassium Gluconate [Potassium 99 mg PO Q7D 09/28/19 06/22/22 Gluconate ER] metFORMIN HCL [Glucophage] 1,000 mg PO BID 09/28/19 06/22/22 Aspirin EC [Ecotrin Low Dose] 81 mg PO DAILY 03/24/22 06/22/22 Butalb/Acetaminophen/Caffeine 1 cap PO DAILY PRN 03/24/22 06/22/22 [Fioricet 50-300-40 mg Capsule] Calcium Citrate/Vitamin D3 1 tab PO Q72H 03/24/22 06/22/22 [Citracal + D Maximum Caplet] Cyclobenzaprine [Flexeril] 5 mg PO BID PRN 03/24/22 06/22/22 Fish Oil/Dha/Epa [Fish Oil 1,200 1 cap PO DAILY 03/24/22 06/22/22 mg Fish Oil] Fluticasone Propionate [Flovent 2 puff INHALATION RT-BID 03/24/22 06/22/22 Hfa 220 mcg] Iron Complex 1 cap PO DAILY 03/24/22 06/22/22 L.acidoph,Paracasei, B.lactis 1 cap PO DAILY 03/24/22 06/22/22 [Probiotic] Levothyroxine Sodium [Synthroid] 25 mcg PO AC-BRKFST 03/24/22 06/22/22 Multivit-Min/FA/Lycopen/Lutein 1 tab PO DAILY 03/24/22 06/22/22 [Centrum Silver Tablet] Ubidecarenone [Co Q-10] 300 mg PO MOFR 03/24/22 06/22/22 Zinc Gluconate [Zinc] 50 mg PO DAILY 03/24/22 06/22/22 lisinopriL [Zestril] 5 mg PO BID 03/24/22 06/22/22 Albuterol Inhaler [Ventolin Hfa 1 - 2 puff INHALATION RT-QID PRN 06/22/22 06/22/22 Inhaler] Albuterol Nebulized [Ventolin 2.5 mg INHALATION RT-QID PRN 06/22/22 06/22/22 Nebulized] Benzocaine/Menthol Lozeng [Cepacol 1 lozenge MUCOUS MEM Q4HR PRN 06/22/22 06/22/22 lozenge] Ibuprofen [Motrin] 800 mg PO Q6HR PRN 06/22/22 06/22/22 Levofloxacin [Levaquin] 500 mg PO DAILY 06/22/22 06/22/22 Rosuvastatin [Crestor] 10 mg PO HS 06/22/22 06/22/22 Previous Rx's Medication Instructions Recorded Ondansetron Odt [Zofran Odt] 4 mg PO Q8HR PRN #10 tab 06/14/22 Allergies Allergy/AdvReac Type Severity Reaction Status Date / Time Penicillins AdvReac Nausea & Verified 06/22/22 21:53 Vomiting Sulfa (Sulfonamide AdvReac Nausea & Verified 06/22/22 21:53 Antibiotics) Vomiting Review of Systems ROS Statement: Those systems with pertinent positive or pertinent negative responses have been documented in the HPI. ROS Other: All systems not noted in ROS Statement are negative. Past Medical History Past Medical History: Diabetes Mellitus, Fibromyalgia, GERD/Reflux, Hypertension, Rheumatoid Arthritis (RA), Thyroid Disorder Additional Past Medical History / Comment(s): sarcoidosis, ibs migraines optic nerve damage short term memory issues chronic back pain keratodermia urinary i ncontinence glaucoma, brain lesion, pulmonary leasion, eye probelms History of Any Multi-Drug Resistant Organisms: None Reported Date of last positivie culture/infection: 08/08/2020 MDRO Source:: [facility] Past Surgical History: Appendectomy, Cholecystectomy Additional Past Surgical History / Comment(s): bronchoscopy laproscopic young removal cyst removal , cataracts Past Anesthesia/Blood Transfusion Reactions: No Reported Reaction Past Psychological History: Anxiety, Depression Smoking Status: Former smoker Past Alcohol Use History: Rare Past Drug Use History: None Reported - Past Family History Mother Family Medical History: Cancer, Hyperlipidemia Additional Family Medical History / Comment(s): lung cancer Father Family Medical History: Cancer, Diabetes Mellitus, Hyperlipidemia General Exam Limitations: no limitations General appearance: alert, in no apparent distress Head exam: Present: atraumatic Eye exam: Present: normal appearance. Absent: scleral icterus, conjunctival injection, periorbital swelling ENT exam: Present: mucous membranes moist Neck exam: Present: full ROM. Absent: tenderness, meningismus Respiratory exam: Present: normal lung sounds bilaterally. Absent: respiratory distress, accessory muscle use Cardiovascular Exam: Present: tachycardia GI/Abdominal exam: Present: soft Extremities exam: Present: normal capillary refill Neurological exam: Present: alert, oriented X3 Psychiatric exam: Present: normal affect, normal mood Skin exam: Present: warm, dry, normal color. Absent: cyanosis, diaphoretic, petechiae, pallor Course Vital Signs 06/22/22 06/22/22 18:58 20:34 Temperature 103.1 F H 98.9 F Pulse Rate 124 H 96 Respiratory 22 Rate Blood Pressure 132/75 O2 Sat by Pulse 95 Oximetry Procedures - Sepsis Sepsis Focused Exam #1 Time Sepsis Criteria Met: 19:45 Sepsis Focused Exam Date: 06/22/22 Sepsis Focused Exam Complete: Yes Vital Signs & RN Notes Reviewed: Yes Capillary Refill: < 2 Seconds: Fingers, Toes Peripheral Pulses: Normal: Radial (R), Radial (L) Skin Color: Normal for Patient Respiratory Exam: normal lung sounds Cardiovascular Exam: tachycardia Medical Decision Making - Medical Decision Making Chest x-ray interpreted by me shows a consolidation right upper lung. Not present on x-ray 06/14/2022. Radiologist interpretation is a new right upper lobe pneumatic consolidation. Radiologist interpretation of CT chest shows confirmation of new right upper lobe pneumonic consolidation. Posterior right basilar consolidation and/or atelectasis. Left lung is clear. White blood cell count elevated from 13 on June 14- 0.1 today. Sodium 121 down from 130, chloride down from 95 to 85, creatinine elevated at 1.13 up from 0.86. Patient will be admitted to the hospital with pneumonia failed outpatient therapy, VILMA, and hyponatremia. Patient is agreeable to this plan of care. I did consider starting patient on IV Levaquin however patient did take her first oral Levaquin at 1600 today. Case discussed with Dr. Cherry who rec ommended IV Zosyn while in ER. Was pt. sent in by a medical professional or institution (, [facility], [employer], urgent care, hospital, or assisted...) When possible be specific @ -[facility] urgent care Did you speak to anyone other than the patient for history (EMS, parent, family, police, friend...)? What history was obtained from this source @ -[No] Did you review nursing and triage notes (agree or disagree)? Why? @ -[I reviewed and agree with nursing and triage notes] Were old charts reviewed (outside hosp., previous admission, EMS record, old EKG, old radiological studies, urgent care reports/EKG's, assisted records)? Report findings @ -ER visit, X-ray and lab work 06/14/2022 Differential Diagnosis (chest pain, altered mental status, abdominal pain women, abdominal pain men, vaginal bleeding, weakness, fever, dyspnea, syncope, headache, dizziness, GI bleed, back pain, seizure, CVA, palpatations, mental health, musculoskeletal)? @ -Differential Fever: Pneumonia, viral URI, endocarditis, myocarditis, pericarditis, otitis, sinusitis, peritonsillar Abscess, retropharyngeal Abscess, epiglottitis, peritonitis, appendicitis, Shanna cystitis, diverticulitis, hepatitis, colitis, UTI, PID, TOA, pyelonephritis, prostatitis, epididymitis, meningitis, encephalitis, pulmonary embolism, CVA, thyroid storm, pancreatitis, adrenal crisis, cavernous sinus thrombosis, this is not meant to be an all-inclusive list. EKG interpreted by me (3pts min.). @ -n/a X-rays interpreted by me (1pt min.). @ -Yes as above CT interpreted by me (1pt min.). @ -no U/S interpreted by me (1pt. min.). @ -[None done] What testing was considered but not performed or refused? (CT, X-rays, U/S, labs)? Why? @ -[None] What meds were considered but not given or refused? Why? @ -IV Levaquin was considered however patient with an oral dose at 1600 today Did you discuss the management of the patient with other professionals (professionals i.e. , PA, WE[employer]W LEADER, lab, RT, psych nurse, social professionals, code clerk, teacher, [place] customs and border officer, case management director)? Give summary @ -[No] Was smoking cessation discussed for >3mins.? @ -[No] Was critical care preformed (if so, how long)? @ -[No] Were there social determinants of health that impacted care today? How? (Homelessness, low income, unemployed, alcoholism, drug addiction, transportation, low edu. Level, literacy, decrease access to med. care, [facility], rehab)? @ -[No] Was there de-escalation of care discussed even if they declined (Discuss DNR or withdrawal of care, Hospice)? DNR status @ -[No] What co-morbidities impacted this encounter? (DM, HTN, Smoking, COPD, CAD, Cancer, CVA, ARF, Chemo, Hep., AIDS, mental health diagnosis, sleep apnea, morbid obesity)? @ -Diabetes, hypertension, sarcoidosis Was patient admitted / discharged? Hospital course, mention meds given and route, prescriptions, significant lab abnormalities, going to OR and other pertinent info. @ -Admitted Undiagnosed new problem with uncertain prognosis? @ -[No] Drug Therapy requiring intensive monitoring for toxicity (Heparin, Nitro, In sulin, Cardizem)? @ -[No] Were any procedures done? @ -[No] Diagnosis/symptom? @ -Pneumonia failed outpatient therapy, hyponatremia, acute kidney injury Acute, or Chronic, or Acute on Chronic? @ -Acute Uncomplicated (without systemic symptoms) or Complicated (systemic symptoms)? @ -Complicated Side effects of treatment? @ -[No] Exacerbation, Progression, or Severe Exacerbation? @ -[No] Poses a threat to life or bodily function? How? (Chest pain, [place], [place], pneumonia, PE, COPD, DKA, ARF, appy, cholecystitis, CVA, Diverticulitis, Homicidal, Suicidal, threat to staff... and all critical care pts) @ -Pneumonia could progress to hypoxia - Lab Data Result diagrams: 06/22/22 19:22 06/22/22 19:22 Lab Results 06/22/22 06/22/22 06/22/22 Range/Units 19:22 19:22 19:22 WBC 30.1 H (3.8-10.6) k/uL RBC 3.89 (3.80-5.40) m/uL Hgb 11.7 (11.4-16.0) gm/dL Hct 35.5 (34.0-46.0) % MCV 91.3 (80.0-100.0) fL MCH 30.2 (25.0-35.0) pg MCHC 33.1 (31.0-37.0) g/dL RDW 13.5 (11.5-15.5) % Plt Count 494 H D (150-450) k/uL MPV 7.7 Neutrophils % 91 % Lymphocytes % 4 % Monocytes % 4 % Eosinophils % 0 % Basophils % 0 % Neutrophils # 27.3 H (1.3-7.7) k/uL Lymphocytes # 1.3 (1.0-4.8) k/uL Monocytes # 1.1 H (0-1.0) k/uL Eosinophils # 0.1 (0-0.7) k/uL Basophils # 0.0 (0-0.2) k/uL Sodium 121 L (137-145) mmol/L Potassium 4.5 (3.5-5.1) mmol/L Chloride 85 L (98-107) mmol/L Carbon Dioxide 22 (22-30) mmol/L Anion Gap 14 mmol/L BUN 29 H (7-17) mg/dL Creatinine 1.13 H (0.52-1.04) mg/dL Est GFR (CKD-EPI)AfAm 58 (>60 ml/min/1.73 sqM) Est GFR (CKD-EPI)NonAf 50 (>60 ml/min/1.73 sqM) Glucose 244 H (74-99) mg/dL Plasma Lactic Acid Tay 3.3 H* (0.7-2.0) mmol/L Calcium 8.3 L (8.4-10.2) mg/dL Total Bilirubin 0.8 (0.2-1.3) mg/dL AST 26 (14-36) U/L ALT 25 (4-34) U/L Alkaline Phosphatase 110 (38-126) U/L Total Protein 6.6 (6.3-8.2) g/dL Albumin 3.4 L (3.5-5.0) g/dL Influenza Type A (PCR) (Not Detectd) Influenza Type B (PCR) (Not Detectd) RSV (PCR) (Not Detectd) SARS-CoV-2 (PCR) (Not Detectd) 06/22/22 Range/Units 19:25 WBC (3.8-10.6) k/uL RBC (3.80-5.40) m/uL Hgb (11.4-16.0) gm/dL Hct (34.0-46.0) % MCV (80.0-100.0) fL MCH (25.0-35.0) pg MCHC (31.0-37.0) g/dL RDW (11.5-15.5) % Plt Count (150-450) k/uL MPV Neutrophils % % Lymphocytes % % Monocytes % % Eosinophils % % Basophils % % Neutrophils # (1.3-7.7) k/uL Lymphocytes # (1.0-4.8) k/uL Monocytes # (0-1.0) k/uL Eosinophils # (0-0.7) k/uL Basophils # (0-0.2) k/uL Sodium (137-145) mmol/L Potassium (3.5-5.1) mmol/L Chloride (98-107) mmol/L Carbon Dioxide (22-30) mmol/L Anion Gap mmol/L BUN (7-17) mg/dL Creatinine (0.52-1.04) mg/dL Est GFR (CKD-EPI)AfAm (>60 ml/min/1.73 sqM) Est GFR (CKD-EPI)NonAf (>60 ml/min/1.73 sqM) Glucose (74-99) mg/dL Plasma Lactic Acid Tay (0.7-2.0) mmol/L Calcium (8.4-10.2) mg/dL Total Bilirubin (0.2-1.3) mg/dL AST (14-36) U/L ALT (4-34) U/L Alkaline Phosphatase (38-126) U/L Total Protein (6.3-8.2) g/dL Albumin (3.5-5.0) g/dL Influenza Type A (PCR) Not Detected (Not Detectd) Influenza Type B (PCR) Not Detected (Not Detectd) RSV (PCR) Not Detected (Not Detectd) SARS-CoV-2 (PCR) Not Detected (Not Detectd) Disposition Clinical Impression: Pneumonia, Hyponatremia, VILMA (acute kidney injury), Leukocytosis Disposition: ADMITTED IP TO THIS HOSP Referrals: Esther Barragan MD [Primary Care Provider] - 1-2 days Decision Date: 06/22/22
--- NOTE | 2022-06-22 19:44 | XR ---
EXAMINATION TYPE: XR chest 2V DATE OF EXAM: 06/22/2022 COMPARISON: Chest x-ray 8 days ago HISTORY: Cough and fever. TECHNIQUE: Frontal and lateral views of the chest are obtained. FINDINGS: There is right upper lobe masslike consolidation new from x-ray 8 days ago. Left lung is c lear. No pleural effusion or pneumothorax seen bilaterally. The cardiac silhouette size is stable and within normal limits. Kyphoplasty near the thoracolumbar junction is redemonstrated. IMPRESSION: There is new right upper lobe pneumonic consolidation.
[2022-06-22 19:57] LABS: Basophils % (A) 0 %; Eosinophils # (A) 0.1 k/uL (0-0.7); Eosinophils % (A) 0 %; HCT 35.5 % (34.0-46.0); HGB 11.7 gm/dL (11.4-16.0); Lymphocytes # (A) 1.3 k/uL (1.0-4.8); Lymphocytes % (A) 4 %; MCH 30.2 pg (25.0-35.0); MCHC 33.1 g/dL (31.0-37.0); MCV 91.3 fL (80.0-100.0); Mean Platelet Volume 7.7; Monocytes # (A) 1.1 k/uL (0-1.0); Monocytes % (A) 4 %; Neutrophils # (A) 27.3 k/uL (1.3-7.7); Neutrophils % (A) 91 %; RBC 3.89 m/uL (3.80-5.40); RDW 13.5 % (11.5-15.5); WBC 30.1 k/uL (3.8-10.6)
[2022-06-22 19:59] LABS: Platelet Count 494 k/uL (150-450)
[2022-06-22] MEDS ORDERED: RX INFO: IV CONTRAST WAS GIVEN 1 EACH MISC MISCELLANE PRN (20:00)
[2022-06-22 20:33] LABS: Albumin 3.4 g/dL (3.5-5.0); Calcium 8.3 mg/dL (8.4-10.2); Potassium 4.5 mmol/L (3.5-5.1); Total Bilirubin 0.8 mg/dL (0.2-1.3); Total Protein 6.6 g/dL (6.3-8.2)
[2022-06-22] MEDS ORDERED: SODIUM CHLORIDE 0.9% 500 ML 500 ML IV ONE (20:40)
[2022-06-22] MEDS ORDERED: SODIUM CHLORIDE 0.9% 1,000 ML IV ONE (20:47)
[2022-06-22] MEDS ORDERED: PIPERACILLIN-TAZOBACTAM 3.375 GM in SODIUM CHLORIDE 0.9% 100 ML IVPB STA (20:47)
[2022-06-22] MEDS ORDERED: NALOXONE 0.4 MG/ML 1 ML VIAL IV PRN (21:11)
[2022-06-22] MEDS: SODIUM CHLORIDE 0.9% 1,000 ML IV SCH (21:11)
--- NOTE | 2022-06-22 21:55 | CT ---
EXAMINATION TYPE: CT chest w con DATE OF EXAM: 06/22/2022 COMPARISON: Chest CT May 11, 2019 HISTORY: SOB an cough, right upper lung abnormal x-ray. CT DLP: 312.8 mGycm. Automated Exposure Control for Dose Reduction was Utilized. TECHNIQUE: CT scan of the thorax is performed following with IV Contrast, patient injected with 80 c c mL of Isovue 370. FINDINGS: LUNGS: Right upper lobe masslike consolidation has triangular shape abutting the major fissure with s urrounding groundglass opacity more prominent extending anteriorly noted. Finding is new from recent chest x-ray 8 days ago. Interval development of large mass is highly unlikely. Given patient's sympto ms pneumonic consolidation is strongly favored. Additional consolidation and/or atelectasis with air bronchograms in the posterior right lower lobe. Left lung is clear. There is no pleural effusion or p neumothorax seen bilaterally. The tracheobronchial tree is patent. MEDIASTINUM: There are no greater than 1 cm noncalcified hilar or mediastinal lymph nodes. Prominent calcified mediastinal lymph nodes are redemonstrated. Findings consistent with product of old granulo matous disease. No cardiomegaly or pericardial effusion is seen. Coronary artery calcification is no issac in the RCA distribution. OTHER: No additional significant abnormality is seen. IMPRESSION: Confirmation of new right upper lobe pneumonic consolidation. There is posterior right ba silar consolidation and/or atelectasis also noted. Left lung is clear.
[2022-06-22 23:47] LABS: Glucose,Whole Blood 154 mg/dL (70-110)
[2022-06-23] MEDS: CYCLOBENZAPRINE 5 MG TAB PO PRN ×2 (00:54→12:52)
[2022-06-23] MEDS ORDERED: ALBUTEROL NEBULIZED 2.5 MG/3 ML INHALATION PRN (01:47)
[2022-06-23] MEDS ORDERED: IPRATROPIUM-ALBUTEROL 3 ML NEB INHALATION PRN (03:55)
--- NOTE | 2022-06-23 04:15 | P.CNPUL ---
History of Present Illness Consult date: 06/23/22 Requesting physician: Garrick Harris Reason for consult: pneumonia Chief complaint: Shortness of breath, cough History of present illness: I'm seeing this patient in new consultation today 06/23/2022 for community acquired pneumonia. This is a 67-year-old white female with past medical history of sarcoidosis with pulmonary involvement (reportedly in remission), diabetes mellitus type 2, hypertension, fibromyalgia, rheumatoid arthritis, GERD, and is a remote ex-smoker. Denies history of COPD or asthma. Patient reportedly currently follows with Dr. Terry Guzman for management of her sarcoidosis. Patient was previously seen by Dr. Stanley in the office. Patient has been experiencing symptoms of shortness of breath, cough with yellow sputum production, fever, reduced appetite, and weakness for the last 11 days. Denies chest pain or hemoptysis. Patient did have an emergency room visit on June 14 for an upper respiratory tract infection. She was treated on a outpatient basis with a Z-Rudy. Her symptoms have progressively worsened, and she ultimately came back to the emergency room yesterday evening. She is currently sitting up in bed, on room air, in no acute distress. Patient's chest x-ray on arrival showed a right upper lobe pneumonic consolidation. A follow-up enhanced chest CT redemonstrated the new right upper lobe masslike pneumonic consolidation with a posterior right basilar consolidation and/or atelectasis also noted. Patient has been febrile with a T-max of 103.1F. Patient was given one dose of Zosyn in the emergency room. CBC on arrival shows leukocytosis with a WBC count of 30.1, hemoglobin 11.7, hematocrit 35.5, platelets 494,000. BMP shows a sodium 121, potassium 4.5, chloride 85, serum CO2 22, BUN 29, creatinine 1.13, glucose 244. Lactic acid was elevated and is down to 1.9. Negative for influenza, COVID-19, RSV. She received a total of 2 L normal saline bolus and currently has normal saline infusing at 130 ML's per hour. Vital signs are stable. Review of Systems REVIEW OF SYSTEMS: CONSTITUTIONAL: Denies any recent significant weight loss or weight gain. EYES: Denies change in vision. EARS, NOSE, MOUTH, THROAT: Denies headaches, denies sore throat. CARDIOVASCULAR: Denies chest pain, palpitations or syncopal episodes. RESPIRATORY: See HPI GASTROINTESTINAL: Denies change in appetite, abdominal pain, nausea and vomiting, or diarrhea GENITOURINARY: Denies hematuria, denies infections. MUSKULOSKELETAL: Denies pain, denies swelling. INTEGUMENTARY: Denies rash, denies eczema. NEUROLOGICAL: Denies recent memory loss, no recent seizure activity. PSYCHIATRIC: Denies anxiety, denies depression. HEMATOLOGIC/LYMPHATIC: Denies anemia, denies enlarged lymph node Past Medical History Past Medical History: Diabetes Mellitus, Fibromyalgia, GERD/Reflux, Hypertension, Pneumonia, Rheumatoid Arthritis (RA), Thyroid Disorder Additional Past Medical History / Comment(s): sarcoidosis, ibs, migraines, optic nerve damage, short term memory issues, chronic back pain, keratodermia, urinary incontinence, glaucoma, brain lesion, pulmonary lesion, eye problems, left buttocks cysts/abscess ongoing History of Any Multi-Drug Resistant Organisms: MRSA Date of last positivie culture/infection: unknown MDRO Source:: buttocks Past Surgical History: Appendectomy, Cholecystectomy Additional Past Surgical History / Comment(s): bronchoscopy, laproscopic young removal, cyst removal, cataracts Past Anesthesia/Blood Transfusion Reactions: No Reported Reaction Past Psychological History: Anxiety, Depression Smoking Status: Former smoker Past Alcohol Use History: Rare Additional Past Alcohol Use History / Comment(s): quit smoking in 2017 Past Drug Use History: None Reported - Past Family History Mother Family Medical History: Cancer, Hyperlipidemia Additional Family Medical History / Comment(s): lung cancer Father Family Medical History: Cancer, Diabetes Mellitus, Hyperlipidemia Medications and Allergies Home Medications Medication Instructions Recorded Confirmed Type DULoxetine HCL [Cymbalta] 60 mg PO DAILY 05/09/14 06/22/22 History Latanoprost Ophth [Xalatan 0.005%] 1 drop BOTH EYES HS 05/09/14 06/22/22 History Omeprazole [PriLOSEC] 20 mg PO AC-BRKFST 05/09/14 06/22/22 History Ascorbic Acid [Vitamin C] 500 mg PO DAILY 09/28/19 06/22/22 History Cholecalciferol [Vitamin D3 (25 50 mcg PO DAILY 09/28/19 06/22/22 History Mcg = 1000 Iu)] Cyanocobalamin (Vitamin B-12) 5,000 mcg PO Q7D 09/28/19 06/22/22 History [Vitamin B-12] Elderberry Sambucus 1250mg 1 tab PO Q48H 09/28/19 06/22/22 History Magnesium Oxide [Mag-Ox] 250 mg PO Q48H 09/28/19 06/22/22 History Metoprolol Succinate [Toprol XL] 25 mg PO DAILY 09/28/19 06/22/22 History Montelukast [Singulair] 10 mg PO HS 09/28/19 06/22/22 History Potassium Gluconate [Potassium 99 mg PO Q7D 09/28/19 06/22/22 History Gluconate ER] metFORMIN HCL [Glucophage] 1,000 mg PO BID 09/28/19 06/22/22 History Aspirin EC [Ecotrin Low Dose] 81 mg PO DAILY 03/24/22 06/22/22 History Butalb/Acetaminophen/Caffeine 1 cap PO DAILY PRN 03/24/22 06/22/22 History [Fioricet 50-300-40 mg Capsule] Calcium Citrate/Vitamin D3 1 tab PO Q72H 03/24/22 06/22/22 History [Citracal + D Maximum Caplet] Cyclobenzaprine [Flexeril] 5 mg PO BID PRN 03/24/22 06/22/22 History Fish Oil/Dha/Epa [Fish Oil 1,200 1 cap PO DAILY 03/24/22 06/22/22 History mg Fish Oil] Fluticasone Propionate [Flovent 2 puff INHALATION RT-BID 03/24/22 06/22/22 History Hfa 220 mcg] Iron Complex 1 cap PO DAILY 03/24/22 06/22/22 History L.acidoph,Paracasei, B.lactis 1 cap PO DAILY 03/24/22 06/22/22 History [Probiotic] Levothyroxine Sodium [Synthroid] 25 mcg PO AC-BRKFST 03/24/22 06/22/22 History Multivit-Min/FA/Lycopen/Lutein 1 tab PO DAILY 03/24/22 06/22/22 History [Centrum Silver Tablet] Ubidecarenone [Co Q-10] 300 mg PO MOFR 03/24/22 06/22/22 History Zinc Gluconate [Zinc] 50 mg PO DAILY 03/24/22 06/22/22 History lisinopriL [Zestril] 5 mg PO BID 03/24/22 06/22/22 History Ondansetron Odt [Zofran Odt] 4 mg PO Q8HR PRN #10 tab 06/14/22 06/22/22 Rx Albuterol Inhaler [Ventolin Hfa 1 - 2 puff INHALATION RT-QID PRN 06/22/22 06/22/22 History Inhaler] Albuterol Nebulized [Ventolin 2.5 mg INHALATION RT-QID PRN 06/22/22 06/22/22 History Nebulized] Benzocaine/Menthol Lozeng [Cepacol 1 lozenge MUCOUS MEM Q4HR PRN 06/22/22 06/22/22 History lozenge] Ibuprofen [Motrin] 800 mg PO Q6HR PRN 06/22/22 06/22/22 History Levofloxacin [Levaquin] 500 mg PO DAILY 06/22/22 06/22/22 History Rosuvastatin [Crestor] 10 mg PO HS 06/22/22 06/22/22 History Allergies Allergy/AdvReac Type Severity Reaction Status Date / Time Penicillins AdvReac Nausea & Verified 06/22/22 21:53 Vomiting Sulfa (Sulfonamide AdvReac Nausea & Verified 06/22/22 21:53 Antibiotics) Vomiting Physical Exam Vitals: Vital Signs Temp Pulse Pulse Resp BP BP Pulse Ox 06/23/22 02:28 116 H 06/23/22 02:21 93 L 06/23/22 02:20 112 H 06/23/22 02:15 88 L 06/23/22 00:00 98.3 F 101 H 18 153/80 96 06/22/22 20:34 98.9 F 96 06/22/22 18:58 103.1 F H 124 H 22 132/75 95 Intake and Output 06/22/22 06/22/22 06/23/22 14:59 22:59 06:59 Other: # Voids 1 Weight 73.936 kg 73.936 kg GENERAL EXAM: Alert, 67-year-old, comfortable in no apparent distress. HEAD: Normocephalic and atraumatic EYES: Normal reaction of pupils, equal size. NOSE: Clear with pink turbinates. THROAT: No erythema or exudates. NECK: No masses, no JVD. CHEST: No chest wall deformity. LUNGS: Equal air entry with diffuse crackles and rhonchi throughout the right lung, left lung was clear to auscultation. On room air. No conversational dyspnea or accessory muscle use.. CVS: S1 and S2 normal with no audible murmur, regular rhythm. No extra heart sounds. Heart rate 100 bpm ABDOMEN: No hepatosplenomegaly, active bowel sounds, no guarding or rigidity. SPINE: No scoliosis or deformity SKIN: No rashes CENTRAL NERVOUS SYSTEM: No focal deficits, tone is normal in all 4 extremities. EXTREMITIES: There is no peripheral edema, clubbing, or cyanosis. Peripheral pulses are intact. Results - Laboratory Findings CBC and BMP: 06/22/22 19:22 06/22/22 19:22 Abnormal lab findings: Abnormal Labs 06/22/22 06/22/22 06/22/22 19:22 19:22 19:22 WBC 30.1 H Plt Count 494 H D Neutrophils # 27.3 H Monocytes # 1.1 H Sodium 121 L Chloride 85 L BUN 29 H Creatinine 1.13 H Glucose 244 H POC Glucose (mg/dL) Plasma Lactic Acid Tay 3.3 H* Calcium 8.3 L Albumin 3.4 L 06/22/22 23:46 WBC Plt Count Neutrophils # Monocytes # Sodium Chloride BUN Creatinine Glucose POC Glucose (mg/dL) 154 H Plasma Lactic Acid Tay Calcium Albumin - Diagnostic Findings Chest x-ray: image reviewed CT scan - chest: image reviewed Assessment and Plan Assessment: Community-acquired pneumonia. Failed outpatient treatment with azithromycin. Enhanced chest CT on arrival shows new right upper lobe pneumonic consolidation as well as a posterior right basilar consolidation and/or atelectasis also noted. Hyponatremia, sodium is 121 Sarcoidosis with pulmonary involvement. Reportedly in remission. Hypertension Hyperlipidemia Diabetes mellitus type 2 Fibromyalgia Rheumatoid arthritis Hypothyroidism Plan: Patient's medications, labs, chest x-ray, chest CT were reviewed Start the patient on course of Rocephin and Zithromax Obtain blood cultures On room air Continue bronchodilators and add Symbicort Negative for COVID-19, influenza, RSV Normal saline infusion at 130 ML's per hour Acetaminophen as antipyretic Vital signs are stable I have personally seen and examined the patient, performed the documentation and the assessment and plan as written. Number of minutes spent on the visit:20 Time with Patient: Greater than 30
[2022-06-23] MEDS: ACETAMINOPHEN TAB 325 MG TAB PO PRN ×3 (04:25→21:08)
[2022-06-23] MEDS: METOPROLOL SUCCINATE (ER) 25 MG TAB.ER.24H PO SCH (04:25)
[2022-06-23] MEDS: AZITHROMYCIN 500 MG in SODIUM CHLORIDE 0.9% 250 ML IVPB SCH (05:14)
[2022-06-23] MEDS: SODIUM CHLORIDE 0.9% 1,000 ML IV SCH ×3 (05:14→23:41)
[2022-06-23 06:04] LABS: Glucose,Whole Blood 207 mg/dL (70-110)
[2022-06-23] MEDS: INSULIN ASPART (NovoLOG) 100 UNIT/ML VIAL SQ SCH ×7 (06:45→21:09)
[2022-06-23] MEDS: SYMBICORT 160-4.5 MCG INHALER INHALATION SCH ×2 (08:17→22:18)
[2022-06-23] MEDS: IPRATROPIUM-ALBUTEROL 3 ML NEB INHALATION SCH ×4 (08:17→22:18)
[2022-06-23] MEDS: DULoxetine HCL 60 MG CAPSULE.DR PO SCH (09:15)
[2022-06-23 11:31] LABS: Glucose,Whole Blood 189 mg/dL (70-110)
[2022-06-23] MEDS ORDERED: INSULIN DETEMIR (LEVEMIR) 100 UNIT/ML SYR SQ SCH (11:58)
[2022-06-23] MEDS ORDERED: methylPREDNISolone SOD SUCCI 125 MG/2 ML VIAL IV SCH (12:00)
--- NOTE | 2022-06-23 12:07 | P.HPIM ---
History of Present Illness Pleasant 67-year-old female came in with the comments of cough or sputum production and wheezing. Patient is found to have right middle lobe and right lower lobe pneumonia. Patient was taking Z-Rudy at home patient has lactic acidosis patient does take metformin as well. Patient has alert sputum production generalized weakness going on for 11 days. Patient was given prednisone as well patient is hyponatremic secondary to hyperglycemia leading to hyperosmolar hyponatremia as well as a hypovolemic hyponatremia. Patient's seru m sodium is 121. Patient is febrile and with a temperature of 103.1 on admission. She was having shortness of breath. REVIEW OF SYSTEMS: CONSTITUTIONAL: As mentioned in HPI HEENT: No recent visual problems or hearing problems. Denied any sore throat. CARDIOVASCULAR: No chest pain, orthopnea, PND, no palpitations, no syncope. PULMONARY: no hemoptysis. GASTROINTESTINAL: No diarrhea, no nausea, no vomiting, no abdominal pain. NEUROLOGICAL: No headaches, no weakness, no numbness. HEMATOLOGICAL: Denies any bleeding or petechiae. GENITOURINARY: Denies any burning micturition, frequency, or urgency. MUSCULOSKELETAL/RHEUMATOLOGICAL: Denies any joint pain, swelling, or any muscle pain. ENDOCRINE: Denies any polyuria or polydipsia. The rest of the 14-point review of systems is negative. PHYSICAL EXAMINATION: GENERAL: The patient is alert and oriented x3, not in any acute distress. Well developed, well nourished. HEENT: Pupils are round and equally reacting to light. EOMI. No scleral icterus. No conjunctival pallor. Normocephalic, atraumatic. No pharyngeal erythema. No thyromegaly. CARDIOVASCULAR: S1 and S2 present. No murmurs, rubs, or gallops. PULMONARY: Bilateral rhonchi significant on the right side ABDOMEN: Soft, nontender, nondistended, normoactive bowel sounds. No palpable organomegaly. MUSCULOSKELETAL: No joint swelling or deformity. EXTREMITIES: No cyanosis, clubbing, or pedal edema. NEUROLOGICAL: Gross neurological examination did not reveal any focal deficits. SKIN: No rashes. Assessment and plan -Sepsis is secondary to community acquired pneumonia. Patient is on Rocephin and azithromycin. -hyponatremia hyperosmolar hyponatremia secondary to hyperglycemia and also a bulimic hyponatremia patient is on IV fluids will be continued patient will be started on the Lantus and the high-dose insulin pre-meals for blood sugars patient's blood sugars are expected to be high as patient is on steroids at this time. History of sarcoidosis which is in remission at this time -Hypertension -hyperlipidemia -type 2 diabetes mellitus uncontrolled admitted blood sugars secondary to systemic steroids insulin as mentioned above will obtain hemoglobinA1 C as well -hyperthyroidism -Rheumatoid arthritis -Lactic acidosis secondary to metformin which was discontinued DVT prophylaxis: Lovenox Past Medical History Past Medical History: Diabetes Mellitus, Fibromyalgia, GERD/Reflux, Hypertension, Pneumonia, Rheumatoid Arthritis (RA), Thyroid Disorder Additional Past Medical History / Comment(s): sarcoidosis, ibs, migraines, optic nerve damage, short term memory issues, chronic back pain, keratodermia, urinary incontinence, glaucoma, brain lesion, pulmonary lesion, eye problems, left buttocks cysts/abscess ongoing History of Any Multi-Drug Resistant Organisms: MRSA Date of last positivie culture/infection: unknown MDRO Source:: buttocks Past Surgical History: Appendectomy, Cholecystectomy Additional Past Surgical History / Comment(s): bronchoscopy, laproscopic young removal, cyst removal, cataracts Past Anesthesia/Blood Transfusion Reactions: No Reported Reaction Past Psychological History: Anxiety, Depression Smoking Status: Former smoker Past Alcohol Use History: Rare Additional Past Alcohol Use History / Comment(s): quit smoking in 2017 Past Drug Use History: None Reported - Past Family History Mother Family Medical History: Cancer, Hyperlipidemia Additional Family Medical History / Comment(s): lung cancer Father Family Medical History: Cancer, Diabetes Mellitus, Hyperlipidemia Medications and Allergies Home Medications Medication Instructions Recorded Confirmed Type DULoxetine HCL [Cymbalta] 60 mg PO DAILY 05/09/14 06/22/22 History Latanoprost Ophth [Xalatan 0.005%] 1 drop BOTH EYES HS 05/09/14 06/22/22 History Omeprazole [PriLOSEC] 20 mg PO AC-BRKFST 05/09/14 06/22/22 History Ascorbic Acid [Vitamin C] 500 mg PO DAILY 09/28/19 06/22/22 History Cholecalciferol [Vitamin D3 (25 50 mcg PO DAILY 09/28/19 06/22/22 History Mcg = 1000 Iu)] Cyanocobalamin (Vitamin B-12) 5,000 mcg PO Q7D 09/28/19 06/22/22 History [Vitamin B-12] Elderberry Sambucus 1250mg 1 tab PO Q48H 09/28/19 06/22/22 History Magnesium Oxide [Mag-Ox] 250 mg PO Q48H 09/28/19 06/22/22 History Metoprolol Succinate [Toprol XL] 25 mg PO DAILY 09/28/19 06/22/22 History Montelukast [Singulair] 10 mg PO HS 09/28/19 06/22/22 History Potassium Gluconate [Potassium 99 mg PO Q7D 09/28/19 06/22/22 History Gluconate ER] metFORMIN HCL [Glucophage] 1,000 mg PO BID 09/28/19 06/22/22 History Aspirin EC [Ecotrin Low Dose] 81 mg PO DAILY 03/24/22 06/22/22 History Butalb/Acetaminophen/Caffeine 1 cap PO DAILY PRN 03/24/22 06/22/22 History [Fioricet 50-300-40 mg Capsule] Calcium Citrate/Vitamin D3 1 tab PO Q72H 03/24/22 06/22/22 History [Citracal + D Maximum Caplet] Cyclobenzaprine [Flexeril] 5 mg PO BID PRN 03/24/22 06/22/22 History Fish Oil/Dha/Epa [Fish Oil 1,200 1 cap PO DAILY 03/24/22 06/22/22 History mg Fish Oil] Fluticasone Propionate [Flovent 2 puff INHALATION RT-BID 03/24/22 06/22/22 History Hfa 220 mcg] Iron Complex 1 cap PO DAILY 03/24/22 06/22/22 History L.acidoph,Paracasei, B.lactis 1 cap PO DAILY 03/24/22 06/22/22 History [Probiotic] Levothyroxine Sodium [Synthroid] 25 mcg PO AC-BRKFST 03/24/22 06/22/22 History Multivit-Min/FA/Lycopen/Lutein 1 tab PO DAILY 03/24/22 06/22/22 History [Centrum Silver Tablet] Ubidecarenone [Co Q-10] 300 mg PO MOFR 03/24/22 06/22/22 History Zinc Gluconate [Zinc] 50 mg PO DAILY 03/24/22 06/22/22 History lisinopriL [Zestril] 5 mg PO BID 03/24/22 06/22/22 History Ondansetron Odt [Zofran Odt] 4 mg PO Q8HR PRN #10 tab 06/14/22 06/22/22 Rx Albuterol Inhaler [Ventolin Hfa 1 - 2 puff INHALATION RT-QID PRN 06/22/22 06/22/22 History Inhaler] Albuterol Nebulized [Ventolin 2.5 mg INHALATION RT-QID PRN 06/22/22 06/22/22 History Nebulized] Benzocaine/Menthol Lozeng [Cepacol 1 lozenge MUCOUS MEM Q4HR PRN 06/22/22 06/22/22 History lozenge] Ibuprofen [Motrin] 800 mg PO Q6HR PRN 06/22/22 06/22/22 History Levofloxacin [Levaquin] 500 mg PO DAILY 06/22/22 06/22/22 History Rosuvastatin [Crestor] 10 mg PO HS 06/22/22 06/22/22 History Allergies Allergy/AdvReac Type Severity Reaction Status Date / Time Penicillins AdvReac Nausea & Verified 06/22/22 21:53 Vomiting Sulfa (Sulfonamide AdvReac Nausea & Verified 06/22/22 21:53 Antibiotics) Vomiting Physical Exam Vitals: Vital Signs Temp Pulse Pulse Resp BP BP Pulse Ox 06/23/22 11:55 96 06/23/22 09:20 98.4 F 104 H 18 132/74 92 L 06/23/22 08:28 98 06/23/22 08:18 96 06/23/22 04:00 100.3 F H 116 H 18 132/63 92 L 06/23/22 02:28 116 H 06/23/22 02:21 93 L 06/23/22 02:20 112 H 06/23/22 02:15 88 L 06/23/22 00:00 98.3 F 101 H 18 153/80 96 06/22/22 20:34 98.9 F 96 06/22/22 18:58 103.1 F H 124 H 22 132/75 95 Intake and Output 06/22/22 06/23/22 06/23/22 22:59 06:59 14:59 Intake Total 118 Balance 118 Intake: Oral 118 Other: # Voids 1 Weight 73.936 kg 73.936 kg Results CBC & Chem 7: 06/22/22 19:22 06/22/22 19:22 Labs: Abnormal Lab Results - Last 24 Hours (Table) 06/22/22 06/22/22 06/22/22 Range/Units 19:22 19:22 19:22 WBC 30.1 H (3.8-10.6) k/uL Plt Count 494 H D (150-450) k/uL Neutrophils # 27.3 H (1.3-7.7) k/uL Monocytes # 1.1 H (0-1.0) k/uL Sodium 121 L (137-145) mmol/L Chloride 85 L (98-107) mmol/L BUN 29 H (7-17) mg/dL Creatinine 1.13 H (0.52-1.04) mg/dL Glucose 244 H (74-99) mg/dL POC Glucose (mg/dL) (70-110) mg/dL Plasma Lactic Acid Tay 3.3 H* (0.7-2.0) mmol/L Calcium 8.3 L (8.4-10.2) mg/dL Albumin 3.4 L (3.5-5.0) g/dL 06/22/22 06/23/22 06/23/22 Range/Units 23:46 06:03 11:30 WBC (3.8-10.6) k/uL Plt Count (150-450) k/uL Neutrophils # (1.3-7.7) k/uL Monocytes # (0-1.0) k/uL Sodium (137-145) mmol/L Chloride (98-107) mmol/L BUN (7-17) mg/dL Creatinine (0.52-1.04) mg/dL Glucose (74-99) mg/dL POC Glucose (mg/dL) 154 H 207 H 189 H (70-110) mg/dL Plasma Lactic Acid Tay (0.7-2.0) mmol/L Calcium (8.4-10.2) mg/dL Albumin (3.5-5.0) g/dL Thrombosis Risk Factor Assmnt - Choose All That Apply Any of the Below Risk Factors Present?: Yes Each Factor Represents 1 point: Sepsis (< 1month), Serious lung disease incl. pneumonia (< 1month) Other Risk Factors: Yes Each Risk Factor Represents 2 Points: Age 61-74 years Other congenital or acquired thrombophilia - If yes, enter type in comment: No Thrombosis Risk Factor Assessment Total Risk Factor Score: 4 Thrombosis Risk Factor Assessment Level: Moderate Risk
[2022-06-23 16:25] LABS: Glucose,Whole Blood 235 mg/dL (70-110)
[2022-06-23] MEDS: methylPREDNISolone SOD SUCCI 40 MG/ML 1 ML VIAL IV SCH ×2 (17:15→23:48)
[2022-06-23 19:59] LABS: Glucose,Whole Blood 166 mg/dL (70-110)
[2022-06-23] MEDS: ATORVASTATIN 20 MG TAB PO SCH (21:09)
[2022-06-23] MEDS: INSULIN DETEMIR (LEVEMIR) 100 UNIT/ML SYR SQ SCH (21:09)
[2022-06-23] MEDS: LATANOPROST 0.005% OPHTH DROPS 2.5 ML BTL BOTH EYES SCH (23:48)
[2022-06-24 06:19] LABS: Glucose,Whole Blood 220 mg/dL (70-110)
[2022-06-24] MEDS: INSULIN ASPART (NovoLOG) 100 UNIT/ML VIAL SQ SCH ×8 (06:24→21:06)
[2022-06-24] MEDS: LEVOTHYROXINE 25 MCG TAB PO SCH (06:29)
[2022-06-24] MEDS: PANTOPRAZOLE 40 MG TABLET PO SCH (06:29)
[2022-06-24] MEDS: AZITHROMYCIN 500 MG in SODIUM CHLORIDE 0.9% 250 ML IVPB SCH (06:30)
[2022-06-24] MEDS ORDERED: MAGNESIUM OXIDE 400 MG TAB PO SCH (09:00)
[2022-06-24] MEDS ORDERED: CALCIUM CARB-VIT D 500 MG-5 MCG TAB PO SCH (09:00)
[2022-06-24] MEDS: IPRATROPIUM-ALBUTEROL 3 ML NEB INHALATION SCH ×4 (09:08→21:21)
[2022-06-24] MEDS: SYMBICORT 160-4.5 MCG INHALER INHALATION SCH ×2 (09:09→21:21)
[2022-06-24] MEDS: ASPIRIN 81 MG PO SCH (09:27)
[2022-06-24] MEDS: METOPROLOL SUCCINATE (ER) 25 MG TAB.ER.24H PO SCH (09:27)
[2022-06-24] MEDS: DULoxetine HCL 60 MG CAPSULE.DR PO SCH (09:27)
[2022-06-24] MEDS: methylPREDNISolone SOD SUCCI 40 MG/ML 1 ML VIAL IV SCH ×2 (09:27→17:18)
[2022-06-24] MEDS: SODIUM CHLORIDE 0.9% 1,000 ML IV SCH ×2 (09:28→17:13)
[2022-06-24 10:03] LABS: MCH 29.4 pg (25.0-35.0); MCHC 32.4 g/dL (31.0-37.0); MCV 90.6 fL (80.0-100.0); Mean Platelet Volume 7.7; Platelet Count 500 k/uL (150-450); RBC 3.42 m/uL (3.80-5.40); WBC 22.2 k/uL (3.8-10.6)
[2022-06-24 10:04] LABS: African American GFR (CKD) >90 (>60 ml/min/1.73 sqM); Anion Gap 10 mmol/L; Blood Urea Nitrogen 10 mg/dL (7-17); Calcium 7.7 mg/dL (8.4-10.2); Carbon Dioxide 24 mmol/L (22-30); Chloride 100 mmol/L (98-107); Glucose 284 mg/dL (74-99); Magnesium 1.4 mg/dL (1.6-2.3); Non-African American GFR(CKD) 87 (>60 ml/min/1.73 sqM); Potassium 3.5 mmol/L (3.5-5.1); Sodium 134 mmol/L (137-145)
[2022-06-24] MEDS ORDERED: Magnesium Replacement Protocol 1 EACH MISC MISCELLANE PRN ×2 (10:12→11:16)
[2022-06-24 11:30] LABS: Glucose,Whole Blood 314 mg/dL (70-110)
[2022-06-24] MEDS: MAGNESIUM SULFATE-D5W PMX 1 GM in DEXTROSE/WATER 1 100ML.BAG IVPB SCH ×2 (12:34→17:10)
[2022-06-24] MEDS ORDERED: POTASSIUM CHLORIDE ER 20 MEQ TAB.ER PO STA (14:00)
--- NOTE | 2022-06-24 14:07 | P.PN ---
Subjective Pleasant 67-year-old female came in with the comments of cough or sputum production and wheezing. Patient is found to have right middle lobe and right lower lobe pneumonia. Patient was taking Z-Rudy at home patient has lactic acidosis patient does take metformin as well. Patient has alert sputum production generalized weakness going on for 11 days. Patient was given prednisone as well patient is hyponatremic secondary to hyperglycemia leading to hyperosmolar hyponatremia as well as a hypovolemic hyponatremia. Patient's serum sodium is 121. Patient is febrile and with a temperature of 103.1 on admission. She was having shortness of breath. 06/24/2022 Patient reports little dyspnea today. No chest pain, no significant cough and phlegm She still have loose stool 1 this morning with no appetite partially improved this morning but no abdominal pain. She still have low-grade fever of 100.4. Leukocytosis improving down to 22,000 and platelet count elevated 500th K, hemoglobin is 10. Sodium improved 121 on 06/22 at 7 PM and 04/01/1934 this morning 06/24 at 9 AM, that's about 13 mEq correction over 38 Hours. On normal saline now and keep monitoring. 4 normal saline. From 100 mL per hour into 50 mL/h on Ceftriaxone and Zithromax. Also she is on Solu-Medrol 40 mg. Objective - Vital Signs Vital signs: Vital Signs Temp 97.9 F 06/24/22 00:00 Pulse 96 06/24/22 09:25 Resp 16 06/24/22 08:00 BP 140/67 06/24/22 08:00 Pulse Ox 95 06/24/22 09:09 FiO2 Intake & Output 06/23/22 06/24/22 06/24/22 18:59 06:59 18:59 Intake Total 476 540 118 Balance 476 540 118 Intake: Oral 476 540 118 Other: # Voids 2 2 - Exam GENERAL: The patient is alert and oriented x3, not in any acute distress. Well developed, well nourished. HEENT: Pupils are round and equally reacting to light. EOMI. No scleral icterus. No conjunctival pallor. Normocephalic, atraumatic. No pharyngeal erythema. No thyromegaly. CARDIOVASCULAR: S1 and S2 present. No murmurs, rubs, or gallops. PULMONARY: Chest is clear to auscultation, no wheezing or crackles. ABDOMEN: Soft, nontender, nondistended, normoactive bowel sounds. No palpable organomegaly. MUSCULOSKELETAL: No joint swelling or deformity. EXTREMITIES: No cyanosis, clubbing, or pedal edema. NEUROLOGICAL: Gross neurological examination did not reveal any focal deficits. SKIN: No rashes. no petechiae. - Labs CBC & Chem 7: 06/24/22 09:29 06/24/22 09:29 Labs: Abnormal Lab Results - Last 24 Hours (Table) 06/23/22 06/23/22 06/23/22 Range/Units 11:30 16:23 19:58 Sodium (137-145) mmol/L Glucose (74-99) mg/dL POC Glucose (mg/dL) 189 H 235 H 166 H (70-110) mg/dL Calcium (8.4-10.2) mg/dL Magnesium (1.6-2.3) mg/dL 06/24/22 06/24/22 Range/Units 06:18 09:29 Sodium 134 L (137-145) mmol/L Glucose 284 H (74-99) mg/dL POC Glucose (mg/dL) 220 H (70-110) mg/dL Calcium 7.7 L (8.4-10.2) mg/dL Magnesium 1.4 L (1.6-2.3) mg/dL Microbiology - Last 24 Hours (Table) 06/22/22 20:40 Blood Culture - Preliminary Blood 06/22/22 20:25 Blood Culture - Preliminary Blood Assessment and Plan Assessment: -Sepsis is secondary to community acquired pneumonia. Patient is on Rocephin and azithromycin. Continue with normal saline -hyponatremia hyperosmolar hyponatremia , improved -COPD exacerbation, on Solu-Medrol -Hypertension -hyperlipidemia -type 2 diabetes mellitus uncontrolled admitted blood sugars secondary to systemic steroids insulin as mentioned above will obtain hemoglobinA1 C as well -hyperthyroidism -Rheumatoid arthritis -Lactic acidosis , improved back to normal GI prophylaxis: Protonix DVT prophylaxis: Lovenox
--- NOTE | 2022-06-24 15:17 | P.PN ---
Subjective Progress Note Date: 06/24/22 Principal diagnosis: Acute community-acquired pneumonia I'm seeing this patient in new consultation today 06/23/2022 for community acquired pneumonia. This is a 67-year-old white female with past medical history of sarcoidosis with pulmonary involvement (reportedly in remission), diabetes mellitus type 2, hypertension, fibromyalgia, rheumatoid arthritis, GERD, and is a remote ex-smoker. Denies history of COPD or asthma. Patient reportedly currently follows with Dr. Terry Guzman for management of her sarcoidosis. Patient was previously seen by Dr. Stanley in the office. Patient has been experiencing symptoms of shortness of breath, cough with yellow sputum production, fever, reduced appetite, and weakness for the last 11 days. Denies chest pain or hemoptysis. Patient did have an emergency room visit on June 14 for an upper respiratory tract infection. She was treated on a outpatient basis with a Z-Rudy. Her symptoms have progressively worsened, and she ultimately came back to the emergency room yesterday evening. She is currently sitting up in bed, on room air, in no acute distress. Patient's chest x-ray on arrival showed a right upper lobe pneumonic consolidation. A follow-up enhanced chest CT redemonstrated the new right upper lobe masslike pneumonic consolidation with a posterior right basilar consolidation and/or atelectasis also noted. Patient has been febrile with a T-max of 103.1F. Patient was given one dose of Zosyn in the emergency room. CBC on arrival shows leukocytosis with a WBC count of 30.1, hemoglobin 11.7, hematocrit 35.5, platelets 494,000. BMP shows a sodium 121, potassium 4.5, chloride 85, serum CO2 22, BUN 29, creatinine 1.13, glucose 244. Lactic acid was elevated and is down to 1.9. Negative for influenza, COVID-19, RSV. She received a total of 2 L normal saline bolus and currently has normal saline infusing at 130 ML's per hour. Vital signs are stable. Reevaluated today on06/24/2022, patient is feeling better, breathing easier, less cough and less shortness of breath, and she has improvement in her leukocytosis compared to admission. Patient is now on 3 L nasal cannula O2 sats is 99%. She is hemodynamically stable, WBC count is 22.2 hemoglobin is 10 electrolytes are normal renal profile is normal. Blood cultures are negative so far. Urine Legionella antigen is negative, patient tested negative for influenza A influenza B, RSV and COVID-19. Objective - Vital Signs Vital signs: Vital Signs Temp 97.9 F 06/24/22 00:00 Pulse 88 06/24/22 12:39 Resp 16 06/24/22 12:00 BP 143/66 06/24/22 12:00 Pulse Ox 99 06/24/22 12:00 FiO2 Intake & Output 06/23/22 06/24/22 06/24/22 18:59 06:59 18:59 Intake Total 476 540 358 Balance 476 540 358 Intake: Oral 476 540 358 Other: # Voids 2 2 3 - Exam Physical Exam: Revealed a 67-year-old female pleasant in no distress Head: Atraumatic normocephalic. HEENT:[Neck is supple.] [No neck masses.] [No thyromegaly.] [No JVD.] Chest: [Minimal fine crackles at the bases no rhonchi and no wheezes Cardiac Exam: [Normal S1 and S2, no S3 gallop, no murmur.] Abdomen: [Soft, nontender, no megaly, no rebound, no guarding, normal bowel sounds.] Extremities: [No clubbing, no edema, no cyanosis.] Neurological Exam: [No focal neurologic deficit.] Alert oriented 3. Psychiatric: Normal mood affect and normal mental status examination. Skin: No rash - Labs CBC & Chem 7: 06/24/22 09:29 06/24/22 09:29 Labs: Abnormal Lab Results - Last 24 Hours (Table) 06/23/22 06/23/22 06/24/22 Range/Units 16:23 19:58 06:18 WBC (3.8-10.6) k/uL RBC (3.80-5.40) m/uL Hgb (11.4-16.0) gm/dL Hct (34.0-46.0) % Plt Count (150-450) k/uL Sodium (137-145) mmol/L Glucose (74-99) mg/dL POC Glucose (mg/dL) 235 H 166 H 220 H (70-110) mg/dL Calcium (8.4-10.2) mg/dL Magnesium (1.6-2.3) mg/dL 06/24/22 06/24/22 06/24/22 Range/Units 09:29 09:29 11:29 WBC 22.2 H (3.8-10.6) k/uL RBC 3.42 L (3.80-5.40) m/uL Hgb 10.0 L D (11.4-16.0) gm/dL Hct 31.0 L (34.0-46.0) % Plt Count 500 H (150-450) k/uL Sodium 134 L (137-145) mmol/L Glucose 284 H (74-99) mg/dL POC Glucose (mg/dL) 314 H (70-110) mg/dL Calcium 7.7 L (8.4-10.2) mg/dL Magnesium 1.4 L (1.6-2.3) mg/dL Microbiology - Last 24 Hours (Table) 06/22/22 20:40 Blood Culture - Preliminary Blood 06/22/22 20:25 Blood Culture - Preliminary Blood Assessment and Plan Assessment: Impression: Acute community-acquired pneumonia Acute hyponatremia, resolved sodium today is 134, possible SIADH related to pneumonia, doubt underlying malignancy. History of quiescent pulmonary sarcoidosis, treated in the past with steroids, and has not required any treatment for many years. History of fibromyalgia Dyslipidemia Type 2 diabetes without complications History of rheumatoid arthritis History of hypothyroidism, on replacement therapy Recommendation: Continue antibiotics/Rocephin and Zithromax Continue bronchodilators. Continue methylprednisolone 40 mg IV push every 8 hours continue IV fluid and monitor electrolytes Will repeat chest x-ray in a.m., No need for bronchoscopy at this point although this may have to be considered for the patient does not show significant improvement. Clinically so far the patient is doing better we'll continue to follow Time with Patient: Less than 30
[2022-06-24 16:27] LABS: Glucose,Whole Blood 286 mg/dL (70-110)
[2022-06-24 20:21] LABS: Glucose,Whole Blood 293 mg/dL (70-110)
[2022-06-24] MEDS: ATORVASTATIN 20 MG TAB PO SCH (21:06)
[2022-06-24] MEDS: INSULIN DETEMIR (LEVEMIR) 100 UNIT/ML SYR SQ SCH (21:06)
[2022-06-24] MEDS: MAGNESIUM OXIDE 400 MG TAB PO SCH (21:06)
[2022-06-24] MEDS: LATANOPROST 0.005% OPHTH DROPS 2.5 ML BTL BOTH EYES SCH (21:07)
[2022-06-25] MEDS: methylPREDNISolone SOD SUCCI 40 MG/ML 1 ML VIAL IV SCH ×4 (00:36→23:45)
[2022-06-25] MEDS: INSULIN ASPART (NovoLOG) 100 UNIT/ML VIAL SQ SCH ×8 (04:53→20:25)
[2022-06-25 06:23] LABS: Glucose,Whole Blood 264 mg/dL (70-110)
[2022-06-25] MEDS: PANTOPRAZOLE 40 MG TABLET PO SCH (06:39)
[2022-06-25] MEDS: LEVOTHYROXINE 25 MCG TAB PO SCH (06:39)
[2022-06-25] MEDS: AZITHROMYCIN 500 MG in SODIUM CHLORIDE 0.9% 250 ML IVPB SCH (06:39)
[2022-06-25 07:09] LABS: Basophils % (A) 0 %; Eosinophils % (A) 0 %; HCT 27.8 % (34.0-46.0); HGB 8.9 gm/dL (11.4-16.0); Lymphocytes # (A) 0.7 k/uL (1.0-4.8); Lymphocytes % (A) 5 %; MCHC 31.9 g/dL (31.0-37.0); MCV 90.7 fL (80.0-100.0); Mean Platelet Volume 8.2; Monocytes # (A) 0.6 k/uL (0-1.0); Monocytes % (A) 4 %; Neutrophils # (A) 12.7 k/uL (1.3-7.7); Neutrophils % (A) 90 %; Platelet Count 507 k/uL (150-450); RBC 3.07 m/uL (3.80-5.40); RDW 14.2 % (11.5-15.5); WBC 14.2 k/uL (3.8-10.6)
[2022-06-25 07:51] LABS: African American GFR (CKD) >90 (>60 ml/min/1.73 sqM); Anion Gap 9 mmol/L; Blood Urea Nitrogen 16 mg/dL (7-17); Carbon Dioxide 23 mmol/L (22-30); Chloride 102 mmol/L (98-107); Glucose 258 mg/dL (74-99); Non-African American GFR(CKD) >90 (>60 ml/min/1.73 sqM); Potassium 4.6 mmol/L (3.5-5.1); Sodium 134 mmol/L (137-145)
[2022-06-25] MEDS: METOPROLOL SUCCINATE (ER) 25 MG TAB.ER.24H PO SCH (08:17)
[2022-06-25] MEDS: MAGNESIUM OXIDE 400 MG TAB PO SCH ×2 (08:17→20:24)
[2022-06-25] MEDS: ASPIRIN 81 MG PO SCH (08:17)
[2022-06-25] MEDS: ENOXAPARIN 40 MG/0.4 ML SYRINGE SQ SCH (08:17)
[2022-06-25] MEDS: DULoxetine HCL 60 MG CAPSULE.DR PO SCH (08:17)
[2022-06-25] MEDS: SYMBICORT 160-4.5 MCG INHALER INHALATION SCH ×2 (08:31→20:43)
[2022-06-25] MEDS: IPRATROPIUM-ALBUTEROL 3 ML NEB INHALATION SCH ×4 (08:31→20:42)
--- NOTE | 2022-06-25 11:50 | XR ---
EXAMINATION TYPE: XR chest 2V DATE OF EXAM: 06/25/2022 COMPARISON: NONE HISTORY: Shortness of breath TECHNIQUE: Frontal and lateral views of the chest are obtained. FINDINGS: Scattered senescent parenchymal changes noted. Hyperinflation compatible with COPD. Right upper lobe airspace consolidation with developing air bronchograms felt to reflect pneumonia wh ich is unchanged from prior study. Heart size is stable. Mediastinal structures are stable and grossly unremarkable. No evidence for hilar prominence. Degenerative changes dorsal spine. IMPRESSION: 1. Right upper lobe airspace consolidation with developing air bronchograms felt to reflect pneumonia which is unchanged from prior study.
[2022-06-25 11:55] LABS: Glucose,Whole Blood 125 mg/dL (70-110)
--- NOTE | 2022-06-25 13:23 | P.PN ---
Subjective Progress Note Date: 06/25/22 Principal diagnosis: Acute community-acquired pneumonia I'm seeing this patient in new consultation today 06/23/2022 for community acquired pneumonia. This is a 67-year-old white female with past medical history of sarcoidosis with pulmonary involvement (reportedly in remission), diabetes mellitus type 2, hypertension, fibromyalgia, rheumatoid arthritis, GERD, and is a remote ex-smoker. Denies history of COPD or asthma. Patient reportedly currently follows with Dr. Terry Guzman for management of her sarcoidosis. Patient was previously seen by Dr. Stanley in the office. Patient has been experiencing symptoms of shortness of breath, cough with yellow sputum production, fever, reduced appetite, and weakness for the last 11 days. Denies chest pain or hemoptysis. Patient did have an emergency room visit on June 14 for an upper respiratory tract infection. She was treated on a outpatient basis with a Z-Rudy. Her symptoms have progressively worsened, and she ultimately came back to the emergency room yesterday evening. She is currently sitting up in bed, on room air, in no acute distress. Patient's chest x-ray on arrival showed a right upper lobe pneumonic consolidation. A follow-up enhanced chest CT redemonstrated the new right upper lobe masslike pneumonic consolidation with a posterior right basilar consolidation and/or atelectasis also noted. Patient has been febrile with a T-max of 103.1F. Patient was given one dose of Zosyn in the emergency room. CBC on arrival shows leukocytosis with a WBC count of 30.1, hemoglobin 11.7, hematocrit 35.5, platelets 494,000. BMP shows a sodium 121, potassium 4.5, chloride 85, serum CO2 22, BUN 29, creatinine 1.13, glucose 244. Lactic acid was elevated and is down to 1.9. Negative for influenza, COVID-19, RSV. She received a total of 2 L normal saline bolus and currently has normal saline infusing at 130 ML's per hour. Vital signs are stable. Reevaluated today on06/24/2022, patient is feeling better, breathing easier, less cough and less shortness of breath, and she has improvement in her leukocytosis compared to admission. Patient is now on 3 L nasal cannula O2 sats is 99%. She is hemodynamically stable, WBC count is 22.2 hemoglobin is 10 electrolytes are normal renal profile is normal. Blood cultures are negative so far. Urine Legionella antigen is negative, patient tested negative for influenza A influenza B, RSV and COVID-19. Reevaluated today on 06/25/2022, some improvement but not back to baseline. Continues to have intermittent cough, some wheezing, all workup came back ne gative except she did have a leukocytosis, it is gradually getting better. WBC count today is 14.2. Chest x-ray showed basically showed no change in her right upper lobe and right lower lobe consolidation. It is definitely not any worse. Clinically the patient is feeling better but not back to baseline. I plan to continue treatment for the next 24 maybe next 48 hours, and if she continues to do well clinically may consider discharge planning in the next couple of days. Follow-up on outpatient basis and she was made aware that the chest x-ray findings will lag behind and may take another 2 weeks before we see a significant resolution of her pneumonia. No need for bronchoscopy at this p oint. Objective - Vital Signs Vital signs: Vital Signs Temp 97.9 F 06/25/22 08:00 Pulse 70 06/25/22 12:00 Resp 16 06/25/22 12:00 BP 144/73 06/25/22 12:00 Pulse Ox 93 L 06/25/22 12:00 FiO2 Intake & Output 06/24/22 06/25/22 06/25/22 18:59 06:59 18:59 Intake Total 598 Balance 598 Intake: Oral 598 Other: # Voids 3 1 2 - Exam Physical Exam: Revealed a 67-year-old female pleasant in no distress, O2 saturations 93% on room Head: Atraumatic normocephalic. HEENT:[Neck is supple.] [No neck masses.] [No thyromegaly.] [No JVD.] Chest: [Minimal fine crackles at the bases no rhonchi and no wheezes Cardiac Exam: [Normal S1 and S2, no S3 gallop, no murmur.] Abdomen: [Soft, nontender, no megaly, no rebound, no guarding, normal bowel sounds.] Extremities: [No clubbing, no edema, no cyanosis.] Neurological Exam: [No focal neurologic deficit.] Alert oriented 3. Psychiatric: Normal mood affect and normal mental status examination. Skin: No rash - Labs CBC & Chem 7: 04/27/23 05:43 06/25/22 05:43 Labs: Abnormal Lab Results - Last 24 Hours (Table) 06/24/22 06/24/22 06/25/22 Range/Units 16:26 20:20 05:43 WBC 14.2 H (3.8-10.6) k/uL RBC 3.07 L (3.80-5.40) m/uL Hgb 8.9 L (11.4-16.0) gm/dL Hct 27.8 L (34.0-46.0) % Plt Count 507 H (150-450) k/uL Neutrophils # 12.7 H (1.3-7.7) k/uL Lymphocytes # 0.7 L (1.0-4.8) k/uL Sodium (137-145) mmol/L Glucose (74-99) mg/dL POC Glucose (mg/dL) 286 H 293 H (70-110) mg/dL Calcium (8.4-10.2) mg/dL 06/25/22 06/25/22 06/25/22 Range/Units 05:43 06:21 11:53 WBC (3.8-10.6) k/uL RBC (3.80-5.40) m/uL Hgb (11.4-16.0) gm/dL Hct (34.0-46.0) % Plt Count (150-450) k/uL Neutrophils # (1.3-7.7) k/uL Lymphocytes # (1.0-4.8) k/uL Sodium 134 L (137-145) mmol/L Glucose 258 H (74-99) mg/dL POC Glucose (mg/dL) 264 H 125 H (70-110) mg/dL Calcium 8.0 L (8.4-10.2) mg/dL Microbiology - Last 24 Hours (Table) 06/22/22 20:40 Blood Culture - Preliminary Blood 06/22/22 20:25 Blood Culture - Preliminary Blood Assessment and Plan Assessment: Impression: Acute community-acquired pneumonia Acute hyponatremia, resolved sodium today is 134, possible SIADH related to pneumonia, doubt underlying malignancy. History of quiescent pulmonary sarcoidosis, treated in the past with steroids, and has not required any treatment for many years. History of fibromyalgia Dyslipidemia Type 2 diabetes without complications History of rheumatoid arthritis History of hypothyroidism, on replacement therapy Recommendation: Continue antibiotics/Rocephin and Zithromax Continue bronchodilators. Continue methylprednisolone 40 mg IV push every 8 hours Chest x-ray was reviewed, showed no change in her right upper lobe consolidation in the right lower lobe finding No need for bronchoscopy at this point Consider discharge planning in the next 24-48 hours Should have outpatient follow-up with me in one to 2 weeks post discharge We will continue to follow in the meantime Time with Patient: Less than 30
[2022-06-25 16:37] LABS: Glucose,Whole Blood 230 mg/dL (70-110)
[2022-06-25] MEDS: SODIUM CHLORIDE 0.9% 1,000 ML IV SCH (17:28)
[2022-06-25 19:59] LABS: Glucose,Whole Blood 233 mg/dL (70-110)
[2022-06-25] MEDS: INSULIN DETEMIR (LEVEMIR) 100 UNIT/ML SYR SQ SCH (20:23)
[2022-06-25] MEDS: LATANOPROST 0.005% OPHTH DROPS 2.5 ML BTL BOTH EYES SCH (20:24)
[2022-06-25] MEDS: ATORVASTATIN 20 MG TAB PO SCH (20:24)
[2022-06-26 05:55] LABS: Glucose,Whole Blood 161 mg/dL (70-110)
[2022-06-26] MEDS: INSULIN ASPART (NovoLOG) 100 UNIT/ML VIAL SQ SCH ×4 (05:58→12:20)
--- NOTE | 2022-06-26 06:10 | P.PN ---
Subjective Pleasant 67-year-old female came in with the comments of cough or sputum production and wheezing. Patient is found to have right middle lobe and right lower lobe pneumonia. Patient was taking Z-Rudy at home patient has lactic acidosis patient does take metformin as well. Patient has alert sputum production generalized weakness going on for 11 days. Patient was given prednisone as well patient is hyponatremic secondary to hyperglycemia leading to hyperosmolar hyponatremia as well as a hypovolemic hyponatremia. Patient's serum sodium is 121. Patient is febrile and with a temperature of 103.1 on admission. She was having shortness of breath. 06/24/2022 Patient reports little dyspnea today. No chest pain, no significant cough and phlegm She still have loose stool 1 this morning with no appetite partially improved this morning but no abdominal pain. She still have low-grade fever of 100.4. Leukocytosis improving down to 22,000 and platelet count elevated 500th K, hemoglobin is 10. Sodium improved 121 on 06/22 at 7 PM and 04/01/1934 this morning 06/24 at 9 AM, that's about 13 mEq correction over 38 Hours. On normal saline now and keep monitoring. 4 normal saline. From 100 mL per hour into 50 mL/h on Ceftriaxone and Zithromax. Also she is on Solu-Medrol 40 mg. 06/25/2022 Patient that she feels better. And overall feels better Appetite is better Patient symptoms really not ready for discharge Patient tolerated oxygen 2 L/m and saturating well Patient is able to walk with no difficulty Patient had fever on 06/23, no more fevers since then WBC is 14.2. Platelet count 507, sodium and creatinine are within the reference range Is on Zithromax and ceftriaxone and some Medrol 40 mg Objective - Vital Signs Vital signs: Vital Signs Temp 97.9 F 06/25/22 08:00 Pulse 70 06/25/22 12:00 Resp 16 06/25/22 12:00 BP 144/73 06/25/22 12:00 Pulse Ox 93 L 06/25/22 12:00 FiO2 Intake & Output 06/24/22 06/25/22 06/25/22 18:59 06:59 18:59 Intake Total 598 Balance 598 Intake: Oral 598 Other: # Voids 3 1 2 - Exam GENERAL: The patient is alert and oriented x3, not in any acute distress. Well developed, well nourished. HEENT: Pupils are round and equally reacting to light. EOMI. No scleral icterus. No conjunctival pallor. Normocephalic, atraumatic. No pharyngeal erythema. No thyromegaly. CARDIOVASCULAR: S1 and S2 present. No murmurs, rubs, or gallops. PULMONARY: Chest is clear to auscultation, no wheezing or crackles. ABDOMEN: Soft, nontender, nondistended, normoactive bowel sounds. No palpable organomegaly. MUSCULOSKELETAL: No joint swelling or deformity. EXTREMITIES: No cyanosis, clubbing, or pedal edema. NEUROLOGICAL: Gross neurological examination did not reveal any focal deficits. SKIN: No rashes. no petechiae. - Labs CBC & Chem 7: 06/25/22 05:43 06/25/22 05:43 Labs: Abnormal Lab Results - Last 24 Hours (Table) 06/24/22 06/24/22 06/25/22 Range/Units 16:26 20:20 05:43 WBC 14.2 H (3.8-10.6) k/uL RBC 3.07 L (3.80-5.40) m/uL Hgb 8.9 L (11.4-16.0) gm/dL Hct 27.8 L (34.0-46.0) % Plt Count 507 H (150-450) k/uL Neutrophils # 12.7 H (1.3-7.7) k/uL Lymphocytes # 0.7 L (1.0-4.8) k/uL Sodium (137-145) mmol/L Glucose (74-99) mg/dL POC Glucose (mg/dL) 286 H 293 H (70-110) mg/dL Calcium (8.4-10.2) mg/dL 06/25/22 06/25/22 06/25/22 Range/Units 05:43 06:21 11:53 WBC (3.8-10.6) k/uL RBC (3.80-5.40) m/uL Hgb (11.4-16.0) gm/dL Hct (34.0-46.0) % Plt Count (150-450) k/uL Neutrophils # (1.3-7.7) k/uL Lymphocytes # (1.0-4.8) k/uL Sodium 134 L (137-145) mmol/L Glucose 258 H (74-99) mg/dL POC Glucose (mg/dL) 264 H 125 H (70-110) mg/dL Calcium 8.0 L (8.4-10.2) mg/dL Microbiology - Last 24 Hours (Table) 06/22/22 20:40 Blood Culture - Preliminary Blood 06/22/22 20:25 Blood Culture - Preliminary Blood Assessment and Plan Assessment: -Sepsis is secondary to community acquired pneumonia. Patient is on Rocephin and azithromycin. Continue with normal saline -hyponatremia hyperosmolar hyponatremia , improved -COPD exacerbation, on Solu-Medrol -Hypertension -hyperlipidemia -type 2 diabetes mellitus uncontrolled admitted blood sugars secondary to systemic steroids insulin as mentioned above will obtain hemoglobinA1 C as well -hyperthyroidism -Rheumatoid arthritis -Lactic acidosis , improved back to normal GI prophylaxis: Protonix DVT prophylaxis: Lovenox
[2022-06-26] MEDS: LEVOTHYROXINE 25 MCG TAB PO SCH (06:18)
[2022-06-26] MEDS: PANTOPRAZOLE 40 MG TABLET PO SCH (06:18)
[2022-06-26] MEDS: SYMBICORT 160-4.5 MCG INHALER INHALATION SCH (07:47)
[2022-06-26] MEDS: IPRATROPIUM-ALBUTEROL 3 ML NEB INHALATION SCH ×2 (07:47→11:32)
[2022-06-26 08:10] VITALS: RESP 18; TEMP 97.4
[2022-06-26] MEDS: ENOXAPARIN 40 MG/0.4 ML SYRINGE SQ SCH (08:11)
[2022-06-26] MEDS: DULoxetine HCL 60 MG CAPSULE.DR PO SCH (08:12)
[2022-06-26] MEDS: METOPROLOL SUCCINATE (ER) 25 MG TAB.ER.24H PO SCH (08:12)
[2022-06-26] MEDS: methylPREDNISolone SOD SUCCI 40 MG/ML 1 ML VIAL IV SCH (08:12)
[2022-06-26] MEDS: ASPIRIN 81 MG PO SCH (08:12)
[2022-06-26] MEDS: MAGNESIUM OXIDE 400 MG TAB PO SCH (08:12)
[2022-06-26 11:43] LABS: Glucose,Whole Blood 168 mg/dL (70-110)
[2022-06-26 11:46] VITALS: PULSE 69
[2022-06-26] MEDS ORDERED: lisinopriL 10 MG TAB PO STA (11:50)
--- NOTE | 2022-06-26 13:25 | P.PN ---
Subjective Progress Note Date: 06/26/22 Principal diagnosis: Acute community-acquired pneumonia I'm seeing this patient in new consultation today 06/23/2022 for community acquired pneumonia. This is a 67-year-old white female with past medical history of sarcoidosis with pulmonary involvement (reportedly in remission), diabetes mellitus type 2, hypertension, fibromyalgia, rheumatoid arthritis, GERD, and is a remote ex-smoker. Denies history of COPD or asthma. Patient reportedly currently follows with Dr. Terry Guzman for management of her sarcoidosis. Patient was previously seen by Dr. Stanley in the office. Patient has been experiencing symptoms of shortness of breath, cough with yellow sputum production, fever, reduced appetite, and weakness for the last 11 days. Denies chest pain or hemoptysis. Patient did have an emergency room visit on June 14 for an upper respiratory tract infection. She was treated on a outpatient basis with a Z-Rudy. Her symptoms have progressively worsened, and she ultimately came back to the emergency room yesterday evening. She is currently sitting up in bed, on room air, in no acute distress. Patient's chest x-ray on arrival showed a right upper lobe pneumonic consolidation. A follow-up enhanced chest CT redemonstrated the new right upper lobe masslike pneumonic consolidation with a posterior right basilar consolidation and/or atelectasis also noted. Patient has been febrile with a T-max of 103.1F. Patient was given one dose of Zosyn in the emergency room. CBC on arrival shows leukocytosis with a WBC count of 30.1, hemoglobin 11.7, hematocrit 35.5, platelets 494,000. BMP shows a sodium 121, potassium 4.5, chloride 85, serum CO2 22, BUN 29, creatinine 1.13, glucose 244. Lactic acid was elevated and is down to 1.9. Negative for influenza, COVID-19, RSV. She received a total of 2 L normal saline bolus and currently has normal saline infusing at 130 ML's per hour. Vital signs are stable. Reevaluated today on06/24/2022, patient is feeling better, breathing easier, less cough and less shortness of breath, and she has improvement in her leukocytosis compared to admission. Patient is now on 3 L nasal cannula O2 sats is 99%. She is hemodynamically stable, WBC count is 22.2 hemoglobin is 10 electrolytes are normal renal profile is normal. Blood cultures are negative so far. Urine Legionella antigen is negative, patient tested negative for influenza A influenza B, RSV and COVID-19. Reevaluated today on 06/25/2022, some improvement but not back to baseline. Continues to have intermittent cough, some wheezing, all workup came back ne gative except she did have a leukocytosis, it is gradually getting better. WBC count today is 14.2. Chest x-ray showed basically showed no change in her right upper lobe and right lower lobe consolidation. It is definitely not any worse. Clinically the patient is feeling better but not back to baseline. I plan to continue treatment for the next 24 maybe next 48 hours, and if she continues to do well clinically may consider discharge planning in the next couple of days. Follow-up on outpatient basis and she was made aware that the chest x-ray findings will lag behind and may take another 2 weeks before we see a significant resolution of her pneumonia. No need for bronchoscopy at this p oint. Reevaluated today 06/26/22 , Patient is feeling great, asking to be discharged home, she feels like his back to her baseline. Patient has been afebrile, vital signs are stable, her O2 saturations 96% on room air. No labs done today. Patient will be cleared from our perspective for discharge, and she is to follow-up with me on outpatient basis in one week to 10 days medications on discharge I would recommend a Medrol Dosepak and a course of Levaquin 500 milligrams daily for 7 days Objective - Vital Signs Vital signs: Vital Signs Temp 97.4 F L 06/26/22 08:06 Pulse 69 06/26/22 11:39 Resp 18 06/26/22 11:39 BP 187/94 06/26/22 11:39 Pulse Ox 96 06/26/22 11:39 FiO2 Intake & Output 06/25/22 06/26/22 06/26/22 18:59 06:59 18:59 Intake Total 360 Balance 360 Weight 78.2 kg Intake: Oral 360 Other: Voiding Method Toilet Toilet # Voids 1 1 - Exam Physical Exam: Revealed a 67-year-old female pleasant in no distress, on room air. Head: Atraumatic normocephalic. HEENT:[Neck is supple.] [No neck masses.] [No thyromegaly.] [No JVD.] Chest: [Symmetrical chest expansion, clear breath sound bilaterally no rhonchi crackles or wheezes Cardiac Exam: [Normal S1 and S2, no S3 gallop, no murmur.] Abdomen: [Soft, nontender, no megaly, no rebound, no guarding, normal bowel sounds.] Extremities: [No clubbing, no edema, no cyanosis.] Neurological Exam: [No focal neurologic deficit.] Alert oriented 3. Psychiatric: Normal mood affect and normal mental status examination. Skin: No rash - Labs CBC & Chem 7: 06/25/22 05:43 06/25/22 05:43 Labs: Abnormal Lab Results - Last 24 Hours (Table) 06/25/22 06/25/22 06/26/22 Range/Units 16:36 19:58 05:54 POC Glucose (mg/dL) 230 H 233 H 161 H (70-110) mg/dL 06/26/22 Range/Units 11:41 POC Glucose (mg/dL) 168 H (70-110) mg/dL Microbiology - Last 24 Hours (Table) 06/22/22 20:40 Blood Culture - Preliminary Blood 06/22/22 20:25 Blood Culture - Preliminary Blood Assessment and Plan Assessment: Impression: Acute community-acquired pneumonia Acute hyponatremia, resolved. History of quiescent pulmonary sarcoidosis, treated in the past with steroids, and has not required any treatment for many years. History of fibromyalgia Dyslipidemia Type 2 diabetes without complications History of rheumatoid arthritis History of hypothyroidism, on replacement therapy Recommendation: Clear patient for discharge on Levaquin and Medrol Dosepak Patient to call my office and make appointment in 10 days Time with Patient: Less than 30
[2022-06-26 13:31] VITALS: BP 158/75
[2022-06-27] MEDS ORDERED: methylPREDNISolone 4 MG TAB TAPER PO SCH (09:00)
[2022-06-27] MEDS ORDERED: LEVOFLOXACIN 500 MG TAB PO SCH (10:15)
--- NOTE | 2022-06-29 00:49 | P.DS ---
Providers Date of admission: 06/22/22 21:11 Attending physician: Chacha Zepeda Consults: 06/22/22 21:11 Consult Physician Routine Consulting Provider: Jeanie Wooten Consult Reason/Comments: Pneumonia failed outpatient therapy Do you want consulting provider notified?: Yes, Notify in am [facility] Course: Diagnoses: -Sepsis is secondary to community acquired pneumonia. -hyponatremia hyperosmolar hyponatremia , improved -COPD exacerbation, improved -Hypertension -hyperlipidemia -type 2 diabetes mellitus uncontrolled admitted blood sugars secondary to systemic steroids insulin as mentioned above will obtain hemoglobinA1 C as well -hyperthyroidism -Rheumatoid arthritis -Lactic acidosis , improved back to normal Hospital course: Pleasant 67-year-old female came in with the comments of cough or sputum production and wheezing. Patient is found to have right middle lobe and right lower lobe pneumonia. Patient was taking Z-Rudy at home patient has lactic acidosis . Patient was given prednisone as well patient is hyponatremic secondary to hyperglycemia leading to hyperosmolar hyponatremia as well as a hypovolemic hyponatremia. Patient has been evaluated by pulmonary service she was treated with broad-spectrum antibiotic with ceftriaxone and Zithromax. Also IV Solu-Medrol and IV fluid. Patient showed interval improvement and patient is back to her baseline. She denies chest pain or dyspnea. No new complaint. Patient was cleared for discharge by pulmonary service Patient will be discharged on Levaquin recommendation of pulmonary team, see krystal vicente instructions also tapered prednisone Problems and management plan were discussed with the patient and he verbalized understanding and acceptance Patient was found stable and can be discharged home in guarded prognosis however he needs follow-up as an outpatient. Patient was instructed to follow up with PCP Dr. porter within one week and patient agrees Patient was instructed to follow up with belt sander Dr. damon in 1-2 weeks and she agrees Physical exam Gen: patient is a AAOx3, no distress CVS: S1-S2, RRR, no murmur Lungs: B/L CTA, no wheezing Abdomen: soft, no distention, no tenderness, positive bowel sounds Extremity: no leg edema or induration Time spent more than 35 minutes Plan - Discharge Summary Discharge Rx Participant: Yes New Discharge Prescriptions: New predniSONE 10 mg PO DIRECTED #30 tab Levofloxacin [Levaquin] 500 mg PO Q24H 7 Days #7 tab Acetaminophen Tab [Tylenol] 650 mg PO Q6HR PRN tab PRN Reason: Mild Pain Or Fever > 100.5 Continue Omeprazole [PriLOSEC] 20 mg PO AC-BRKFST Latanoprost Ophth [Xalatan 0.005%] 1 drop BOTH EYES HS DULoxetine HCL [Cymbalta] 60 mg PO DAILY Elderberry Sambucus 1250mg 1 tab PO Q48H Ascorbic Acid [Vitamin C] 500 mg PO DAILY Cholecalciferol [Vitamin D3 (25 Mcg = 1000 Iu)] 50 mcg PO DAILY Magnesium Oxide [Mag-Ox] 250 mg PO Q48H Montelukast [Singulair] 10 mg PO HS Metoprolol Succinate [Toprol XL] 25 mg PO DAILY metFORMIN HCL [Glucophage] 1,000 mg PO BID Cyanocobalamin (Vitamin B-12) [Vitamin B-12] 5,000 mcg PO Q7D L.acidoph,Paracasei, B.lactis [Probiotic] 1 cap PO DAILY Iron Complex 1 cap PO DAILY Cyclobenzaprine [Flexeril] 5 mg PO BID PRN PRN Reason: Muscle Spasm Aspirin EC [Ecotrin Low Dose] 81 mg PO DAILY Fluticasone Propionate [Flovent Hfa 220 mcg] 2 puff INHALATION RT-BID lisinopriL [Zestril] 5 mg PO BID Rosuvastatin [Crestor] 10 mg PO HS Benzocaine/Menthol Lozeng [Cepacol lozenge] 1 lozenge MUCOUS MEM Q4HR PRN PRN Reason: Sore Throat Calcium Citrate/Vitamin D3 [Citracal + D Maximum Caplet] 1 tab PO Q72H Zinc Gluconate [Zinc] 50 mg PO DAILY Ubidecarenone [Co Q-10] 300 mg PO MOFR Multivit-Min/FA/Lycopen/Lutein [Centrum Silver Tablet] 1 tab PO DAILY Butalb/Acetaminophen/Caffeine [Fioricet 50-300-40 mg Capsule] 1 cap PO DAILY PRN PRN Reason: Migraine Headache Levothyroxine Sodium [Synthroid] 25 mcg PO AC-BRKFST Fish Oil/Dha/Epa [Fish Oil 1,200 mg Fish Oil] 1 cap PO DAILY Ondansetron Odt [Zofran ODT] 4 mg PO Q8HR PRN #10 tab PRN Reason: Nausea Albuterol Nebulized [Ventolin Nebulized] 2.5 mg INHALATION RT-QID PRN PRN Reason: Shortness Of Breath Changed Albuterol Inhaler [Ventolin Hfa Inhaler] 2 puff INHALATION RT-QID PRN #1 each PRN Reason: Shortness Of Breath Discontinued Potassium Gluconate [Potassium Gluconate ER] 99 mg PO Q7D Ibuprofen [Motrin] 800 mg PO Q6HR PRN PRN Reason: Pain Levofloxacin [Levaquin] 500 mg PO DAILY Discharge Medication List DULoxetine HCL [Cymbalta] 60 mg PO DAILY 05/09/14 [History] Latanoprost Ophth [Xalatan 0.005%] 1 drop BOTH EYES HS 05/09/14 [History] Omeprazole [PriLOSEC] 20 mg PO AC-BRKFST 05/09/14 [History] Ascorbic Acid [Vitamin C] 500 mg PO DAILY 09/28/19 [History] Cholecalciferol [Vitamin D3 (25 Mcg = 1000 Iu)] 50 mcg PO DAILY 09/28/19 [History] Cyanocobalamin (Vitamin B-12) [Vitamin B-12] 5,000 mcg PO Q7D 09/28/19 [History] Elderberry Sambucus 1250mg 1 tab PO Q48H 09/28/19 [History] Magnesium Oxide [Mag-Ox] 250 mg PO Q48H 09/28/19 [History] Metoprolol Succinate [Toprol XL] 25 mg PO DAILY 09/28/19 [History] Montelukast [Singulair] 10 mg PO HS 09/28/19 [History] metFORMIN HCL [Glucophage] 1,000 mg PO BID 09/28/19 [History] Aspirin EC [Ecotrin Low Dose] 81 mg PO DAILY 03/24/22 [History] Butalb/Acetaminophen/Caffeine [Fioricet 50-300-40 mg Capsule] 1 cap PO DAILY PRN 03/24/22 [History] Calcium Citrate/Vitamin D3 [Citracal + D Maximum Caplet] 1 tab PO Q72H 03/24/22 [History] Cyclobenzaprine [Flexeril] 5 mg PO BID PRN 03/24/22 [History] Fish Oil/Dha/Epa [Fish Oil 1,200 mg Fish Oil] 1 cap PO DAILY 03/24/22 [History] Fluticasone Propionate [Flovent Hfa 220 mcg] 2 puff INHALATION RT-BID 03/24/22 [History] Iron Complex 1 cap PO DAILY 03/24/22 [History] L.acidoph,Paracasei, B.lactis [Probiotic] 1 cap PO DAILY 03/24/22 [History] Levothyroxine Sodium [Synthroid] 25 mcg PO AC-BRKFST 03/24/22 [History] Multivit-Min/FA/Lycopen/Lutein [Centrum Silver Tablet] 1 tab PO DAILY 03/24/22 [History] Ubidecarenone [Co Q-10] 300 mg PO MOFR 03/24/22 [History] Zinc Gluconate [Zinc] 50 mg PO DAILY 03/24/22 [History] lisinopriL [Zestril] 5 mg PO BID 03/24/22 [History] Ondansetron Odt [Zofran ODT] 4 mg PO Q8HR PRN #10 tab 06/14/22 [Rx] Albuterol Nebulized [Ventolin Nebulized] 2.5 mg INHALATION RT-QID PRN 06/22/22 [History] Benzocaine/Menthol Lozeng [Cepacol lozenge] 1 lozenge MUCOUS MEM Q4HR PRN 06/22/22 [History] Rosuvastatin [Crestor] 10 mg PO HS 06/22/22 [History] Acetaminophen Tab [Tylenol] 650 mg PO Q6HR PRN tab 06/26/22 [Rx] Albuterol Inhaler [Ventolin Hfa Inhaler] 2 puff INHALATION RT-QID PRN #1 each 06/26/22 [Rx] Levofloxacin [Levaquin] 500 mg PO Q24H 7 Days #7 tab 06/26/22 [Rx] predniSONE 10 mg PO DIRECTED #30 tab 06/26/22 [Rx] Follow up Appointment(s)/Referral(s): Jeanie Wooten MD [STAFF PHYSICIAN] - 07/09/22 10:30 am Esther Barragan MD [Primary Care Provider] - 1-2 days (please call and make appointment ) Patient Instructions/Handouts: Acute Kidney Injury (DC), Pneumonia (DC) Activity/Diet/Wound Care/Special Instructions: heart healthy low carbohydrate 1600 k debo per day diet activity is restricted till you see your doctor Discharge Disposition: HOME SELF-CARE
== END 2022-06-26 13:35 | disposition home or self-care (01) | DRG 871 ==
LOC: EC 18:50 → 3SCARD 21:11
PROVIDERS: ADMIT Hospitalist; ATTEND Hospitalist
DX: A41.9 Sepsis, unspecified organism (principal); J18.9 Pneumonia, unspecified organism; E87.20 Acidosis, unspecified; J44.1 Chronic obstructive pulmonary disease with (acute) exacerbation; E22.2 Syndrome of inappropriate secretion of antidiuretic hormone; J44.0 Chronic obstructive pulmonary disease with (acute) lower respiratory infection; E11.65 Type 2 diabetes mellitus with hyperglycemia; G89.29 Other chronic pain; M54.9 Dorsalgia, unspecified; E86.1 Hypovolemia; J45.909 Unspecified asthma, uncomplicated; M06.9 Rheumatoid arthritis, unspecified; D86.0 Sarcoidosis of lung; K58.9 Irritable bowel syndrome, unspecified; G43.909 Migraine, unspecified, not intractable, without status migrainosus; E03.9 Hypothyroidism, unspecified; Y95 Nosocomial condition; Z79.890 Hormone replacement therapy; Z20.822 Contact with and (suspected) exposure to COVID-19; Z88.0 Allergy status to penicillin; Z88.2 Allergy status to sulfonamides; Z90.49 Acquired absence of other specified parts of digestive tract; Z86.14 Personal history of Methicillin resistant Staphylococcus aureus infection; Z98.49 Cataract extraction status, unspecified eye; Z87.891 Personal history of nicotine dependence
CPT/HCPCS: 36415; 71046; 71260; 80048; 80053; 83605; 83735; 85025; 85027; 87449; 87636; 94640; 94760; 96361; 96365; 96366; 99285

== ENCOUNTER → 2022-09-14 | Outpatient (CLI) | payer MEDICARE, OTHER ==
[2022-09-14 16:28] LABS: % Iron Saturation 15.17 (12.00-45.00); ALT 21 U/L (8-44); AST 19 U/L (13-35); Albumin 4.6 d/dL (3.8-4.9); Albumin/Globulin Ratio 1.64 Ratio (1.60-3.17); Alkaline Phosphatase 52 U/L (41-126); Blood Urea Nitrogen 19.4 mg/dL (9.0-27.0); Calcium 10.5 mg/dL (8.7-10.3); Carbon Dioxide 28.2 mmol/L (21.6-31.8); Chloride 101 mmol/L (96-109); Chol/HDL Ratio 2.87 Ratio; Ferritin 20.3 ng/mL (10.0-291.0); Globulin 2.8 d/dL (1.6-3.3); Glucose 118 mg/dL (70-110); Iron 71 UG/DL (50-170); LDL Cholesterol,Calculated 127.3 mg/dL (0.0-131.0); Potassium 4.7 mmol/L (3.5-5.5); Sodium 140 mmol/L (135-145); Total Bilirubin 0.3 mg/dL (0.3-1.2); Total Iron Binding Capacity 468 UG/DL (228-460); Total Protein 7.4 d/dL (6.2-8.2); Uric Acid 4.6 mg/dL (2.9-7.7)
[2022-09-14 16:47] LABS: Basophils # (A) 0.06 X 10*3/uL (0.00-0.10); Basophils % (A) 0.9 %; Eosinophils # (A) 0.26 X 10*3/uL (0.04-0.35); Eosinophils % (A) 3.7 %; HCT 41.4 % (37.2-46.3); HGB 13.2 d/dL (12.0-15.0); Lymphocytes # (A) 3.43 X 10*3/uL (0.90-5.00); Lymphocytes % (A) 48.7 %; MCH 29.6 pg (27.0-32.0); MCHC 31.9 d/dL (32.0-37.0); MCV 92.8 FL (80.0-97.0); Mean Platelet Volume 9.5 FL (9.5-12.2); Monocytes # (A) 0.58 X 10*3/uL (0.20-1.00); Monocytes % (A) 8.2 %; NRBC Per 100 WBC 0 X 10*3/uL (0.00-0.01); Neutrophils # (A) 2.69 X 10*3/uL (1.80-7.70); Neutrophils % (A) 38.2 %; Platelet Count 337 X 10*3/uL (140-440); RBC 4.46 X 10*6/uL (4.10-5.20); RDW 13.8 % (11.5-14.5); WBC 7.04 X 10*3/uL (4.50-10.00)
== END | disposition home or self-care (01) ==
LOC: LABWHC1 12:03
PROVIDERS: ATTEND Family Medicine
DX: Z51.81 Encounter for therapeutic drug level monitoring (principal); I10 Essential (primary) hypertension; E78.2 Mixed hyperlipidemia; E11.65 Type 2 diabetes mellitus with hyperglycemia; Z79.4 Long term (current) use of insulin
CPT/HCPCS: 36415; 80053; 80061; 82607; 82728; 82746; 83036; 83540; 83550; 84443; 84550; 85025

== ENCOUNTER 2022-09-17 07:42 | Emergency (ER) | payer MEDICARE, OTHER ==
[2022-09-17 07:53] VITALS: PULSE 81; TEMP 98.5
[2022-09-17] MEDS ORDERED: KETOROLAC 15 MG/ML 1 ML VIAL IVP STA (08:11)
--- NOTE | 2022-09-17 08:25 | ED ---
Extremity Problem HPI - General Chief complaint: Extremity Injury, Lower Stated complaint: L Knee poss Infection Time Seen by Provider: 09/17/22 07:57 Source: patient, RN notes reviewed Mode of arrival: ambulatory Limitations: no limitations - History of Present Illness Initial comments: This is a 67-year-old female who presents to the emergency department for left knee pain. States that she had a scab on her left knee couple of days ago that she scratched off. She then started to develop increasing pain, redness, and swelling to the left knee. States that she has since had difficulty walking due to the pain and her leg feels very stiff. Denies any fevers or chills. Denies any history of any surgeries or prosthetics. Denies any fevers, chills, sore throat, cough, dyspnea, chest pain, palpitations, abdominal pain, nausea, vomiting, diarrhea, back pain, or headaches. MD Complaint: extremity pain, extremity swelling Location: left, lower extremity - Related Data Home Medications Medication Instructions Recorded Confirmed DULoxetine HCL [Cymbalta] 60 mg PO DAILY 05/09/14 06/22/22 Latanoprost Ophth [Xalatan 0.005%] 1 drop BOTH EYES HS 05/09/14 06/22/22 Omeprazole [PriLOSEC] 20 mg PO AC-BRKFST 05/09/14 06/22/22 Ascorbic Acid [Vitamin C] 500 mg PO DAILY 09/28/19 06/22/22 Cholecalciferol [Vitamin D3 (25 50 mcg PO DAILY 09/28/19 06/22/22 Mcg = 1000 Iu)] Cyanocobalamin (Vitamin B-12) 5,000 mcg PO Q7D 09/28/19 06/22/22 [Vitamin B-12] Elderberry Sambucus 1250mg 1 tab PO Q48H 09/28/19 06/22/22 Magnesium Oxide [Mag-Ox] 250 mg PO Q48H 09/28/19 06/22/22 Metoprolol Succinate [Toprol XL] 25 mg PO DAILY 09/28/19 06/22/22 Montelukast [Singulair] 10 mg PO HS 09/28/19 06/22/22 metFORMIN HCL [Glucophage] 1,000 mg PO BID 09/28/19 06/22/22 Aspirin EC [Ecotrin Low Dose] 81 mg PO DAILY 03/24/22 06/22/22 Butalb/Acetaminophen/Caffeine 1 cap PO DAILY PRN 03/24/22 06/22/22 [Fioricet 50-300-40 mg Capsule] Calcium Citrate/Vitamin D3 1 tab PO Q72H 03/24/22 06/22/22 [Citracal + D Maximum Caplet] Cyclobenzaprine [Flexeril] 5 mg PO BID PRN 03/24/22 06/22/22 Fish Oil/Dha/Epa [Fish Oil 1,200 1 cap PO DAILY 03/24/22 06/22/22 mg Fish Oil] Fluticasone Propionate [Flovent 2 puff INHALATION RT-BID 03/24/22 06/22/22 Hfa 220 mcg] Iron Complex 1 cap PO DAILY 03/24/22 06/22/22 L.acidoph,Paracasei, B.lactis 1 cap PO DAILY 03/24/22 06/22/22 [Probiotic] Levothyroxine Sodium [Synthroid] 25 mcg PO AC-BRKFST 03/24/22 06/22/22 Multivit-Min/FA/Lycopen/Lutein 1 tab PO DAILY 03/24/22 06/22/22 [Centrum Silver Tablet] Ubidecarenone [Co Q-10] 300 mg PO MOFR 03/24/22 06/22/22 Zinc Gluconate [Zinc] 50 mg PO DAILY 03/24/22 06/22/22 lisinopriL [Zestril] 5 mg PO BID 03/24/22 06/22/22 Albuterol Nebulized [Ventolin 2.5 mg INHALATION RT-QID PRN 06/22/22 06/22/22 Nebulized] Benzocaine/Menthol Lozeng [Cepacol 1 lozenge MUCOUS MEM Q4HR PRN 06/22/22 06/22/22 lozenge] Rosuvastatin [Crestor] 10 mg PO HS 06/22/22 06/22/22 Previous Rx's Medication Instructions Recorded Ondansetron Odt [Zofran ODT] 4 mg PO Q8HR PRN #10 tab 06/14/22 Acetaminophen Tab [Tylenol] 650 mg PO Q6HR PRN tab 06/26/22 Albuterol Inhaler [Ventolin Hfa 2 puff INHALATION RT-QID PRN #1 06/26/22 Inhaler] each Levofloxacin [Levaquin] 500 mg PO Q24H 7 Days #7 tab 06/26/22 predniSONE 10 mg PO DIRECTED #30 tab 06/26/22 Cephalexin [Keflex] 500 mg PO Q6HR 7 Days #28 cap 09/17/22 Doxycycline [Vibramycin] 100 mg PO BID 7 Days #14 capsule 09/17/22 Ketorolac [Toradol] 10 mg PO Q6HR PRN #15 tab 09/17/22 Allergies Allergy/AdvReac Type Severity Reaction Status Date / Time Penicillins AdvReac Nausea & Verified 06/22/22 21:53 Vomiting Sulfa (Sulfonamide AdvReac Nausea & Verified 06/22/22 21:53 Antibiotics) Vomiting Review of Systems ROS Statement: Those systems with pertinent positive or pertinent negative responses have been documented in the HPI. ROS Other: All systems not noted in ROS Statement are negative. Past Medical History Past Medical History: Diabetes Mellitus, Fibromyalgia, GERD/Reflux, Hypertension, Pneumonia, Rheumatoid Arthritis (RA), Thyroid Disorder Additional Past Medical History / Comment(s): sarcoidosis, ibs, migraines, optic nerve damage, short term memory issues, chronic back pain, keratodermia, urinary incontinence, glaucoma, brain lesion, pulmonary lesion, eye problems, left buttocks cysts/abscess ongoing History of Any Multi-Drug Resistant Organisms: MRSA Date of last positivie culture/infection: unknown MDRO Source:: buttocks Past Surgical History: Appendectomy, Cholecystectomy Additional Past Surgical History / Comment(s): bronchoscopy, laproscopic young removal, cyst removal, cataracts Past Anesthesia/Blood Transfusion Reactions: No Reported Reaction Past Psychological History: Anxiety, Depression Smoking Status: Former smoker Past Alcohol Use History: Rare Past Drug Use History: None Reported - Past Family History Mother Family Medical History: Cancer, Hyperlipidemia Additional Family Medical History / Comment(s): lung cancer Father Family Medical History: Cancer, Diabetes Mellitus, Hyperlipidemia General Exam Limitations: no limitations General appearance: alert, in distress Head exam: Present: atraumatic, normocephalic, normal inspection Respiratory exam: Present: normal lung sounds bilaterally. Absent: respiratory distress, wheezes, rales, rhonchi, stridor Cardiovascular Exam: Present: regular rate, normal rhythm, normal heart sounds. Absent: systolic murmur, diastolic murmur, rubs, gallop, clicks Extremities exam: Present: other (Erythema, tenderness, and swelling over the left patella. Range of motion is limited by pain. 2+ DP and PT pulses. Capillary refill less than 1 second.) Neurological exam: Present: alert, oriented X3, CN II-XII intact Psychiatric exam: Present: normal affect, normal mood Course Vital Signs 09/17/22 09/17/22 07:49 10:59 Temperature 98.5 F Pulse Rate 81 81 Respiratory 18 20 Rate Blood Pressure 147/79 131/78 O2 Sat by Pulse 98 100 Oximetry Medical Decision Making - Medical Decision Making This is a 67 year old female who presents to the emergency department for left knee pain. Was pt. sent in by a medical professional or institution? @ -No Did you speak to anyone other than the patient for history? @ -No Did you review nursing and triage notes? @ -Yes, and I agree, it is accurate with regards to the patient's symptoms. Were old charts reviewed? @ -No Differential Diagnosis? @ -Differential Knee Pain: Fracture, dislocation, OA, cellulitis, gout, septic arthritis EKG interpreted by me (3pts min.)? @ -Not obtained X-rays interpreted by me (1pt min.)? @ -X-ray of the left knee obtained. My interpretation identifies no evidence of subcutaneous gas formation. CT interpreted by me (1pt min.)? @ -Not obtained U/S interpreted by me (1pt. min.)? @ -Not obtained What testing was considered but not performed? (CT, X-rays, U/S, labs)? Why? @ -None What meds were considered but not given? Why? @ -None Did you discuss the management of the patient with other professionals? @ -No Did you reconcile home meds? @ -No Was smoking cessation discussed for >3mins.? @ -No Was critical care preformed (if so, how long)? @ -No Were there social determinants of health that impacted care today? How? (Homelessness, low income, unemployed, alcoholism, drug addiction, transportation, low edu. Level, literacy, decrease access to med. care, [facility], rehab)? @ -No Was there de-escalation of care discussed even if they declined? (Discuss DNR or withdrawal of care, Hospice)? @ -No What co-morbidities impacted this encounter? (DM, HTN, Smoking, COPD, CAD, Cancer, CVA, Hep., AIDS, mental health diagnosis, sleep apnea, morbid obesity)? @ -DM, RA, fibromyalgia Was patient admitted / discharged? @ -Discharged. Lab work obtained revealing leukocytosis and no other actionable findings. CRP is negative. She has only a minor elevation in the ESR at 23. X-ray of the left knee reveals no acute process. Symptoms were well controlled in the emergency department. The area of erythema was marked with a skin marker. Discussed with the patient that the infection appears superficial at this time. However, she'll need to monitor this very closely, as it is over a joint. She was given a dose of ceftriaxone in the emergency department. Prescription for Toradol, Keflex, and doxycycline provided with dosing instructions reviewed. Patient is instructed to take the Toradol with Tylenol if needed and avoid any other [id number] anti-inflammatories such as ibuprofen with the Toradol. Otherwise advised close follow-up with her primary care provider. Undiagnosed new problem with uncertain prognosis? @ -None Drug Therapy requiring intensive monitoring for toxicity (Heparin, Nitro, Insulin, Cardizem)? @ -None Were any procedures done? @ -None Diagnosis/symptom? @ -Left knee cellulitis Acute, or Chronic, or Acute on Chronic? @ -Acute Uncomplicated (without systemic symptoms) or Complicated (systemic symptoms)? @ -Uncomplicated Side effects of treatment? @ -None Exacerbation, Progression, or Severe Exacerbation] @ -Not applicable Poses a threat to life or bodily function? @ -No Return precautions reviewed in depth, the patient is instructed to return to the emergency department with any new, worsening, or concerning symptoms. Patient verbalized understanding. This case was discussed in detail with the attending ED physician, Dr. Bennett. Presentation, findings, and treatment plan discussed in detail as well. - Lab Data Result diagrams: 09/17/22 08:19 09/17/22 08:19 Lab Results 09/17/22 09/17/22 09/17/22 Range/Units 08:19 08:19 08:19 WBC 14.5 H (3.8-10.6) k/uL RBC 4.26 (3.80-5.40) m/uL Hgb 12.7 (11.4-16.0) gm/dL Hct 39.7 (34.0-46.0) % MCV 93.1 (80.0-100.0) fL MCH 29.7 (25.0-35.0) pg MCHC 32.0 (31.0-37.0) g/dL RDW 14.2 (11.5-15.5) % Plt Count 312 (150-450) k/uL MPV 7.6 Neutrophils % 74 % Lymphocytes % 17 % Monocytes % 5 % Eosinophils % 2 % Basophils % 0 % Neutrophils # 10.7 H (1.3-7.7) k/uL Lymphocytes # 2.5 (1.0-4.8) k/uL Monocytes # 0.8 (0-1.0) k/uL Eosinophils # 0.3 (0-0.7) k/uL Basophils # 0.1 (0-0.2) k/uL ESR 23 H (0-20) mm/hr Sodium 135 L (137-145) mmol/L Potassium 5.0 (3.5-5.1) mmol/L Chloride 98 (98-107) mmol/L Carbon Dioxide 27 (22-30) mmol/L Anion Gap 10 mmol/L BUN 25 H (7-17) mg/dL Creatinine 0.98 (0.52-1.04) mg/dL Est GFR (CKD-EPI)AfAm 69 (>60 ml/min/1.73 sqM) Est GFR (CKD-EPI)NonAf 59 (>60 ml/min/1.73 sqM) Glucose 206 H (74-99) mg/dL Plasma Lactic Acid Tay 1.7 (0.7-2.0) mmol/L Calcium 9.6 (8.4-10.2) mg/dL Total Bilirubin 0.5 (0.2-1.3) mg/dL AST 24 (14-36) U/L ALT 25 (4-34) U/L Alkaline Phosphatase 44 (38-126) U/L C-Reactive Protein <0.5 (<1.0) mg/dL Total Protein 7.5 (6.3-8.2) g/dL Albumin 4.3 (3.5-5.0) g/dL - Radiology Data Radiology results: report reviewed, image reviewed Disposition Clinical Impression: Cellulitis of left knee Disposition: HOME SELF-CARE Instructions (If sedation given, give patient instructions): Cellulitis (ED) Additional Instructions: Return to the emergency department with any new, worsening, or concerning symptoms. Take the Keflex and doxycycline as prescribed for 7 days. Take the Toradol with Tylenol as needed for pain relief. Do not take any other fyhm-sod-hpxxwgz anti-inflammatories such as ibuprofen if you choose to take the Toradol. Follow up with your primary care provider in 1-2 days. Prescriptions: Cephalexin [Keflex] 500 mg PO Q6HR 7 Days #28 cap Ketorolac [Toradol] 10 mg PO Q6HR PRN #15 tab PRN Reason: Pain Doxycycline [Vibramycin] 100 mg PO BID 7 Days #14 capsule Is patient prescribed a controlled substance at d/c from ED?: No Referrals: Esther Barragan MD [Primary Care Provider] - 1-2 days
[2022-09-17] MEDS ORDERED: MORPHINE SULFATE 2 MG/ML SYRINGE IVP STA (08:27)
--- NOTE | 2022-09-17 08:36 | XR ---
EXAMINATION TYPE: XR knee complete LT DATE OF EXAM: 09/17/2022 CLINICAL HISTORY: pain TECHNIQUE: Three views of the left knee are obtained. COMPARISON: None. FINDINGS: There is no acute fracture/dislocation. The tri-compartment joint spaces appear within no rmal limits. The overlying soft tissue appears unremarkable. IMPRESSION: There is no acute fracture or dislocation ICD 10 NO FRACTURE, INITIAL EVALUATION
[2022-09-17 08:49] LABS: Basophils # (A) 0.1 k/uL (0-0.2); Basophils % (A) 0 %; Eosinophils # (A) 0.3 k/uL (0-0.7); Eosinophils % (A) 2 %; HCT 39.7 % (34.0-46.0); HGB 12.7 gm/dL (11.4-16.0); Lymphocytes # (A) 2.5 k/uL (1.0-4.8); Lymphocytes % (A) 17 %; MCH 29.7 pg (25.0-35.0); MCV 93.1 fL (80.0-100.0); Mean Platelet Volume 7.6; Monocytes # (A) 0.8 k/uL (0-1.0); Monocytes % (A) 5 %; Neutrophils # (A) 10.7 k/uL (1.3-7.7); Neutrophils % (A) 74 %; Platelet Count 312 k/uL (150-450); RBC 4.26 m/uL (3.80-5.40); RDW 14.2 % (11.5-15.5); WBC 14.5 k/uL (3.8-10.6)
[2022-09-17 09:00] LABS: ALT 25 U/L (4-34); AST 24 U/L (14-36); African American GFR (CKD) 69 (>60 ml/min/1.73 sqM); Albumin 4.3 g/dL (3.5-5.0); Alkaline Phosphatase 44 U/L (38-126); Anion Gap 10 mmol/L; Blood Urea Nitrogen 25 mg/dL (7-17); Calcium 9.6 mg/dL (8.4-10.2); Carbon Dioxide 27 mmol/L (22-30); Chloride 98 mmol/L (98-107); Glucose 206 mg/dL (74-99); Non-African American GFR(CKD) 59 (>60 ml/min/1.73 sqM); Sodium 135 mmol/L (137-145); Total Bilirubin 0.5 mg/dL (0.2-1.3); Total Protein 7.5 g/dL (6.3-8.2)
[2022-09-17 10:21] LABS: C Reactive Protein <0.5 mg/dL (<1.0)
[2022-09-17] MEDS ORDERED: cefTRIAXone IN SWFI 1,000 MG/10 ML SYRINGE IVP STA (10:22)
[2022-09-17] MEDS ORDERED: ACET/COD 300 MG/30 MG STARTER PACK 6 TAB BTL PO STA (10:41)
[2022-09-17 10:45] LABS: Erythrocyte Sedimentation Rate 23 mm/hr (0-20)
[2022-09-17] MEDS ORDERED: HYDROmorphone 0.5 MG/0.5 ML SYRINGE IVP STA (10:51)
[2022-09-17 11:01] VITALS: BP 131/78; RESP 20
== END 2022-09-17 11:25 | disposition home or self-care (01) ==
LOC: EC 07:42
DX: L03.116 Cellulitis of left lower limb (principal); E11.36 Type 2 diabetes mellitus with diabetic cataract; I10 Essential (primary) hypertension; K21.9 Gastro-esophageal reflux disease without esophagitis; E07.9 Disorder of thyroid, unspecified; M79.7 Fibromyalgia; M06.9 Rheumatoid arthritis, unspecified; F32.A Depression, unspecified; F41.9 Anxiety disorder, unspecified; Z79.890 Hormone replacement therapy; Z79.82 Long term (current) use of aspirin; Z79.51 Long term (current) use of inhaled steroids; Z79.84 Long term (current) use of oral hypoglycemic drugs; Z79.899 Other long term (current) drug therapy; Z88.0 Allergy status to penicillin; Z88.2 Allergy status to sulfonamides; Z87.891 Personal history of nicotine dependence
CPT/HCPCS: 36415; 80053; 85652; 83605; 85025; 86140; 73562; 99284; 96374; 96375 ×3; J0696; J2270; J1885; J1170

== ENCOUNTER 2022-11-11 20:14 | Emergency (ER) | payer MEDICARE, OTHER ==
[2022-11-11] MEDS ORDERED: CLINDAMYCIN 150 MG CAP PO STA (21:22)
--- NOTE | 2022-11-11 21:22 | ED ---
Skin/Abscess/FB HPI - General Chief complaint: Skin/Abscess/Foreign Body Stated complaint: left eye swollen Time Seen by Provider: 11/11/22 21:12 Source: patient Mode of arrival: ambulatory Limitations: no limitations - History of Present Illness Initial comments: 67-year-old female presenting with chief complaint of painful bump over the left eyebrow. Symptoms have been present for the last 3 days. She has noted increasing pain and swelling. History of diabetes. Patient states that she had some leftover Keflex at home and attempted taking it yesterday. Has been taking Tylenol as needed. No vision changes or difficulty with eye movement. No fevers or chills. No nausea or vomiting. No neck pain. - Related Data Home Medications Medication Instructions Recorded Confirmed DULoxetine HCL [Cymbalta] 60 mg PO DAILY 05/09/14 06/22/22 Latanoprost Ophth [Xalatan 0.005%] 1 drop BOTH EYES HS 05/09/14 06/22/22 Omeprazole [PriLOSEC] 20 mg PO AC-BRKFST 05/09/14 06/22/22 Ascorbic Acid [Vitamin C] 500 mg PO DAILY 09/28/19 06/22/22 Cholecalciferol [Vitamin D3 (25 50 mcg PO DAILY 09/28/19 06/22/22 Mcg = 1000 Iu)] Cyanocobalamin (Vitamin B-12) 5,000 mcg PO Q7D 09/28/19 06/22/22 [Vitamin B-12] Elderberry Sambucus 1250mg 1 tab PO Q48H 09/28/19 06/22/22 Magnesium Oxide [Mag-Ox] 250 mg PO Q48H 09/28/19 06/22/22 Metoprolol Succinate [Toprol XL] 25 mg PO DAILY 09/28/19 06/22/22 Montelukast [Singulair] 10 mg PO HS 09/28/19 06/22/22 metFORMIN HCL [Glucophage] 1,000 mg PO BID 09/28/19 06/22/22 Aspirin EC [Ecotrin Low Dose] 81 mg PO DAILY 03/24/22 06/22/22 Butalb/Acetaminophen/Caffeine 1 cap PO DAILY PRN 03/24/22 06/22/22 [Fioricet 50-300-40 mg Capsule] Calcium Citrate/Vitamin D3 1 tab PO Q72H 03/24/22 06/22/22 [Citracal + D Maximum Caplet] Cyclobenzaprine [Flexeril] 5 mg PO BID PRN 03/24/22 06/22/22 Fish Oil/Dha/Epa [Fish Oil 1,200 1 cap PO DAILY 03/24/22 06/22/22 mg Fish Oil] Fluticasone Propionate [Flovent 2 puff INHALATION RT-BID 03/24/22 06/22/22 Hfa 220 mcg] Iron Complex 1 cap PO DAILY 03/24/22 06/22/22 L.acidoph,Paracasei, B.lactis 1 cap PO DAILY 03/24/22 06/22/22 [Probiotic] Levothyroxine Sodium [Synthroid] 25 mcg PO AC-BRKFST 03/24/22 06/22/22 Multivit-Min/FA/Lycopen/Lutein 1 tab PO DAILY 03/24/22 06/22/22 [Centrum Silver Tablet] Ubidecarenone [Co Q-10] 300 mg PO MOFR 03/24/22 06/22/22 Zinc Gluconate [Zinc] 50 mg PO DAILY 03/24/22 06/22/22 lisinopriL [Zestril] 5 mg PO BID 03/24/22 06/22/22 Albuterol Nebulized [Ventolin 2.5 mg INHALATION RT-QID PRN 06/22/22 06/22/22 Nebulized] Benzocaine/Menthol Lozeng [Cepacol 1 lozenge MUCOUS MEM Q4HR PRN 06/22/22 06/22/22 lozenge] Rosuvastatin [Crestor] 10 mg PO HS 06/22/22 06/22/22 Previous Rx's Medication Instructions Recorded Ondansetron Odt [Zofran ODT] 4 mg PO Q8HR PRN #10 tab 06/14/22 Acetaminophen Tab [Tylenol] 650 mg PO Q6HR PRN tab 06/26/22 Albuterol Inhaler [Ventolin Hfa 2 puff INHALATION RT-QID PRN #1 06/26/22 Inhaler] each Levofloxacin [Levaquin] 500 mg PO Q24H 7 Days #7 tab 06/26/22 predniSONE 10 mg PO DIRECTED #30 tab 06/26/22 Cephalexin [Keflex] 500 mg PO Q6HR 7 Days #28 cap 09/17/22 Doxycycline [Vibramycin] 100 mg PO BID 7 Days #14 capsule 09/17/22 Ketorolac [Toradol] 10 mg PO Q6HR PRN #15 tab 09/17/22 clindamycin HCL 300 mg PO QID #40 cap 09/19/22 clindamycin HCL [Cleocin] 450 mg PO TID 7 Days #63 cap 11/11/22 Allergies Allergy/AdvReac Type Severity Reaction Status Date / Time Penicillins AdvReac Nausea & Verified 11/11/22 20:22 Vomiting Sulfa (Sulfonamide AdvReac Nausea & Verified 11/11/22 20:22 Antibiotics) Vomiting Review of Systems ROS Statement: Those systems with pertinent positive or pertinent negative responses have been documented in the HPI. ROS Other: All systems not noted in ROS Statement are negative. Past Medical History Past Medical History: Diabetes Mellitus, Fibromyalgia, GERD/Reflux, Hypertension, Pneumonia, Rheumatoid Arthritis (RA), Thyroid Disorder Additional Past Medical History / Comment(s): sarcoidosis, ibs, migraines, optic nerve damage, short term memory issues, chronic back pain, keratodermia, urinary incontinence, glaucoma, brain lesion, pulmonary lesion, eye problems, left buttocks cysts/abscess ongoing History of Any Multi-Drug Resistant Organisms: MRSA Date of last positivie culture/infection: unknown MDRO Source:: buttocks Past Surgical History: Appendectomy, Cholecystectomy Additional Past Surgical History / Comment(s): bronchoscopy, laproscopic young removal, cyst removal, cataracts Past Anesthesia/Blood Transfusion Reactions: No Reported Reaction Past Psychological History: Anxiety, Depression Smoking Status: Former smoker Past Alcohol Use History: Rare Past Drug Use History: None Reported - Past Family History Mother Family Medical History: Cancer, Hyperlipidemia Additional Family Medical History / Comment(s): lung cancer Father Family Medical History: Cancer, Diabetes Mellitus, Hyperlipidemia General Exam Limitations: no limitations General appearance: alert, in no apparent distress Head exam: Present: atraumatic, normocephalic, normal inspection Eye exam: Present: normal appearance, EOMI Neck exam: Present: normal inspection, full ROM Respiratory exam: Absent: respiratory distress Neurological exam: Present: alert, oriented X3, CN II-XII intact Psychiatric exam: Present: normal affect, normal mood Expanded Type of lesion: Present: abscess (Small area of erythema and induration over the left eyebrow) Course Vital Signs 11/11/22 20:19 Temperature 98 F Pulse Rate 95 Respiratory 18 Rate Blood Pressure 132/79 O2 Sat by Pulse 97 Oximetry Medical Decision Making - Medical Decision Making Was pt. sent in by a medical professional or institution ([facility]ALY Jc, [employer], urgent care, hospital, or intermediate...) When possible be specific @ -[No] Did you speak to anyone other than the patient for history (EMS, parent, family, police, friend...)? What history was obtained from this source @ -[No] Did you review nursing and triage notes (agree or disagree)? Why? @ -[I reviewed and agree with nursing and triage notes] Were old charts reviewed (outside hosp., previous admission, EMS record, old EKG, old radiological studies, urgent care reports/EKG's, intermediate records)? Report findings @ -[No old charts were reviewed] Differential Diagnosis (chest pain, altered mental status, abdominal pain women, abdominal pain men, vaginal bleeding, weakness, fever, dyspnea, syncope, headache, dizziness, GI bleed, back pain, seizure, CVA, palpatations, mental health, musculoskeletal)? @ -Differential includes cellulitis, abscess, this is not an all inclusive list EKG interpreted by me (3pts min.). @ -[As above] X-rays interpreted by me (1pt min.). @ -[None done] CT interpreted by me (1pt min.). @ -[None done] U/S interpreted by me (1pt. min.). @ -[None done] What testing was considered but not performed or refused? (CT, X-rays, U/S, labs)? Why? @ -[None] What meds were considered but not given or refused? Why? @ -[None] Did you discuss the management of the patient with other professionals (professionals i.e. [facility]AL[facility] Jc, [employer] W[employer]ER, lab, RT, psych nurse, forensic social worker, building custodian, teacher, flight communications officer, piano case maker)? Give summary @ -[No] Was smoking cessation discussed for >3mins.? @ -[No] Was critical care preformed (if so, how long)? @ -[No] Were there social determinants of health that impacted care today? How? (Homeles sness, low income, unemployed, alcoholism, drug addiction, transportation, low edu. Level, literacy, decrease access to med. care, skilled nursing, rehab)? @ -[No] Was there de-escalation of care discussed even if they declined (Discuss DNR or withdrawal of care, Hospice)? DNR status @ -[No] What co-morbidities impacted this encounter? (DM, HTN, Smoking, COPD, CAD, Cancer, CVA, ARF, Chemo, Hep., AIDS, mental health diagnosis, sleep apnea, morbid obesity)? @ -[None] Was patient admitted / discharged? Hospital course, mention meds given and route, prescriptions, significant lab abnormalities, going to OR and other pertinent info. @ -67-year-old female presented chief complaint of pain and swelling over the left eyebrow. On physical examination there appears to be small abscess, area is indurated and erythematous. Patient is started on clindamycin due to Bactrim ALLERGY. Educated on wound care. Follow-up with PCP. Report back to ER with any new or worsening symptoms. Discussed return parameters and answered all questions. Patient conveyed verbal understanding and agreed to the plan. I discussed this case in detail with my attending Dr. Arias Undiagnosed new problem with uncertain prognosis? @ -[No] Drug Therapy requiring intensive monitoring for toxicity (Heparin, Nitro, Insulin, Cardizem)? @ -[No] Were any procedures done? @ -[No] Diagnosis/symptom? @ -Facial abscess Acute, or Chronic, or Acute on Chronic? @ -acute Uncomplicated (without systemic symptoms) or Complicated (systemic symptoms)? @ -Uncomplicated Side effects of treatment? @ -[No] Exacerbation, Progression, or Severe Exacerbation? @ -[No] Poses a threat to life or bodily function? How? (Chest pain, [place], [place], pneumonia, PE, COPD, DKA, ARF, appy, cholecystitis, CVA, Diverticulitis, Homicidal, Suicidal, threat to staff... and all critical care pts) @ -[No] Disposition Clinical Impression: Facial abscess Disposition: HOME SELF-CARE Condition: Good Instructions (If sedation given, give patient instructions): Abscess (ED) Additional Instructions: Follow-up with PCP. Report back to ER with any new or worsening symptoms. Take medication as prescribed. Use warm compresses 3 times daily to help express infection. Prescriptions: clindamycin HCL [Cleocin] 450 mg PO TID 7 Days #63 cap Is patient prescribed a controlled substance at d/c from ED?: No Referrals: Esther Barragan MD [Primary Care Provider] - 1-2 days Time of Disposition: 21:22
[2022-11-12 15:48] VITALS: BP 132/79; PULSE 95; RESP 18; TEMP 98
== END 2022-11-11 21:41 | disposition home or self-care (01) ==
LOC: EC 20:14
DX: L02.01 Cutaneous abscess of face (principal); E11.9 Type 2 diabetes mellitus without complications; K21.9 Gastro-esophageal reflux disease without esophagitis; I10 Essential (primary) hypertension; E07.9 Disorder of thyroid, unspecified; Z86.59 Personal history of other mental and behavioral disorders; Z87.891 Personal history of nicotine dependence; Z79.890 Hormone replacement therapy; Z88.0 Allergy status to penicillin; Z88.2 Allergy status to sulfonamides; Z79.82 Long term (current) use of aspirin; Z79.84 Long term (current) use of oral hypoglycemic drugs; Z88.1 Allergy status to other antibiotic agents; Z90.49 Acquired absence of other specified parts of digestive tract
CPT/HCPCS: 99283

== ENCOUNTER → 2023-05-11 | Outpatient (CLI) | payer MEDICARE, OTHER ==
--- NOTE | 2023-05-12 18:32 | MM ---
Reason for Exam: Screening (asymptomatic). Last screening mammogram was performed 12 month(s) ago. Patient History: Menarche at age 11. First Full-Term at age 25. Postmenopausal. Hormonal Contraceptives for 6 months. Benign Stereotactic Core Biopsy on the left side. Excisional Biopsy on the Right side. Paternal grandmother had breast cancer. Risk Values: Bing 5 year model risk: 2.9%. NCI Lifetime model risk: 8.7%. Prior Study Comparison: 04/25/2020 Bilateral Screening Mammogram, [facility]. 04/30/2021 Bilateral Screening Mammogram, [facility]. 05/01/2022 Bilateral MG 3D screening mammo w/cad, [facility]. Tissue Density: There are scattered areas of fibroglandular density. Findings: Analyzed By CAD. Unchanged bilateral asymmetric densities. Microclip left breast from prior biopsy. There is no suspicious group of microcalcifications or new suspicious mass in either breast. Overall Assessment: Benign, BI-RAD 2 Management: Screening Mammogram of both breasts in 1 year. See note below in regards to patient's increased 5 year Bing score . Patient should continue monthly self-breast exams. A clinical breast exam by your physician is recommended on an annual basis. This exam should not preclude additional follow-up of suspicious palpable abnormalities. Note on Bing scores and lifetime risk: 1. A Bing score greater than 3% is considered moderate risk. If this is the case, consider specialist referral to assess eligibility for a risk reducing agent. 2. If overall lifetime risk for the development of breast cancer is 20% or higher, the patient may qualify for future screening with alternating mammogram and breast MRI. Electronically signed and approved by: Rosie Avitia M.D. Radiologist
== END | disposition home or self-care (01) ==
LOC: RADMAMWWP 14:25
PROVIDERS: ATTEND Family Medicine
DX: Z12.31 Encounter for screening mammogram for malignant neoplasm of breast (principal); Z78.0 Asymptomatic menopausal state; Z80.3 Family history of malignant neoplasm of breast
CPT/HCPCS: 77063; 77067

== ENCOUNTER 2023-09-03 22:21 | Emergency (ER) | payer MEDICARE, OTHER ==
[2023-09-03 22:37] VITALS: TEMP 97.8
[2023-09-03] MEDS: KETOROLAC 15 MG/ML 1 ML VIAL IVP STA (23:31)
[2023-09-03] MEDS: HYDROmorphone 0.5 MG/0.5 ML SYRINGE IVP STA (23:31)
[2023-09-03] MEDS: ONDANSETRON 4 MG/2 ML VIAL IVP STA (23:31)
[2023-09-04] MEDS: ORPHENADRINE 30 MG/ML 2 ML VIAL IVP STA (00:56)
--- NOTE | 2023-09-04 01:13 | ED ---
Extremity Problem HPI - General Chief complaint: Extremity Problem,Nontraumatic Stated complaint: Left Leg and Tailbone Pain Time Seen by Provider: 09/03/23 22:27 Source: patient Mode of arrival: ambulatory Limitations: no limitations - History of Present Illness Initial comments: 68-year-old female presenting with chief complaint of left leg pain. Patient states that for the last 2 days she has had pain behind her left thigh. Worse with bearing weight or changing position. Does radiate to the groin at times. Also radiates into the calf. No swelling, chest pain, difficulty breathing, history of blood clots. No discoloration. No injury or trauma. No numbness tingling or weakness. She does have chronic back and hip pain but states that this feels somewhat different. - Related Data Home Medications Medication Instructions Recorded Confirmed DULoxetine HCL [Cymbalta] 60 mg PO DAILY 05/09/14 06/22/22 Latanoprost Ophth [Xalatan 0.005%] 1 drop BOTH EYES HS 05/09/14 06/22/22 Omeprazole [PriLOSEC] 20 mg PO AC-BRKFST 05/09/14 06/22/22 Ascorbic Acid [Vitamin C] 500 mg PO DAILY 09/28/19 06/22/22 Cholecalciferol [Vitamin D3 (25 50 mcg PO DAILY 09/28/19 06/22/22 Mcg = 1000 Iu)] Cyanocobalamin (Vitamin B-12) 5,000 mcg PO Q7D 09/28/19 06/22/22 [Vitamin B-12] Elderberry Sambucus 1250mg 1 tab PO Q48H 09/28/19 06/22/22 Magnesium Oxide [Mag-Ox] 250 mg PO Q48H 09/28/19 06/22/22 Metoprolol Succinate [Toprol XL] 25 mg PO DAILY 09/28/19 06/22/22 Montelukast [Singulair] 10 mg PO HS 09/28/19 06/22/22 metFORMIN HCL [Glucophage] 1,000 mg PO BID 09/28/19 06/22/22 Aspirin EC [Ecotrin Low Dose] 81 mg PO DAILY 03/24/22 06/22/22 Butalb/Acetaminophen/Caffeine 1 cap PO DAILY PRN 03/24/22 06/22/22 [Fioricet 50-300-40 mg Capsule] Calcium Citrate/Vitamin D3 1 tab PO Q72H 03/24/22 06/22/22 [Citracal + D Maximum Caplet] Cyclobenzaprine [Flexeril] 5 mg PO BID PRN 03/24/22 06/22/22 Fish Oil/Dha/Epa [Fish Oil 1,200 1 cap PO DAILY 03/24/22 06/22/22 mg Fish Oil] Fluticasone Propionate [Flovent 2 puff INHALATION RT-BID 03/24/22 06/22/22 Hfa 220 mcg] Iron Complex 1 cap PO DAILY 03/24/22 06/22/22 L.acidoph,Paracasei, B.lactis 1 cap PO DAILY 03/24/22 06/22/22 [Probiotic] Levothyroxine Sodium [Synthroid] 25 mcg PO AC-BRKFST 03/24/22 06/22/22 Multivit-Min/FA/Lycopen/Lutein 1 tab PO DAILY 03/24/22 06/22/22 [Centrum Silver Tablet] Ubidecarenone [Co Q-10] 300 mg PO MOFR 03/24/22 06/22/22 Zinc Gluconate [Zinc] 50 mg PO DAILY 03/24/22 06/22/22 lisinopriL [Zestril] 5 mg PO BID 03/24/22 06/22/22 Albuterol Nebulized [Ventolin 2.5 mg INHALATION RT-QID PRN 06/22/22 06/22/22 Nebulized] Benzocaine/Menthol Lozeng [Cepacol 1 lozenge MUCOUS MEM Q4HR PRN 06/22/22 06/22/22 lozenge] Rosuvastatin [Crestor] 10 mg PO HS 06/22/22 06/22/22 Previous Rx's Medication Instructions Recorded Ondansetron Odt [Zofran ODT] 4 mg PO Q8HR PRN #10 tab 06/14/22 Acetaminophen Tab [Tylenol] 650 mg PO Q6HR PRN tab 06/26/22 Albuterol Inhaler [Ventolin Hfa 2 puff INHALATION RT-QID PRN #1 06/26/22 Inhaler] each Levofloxacin [Levaquin] 500 mg PO Q24H 7 Days #7 tab 04/28/23 predniSONE 10 mg PO DIRECTED #30 tab 06/26/22 Cephalexin [Keflex] 500 mg PO Q6HR 7 Days #28 cap 09/17/22 Doxycycline [Vibramycin] 100 mg PO BID 7 Days #14 capsule 09/17/22 Ketorolac [Toradol] 10 mg PO Q6HR PRN #15 tab 09/17/22 clindamycin HCL 300 mg PO QID #40 cap 09/19/22 clindamycin HCL [Cleocin] 450 mg PO TID 7 Days #63 cap 11/11/22 HYDROcodone/APAP 7.5-325MG [Lemmon 1 tab PO Q6HR PRN 3 Days #12 tab 09/04/23 7.5-325] Allergies Allergy/AdvReac Type Severity Reaction Status Date / Time Penicillins AdvReac Nausea & Verified 09/03/23 22:26 Vomiting Sulfa (Sulfonamide AdvReac Nausea & Verified 09/03/23 22:26 Antibiotics) Vomiting Review of Systems ROS Statement: Those systems with pertinent positive or pertinent negative responses have been documented in the HPI. ROS Other: All systems not noted in ROS Statement are negative. Past Medical History Past Medical History: Diabetes Mellitus, Fibromyalgia, GERD/Reflux, Hypertension, Pneumonia, Rheumatoid Arthritis (RA), Thyroid Disorder Additional Past Medical History / Comment(s): sarcoidosis, ibs, migraines, optic nerve damage, short term memory issues, chronic back pain, keratodermia, urinary incontinence, glaucoma, brain lesion, pulmonary lesion, eye problems, left buttocks cysts/abscess ongoing History of Any Multi-Drug Resistant Organisms: MRSA Date of last positivie culture/infection: unknown MDRO Source:: buttocks Past Surgical History: Appendectomy, Cholecystectomy Additional Past Surgical History / Comment(s): bronchoscopy, laproscopic young removal, cyst removal, cataracts Past Anesthesia/Blood Transfusion Reactions: No Reported Reaction Past Psychological History: Anxiety, Depression Smoking Status: Former smoker Past Alcohol Use History: Rare Past Drug Use History: None Reported - Past Family History Mother Family Medical History: Cancer, Hyperlipidemia Additional Family Medical History / Comment(s): lung cancer Father Family Medical History: Cancer, Diabetes Mellitus, Hyperlipidemia General Exam Limitations: no limitations General appearance: alert, in no apparent distress Head exam: Present: atraumatic, normocephalic Eye exam: Present: normal appearance, EOMI Neck exam: Present: normal inspection. Absent: meningismus Respiratory exam: Absent: respiratory distress Cardiovascular Exam: Present: regular rate Left Upper Leg exam: Present: normal inspection, full ROM, tenderness Knee exam: Present: normal inspection, full ROM. Absent: tenderness Lower Leg exam: Present: normal inspection, full ROM. Absent: tenderness Neurovascular tendon exam: Present: no vascular compromise (2+ pedal pulse) Neurological exam: Present: alert, oriented X3 Psychiatric exam: Present: normal affect, normal mood Skin exam: Present: warm, dry Course Vital Signs 09/03/23 09/03/23 09/03/23 22:22 22:26 23:26 Temperature 97.8 F Pulse Rate 79 68 70 Respiratory 19 16 18 Rate Blood Pressure 148/81 155/83 146/72 O2 Sat by Pulse 96 98 99 Oximetry Medical Decision Making - Medical Decision Making Was pt. sent in by a medical professional or institution ([facility], ASSISTANT DIRECTOR OF SECURITY, urgent care, hospital, or skilled nursing...) When possible be specific @ -No Did you speak to anyone other than the patient for history (EMS, parent, family, police, friend...)? What history was obtained from this source @ -No Did you review nursing and triage notes (agree or disagree)? Why? @ -I reviewed and agree with nursing and triage notes Were old charts reviewed (outside hosp., previous admission, EMS record, old EKG, old radiological studies, urgent care reports/EKG's, skilled nursing records)? Report findings @ -No old charts were reviewed Differential Diagnosis (chest pain, altered mental status, abdominal pain women, abdominal pain men, vaginal bleeding, weakness, fever, dyspnea, syncope, headache, dizziness, GI bleed, back pain, seizure, CVA, palpatations, mental health, musculoskeletal)? @ -Differential Musculoskeletal Muscular strain, contusion, ligament sprain, fracture, arthritis, septic arthritis, bursitis, cellulitis, muscle spasm, nerve compression, DVT, arterial occlusion, herpes zoster, electrolyte abnormality, tumor.... This is not meant to be in all inclusive list EKG interpreted by me (3pts min.). @ -As above X-rays interpreted by me (1pt min.). @ -None done CT interpreted by me (1pt min.). @ -None done U/S interpreted by me (1pt. min.). @ -Ultrasound is negative for DVT What testing was considered but not performed or refused? (CT, X-rays, U/S, labs)? Why? @ -None What meds were considered but not given or refused? Why? @ -None Did you discuss the management of the patient with other professionals (professionals i.e. , PA, ASSISTANT DIRECTOR OF SECURITY, lab, RT, psych nurse, social problems specialist, fireproof door assembler, teacher, preventive medicine officer, major case detective)? Give summary @ -No Was smoking cessation discussed for >3mins.? @ -No Was critical care preformed (if so, how long)? @ -No Were there social determinants of health that impacted care today? How? (Homelessness, low income, unemployed, alcoholism, drug addiction, transportation, low edu. Level, literacy, decrease access to med. care, long term, rehab)? @ -No Was there de-escalation of care discussed even if they declined (Discuss DNR or withdrawal of care, Hospice)? DNR status @ -No What co-morbidities impacted this encounter? (DM, HTN, Smoking, COPD, CAD, Cancer, CVA, ARF, Chemo, Hep., AIDS, mental health diagnosis, sleep apnea, morbid obesity)? @ -None Was patient admitted / discharged? Hospital course, mention meds given and route , prescriptions, significant lab abnormalities, going to OR and other pertinent info. @ -68-year-old female presenting with chief complaint of left leg pain. Ongoing for about 2 days. Denies injury or trauma. Starts in the calf and is worse over the posterior thigh. Normal pedal pulses. No discoloration or swelling. Ultrasound is obtained which is negative for DVT. Patient states that it does feel muscular in origin. She states that she has been riding her electric bike and thinks that she may have strained her leg. Educated on supportive management at home. She follows with orthopedist Dr. Welch and will follow-up with him. Discharged home. Follow-up with PCP. Report back to ER with any new or worsening symptoms. Discussed return parameters and answered all questions. Patient conveyed verbal understanding and agreed to the plan. I discussed this case in detail with my attending Dr. Ann Undiagnosed new problem with uncertain prognosis? @ -No Drug Therapy requiring intensive monitoring for toxicity (Heparin, Nitro, Insulin, Cardizem)? @ -No Were any procedures done? @ -No Diagnosis/symptom? @ -Muscle strain Acute, or Chronic, or Acute on Chronic? @ -Acute Uncomplicated (without systemic symptoms) or Complicated (systemic symptoms)? @ -Uncomplicated Side effects of treatment? @ -No Exacerbation, Progression, or Severe Exacerbation? @ -No Poses a threat to life or bodily function? How? (Chest pain, [place], [place], pneumonia, PE, COPD, DKA, ARF, appy, cholecystitis, CVA, Diverticulitis, Homicidal, Suicidal, threat to staff... and all critical care pts) @ -No Disposition Clinical Impression: Muscle strain Disposition: HOME SELF-CARE Condition: Good Instructions (If sedation given, give patient instructions): Muscle Strain (ED) Additional Instructions: Follow-up with your PCP and orthopedist. Report back to ER with any new or worsening symptoms. Prescriptions: HYDROcodone/APAP 7.5-325MG [Lemmon 7.5-325] 1 tab PO Q6HR PRN 3 Days #12 tab PRN Reason: Pain Is patient prescribed a controlled substance at d/c from ED?: Yes When asked, does pt state using other controlled substances?: No If prescribed controlled substance>3 days was MAPS reviewed?: Prescribed <3 Days If opioid is for acute pain is fill amount 7 days or less?: Yes Referrals: Esther Barragan MD [Primary Care Provider] - 1-2 days Reji Welch DO [Doctor of Osteopathic Medicine] - 1-2 days Time of Disposition: 02:18
--- NOTE | 2023-09-04 02:14 | US ---
EXAM: US Duplex Left Lower Extremity Veins CLINICAL HISTORY: Leg pain TECHNIQUE: Real-time duplex ultrasound scan of the left lower extremity veins integrating B-mode two-dimensional vascular structure, Doppler spectral analysis, color flow Doppler imaging and compression. COMPARISON: No relevant prior studies available. FINDINGS: Deep veins: The distal left external iliac vein is patent. No DVT in the visualized common femoral, femoral, proximal deep femoral or popliteal veins. The veins demonstrate normal color flow, are normally compressible, with normal phasic flow and/or augmentation response. The interrogated calf veins are patent. Superficial veins: Unremarkable. No thrombus in the saphenofemoral junction. Soft tissues: No acute findings. No popliteal cyst. IMPRESSION: No evidence for deep vein thrombosis involving the left lower extremity.
[2023-09-04] MEDS: Acetaminophen-Codeine 300-30mg TAB PO STA (02:26)
[2023-09-04 04:45] VITALS: BP 137/88; PULSE 72; RESP 16
== END 2023-09-04 02:45 | disposition home or self-care (01) ==
LOC: EC 22:21
DX: S76.912A Strain of unspecified muscles, fascia and tendons at thigh level, left thigh, initial encounter (principal); Z87.891 Personal history of nicotine dependence; Z88.0 Allergy status to penicillin; Z88.2 Allergy status to sulfonamides; X50.0XXA Overexertion from strenuous movement or load, initial encounter
CPT/HCPCS: 93971; 99284; 96374; 96375 ×3; J2360; J2405; J1885; J1170

== ENCOUNTER 2023-09-14 21:24 | Emergency (ER) | payer MEDICARE, OTHER ==
--- NOTE | 2023-09-14 21:39 | ED ---
General Adult HPI - General Source: patient, RN notes reviewed Mode of arrival: wheelchair Limitations: no limitations <Maria Del Carmen Toledo - Last Filed: 09/14/23 21:39> - General Source: patient, RN notes reviewed, old records reviewed <Roel Hawthorne - Last Filed: 09/15/23 01:34> - General Stated complaint: L Leg Pain/Back Pain Time Seen by Provider: 09/14/23 21:39 - History of Present Illness Initial comments: Quick note: 68-year-old female presented to the ER with a chief complaint of left leg pain. Patient has a history of sciatica and states she is currently having a flareup. She also is reporting a cough for approximately 1 day. Denies any chest pain, shortness of breath, fevers or chills. (Maria Del Carmen Toledo) Patient is a 68-year-old female presents emergency department complaining of sciatica pain. States she has pain in the left buttock and radiates in the back of her left leg. Has been on prednisone at home as well as muscle relaxers but does not seem to be improving the pain. Is following up with orthopedics. Presents for further evaluation. No new injuries. Worse over the last day. Does endorse cough congestion is concerned she may have upper respiratory infection as well. I evaluated the patient when she was placed in a bed. Quick note started.She denies groin paresthesias, lower extremity weakness, leg urinary or bowel incontinence or retention. (Roel Hawthorne) - Related Data Home Medications Medication Instructions Recorded Confirmed DULoxetine HCL [Cymbalta] 60 mg PO DAILY 05/09/14 06/22/22 Latanoprost Ophth [Xalatan 0.005%] 1 drop BOTH EYES HS 05/09/14 06/22/22 Omeprazole [PriLOSEC] 20 mg PO AC-BRKFST 05/09/14 06/22/22 Ascorbic Acid [Vitamin C] 500 mg PO DAILY 09/28/19 06/22/22 Cholecalciferol [Vitamin D3 (25 50 mcg PO DAILY 09/28/19 06/22/22 Mcg = 1000 Iu)] Cyanocobalamin (Vitamin B-12) 5,000 mcg PO Q7D 09/28/19 06/22/22 [Vitamin B-12] Elderberry Sambucus 1250mg 1 tab PO Q48H 09/28/19 06/22/22 Magnesium Oxide [Mag-Ox] 250 mg PO Q48H 09/28/19 06/22/22 Metoprolol Succinate [Toprol XL] 25 mg PO DAILY 09/28/19 06/22/22 Montelukast [Singulair] 10 mg PO HS 09/28/19 06/22/22 metFORMIN HCL [Glucophage] 1,000 mg PO BID 09/28/19 06/22/22 Aspirin EC [Ecotrin Low Dose] 81 mg PO DAILY 03/24/22 06/22/22 Butalb/Acetaminophen/Caffeine 1 cap PO DAILY PRN 03/24/22 06/22/22 [Fioricet 50-300-40 mg Capsule] Calcium Citrate/Vitamin D3 1 tab PO Q72H 03/24/22 06/22/22 [Citracal + D Maximum Caplet] Cyclobenzaprine [Flexeril] 5 mg PO BID PRN 03/24/22 06/22/22 Fish Oil/Dha/Epa [Fish Oil 1,200 1 cap PO DAILY 03/24/22 06/22/22 mg Fish Oil] Fluticasone Propionate [Flovent 2 puff INHALATION RT-BID 03/24/22 06/22/22 Hfa 220 mcg] Iron Complex 1 cap PO DAILY 03/24/22 06/22/22 L.acidoph,Paracasei, B.lactis 1 cap PO DAILY 03/24/22 06/22/22 [Probiotic] Levothyroxine Sodium [Synthroid] 25 mcg PO AC-BRKFST 03/24/22 06/22/22 Multivit-Min/FA/Lycopen/Lutein 1 tab PO DAILY 03/24/22 06/22/22 [Centrum Silver Tablet] Ubidecarenone [Co Q-10] 300 mg PO MOFR 03/24/22 06/22/22 Zinc Gluconate [Zinc] 50 mg PO DAILY 03/24/22 06/22/22 lisinopriL [Zestril] 5 mg PO BID 03/24/22 06/22/22 Albuterol Nebulized [Ventolin 2.5 mg INHALATION RT-QID PRN 06/22/22 06/22/22 Nebulized] Benzocaine/Menthol Lozeng [Cepacol 1 lozenge MUCOUS MEM Q4HR PRN 06/22/22 06/22/22 lozenge] Rosuvastatin [Crestor] 10 mg PO HS 06/22/22 06/22/22 Previous Rx's Medication Instructions Recorded Ondansetron Odt [Zofran ODT] 4 mg PO Q8HR PRN #10 tab 06/14/22 Acetaminophen Tab [Tylenol] 650 mg PO Q6HR PRN tab 06/26/22 Albuterol Inhaler [Ventolin Hfa 2 puff INHALATION RT-QID PRN #1 06/26/22 Inhaler] each Levofloxacin [Levaquin] 500 mg PO Q24H 7 Days #7 tab 06/26/22 predniSONE 10 mg PO DIRECTED #30 tab 06/26/22 Cephalexin [Keflex] 500 mg PO Q6HR 7 Days #28 cap 09/17/22 Doxycycline [Vibramycin] 100 mg PO BID 7 Days #14 capsule 09/17/22 Ketorolac [Toradol] 10 mg PO Q6HR PRN #15 tab 09/17/22 clindamycin HCL 300 mg PO QID #40 cap 09/19/22 clindamycin HCL [Cleocin] 450 mg PO TID 7 Days #63 cap 11/11/22 HYDROcodone/APAP 7.5-325MG [[place] 1 tab PO Q6HR PRN 3 Days #12 tab 09/04/23 7.5-325] Gabapentin [Neurontin] 100 mg PO TID 5 Days #15 cap 09/15/23 Allergies Allergy/AdvReac Type Severity Reaction Status Date / Time Penicillins AdvReac Nausea & Verified 09/14/23 21:37 Vomiting Sulfa (Sulfonamide AdvReac Nausea & Verified 09/14/23 21:37 Antibiotics) Vomiting Review of Systems ROS Other: All systems not noted in ROS Statement are negative. <Maria Del Carmen Toledo - Last Filed: 09/14/23 21:39> ROS Other: All systems not noted in ROS Statement are negative. <Roel Hawthorne - Last Filed: 09/15/23 01:34> ROS Statement: Those systems with pertinent positive or pertinent negative responses have been documented in the HPI. Review of Systems: CONST: Denies fever EYES: Denies blurry vision ENT: Denies nasal congestion C/V: Denies Chest pain RESP: Denies shortness of breath GI: Denies abdominal pain : Denies dysuria SKIN: Denies rash. MSK: Endorses leg pain NEURO: Denies headache (Roel Hawthorne) Past Medical History Past Medical History: Diabetes Mellitus, Fibromyalgia, GERD/Reflux, Hypertension, Pneumonia, Rheumatoid Arthritis (RA), Thyroid Disorder Additional Past Medical History / Comment(s): sarcoidosis, ibs, migraines, optic nerve damage, short term memory issues, chronic back pain, keratodermia, urinary incontinence, glaucoma, brain lesion, pulmonary lesion, eye problems, left buttocks cysts/abscess ongoing History of Any Multi-Drug Resistant Organisms: MRSA Date of last positivie culture/infection: unknown MDRO Source:: buttocks Past Surgical History: Appendectomy, Cholecystectomy Additional Past Surgical History / Comment(s): bronchoscopy, laproscopic young removal, cyst removal, cataracts Past Anesthesia/Blood Transfusion Reactions: No Reported Reaction Past Psychological History: Anxiety, Depression Smoking Status: Former smoker Past Alcohol Use History: Rare Past Drug Use History: None Reported - Past Family History Mother Family Medical History: Cancer, Hyperlipidemia Additional Family Medical History / Comment(s): lung cancer Father Family Medical History: Cancer, Diabetes Mellitus, Hyperlipidemia <Maria Del Carmen Toledo - Last Filed: 09/14/23 21:39> General Exam <Maria Del Carmen Toledo - Last Filed: 09/14/23 21:39> <Roel Hawthorne - Last Filed: 09/15/23 01:34> - General Exam Comments Initial Comments: Visual Physical Exam Vital signs reviewed General: Well-appearing, nontoxic, no acute distress. Head: Normocephalic, atraumatic Eyes: PERRLA, EOMI ENT: Airway patent Chest: Nonlabored breathing Skin: No visual rash, normal skin tone Neuro: Alert and oriented 3 Musculoskeletal: No gross abnormalities (Maria Del Carmen Toledo) General: Appears in mild distress secondary to pain. HEAD: Normal with no signs of head trauma. EYES: EOMI. ENT: Hearing grossly intact. RESPIRATORY: No respiratory distress. Clear breath sounds bilaterally. No hy poxia. C/V: Regular rate and rhythm. ABD: Abdomen is nondistended. EXT: No obvious deformity. No significant midline lumbar spine tenderness to palpation. Patient has tenderness to the posterior leg does not significantly reproducible on palpation. Likely neuropathic pain from sciatica. SKIN: No rashes or lesions observed on exposed skin. NEURO: Alert and oriented. (Roel Hawthorne) Course Vital Signs 09/14/23 21:37 Temperature 97.7 F Pulse Rate 85 Respiratory 18 Rate Blood Pressure 152/83 O2 Sat by Pulse 96 Oximetry Medical Decision Making <Maria Del Carmen Toledo - Last Filed: 09/14/23 21:39> <Roel Hawthorne - Last Filed: 09/15/23 01:34> - Medical Decision Making I performed the quick note portion of this chart. Electronically signed by Maria Del Carmen Toledo PA-C (Maria Del Carmen Toledo) Was pt. sent in by a medical professional or institution ([facility], BOILING TUB OPERATOR, urgent care, hospital, or [place] health care facility...) When possible be specific @ -No Did you speak to anyone other than the patient for history (EMS, parent, family, police, friend...)? What history was obtained from this source @ -No Did you review nursing and triage notes (agree or disagree)? Why? @ -I reviewed and agree with nursing and triage notes Were old charts reviewed (outside hosp., previous admission, EMS record, old EKG, old radiological studies, urgent care reports/EKG's, [place] health care facility records)? Report findings @ -. Chart from September 03 when she presented with similar complaints when a duplex ultrasound was done at that time and was negative for DVT. Differential Diagnosis (chest pain, altered mental status, abdominal pain women, abdominal pain men, vaginal bleeding, weakness, fever, dyspnea, syncope, headache, dizziness, GI bleed, back pain, seizure, CVA, palpatations, mental health, musculoskeletal)? @ -Differential Musculoskeletal Muscular strain, contusion, ligament sprain, fracture, arthritis, septic arthritis, bursitis, cellulitis, muscle spasm, nerve compression, DVT, arterial occlusion, herpes zoster, electrolyte abnormality, tumor.... This is not meant to be in all inclusive list EKG interpreted by me (3pts min.). @ -None done X-rays interpreted by me (1pt min.). @ -Chest x-ray reveals no evidence of acute cardiopulmonary process. Lumbar spine x-ray unremarkable. CT interpreted by me (1pt min.). @ -None done U/S interpreted by me (1pt. min.). @ -None done What testing was considered but not performed or refused? (CT, X-rays, U/S, labs)? Why? @ -None What meds were considered but not given or refused? Why? @ -None Did you discuss the management of the patient with other professionals (professionals i.e. , PA, BOILING TUB OPERATOR, lab, RT, psych nurse, social media analyst, retouching operator, teacher, safety patrol officer, test case developer)? Give summary @ -No Was smoking cessation discussed for >3mins.? @ -No Was critical care preformed (if so, how long)? @ -No Were there social determinants of health that impacted care today? How? (Homelessness, low income, unemployed, alcoholism, drug addiction, transportation, low edu. Level, literacy, decrease access to med. care, fci, rehab)? @ -No Was there de-escalation of care discussed even if they declined (Discuss DNR or withdrawal of care, Hospice)? DNR status @ -No What co-morbidities impacted this encounter? (DM, HTN, Smoking, COPD, CAD, Cancer, CVA, ARF, Chemo, Hep., AIDS, mental health diagnosis, sleep apnea, morbid obesity)? @ -None Was patient admitted / discharged? Hospital course, mention meds given and route, prescriptions, significant lab abnormalities, going to OR and other pertinent info. @ -Patient presents to the emergency department with what appears to be sciatic a. It is chronic for the patient but without flare over the last day. No red flag symptoms to suggest cauda equina syndrome at this time. She will be given IM analgesia medications, as well as obtain a chest x-ray and lumbar spine x- ray. Patient does have some mild coughing and is a smoker. Viral swabs negative. X-rays are unremarkable. After medications, patient is feeling improved. I believe is safer to be discharged home. She was in agreement this plan. Vital signs are within acceptable limits. She will be discharged home with a prescription for gabapentin as well as instructions to follow-up with her orthopedic surgeon. She was in agreement this plan. I will provide the patient with a prescription for gabapentin, azithromycin. I instructed the patient to follow up with their PCP in the next 1-3 days.. I explained that the patient should return to the emergency department if they experience any worsening symptoms. Strict return precautions were discussed with the patient. The patient expressed understanding of these instructions. I answered all questions that the patient had. The patient was discharged home in fair condition with their prescriptions and follow up information. Undiagnosed new problem with uncertain prognosis? @ -No Drug Therapy requiring intensive monitoring for toxicity (Heparin, Nitro, Insulin, Cardizem)? @ -No Were any procedures done? @ -No Diagnosis/symptom? @ -Sciatica, tracheobronchitis Acute, or Chronic, or Acute on Chronic? @ -Acute Uncomplicated (without systemic symptoms) or Complicated (systemic symptoms)? @ -Uncomplicated Side effects of treatment? @ -No Exacerbation, Progression, or Severe Exacerbation? @ -No Poses a threat to life or bodily function? How? (Chest pain, [place], [place], pneumonia, PE, COPD, DKA, ARF, appy, cholecystitis, CVA, Diverticulitis, Homicidal, Suicidal, threat to staff... and all critical care pts) @ -No (Roel Hawthorne) - Lab Data Lab Results 09/14/23 Range/Units 21:44 Influenza Type A (PCR) Not Detected (Not Detectd) Influenza Type B (PCR) Not Detected (Not Detectd) RSV (PCR) Not Detected (Not Detectd) SARS-CoV-2 (PCR) Not Detected (Not Detectd) Disposition <Maria Del Carmen Toledo - Last Filed: 09/14/23 21:39> Is patient prescribed a controlled substance at d/c from ED?: No Time of Disposition: 01:21 <Roel Hawthorne - Last Filed: 09/15/23 01:34> Clinical Impression: Sciatica, Tracheobronchitis Disposition: HOME SELF-CARE Condition: Fair Instructions (If sedation given, give patient instructions): Sciatica (ED) Prescriptions: Gabapentin [Neurontin] 100 mg PO TID 5 Days #15 cap Referrals: Esther Barragan MD [Primary Care Provider] - 1-2 days
[2023-09-14 21:42] VITALS: BP 152/83; PULSE 85; RESP 18; TEMP 97.7
--- NOTE | 2023-09-15 00:08 | XR ---
EXAMINATION TYPE: XR chest 2V DATE OF EXAM: 09/15/2023 COMPARISON: Prior chest x-ray June 25, 2022 HISTORY: Cough TECHNIQUE: Frontal and lateral views of the chest are obtained. FINDINGS: There is no focal air space opacity, pleural effusion, or pneumothorax seen. Calcified hi lar lymph nodes or benign granulomas are redemonstrated. Cholecystectomy clips are noted. The cardiac silhouette size is within normal limits. The osseous structures are intact. IMPRESSION: No acute pulmonary infiltrate currently.
--- NOTE | 2023-09-15 00:09 | XR ---
EXAMINATION TYPE: XR lumbar spine 2 or 3V DATE OF EXAM: 09/15/2023 CLINICAL HISTORY: Back pain, left-sided sciatica TECHNIQUE: Frontal and lateral images of the lumbar spine are obtained. COMPARISON: None FINDINGS: There are 5 lumbar type vertebral bodies identified. Vertebral plasty at T12 level is seen . No acute displaced fracture in the lumbar spine. Moderate disc space narrowing at the L5-S1 level. Vertebral body heights are maintained. Facet arthropathy in the lower lumbar spine is noted. Cholecys tectomy clips are seen. IMPRESSION: No acute fracture or dislocation is seen in the lumbar spine.
[2023-09-15] MEDS: HYDROmorphone 1 MG/ML 1 ML SYRINGE IM STA (00:32)
[2023-09-15] MEDS: KETOROLAC 15 MG/ML 1 ML VIAL IM STA (00:32)
[2023-09-15] MEDS: ONDANSETRON ODT 4 MG TAB PO STA (00:33)
[2023-09-15] MEDS: GABAPENTIN 100 MG CAP PO STA (01:44)
[2023-09-15] MEDS: HYDROmorphone 0.5 MG/0.5 ML SYRINGE IM STA (01:44)
[2023-09-15] MEDS: ACET/COD 300 MG/30 MG STARTER PACK 6 TAB BTL PO STA (01:45)
== END 2023-09-15 02:26 | disposition home or self-care (01) ==
LOC: EC 21:24
DX: M54.42 Lumbago with sciatica, left side (principal); J40 Bronchitis, not specified as acute or chronic; Z88.0 Allergy status to penicillin; Z88.2 Allergy status to sulfonamides; Z87.891 Personal history of nicotine dependence
CPT/HCPCS: 71046; 72100; 87636; 96372; 99284

== ENCOUNTER 2023-10-17 05:24 | Emergency (ER) | payer MEDICARE, OTHER ==
[2023-10-17] MEDS ORDERED: KETOROLAC 15 MG/ML 1 ML VIAL ONE ×2 (08:18→09:24)
[2023-10-17] MEDS ORDERED: MORPHINE SULFATE 4 MG/ML SYRINGE ONE (08:19)
[2023-10-17] MEDS ORDERED: ONDANSETRON 4 MG/2 ML VIAL ONE (08:23)
[2023-10-17] MEDS ORDERED: SODIUM CHLORIDE 0.9% 1,000 ML BAG ONE (08:30)
[2023-10-17] MEDS ORDERED: CYCLOBENZAPRINE 10 MG TAB ONE (09:23)
[2023-10-17] MEDS ORDERED: DEXAMETHASONE SOD PHOSPHATE 10 MG/ML 1 ML VIAL ONE (09:23)
[2023-10-17] MEDS ORDERED: cefTRIAXone IN SWFI 1,000 MG/10 ML SYRINGE IVP ONE (13:26)
[2023-10-17] MEDS ORDERED: HYDROmorphone 1 MG/ML 1 ML SYRINGE ONE (13:26)
[2023-10-17] MEDS ORDERED: ACET/COD 300 MG/30 MG STARTER PACK 6 TAB BTL PO ONE (13:42)
== END 2023-10-17 09:30 | disposition home or self-care (01) ==
LOC: EC 05:24 → EDSTATUS 15:18
DX: G43.909 Migraine, unspecified, not intractable, without status migrainosus
CPT/HCPCS: 96361; 96374; 96375; 99284

== ENCOUNTER 2023-10-28 04:16 | Emergency (ER) | payer MEDICARE, OTHER ==
[2023-10-28 04:33] VITALS: TEMP 98
--- NOTE | 2023-10-28 06:18 | ED ---
Weakness HPI - General Chief complaint: Weakness Stated complaint: dizzy anxiety UTI Time Seen by Provider: 10/28/23 06:11 Source: patient, RN notes reviewed Mode of arrival: wheelchair Limitations: no limitations - History of Present Illness Initial comments: 68-year-old female presents emergency department with chief complaint of weakness. Patient states she was seen here 1 week ago was diagnosed with UTI she states that she has a follow-up appointment today but states that she did not feel well so she presented again the emergency department. Patient states she continues to have urinary frequency, dysuria denies any flank pain no fever noted. She does complain of sciatica pain but this is chronic she receives injections for this. Patient denies any chest pain palpitations shortness of breath she does have a sore on her forehead which she states has been there for a while she is complain of intermittent headaches without any focal weakness she states she felt lightheaded earlier but that also has improved. - Related Data Home Medications Medication Instructions Recorded Confirmed DULoxetine HCL [Cymbalta] 60 mg PO DAILY 05/09/14 06/22/22 Latanoprost Ophth [Xalatan 0.005%] 1 drop BOTH EYES HS 05/09/14 06/22/22 Omeprazole [PriLOSEC] 20 mg PO AC-BRKFST 05/09/14 06/22/22 Ascorbic Acid [Vitamin C] 500 mg PO DAILY 09/28/19 06/22/22 Cholecalciferol [Vitamin D3 (25 50 mcg PO DAILY 09/28/19 06/22/22 Mcg = 1000 Iu)] Cyanocobalamin (Vitamin B-12) 5,000 mcg PO Q7D 09/28/19 06/22/22 [Vitamin B-12] Elderberry Sambucus 1250mg 1 tab PO Q48H 09/28/19 06/22/22 Magnesium Oxide [Mag-Ox] 250 mg PO Q48H 09/28/19 06/22/22 Metoprolol Succinate [Toprol XL] 25 mg PO DAILY 09/28/19 06/22/22 Montelukast [Singulair] 10 mg PO HS 09/28/19 06/22/22 metFORMIN HCL [Glucophage] 1,000 mg PO BID 09/28/19 06/22/22 Aspirin EC [Ecotrin Low Dose] 81 mg PO DAILY 03/24/22 06/22/22 Butalb/Acetaminophen/Caffeine 1 cap PO DAILY PRN 03/24/22 06/22/22 [Fioricet 50-300-40 mg Capsule] Calcium Citrate/Vitamin D3 1 tab PO Q72H 03/24/22 06/22/22 [Citracal + D Maximum Caplet] Cyclobenzaprine [Flexeril] 5 mg PO BID PRN 03/24/22 06/22/22 Fish Oil/Dha/Epa [Fish Oil 1,200 1 cap PO DAILY 03/24/22 06/22/22 mg Fish Oil] Fluticasone Propionate [Flovent 2 puff INHALATION RT-BID 03/24/22 06/22/22 Hfa 220 mcg] Iron Complex 1 cap PO DAILY 03/24/22 06/22/22 L.acidoph,Paracasei, B.lactis 1 cap PO DAILY 03/24/22 06/22/22 [Probiotic] Levothyroxine Sodium [Synthroid] 25 mcg PO AC-BRKFST 03/24/22 06/22/22 Multivit-Min/FA/Lycopen/Lutein 1 tab PO DAILY 03/24/22 06/22/22 [Centrum Silver Tablet] Ubidecarenone [Co Q-10] 300 mg PO MOFR 03/24/22 06/22/22 Zinc Gluconate [Zinc] 50 mg PO DAILY 03/24/22 06/22/22 lisinopriL [Zestril] 5 mg PO BID 03/24/22 06/22/22 Albuterol Nebulized [Ventolin 2.5 mg INHALATION RT-QID PRN 06/22/22 06/22/22 Nebulized] Benzocaine/Menthol Lozeng [Cepacol 1 lozenge MUCOUS MEM Q4HR PRN 06/22/22 06/22/22 lozenge] Rosuvastatin [Crestor] 10 mg PO HS 06/22/22 06/22/22 Previous Rx's Medication Instructions Recorded Ondansetron Odt [Zofran ODT] 4 mg PO Q8HR PRN #10 tab 06/14/22 Acetaminophen Tab [Tylenol] 650 mg PO Q6HR PRN tab 06/26/22 Albuterol Inhaler [Ventolin Hfa 2 puff INHALATION RT-QID PRN #1 06/26/22 Inhaler] each Levofloxacin [Levaquin] 500 mg PO Q24H 7 Days #7 tab 06/26/22 predniSONE 10 mg PO DIRECTED #30 tab 06/26/22 Cephalexin [Keflex] 500 mg PO Q6HR 7 Days #28 cap 09/17/22 Doxycycline [Vibramycin] 100 mg PO BID 7 Days #14 capsule 09/17/22 Ketorolac [Toradol] 10 mg PO Q6HR PRN #15 tab 09/17/22 clindamycin HCL 300 mg PO QID #40 cap 09/19/22 clindamycin HCL [Cleocin] 450 mg PO TID 7 Days #63 cap 11/11/22 HYDROcodone/APAP 7.5-325MG [[place] 1 tab PO Q6HR PRN 3 Days #12 tab 09/04/23 7.5-325] Azithromycin [Zithromax] 250 mg PO DAILY 4 Days #4 tab 09/15/23 Gabapentin [Neurontin] 100 mg PO TID 5 Days #15 cap 09/15/23 Doxycycline [Vibramycin] 100 mg PO BID #14 capsule 10/28/23 Allergies Allergy/AdvReac Type Severity Reaction Status Date / Time Penicillins AdvReac Nausea & Verified 09/14/23 21:37 Vomiting Sulfa (Sulfonamide AdvReac Nausea & Verified 09/14/23 21:37 Antibiotics) Vomiting Review of Systems ROS Statement: Those systems with pertinent positive or pertinent negative responses have been documented in the HPI. ROS Other: All systems not noted in ROS Statement are negative. Past Medical History Past Medical History: Diabetes Mellitus, Fibromyalgia, GERD/Reflux, Hypertension, Pneumonia, Rheumatoid Arthritis (RA), Thyroid Disorder Additional Past Medical History / Comment(s): sarcoidosis, ibs, migraines, optic nerve damage, short term memory issues, chronic back pain, keratodermia, urinary incontinence, glaucoma, brain lesion, pulmonary lesion, eye problems, left buttocks cysts/abscess ongoing History of Any Multi-Drug Resistant Organisms: MRSA Date of last positivie culture/infection: unknown MDRO Source:: buttocks Past Surgical History: Appendectomy, Cholecystectomy Additional Past Surgical History / Comment(s): bronchoscopy, laproscopic young removal, cyst removal, cataracts Past Anesthesia/Blood Transfusion Reactions: No Reported Reaction Past Psychological History: Anxiety, Depression Smoking Status: Former smoker Past Alcohol Use History: Rare Past Drug Use History: None Reported - Past Family History Mother Family Medical History: Cancer, Hyperlipidemia Additional Family Medical History / Comment(s): lung cancer Father Family Medical History: Cancer, Diabetes Mellitus, Hyperlipidemia General Exam Limitations: no limitations General appearance: alert, in no apparent distress Head exam: Present: atraumatic, normocephalic. Absent: normal inspection (Head 1 cm circular erythematous region with central punctate lesion) Eye exam: Present: normal appearance, PERRL, EOMI. Absent: scleral icterus, conjunctival injection, periorbital swelling ENT exam: Present: normal exam, normal oropharynx, mucous membranes moist Neck exam: Present: normal inspection, full ROM. Absent: tenderness, meningismus, lymphadenopathy Respiratory exam: Present: normal lung sounds bilaterally. Absent: respiratory distress, wheezes, rales, rhonchi, stridor Cardiovascular Exam: Present: regular rate, normal rhythm, normal heart sounds. Absent: systolic murmur, diastolic murmur, rubs, gallop, clicks GI/Abdominal exam: Present: soft, tenderness, normal bowel sounds. Absent: distended, guarding, rebound, rigid Back exam: Present: full ROM, tenderness, muscle spasm, paraspinal tenderness. Absent: CVA tenderness (R), CVA tenderness (L), vertebral tenderness Neurological exam: Present: alert, oriented X3, CN II-XII intact, reflexes normal. Absent: motor sensory deficit Course Vital Signs 10/28/23 10/28/23 10/28/23 04:30 07:25 09:07 Temperature 98 F Pulse Rate 67 66 60 Respiratory 16 18 18 Rate Blood Pressure 143/88 167/79 157/79 O2 Sat by Pulse 99 98 100 Oximetry Medical Decision Making - Medical Decision Making Was pt. sent in by a medical professional or institution (, PA, SQL MANAGER, urgent care, hospital, or fci...) When possible be specific @ -No Did you speak to anyone other than the patient for history (EMS, parent, family, police, friend...)? What history was obtained from this source @ -No Did you review nursing and triage notes (agree or disagree)? Why? @ -I reviewed and agree with nursing and triage notes Were old charts reviewed (outside hosp., previous admission, EMS record, old EKG, old radiological studies, urgent care reports/EKG's, fci records)? Report findings @ -No old charts were reviewed Differential Diagnosis (chest pain, altered mental status, abdominal pain women, abdominal pain men, vaginal bleeding, weakness, fever, dyspnea, syncope, headache, dizziness, GI bleed, back pain, seizure, CVA, palpatations, mental health, musculoskeletal)? @ -Differential Weakness: Hypoglycemia, shock, sepsis, hyponatremia, anemia, infection, [place], ETOH, adverse medicine reaction, overdose, stroke, this is not meant to be an all-inclusive list. EKG interpreted by me (3pts min.). @None X-rays interpreted by me (1pt min.). @ -None done CT interpreted by me (1pt min.). @ -[CT brain -no acute intracranial hemorrhage, mass effect or acute malady. U/S interpreted by me (1pt. min.). @ -None done What testing was considered but not performed or refused? (CT, X-rays, U/S, labs)? Why? @ -None What meds were considered but not given or refused? Why? @ -None Did you discuss the management of the patient with other professionals (professionals i.e. , PA, SQL MANAGER, lab, RT, psych nurse, social service agency director, charter boat captain, teacher, district resource officer, family caseworker)? Give summary @ -No Was smoking cessation discussed for >3mins.? @ -No Was critical care preformed (if so, how long)? @ -No Were there social determinants of health that impacted care today? How? (Homelessness, low income, unemployed, alcoholism, drug addiction, transportation, low edu. Level, literacy, decrease access to med. care, group home, rehab)? @ -No Was there de-escalation of care discussed even if they declined (Discuss DNR or withdrawal of care, Hospice)? DNR status @ -No What co-morbidities impacted this encounter? (DM, HTN, Smoking, COPD, CAD, Cancer, CVA, ARF, Chemo, Hep., AIDS, mental health diagnosis, sleep apnea, morbid obesity)? @ -None Was patient admitted / discharged? Hospital course, mention meds given and route, prescriptions, significant lab abnormalities, going to OR and other pertinent info. @ -Discharge patient presented from other complaints. Patient does have noted abscess early formation forehead was started on oral antibiotics. Laboratory studies unremarkable patient has no evidence of UTI. Patient has a follow-up with PCP today she complains of chronic back pain without red flag symptoms. Undiagnosed new problem with uncertain prognosis? @ -No Drug Therapy requiring intensive monitoring for toxicity (Heparin, Nitro, Insulin, Cardizem)? @ -No Were any procedures done? @ -No Diagnosis/symptom? @ -Lumbar radiculopathy, facial abscess, dysuria Acute, or Chronic, or Acute on Chronic? @ -Acute Uncomplicated (without systemic symptoms) or Complicated (systemic symptoms)? @ -Uncomplicated Side effects of treatment? @ -No Exacerbation, Progression, or Severe Exacerbation? @ -No Poses a threat to life or bodily function? How? (Chest pain, USA, NJ, pneumonia, PE, COPD, DKA, ARF, appy, cholecystitis, CVA, Diverticulitis, Homicidal, Suicidal, threat to staff... and all critical care pts) @ -No - Lab Data Result diagrams: 10/28/23 06:31 10/28/23 06:31 Lab Results 10/28/23 10/28/23 10/28/23 Range/Units 06:31 06:31 06:31 WBC 7.0 (3.8-10.6) k/uL RBC 4.23 (3.80-5.40) m/uL Hgb 12.6 (11.4-16.0) gm/dL Hct 39.3 (34.0-46.0) % MCV 92.9 (80.0-100.0) fL MCH 29.7 (25.0-35.0) pg MCHC 32.0 (31.0-37.0) g/dL RDW 14.8 (11.5-15.5) % Plt Count 314 (150-450) k/uL MPV 8.1 Neutrophils % 47 % Lymphocytes % 41 % Monocytes % 8 % Eosinophils % 2 % Basophils % 1 % Neutrophils # 3.3 (1.3-7.7) k/uL Lymphocytes # 2.9 (1.0-4.8) k/uL Monocytes # 0.5 (0-1.0) k/uL Eosinophils # 0.2 (0-0.7) k/uL Basophils # 0.0 (0-0.2) k/uL PT 9.7 L (10.0-12.5) sec INR 0.9 (<1.2) APTT 21.4 L (22.0-30.0) sec Sodium 137 (137-145) mmol/L Potassium 4.8 (3.5-5.1) mmol/L Chloride 105 (98-107) mmol/L Carbon Dioxide 25 (22-30) mmol/L Anion Gap 7 mmol/L BUN 16 (7-17) mg/dL Creatinine 0.74 (0.52-1.04) mg/dL Est GFR (CKD-EPI)AfAm >90 (>60 ml/min/1.73 sqM) Est GFR (CKD-EPI)NonAf 84 (>60 ml/min/1.73 sqM) Glucose 89 (74-99) mg/dL Plasma Lactic Acid Tay (0.7-2.0) mmol/L Calcium 9.7 (8.4-10.2) mg/dL Magnesium 1.5 L (1.6-2.3) mg/dL Total Bilirubin 0.7 (0.2-1.3) mg/dL AST 33 (14-36) U/L ALT 24 (4-34) U/L Alkaline Phosphatase 37 L (38-126) U/L Troponin I (0.000-0.034) ng/mL Total Protein 7.1 (6.3-8.2) g/dL Albumin 4.4 (3.5-5.0) g/dL Urine Color Urine Appearance (Clear) Urine pH (5.0-8.0) Ur Specific Hope (1.001-1.035) Urine Protein (Negative) Urine Glucose (UA) (Negative) Urine Ketones (Negative) Urine Blood (Negative) Urine Nitrite (Negative) Urine Bilirubin (Negative) Urine Urobilinogen (<2.0) mg/dL Ur Leukocyte Esterase (Negative) 10/28/23 10/28/23 10/28/23 Range/Units 06:31 06:31 07:36 WBC (3.8-10.6) k/uL RBC (3.80-5.40) m/uL Hgb (11.4-16.0) gm/dL Hct (34.0-46.0) % MCV (80.0-100.0) fL MCH (25.0-35.0) pg MCHC (31.0-37.0) g/dL RDW (11.5-15.5) % Plt Count (150-450) k/uL MPV Neutrophils % % Lymphocytes % % Monocytes % % Eosinophils % % Basophils % % Neutrophils # (1.3-7.7) k/uL Lymphocytes # (1.0-4.8) k/uL Monocytes # (0-1.0) k/uL Eosinophils # (0-0.7) k/uL Basophils # (0-0.2) k/uL PT (10.0-12.5) sec INR (<1.2) APTT (22.0-30.0) sec Sodium (137-145) mmol/L Potassium (3.5-5.1) mmol/L Chloride (98-107) mmol/L Carbon Dioxide (22-30) mmol/L Anion Gap mmol/L BUN (7-17) mg/dL Creatinine (0.52-1.04) mg/dL Est GFR (CKD-EPI)AfAm (>60 ml/min/1.73 sqM) Est GFR (CKD-EPI)NonAf (>60 ml/min/1.73 sqM) Glucose (74-99) mg/dL Plasma Lactic Acid Tay 1.3 (0.7-2.0) mmol/L Calcium (8.4-10.2) mg/dL Magnesium (1.6-2.3) mg/dL Total Bilirubin (0.2-1.3) mg/dL AST (14-36) U/L ALT (4-34) U/L Alkaline Phosphatase (38-126) U/L Troponin I <0.012 (0.000-0.034) ng/mL Total Protein (6.3-8.2) g/dL Albumin (3.5-5.0) g/dL Urine Color Colorless Urine Appearance Clear (Clear) Urine pH 6.0 (5.0-8.0) Ur Specific Hope 1.004 (1.001-1.035) Urine Protein Negative (Negative) Urine Glucose (UA) Negative (Negative) Urine Ketones Negative (Negative) Urine Blood Negative (Negative) Urine Nitrite Negative (Negative) Urine Bilirubin Negative (Negative) Urine Urobilinogen <2.0 (<2.0) mg/dL Ur Leukocyte Esterase Negative (Negative) - EKG Data -: EKG Interpreted by Me EKG Comments: EKG fornices: 19 sinus rhythm rate of 62 NJ 178 QRS 101 QT/QTc 411/417 Disposition Clinical Impression: Infection, face, Lumbar pain with radiation down left leg, Dysuria Disposition: HOME SELF-CARE Condition: Stable Instructions (If sedation given, give patient instructions): Weakness (ED) Additional Instructions: Please return to the Emergency Department if symptoms worsen or any other concerns. Prescriptions: Doxycycline [Vibramycin] 100 mg PO BID #14 capsule Is patient prescribed a controlled substance at d/c from ED?: No Referrals: Esther Barragan MD [Primary Care Provider] - 1-2 days Time of Disposition: 08:39
[2023-10-28] MEDS: SODIUM CHLORIDE 0.9% 1,000 ML IV STA (07:21)
[2023-10-28] MEDS: HYDROmorphone 0.5 MG/0.5 ML SYRINGE IVP STA (07:21)
[2023-10-28 07:26] VITALS: RESP 18
[2023-10-28 07:28] LABS: Basophils % (A) 1 %; Eosinophils # (A) 0.2 k/uL (0-0.7); Eosinophils % (A) 2 %; HCT 39.3 % (34.0-46.0); HGB 12.6 gm/dL (11.4-16.0); Lymphocytes # (A) 2.9 k/uL (1.0-4.8); Lymphocytes % (A) 41 %; MCH 29.7 pg (25.0-35.0); MCV 92.9 fL (80.0-100.0); Mean Platelet Volume 8.1; Monocytes # (A) 0.5 k/uL (0-1.0); Monocytes % (A) 8 %; Neutrophils # (A) 3.3 k/uL (1.3-7.7); Neutrophils % (A) 47 %; Platelet Count 314 k/uL (150-450); RBC 4.23 m/uL (3.80-5.40); RDW 14.8 % (11.5-15.5)
[2023-10-28 07:41] LABS: INR 0.9 (<1.2); Partial Thromboplastin Time 21.4 sec (22.0-30.0); Prothrombin Time 9.7 sec (10.0-12.5)
[2023-10-28 07:50] LABS: ALT 24 U/L (4-34); AST 33 U/L (14-36); African American GFR (CKD) >90 (>60 ml/min/1.73 sqM); Albumin 4.4 g/dL (3.5-5.0); Alkaline Phosphatase 37 U/L (38-126); Anion Gap 7 mmol/L; Blood Urea Nitrogen 16 mg/dL (7-17); Calcium 9.7 mg/dL (8.4-10.2); Carbon Dioxide 25 mmol/L (22-30); Chloride 105 mmol/L (98-107); Glucose 89 mg/dL (74-99); Magnesium 1.5 mg/dL (1.6-2.3); Non-African American GFR(CKD) 84 (>60 ml/min/1.73 sqM); Sodium 137 mmol/L (137-145); Total Bilirubin 0.7 mg/dL (0.2-1.3); Total Protein 7.1 g/dL (6.3-8.2)
[2023-10-28 07:56] LABS: Appearance,Urine Clear (Clear); Bilirubin,Urine Negative (Negative); Blood,Urine Negative (Negative); Color,Urine Colorless; Glucose,Urine (UA) Negative (Negative); Ketones,Urine Negative (Negative); Leukocyte Esterase,Urine Negative (Negative); Nitrite,Urine Negative (Negative); Protein,Urine Negative (Negative); Specific Gravity,Urine 1.004 (1.001-1.035); Urobilinogen,Urine <2.0 mg/dL (<2.0)
[2023-10-28 07:58] LABS: Potassium 4.8 mmol/L (3.5-5.1)
--- NOTE | 2023-10-28 08:26 | CT ---
EXAMINATION TYPE: CT brain wo con CT DLP: 1096 mGycm, Automated exposure control for dose reduction was used. DATE OF EXAM: 10/28/2023 8:17 AM COMPARISON: None. CLINICAL INDICATION: Female, 68 years old with history of headache, dizziness, TECHNIQUE: Brain: Axial CT images of the brain were obtained with coronal and sagittal reformats created and rev iewed. Contrast used: None. Oral contrast used: None. FINDINGS: Brain: Extra-axial spaces: No abnormal extra-axial fluid collections. Ventricular system: Within normal limits Cerebral parenchyma: No acute intraparenchymal hemorrhage or mass effect. The taylor-white junction is well differentiated. Cerebellum: Unremarkable. Mass effect: No evidence of midline shift. Intracranial vasculature: unremarkable Soft tissues: Normal. Calvarium/osseous structures: No depressed skull fracture. Paranasal sinuses and mastoid air cells: Mild scattered paranasal sinus disease. Visualized orbits: Bilateral aphakia IMPRESSION: No acute intracranial process.
[2023-10-28 09:08] VITALS: BP 157/79; PULSE 60
== END 2023-10-28 09:08 | disposition home or self-care (01) ==
LOC: EC 04:16
DX: L08.9 Local infection of the skin and subcutaneous tissue, unspecified (principal); M54.42 Lumbago with sciatica, left side; R30.0 Dysuria; Z87.891 Personal history of nicotine dependence; Z88.1 Allergy status to other antibiotic agents; Z88.2 Allergy status to sulfonamides
CPT/HCPCS: 36415; 70450; 80053; 81003; 83605; 83735; 84484; 85025; 85610; 85730; 93005; 96374; 99285

== ENCOUNTER 2023-10-29 02:13 | Emergency (ER) | payer MEDICARE, OTHER ==
[2023-10-29 02:29] VITALS: TEMP 98
[2023-10-29 03:55] LABS: Basophils % (A) 0 %; Eosinophils # (A) 0.1 k/uL (0-0.7); Eosinophils % (A) 2 %; HCT 36.3 % (34.0-46.0); HGB 11.3 gm/dL (11.4-16.0); Hypochromasia Slight; Lymphocytes # (A) 2.6 k/uL (1.0-4.8); Lymphocytes % (A) 40 %; MCHC 31.2 g/dL (31.0-37.0); MCV 93.1 fL (80.0-100.0); Mean Platelet Volume 7.3; Monocytes # (A) 0.5 k/uL (0-1.0); Monocytes % (A) 7 %; Neutrophils # (A) 3.2 k/uL (1.3-7.7); Neutrophils % (A) 49 %; Platelet Count 284 k/uL (150-450); RBC 3.89 m/uL (3.80-5.40); RDW 14.5 % (11.5-15.5); WBC 6.5 k/uL (3.8-10.6)
[2023-10-29] MEDS: ASPIRIN 81 MG PO STA (03:56)
[2023-10-29 04:06] LABS: ALT 22 U/L (4-34); AST 26 U/L (14-36); African American GFR (CKD) 87 (>60 ml/min/1.73 sqM); Albumin 4.1 g/dL (3.5-5.0); Alkaline Phosphatase 45 U/L (38-126); Anion Gap 6 mmol/L; Blood Urea Nitrogen 13 mg/dL (7-17); Calcium 9.3 mg/dL (8.4-10.2); Carbon Dioxide 26 mmol/L (22-30); Chloride 105 mmol/L (98-107); Glucose 105 mg/dL (74-99); Magnesium 1.5 mg/dL (1.6-2.3); Non-African American GFR(CKD) 76 (>60 ml/min/1.73 sqM); Potassium 4.6 mmol/L (3.5-5.1); Sodium 137 mmol/L (137-145); Total Bilirubin 0.5 mg/dL (0.2-1.3); Total Protein 6.3 g/dL (6.3-8.2)
[2023-10-29 04:40] LABS: INR 0.9 (<1.2)
--- NOTE | 2023-10-29 04:57 | XR ---
EXAMINATION TYPE: XR chest 2V DATE OF EXAM: 10/29/2023 COMPARISON: Chest x-ray September 15, 2023 HISTORY: Chest pain TECHNIQUE: Frontal and lateral views of the chest are obtained. FINDINGS: There is no focal air space opacity, pleural effusion, or pneumothorax seen. The cardiac silhouette size is stable and within normal limits. Calcified left suprahilar lymph node redemonstrat ed. The osseous structures are intact. IMPRESSION: No acute cardiopulmonary process. No significant change from prior.
[2023-10-29 06:07] LABS: Partial Thromboplastin Time 21.8 sec (22.0-30.0)
--- NOTE | 2023-10-29 06:24 | ED ---
General Adult HPI - General Source: patient Mode of arrival: wheelchair Limitations: no limitations - History of Present Illness Onset/Timin -: hour(s) Location: left, upper extremity Quality: dull Consistency: constant Improves with: none Worsens with: none Associated Symptoms: denies other symptoms Treatments Prior to Arrival: none <Chencho Austin - Last Filed: 10/29/23 07:54> - General Source: RN notes reviewed, old records reviewed Mode of arrival: wheelchair Limitations: no limitations - History of Present Illness -: hour(s) Location: left, upper extremity Radiation: non-radiation Consistency: constant Improves with: none Worsens with: none Associated Symptoms: denies other symptoms <Hollis Cherry - Last Filed: 11/06/23 02:10> - General Chief complaint: Extremity Problem,Nontraumatic Stated complaint: Numb Hand/Head Time Seen by Provider: 10/29/23 02:41 - History of Present Illness Initial comments: This patient is a 68-year-old woman who presents for evaluation of numbness and mild aching of left upper extremity. She states this started about an hour before she came to the department. She states that her head also felt funny. The symptoms came on while she was at rest. She did not have associated diaphoresis, dyspnea, nausea, vomiting, palpitations, lightheadedness or syncope. (Chencho Austin) This is a 15-year-old female to ER for evaluation of chest pain (Hollis Cherry) - Related Data Home Medications Medication Instructions Recorded Confirmed DULoxetine HCL [Cymbalta] 60 mg PO DAILY 05/09/14 10/30/23 Latanoprost Ophth [Xalatan 0.005%] 1 drop BOTH EYES HS 05/09/14 10/30/23 Omeprazole [PriLOSEC] 20 mg PO AC-BRKFST 05/09/14 10/30/23 Cyanocobalamin (Vitamin B-12) 5,000 mcg PO Q3D 09/28/19 10/30/23 [Vitamin B-12] Magnesium Oxide [Mag-Ox] 250 mg PO Q3D 09/28/19 10/30/23 Metoprolol Succinate [Toprol XL] 25 mg PO DAILY 09/28/19 10/30/23 Montelukast [Singulair] 10 mg PO HS 09/28/19 10/30/23 metFORMIN HCL [Glucophage] 1,000 mg PO BID 09/28/19 10/30/23 Aspirin EC [Ecotrin Low Dose] 81 mg PO DAILY 03/24/22 10/30/23 Calcium Citrate/Vitamin D3 1 tab PO Q3D 03/24/22 10/30/23 [Citracal + D Maximum Caplet] Fluticasone Propionate [Flovent 2 puff INHALATION RT-BID 03/24/22 10/30/23 Hfa 220 mcg] Iron Complex 1 cap PO DAILY 03/24/22 10/30/23 L.acidoph,Paracasei, B.lactis 1 cap PO Q3D 03/24/22 10/30/23 [Probiotic] Levothyroxine Sodium [Synthroid] 25 mcg PO AC-BRKFST 03/24/22 10/30/23 Multivit-Min/FA/Lycopen/Lutein 1 tab PO Q2D 03/24/22 10/30/23 [Centrum Silver Tablet] Zinc Gluconate [Zinc] 50 mg PO Q3D 03/24/22 10/30/23 Butalb/APAP/Caff 50-325-40Mg 1 tab PO DAILY PRN 10/30/23 10/30/23 [Fioricet 50-325-40] Cyclobenzaprine [Flexeril] 10 mg PO TID PRN 10/30/23 10/30/23 Insulin Glargine,Hum.rec.anlog 26 units SQ DAILY 10/30/23 10/30/23 [Lantus Solostar Pen] Meloxicam [Mobic] 15 mg PO DAILY PRN 10/30/23 10/30/23 Potassium Gluconate 99 mg PO WEEKLY 10/30/23 10/30/23 Previous Rx's Medication Instructions Recorded Doxycycline [Vibramycin] 100 mg PO BID #14 capsule 10/28/23 Aspirin 81 mg PO DAILY 21 Days #21 tab 11/02/23 Atorvastatin [Lipitor] 40 mg PO HS #30 tab 11/02/23 Clopidogrel [Plavix] 75 mg PO DAILY #30 tab 11/02/23 amLODIPine [Norvasc] 5 mg PO DAILY #30 tab 11/02/23 lisinopriL [Zestril] 10 mg PO BID #60 tab 11/02/23 Allergies Allergy/AdvReac Type Severity Reaction Status Date / Time Penicillins AdvReac Nausea & Verified 11/04/23 14:20 Vomiting Sulfa (Sulfonamide AdvReac Nausea & Verified 11/04/23 14:20 Antibiotics) Vomiting Review of Systems ROS Other: All systems not noted in ROS Statement are negative. Constitutional: Denies: fever, chills, weakness Eyes: Denies: vision change Respiratory: Denies: cough, dyspnea, wheezes Cardiovascular: Denies: chest pain, palpitations, dyspnea on exertion Endocrine: Denies: fatigue Gastrointestinal: Denies: abdominal pain, nausea, vomiting, diarrhea Genitourinary: Denies: dysuria, hematuria Musculoskeletal: Denies: back pain Skin: Denies: rash Neurological: Reports: numbness. Denies: headache, weakness <Chencho Austin - Last Filed: 10/29/23 07:54> ROS Other: All systems not noted in ROS Statement are negative. <Hollis Cherry - Last Filed: 11/06/23 02:10> ROS Statement: Those systems with pertinent positive or pertinent negative responses have been documented in the HPI. Past Medical History Past Medical History: Diabetes Mellitus, Fibromyalgia, GERD/Reflux, Hypertension, Pneumonia, Rheumatoid Arthritis (RA), Thyroid Disorder Additional Past Medical History / Comment(s): sarcoidosis, ibs, migraines, optic nerve damage, short term memory issues, chronic back pain, keratodermia, urinary incontinence, glaucoma, brain lesion, pulmonary lesion, eye problems, left buttocks cysts/abscess ongoing History of Any Multi-Drug Resistant Organisms: MRSA Date of last positivie culture/infection: unknown MDRO Source:: buttocks Past Surgical History: Appendectomy, Cholecystectomy Additional Past Surgical History / Comment(s): bronchoscopy, laproscopic young removal, cyst removal, cataracts Past Anesthesia/Blood Transfusion Reactions: No Reported Reaction Past Psychological History: Anxiety, Depression Smoking Status: Former smoker Past Alcohol Use History: Rare Past Drug Use History: None Reported - Past Family History Mother Family Medical History: Cancer, Hyperlipidemia Additional Family Medical History / Comment(s): lung cancer Father Family Medical History: Cancer, Diabetes Mellitus, Hyperlipidemia <Chencho Austin - Last Filed: 10/29/23 07:54> General Exam Limitations: no limitations General appearance: alert, in no apparent distress Head exam: Present: atraumatic, normocephalic Eye exam: Present: normal appearance. Absent: scleral icterus, conjunctival injection Neck exam: Present: normal inspection Respiratory exam: Present: normal lung sounds bilaterally. Absent: respiratory distress, wheezes, rales, rhonchi, stridor, chest wall tenderness, accessory muscle use Cardiovascular Exam: Present: regular rate, normal rhythm, normal heart sounds. Absent: systolic murmur, diastolic murmur, rubs, gallop GI/Abdominal exam: Present: soft. Absent: distended, tenderness, guarding, rebound, rigid, mass Extremities exam: Present: normal inspection, normal capillary refill. Absent: pedal edema, calf tenderness Back exam: Present: normal inspection. Absent: CVA tenderness (R), CVA t enderness (L) Neurological exam: Present: alert. Absent: motor sensory deficit Skin exam: Present: warm, dry, intact, normal color. Absent: rash <Chencho Austin - Last Filed: 10/29/23 07:54> General appearance: alert, in no apparent distress Head exam: Present: atraumatic, normocephalic, normal inspection Eye exam: Present: normal appearance, PERRL, EOMI. Absent: scleral icterus, conjunctival injection, periorbital swelling ENT exam: Present: normal exam, mucous membranes moist Neck exam: Present: normal inspection. Absent: tenderness, meningismus, lymphadenopathy Respiratory exam: Present: normal lung sounds bilaterally. Absent: respiratory distress, wheezes, rales, rhonchi, stridor Cardiovascular Exam: Present: regular rate, normal rhythm, normal heart sounds. Absent: systolic murmur, diastolic murmur, rubs, gallop, clicks GI/Abdominal exam: Present: soft, normal bowel sounds. Absent: distended, tenderness, guarding, rebound, rigid Extremities exam: Present: normal inspection, full ROM, normal capillary refill. Absent: tenderness, pedal edema, joint swelling, calf tenderness Back exam: Present: normal inspection Neurological exam: Present: alert, oriented X3, CN II-XII intact Psychiatric exam: Present: normal affect, normal mood Skin exam: Present: warm, dry, intact, normal color. Absent: rash <Hollis Cherry Last Filed: 11/06/23 02:10> Course <Hollis Cherry - Last Filed: 11/06/23 02:10> Vital Signs 10/29/23 10/29/23 10/29/23 02:28 02:43 02:46 Temperature 98 F Pulse Rate 79 72 Respiratory 18 18 18 Rate Blood Pressure 197/101 170/84 O2 Sat by Pulse 98 96 Oximetry 10/29/23 10/29/23 10/29/23 04:31 06:21 07:54 Temperature Pulse Rate 62 65 71 Respiratory 17 17 20 Rate Blood Pressure 179/85 188/86 197/90 O2 Sat by Pulse 99 97 Oximetry 10/29/23 13:27 Temperature Pulse Rate 63 Respiratory 16 Rate Blood Pressure 164/87 O2 Sat by Pulse 97 Oximetry - Reevaluation(s) Reevaluation #1: Medical records reviewed (Hollis Cherry) Reevaluation #2: Patient symptoms are improved (Hollis Cherry) Reevaluation #3: Patient informed of results and questions answered (Hollis Cherry) Reevaluation #4: Was pt. sent in by a medical professional or institution (, PA, ADVERTISING SALES CONSULTANT, urgent care, hospital, or fci...) When possible be specific @ -no Did you speak to anyone other than the patient for history (EMS, parent, family, police, friend...)? What history was obtained from this source @ -no Did you review nursing and triage notes (agree or disagree)? Why? @ -agree Are old charts reviewed (outside hosp., previous admission, EMS record, old EKG, old radiological studies, urgent care reports/EKG's, fci records)? Report findings @ -yes Differential Diagnosis (chest pain, altered mental status, abdominal pain women, abdominal pain men, vaginal bleeding, weakness, fever, dyspnea, syncope, headache, dizziness, GI bleed, back pain, seizure, CVA, palpatations, mental health, musculoskeletal)? @ -prior EKG interpreted by me (3pts min.). @ -yes X-rays interpreted by me (1pt min.). @ -yes negative for acute disease CT interpreted by me (1pt min.). @ -no U/S interpreted by me (1pt. min.). @ -no What testing was considered but not performed or refused? (CT, X-rays, U/S, labs)? Why? @ -none What meds were considered but not given or refused? Why? @ -none Did you discuss the management of the patient with other professionals (professionals i.e. , PA, ADVERTISING SALES CONSULTANT, lab, RT, psych nurse, social media senior associate, emergency department physician, teacher, risk control officer, case briefer)? Give summary @ -no Was smoking cessation discussed for >3mins.? @ -no Was critical care preformed (if so, how long)? @ -no Were there social determinants of health that impacted care today? How? (Homelessness, low income, unemployed, alcoholism, drug addiction, transportation, low edu. Level, literacy, decrease access to med. care, group home, rehab)? @ -none Was there de-escalation of care discussed even if they declined (Discuss DNR or withdrawal of care, Hospice)? DNR status @ -no What co-morbidities impacted this encounter? (DM, HTN, Smoking, COPD, CAD, Cancer, CVA, ARF, Chemo, Hep., AIDS, mental health diagnosis, sleep apnea, morbid obesity)? @ -none Was patient admitted / discharged? Hospital course, mention meds given and route, prescriptions, significant lab abnormalities, going to OR and other pertinent info. @ - Undiagnosed new problem with uncertain prognosis? @ -no Drug Therapy requiring intensive monitoring for toxicity (Heparin, Nitro, Insulin, Cardizem)? @ -no Were any procedures done? @ -no Diagnosis/symptom? @ - Acute, or Chronic, or Acute on Chronic? @ -Acute Uncomplicated (without systemic symptoms) or Complicated (systemic symptoms)? @ -Complicated Side effects of treatment? @ -no Exacerbation, Progression, or Severe Exacerbation? @ -exacerbation Poses a threat to life or bodily function? How? (Chest pain, USA, ND, pneumonia, PE, COPD, DKA, ARF, appy, cholecystitis, CVA, Diverticulitis, Homicidal, Suicidal, threat to staff... and all critical care pts) @ -yes (Hollis Cherry) Reevaluation #5: Differential Chest Pain: Stable Angina, Unstable Angina, STEMI, NSTEMI Aortic Dissection, Pneumothorax, Musculoskeletal, Esophageal Spasm GERD, Cholecystitis, Pancreatitis, Zoster, this is not meant to be an all-inclusive list. (Hollis Cherry) EKG Findings - EKG Results: EKG: interpreted by ERMD, sinus rhythm (Rate 62 bpm), normal axis, normal QRS, normal ST/T, no acute changes - ND, Pacemaker, Normal: Normal tracing: normal tracing <Chencho Austin - Last Filed: 10/29/23 07:54> - EKG Comments: EKG Findings:: EKG is sinus 98 NE 161 QRS 80 QTc 421 <Hollis Cherry - Last Filed: 11/06/23 02:10> Procedures - [employer] Protocol (Time Out) Nurse: Luis Daniel Bronson <Chencho Austin - Last Filed: 10/29/23 07:54> Medical Decision Making - Lab Data Result diagrams: 10/29/23 03:45 10/29/23 03:45 <Chencho Austin - Last Filed: 10/29/23 07:54> - Lab Data Result diagrams: 10/29/23 03:45 10/29/23 03:45 - EKG Data -: EKG Interpreted by Me - Radiology Data Radiology results: report reviewed (Chest x-ray CTA chest negative for acute disease), image reviewed <Hollis Cherry - Last Filed: 11/06/23 02:10> - Medical Decision Making 68 female with chest pain atypical chest pain with no acute cause found here in the ER patient feels well and can be discharged home (Hollis Cherry) - Lab Data Lab Results 10/29/23 10/29/23 10/29/23 Range/Units 03:45 03:45 03:45 WBC 6.5 (3.8-10.6) k/uL RBC 3.89 (3.80-5.40) m/uL Hgb 11.3 L (11.4-16.0) gm/dL Hct 36.3 (34.0-46.0) % MCV 93.1 (80.0-100.0) fL MCH 29.0 (25.0-35.0) pg MCHC 31.2 (31.0-37.0) g/dL RDW 14.5 (11.5-15.5) % Plt Count 284 (150-450) k/uL MPV 7.3 Neutrophils % 49 % Lymphocytes % 40 % Monocytes % 7 % Eosinophils % 2 % Basophils % 0 % Neutrophils # 3.2 (1.3-7.7) k/uL Lymphocytes # 2.6 (1.0-4.8) k/uL Monocytes # 0.5 (0-1.0) k/uL Eosinophils # 0.1 (0-0.7) k/uL Basophils # 0.0 (0-0.2) k/uL Hypochromasia Slight PT 10.0 (10.0-12.5) sec INR 0.9 (<1.2) APTT 21.8 L (22.0-30.0) sec D-Dimer 1.64 H (<0.60) mg/L FEU Sodium 137 (137-145) mmol/L Potassium 4.6 (3.5-5.1) mmol/L Chloride 105 (98-107) mmol/L Carbon Dioxide 26 (22-30) mmol/L Anion Gap 6 mmol/L BUN 13 (7-17) mg/dL Creatinine 0.80 (0.52-1.04) mg/dL Est GFR (CKD-EPI)AfAm 87 (>60 ml/min/1.73 sqM) Est GFR (CKD-EPI)NonAf 76 (>60 ml/min/1.73 sqM) Glucose 105 H (74-99) mg/dL Calcium 9.3 (8.4-10.2) mg/dL Magnesium 1.5 L (1.6-2.3) mg/dL Total Bilirubin 0.5 (0.2-1.3) mg/dL AST 26 (14-36) U/L ALT 22 (4-34) U/L Alkaline Phosphatase 45 (38-126) U/L Troponin I (0.000-0.034) ng/mL Total Protein 6.3 (6.3-8.2) g/dL Albumin 4.1 (3.5-5.0) g/dL Urine Color Urine Appearance (Clear) Urine pH (5.0-8.0) Ur Specific [place] (1.001-1.035) Urine Protein (Negative) Urine Glucose (UA) (Negative) Urine Ketones (Negative) Urine Blood (Negative) Urine Nitrite (Negative) Urine Bilirubin (Negative) Urine Urobilinogen (<2.0) mg/dL Ur Leukocyte Esterase (Negative) 10/29/23 10/29/23 Range/Units 03:45 08:28 WBC (3.8-10.6) k/uL RBC (3.80-5.40) m/uL Hgb (11.4-16.0) gm/dL Hct (34.0-46.0) % MCV (80.0-100.0) fL MCH (25.0-35.0) pg MCHC (31.0-37.0) g/dL RDW (11.5-15.5) % Plt Count (150-450) k/uL MPV Neutrophils % % Lymphocytes % % Monocytes % % Eosinophils % % Basophils % % Neutrophils # (1.3-7.7) k/uL Lymphocytes # (1.0-4.8) k/uL Monocytes # (0-1.0) k/uL Eosinophils # (0-0.7) k/uL Basophils # (0-0.2) k/uL Hypochromasia PT (10.0-12.5) sec INR (<1.2) APTT (22.0-30.0) sec D-Dimer (<0.60) mg/L FEU Sodium (137-145) mmol/L Potassium (3.5-5.1) mmol/L Chloride (98-107) mmol/L Carbon Dioxide (22-30) mmol/L Anion Gap mmol/L BUN (7-17) mg/dL Creatinine (0.52-1.04) mg/dL Est GFR (CKD-EPI)AfAm (>60 ml/min/1.73 sqM) Est GFR (CKD-EPI)NonAf (>60 ml/min/1.73 sqM) Glucose (74-99) mg/dL Calcium (8.4-10.2) mg/dL Magnesium (1.6-2.3) mg/dL Total Bilirubin (0.2-1.3) mg/dL AST (14-36) U/L ALT (4-34) U/L Alkaline Phosphatase (38-126) U/L Troponin I <0.012 (0.000-0.034) ng/mL Total Protein (6.3-8.2) g/dL Albumin (3.5-5.0) g/dL Urine Color Colorless Urine Appearance Clear (Clear) Urine pH 7.5 (5.0-8.0) Ur Specific [place] 1.025 (1.001-1.035) Urine Protein Negative (Negative) Urine Glucose (UA) Negative (Negative) Urine Ketones Negative (Negative) Urine Blood Negative (Negative) Urine Nitrite Negative (Negative) Urine Bilirubin Negative (Negative) Urine Urobilinogen <2.0 (<2.0) mg/dL Ur Leukocyte Esterase Negative (Negative) Disposition Is patient prescribed a controlled substance at d/c from ED?: No <Chencho Austin - Last Filed: 10/29/23 07:54> Is patient prescribed a controlled substance at d/c from ED?: No <Hollis Cherry - Last Filed: 11/06/23 02:10> Clinical Impression: Chest pain Disposition: HOME SELF-CARE Condition: Good Instructions (If sedation given, give patient instructions): Chest Pain (ED) Referrals: Esther Barragan MD [Primary Care Provider] - 1-2 days
--- NOTE | 2023-10-29 06:30 | CT ---
EXAMINATION TYPE: CT chest angio for PE DATE OF EXAM: 10/29/2023 COMPARISON: Prior CT June 22, 2022 HISTORY: Chest pain, possible pulmonary embolism Automated Exposure Control for Dose Reduction was Utilized. CONTRAST: CTA scan of the thorax is performed with IV Contrast, patient injected with 80 mL of Isovue 370, pulm onary embolism protocol. MIP Images are created on CT scanner and reviewed. FINDINGS: LUNGS: Dependent opacities bilaterally favors atelectasis. No suspicious focal consolidation. Mild li near scarring inferior posterior right upper lobe. No pleural effusion or pneumothorax seen bilateral ly. MEDIASTINUM: There is satisfactory enhancement of the pulmonary artery and its branches, there is no CT evidence for pulmonary embolism. No cardiomegaly or pericardial effusion is seen. Prominent calcif ied prevascular, paratracheal, AP window, and subcarinal along with bilateral hilar lymph nodes are r edemonstrated. OTHER: Vertebroplasty at the T12 level redemonstrated. IMPRESSION: No CT evidence for acute pulmonary embolism. No suspicious acute pulmonary process.
[2023-10-29] MEDS: METOPROLOL TARTRATE 50 MG TAB PO STA (07:08)
[2023-10-29] MEDS: lisinopriL 10 MG TAB PO STA (07:09)
[2023-10-29] MEDS: MAGNESIUM SULFATE-D5W PMX 1 GM in DEXTROSE/WATER 1 100ML.BAG IVPB ONE (07:09)
[2023-10-29 08:38] LABS: Appearance,Urine Clear (Clear); Bilirubin,Urine Negative (Negative); Blood,Urine Negative (Negative); Color,Urine Colorless; Glucose,Urine (UA) Negative (Negative); Ketones,Urine Negative (Negative); Leukocyte Esterase,Urine Negative (Negative); Nitrite,Urine Negative (Negative); PH, Urine 7.5 (5.0-8.0); Protein,Urine Negative (Negative); Specific Gravity,Urine 1.025 (1.001-1.035); Urobilinogen,Urine <2.0 mg/dL (<2.0)
[2023-10-29] MEDS: PROCHLORPERAZINE INJ 10 MG/2 ML VIAL IVP STA (11:42)
[2023-10-29] MEDS: HYDROmorphone 1 MG/ML 1 ML SYRINGE IVP STA (11:45)
[2023-10-29] MEDS: LABETALOL 5 MG/ML VIAL MDV IVP STA (11:48)
[2023-10-29 13:28] VITALS: BP 164/87; PULSE 63; RESP 16
== END 2023-10-29 13:47 | disposition home or self-care (01) ==
LOC: EC 02:13
CPT/HCPCS: 36415; 71046; 71275; 80053; 81003; 83735; 84484; 85025; 85379; 85610; 85730; 93005; 96365; 96375; 99284

== ENCOUNTER 2023-10-30 04:03 | Observation (INO) | payer MEDICARE, OTHER ==
--- NOTE | 2023-10-30 05:19 | ED ---
General Adult HPI - General Chief complaint: Recheck/Abnormal Lab/Rx Stated complaint: Pain headache Time Seen by Provider: 10/30/23 04:32 Source: patient Mode of arrival: wheelchair Limitations: no limitations - History of Present Illness Initial comments: This patient is 68-year-old woman who states she has autoimmune issues, including history of sarcoidosis, who presents with complaint that she is not feeling right. The patient states that her blood pressure has been running higher than his usual. She has been feeling off balance. She has had some left arm numbness. -: days(s) Consistency: constant Improves with: none Worsens with: none Treatments Prior to Arrival: none - Related Data Home Medications Medication Instructions Recorded Confirmed DULoxetine HCL [Cymbalta] 60 mg PO DAILY 05/09/14 10/30/23 Latanoprost Ophth [Xalatan 0.005%] 1 drop BOTH EYES HS 05/09/14 10/30/23 Omeprazole [PriLOSEC] 20 mg PO AC-BRKFST 05/09/14 10/30/23 Cyanocobalamin (Vitamin B-12) 5,000 mcg PO Q3D 09/28/19 10/30/23 [Vitamin B-12] Magnesium Oxide [Mag-Ox] 250 mg PO Q3D 09/28/19 10/30/23 Metoprolol Succinate [Toprol XL] 25 mg PO DAILY 09/28/19 10/30/23 Montelukast [Singulair] 10 mg PO HS 09/28/19 10/30/23 metFORMIN HCL [Glucophage] 1,000 mg PO BID 09/28/19 10/30/23 Aspirin EC [Ecotrin Low Dose] 81 mg PO DAILY 03/24/22 10/30/23 Calcium Citrate/Vitamin D3 1 tab PO Q3D 03/24/22 10/30/23 [Citracal + D Maximum Caplet] Fluticasone Propionate [Flovent 2 puff INHALATION RT-BID 03/24/22 10/30/23 Hfa 220 mcg] Iron Complex 1 cap PO DAILY 03/24/22 10/30/23 L.acidoph,Paracasei, B.lactis 1 cap PO Q3D 03/24/22 10/30/23 [Probiotic] Levothyroxine Sodium [Synthroid] 25 mcg PO AC-BRKFST 03/24/22 10/30/23 Multivit-Min/FA/Lycopen/Lutein 1 tab PO Q2D 03/24/22 10/30/23 [Centrum Silver Tablet] Zinc Gluconate [Zinc] 50 mg PO Q3D 03/24/22 10/30/23 Butalb/APAP/Caff 50-325-40Mg 1 tab PO DAILY PRN 10/30/23 10/30/23 [Fioricet 50-325-40] Cyclobenzaprine [Flexeril] 10 mg PO TID PRN 10/30/23 10/30/23 Insulin Glargine,Hum.rec.anlog 26 units SQ DAILY 10/30/23 10/30/23 [Lantus Solostar Pen] Meloxicam [Mobic] 15 mg PO DAILY PRN 10/30/23 10/30/23 Potassium Gluconate 99 mg PO WEEKLY 10/30/23 10/30/23 Previous Rx's Medication Instructions Recorded Doxycycline [Vibramycin] 100 mg PO BID #14 capsule 10/28/23 Aspirin 81 mg PO DAILY 21 Days #21 tab 11/02/23 Atorvastatin [Lipitor] 40 mg PO HS #30 tab 11/02/23 Clopidogrel [Plavix] 75 mg PO DAILY #30 tab 11/02/23 amLODIPine [Norvasc] 5 mg PO DAILY #30 tab 11/02/23 lisinopriL [Zestril] 10 mg PO BID #60 tab 11/02/23 Allergies Allergy/AdvReac Type Severity Reaction Status Date / Time Penicillins AdvReac Nausea & Verified 11/04/23 14:20 Vomiting Sulfa (Sulfonamide AdvReac Nausea & Verified 11/04/23 14:20 Antibiotics) Vomiting Review of Systems ROS Statement: Those systems with pertinent positive or pertinent negative responses have been documented in the HPI. ROS Other: All systems not noted in ROS Statement are negative. Constitutional: Reports: weakness. Denies: fever, chills Eyes: Denies: vision change ENT: Denies: congestion Respiratory: Denies: cough, dyspnea, wheezes Cardiovascular: Denies: chest pain, palpitations, orthopnea, edema, syncope Gastrointestinal: Denies: abdominal pain, vomiting, diarrhea Genitourinary: Denies: dysuria, hematuria Musculoskeletal: Denies: back pain Skin: Denies: rash Neurological: Reports: vertigo. Denies: headache, weakness Past Medical History Past Medical History: Diabetes Mellitus, Fibromyalgia, GERD/Reflux, Hypertension, Pneumonia, Rheumatoid Arthritis (RA), Thyroid Disorder Additional Past Medical History / Comment(s): sarcoidosis, ibs, migraines, optic nerve damage, short term memory issues, chronic back pain, keratodermia, urinary incontinence, glaucoma, brain lesion, pulmonary lesion, eye problems, left buttocks cysts/abscess ongoing History of Any Multi-Drug Resistant Organisms: MRSA Date of last positivie culture/infection: unknown MDRO Source:: buttocks Past Surgical History: Appendectomy, Cholecystectomy Additional Past Surgical History / Comment(s): bronchoscopy, laproscopic young removal, cyst removal, cataracts Past Anesthesia/Blood Transfusion Reactions: No Reported Reaction Past Psychological History: Anxiety, Depression Smoking Status: Former smoker Past Alcohol Use History: Rare Past Drug Use History: None Reported - Past Family History Mother Family Medical History: Cancer, Hyperlipidemia Additional Family Medical History / Comment(s): lung cancer Father Family Medical History: Cancer, Diabetes Mellitus, Hyperlipidemia General Exam Limitations: no limitations General appearance: alert, in no apparent distress Head exam: Present: atraumatic, normocephalic Eye exam: Present: normal appearance. Absent: scleral icterus, conjunctival injection ENT exam: Present: normal oropharynx Neck exam: Present: normal inspection, full ROM Respiratory exam: Present: normal lung sounds bilaterally. Absent: respiratory distress, wheezes, rales, rhonchi, stridor, accessory muscle use Cardiovascular Exam: Present: regular rate, normal rhythm, normal heart sounds. Absent: systolic murmur, diastolic murmur, rubs, gallop GI/Abdominal exam: Present: soft. Absent: distended, tenderness, guarding, rebound, rigid, mass Extremities exam: Present: normal inspection, normal capillary refill. Absent: pedal edema, calf tenderness Back exam: Present: normal inspection Neurological exam: Present: alert, oriented X3, CN II-XII intact Skin exam: Present: warm, dry, intact, normal color. Absent: rash Course Vital Signs 10/30/23 10/30/23 10/30/23 04:11 04:40 05:28 Temperature 98.2 F Pulse Rate 84 78 74 Respiratory 16 18 18 Rate Blood Pressure 178/100 185/91 177/93 O2 Sat by Pulse 97 99 96 Oximetry 0810/30/23 10/30/23 06:02 07:06 07:30 Temperature 98.3 F Pulse Rate 70 96 66 Respiratory 18 18 16 Rate Blood Pressure 175/84 173/84 177/79 O2 Sat by Pulse 96 96 94 L Oximetry 10/30/23 10/30/23 10/30/23 08:00 08:09 08:49 Temperature 98.0 F Pulse Rate 65 70 70 Respiratory 17 Rate Blood Pressure 156/76 O2 Sat by Pulse 96 Oximetry 10/30/23 10/30/23 09:00 10:33 Temperature 98.2 F Pulse Rate 76 Respiratory 17 Rate Blood Pressure 159/81 176/85 O2 Sat by Pulse 96 Oximetry EKG Findings - EKG Results: EKG: interpreted by ERMD, sinus rhythm (Rate 76 bpm), normal axis, normal ST/T - Blocks, [place], Hypertrophy, ST Abn: Chamber hypertrophy or enlargement: only voltage criteria for left ventricular hypertrophy Medical Decision Making - Medical Decision Making The patient had CT of the brain that I interpreted as negative for acute bony injury, negative for intracranial hemorrhage, negative for mass effect Was pt. sent in by a medical professional or institution (Dr. PA, JUNIOR HIGH SCHOOL PRINCIPAL, urgent care, hospital, or fdc...) When possible be specific @ -[No] Did you speak to anyone other than the patient for history (EMS, parent, family, police, friend...)? What history was obtained from this source @ -[No] Did you review nursing and triage notes (agree or disagree)? Why? @ -[I reviewed and agree with nursing and triage notes] Were old charts reviewed (outside hosp., previous admission, EMS record, old EKG, old radiological studies, urgent care reports/EKG's, fdc records)? Report findings @ -[No old charts were reviewed] Differential Diagnosis (chest pain, altered mental status, abdominal pain women, abdominal pain men, vaginal bleeding, weakness, fever, dyspnea, syncope, headache, dizziness, GI bleed, back pain, seizure, CVA, palpatations, mental health, musculoskeletal)? @ -[Differential Dizziness: Benign paroxysmal positional Vertigo, Meniere's disease, otitis media, acoustic neuroma, vertebrobasilar insufficiency, cerebellar stroke, encephalitis, hypovolemic, arrhythmia, coronary artery syndrome, anemia, this is not meant to be an all-inclusive list EKG interpreted by me (3pts min.). @ -[I interpreted as above] X-rays interpreted by me (1pt min.). @ -[None done] CT interpreted by me (1pt min.). @ -[I interpreted as above U/S interpreted by me (1pt. min.). @ -[None done] What testing was considered but not performed or refused? (CT, X-rays, U/S, lab s)? Why? @ -[None] What meds were considered but not given or refused? Why? @ -[None] Did you discuss the management of the patient with other professionals (professionals i.e. Dr., PA, JUNIOR HIGH SCHO[employer] PRINCIPAL, lab, RT, psych nurse, aids social worker, dictionary editor, teacher, aadc plans staff officer, case repairer)? Give summary @ -[Case discussed with admitting physician and treatment recommendations incorporated Was smoking cessation discussed for >3mins.? @ -[No] Was critical care preformed (if so, how long)? @ -[No] Were there social determinants of health that impacted care today? How? (Homelessness, low income, unemployed, alcoholism, drug addiction, transportation, low edu. Level, literacy, decrease access to med. care, detention, rehab)? @ -[No] Was there de-escalation of care discussed even if they declined (Discuss DNR or withdrawal of care, Hospice)? DNR status @ -[No] What co-morbidities impacted this encounter? (DM, HTN, Smoking, COPD, CAD, Cancer, CVA, ARF, Chemo, Hep., AIDS, mental health diagnosis, sleep apnea, morbid obesity)? @ -[Sarcoidosis Was patient admitted / discharged? Hospital course, mention meds given and route, prescriptions, significant lab abnormalities, going to OR and other pertinent info. @ -[Patient is a 68-year-old woman here with constellation of symptoms who will be admitted to have neurology consultation and further studies. Undiagnosed new problem with uncertain prognosis? @ -[No] Drug Therapy requiring intensive monitoring for toxicity (Heparin, Nitro, Insulin, Cardizem)? @ -[No] Were any procedures done? @ -[No] Diagnosis/symptom? @ -[Acute dizziness Acute, or Chronic, or Acute on Chronic? @ -[Acute Uncomplicated (without systemic symptoms) or Complicated (systemic symptoms)? @ -[Uncomplicated Side effects of treatment? @ -[No] Exacerbation, Progression, or Severe Exacerbation? @ -[No] Poses a threat to life or bodily function? How? (Chest pain, [place], [place], pneumonia, PE, COPD, DKA, ARF, appy, cholecystitis, CVA, Diverticulitis, Homicidal, Suicidal, threat to staff... and all critical care pts) @ -[No] - Lab Data Result diagrams: 11/02/23 05:36 11/02/23 05:36 Lab Results 10/30/23 10/30/23 10/30/23 Range/Units 05:08 05:08 05:08 WBC 6.3 (3.8-10.6) k/uL RBC 4.09 (3.80-5.40) m/uL Hgb 11.9 (11.4-16.0) gm/dL Hct 37.7 (34.0-46.0) % MCV 92.2 (80.0-100.0) fL MCH 29.1 (25.0-35.0) pg MCHC 31.5 (31.0-37.0) g/dL RDW 14.4 (11.5-15.5) % Plt Count 315 (150-450) k/uL MPV 7.8 Neutrophils % 59 % Lymphocytes % 29 % Monocytes % 8 % Eosinophils % 2 % Basophils % 1 % Neutrophils # 3.7 (1.3-7.7) k/uL Lymphocytes # 1.8 (1.0-4.8) k/uL Monocytes # 0.5 (0-1.0) k/uL Eosinophils # 0.1 (0-0.7) k/uL Basophils # 0.0 (0-0.2) k/uL Hypochromasia Slight Sodium 136 L (137-145) mmol/L Potassium 4.5 (3.5-5.1) mmol/L Chloride 104 (98-107) mmol/L Carbon Dioxide 22 (22-30) mmol/L Anion Gap 10 mmol/L BUN 13 (7-17) mg/dL Creatinine 0.68 (0.52-1.04) mg/dL Est GFR (CKD-EPI)AfAm >90 (>60 ml/min/1.73 sqM) Est GFR (CKD-EPI)NonAf 90 (>60 ml/min/1.73 sqM) Glucose 113 H (74-99) mg/dL Calcium 10.0 (8.4-10.2) mg/dL Magnesium 1.6 (1.6-2.3) mg/dL Total Bilirubin 0.7 (0.2-1.3) mg/dL AST 28 (14-36) U/L ALT 22 (4-34) U/L Alkaline Phosphatase 47 (38-126) U/L Troponin I <0.012 (0.000-0.034) ng/mL C-Reactive Protein <0.5 (<1.0) mg/dL Total Protein 7.1 (6.3-8.2) g/dL Albumin 4.5 (3.5-5.0) g/dL Disposition Clinical Impression: Dizziness Disposition: ADMITTED IP TO THIS HOSP Condition: Fair Is patient prescribed a controlled substance at d/c from ED?: No
[2023-10-30] MEDS: METOPROLOL TARTRATE 50 MG TAB PO STA (05:23)
[2023-10-30] MEDS: lisinopriL 10 MG TAB PO STA (05:23)
--- NOTE | 2023-10-30 05:46 | CT ---
EXAMINATION TYPE: CT brain wo con DATE OF EXAM: 10/30/2023 HISTORY: Pt. c/o high BP readings at home >170 systolic. Denies CP or SOB at this time. Pt. states sh e just "feels funny". CT DLP: 1168.3 mGycm. Automated Exposure Control for Dose Reduction was Utilized. TECHNIQUE: CT scan of the head is performed without contrast. COMPARISON: CT brain 2 days earlier FINDINGS: There is no acute intracranial hemorrhage or midline shift identified. Ventricles and sul ci within normal limits in size for patient's age. Suero-white matter differentiation is preserved. Bi lateral aphakia is present. The visualized sinuses are clear. IMPRESSION: No acute intracranial hemorrhage or midline shift. No significant change from most recen t prior CT.
[2023-10-30 06:25] LABS: Basophils % (A) 1 %; Eosinophils # (A) 0.1 k/uL (0-0.7); Eosinophils % (A) 2 %; HCT 37.7 % (34.0-46.0); HGB 11.9 gm/dL (11.4-16.0); Hypochromasia Slight; Lymphocytes # (A) 1.8 k/uL (1.0-4.8); Lymphocytes % (A) 29 %; MCH 29.1 pg (25.0-35.0); MCHC 31.5 g/dL (31.0-37.0); MCV 92.2 fL (80.0-100.0); Mean Platelet Volume 7.8; Monocytes # (A) 0.5 k/uL (0-1.0); Monocytes % (A) 8 %; Neutrophils # (A) 3.7 k/uL (1.3-7.7); Neutrophils % (A) 59 %; Platelet Count 315 k/uL (150-450); RBC 4.09 m/uL (3.80-5.40); RDW 14.4 % (11.5-15.5); WBC 6.3 k/uL (3.8-10.6)
[2023-10-30] MEDS ORDERED: MAG HYDROX/AL HYDROX/SIMETH 30 ML CUP PO PRN (07:13)
[2023-10-30] MEDS ORDERED: NALOXONE 0.4 MG/ML 1 ML VIAL IV PRN (07:13)
[2023-10-30] MEDS ORDERED: ALBUTEROL NEBULIZED 2.5 MG/3 ML INHALATION PRN (07:17)
[2023-10-30 07:25] LABS: ALT 22 U/L (4-34); African American GFR (CKD) >90 (>60 ml/min/1.73 sqM); Albumin 4.5 g/dL (3.5-5.0); Blood Urea Nitrogen 13 mg/dL (7-17); C Reactive Protein <0.5 mg/dL (<1.0); Carbon Dioxide 22 mmol/L (22-30); Chloride 104 mmol/L (98-107); Glucose 113 mg/dL (74-99); Non-African American GFR(CKD) 90 (>60 ml/min/1.73 sqM); Total Bilirubin 0.7 mg/dL (0.2-1.3); Total Protein 7.1 g/dL (6.3-8.2)
[2023-10-30 07:39] LABS: AST 28 U/L (14-36); Alkaline Phosphatase 47 U/L (38-126); Magnesium 1.6 mg/dL (1.6-2.3); Potassium 4.5 mmol/L (3.5-5.1)
[2023-10-30 07:44] LABS: Anion Gap 10 mmol/L; Sodium 136 mmol/L (137-145)
[2023-10-30] MEDS: ALBUTEROL NEBULIZED 2.5 MG/3 ML INHALATION PRN (07:59)
[2023-10-30] MEDS: FLUTICASONE 110 MCG INHALER INHALATION SCH (07:59)
[2023-10-30] MEDS: SODIUM CHLORIDE 0.9% 1,000 ML IV SCH (08:06)
[2023-10-30] MEDS: ASPIRIN 81 MG PO SCH (08:36)
[2023-10-30] MEDS: lisinopriL 5 MG TAB PO SCH (08:36)
[2023-10-30] MEDS: LEVOTHYROXINE 25 MCG TAB PO SCH (08:36)
[2023-10-30] MEDS: FAMOTIDINE 20 MG TAB PO SCH (08:36)
[2023-10-30] MEDS: metFORMIN 500 MG TAB PO SCH (08:37)
[2023-10-30] MEDS: HYDROcodone/APAP 7.5-325MG 1 EACH TAB PO PRN (08:37)
[2023-10-30] MEDS: PANTOPRAZOLE 40 MG TABLET PO SCH (08:37)
[2023-10-30] MEDS: GABAPENTIN 100 MG CAP PO SCH (08:38)
[2023-10-30] MEDS: METOPROLOL SUCCINATE (ER) 25 MG TAB.ER.24H PO SCH (11:06)
--- NOTE | 2023-10-30 11:46 | P.CNNES ---
History of Present Illness Consult date: 10/30/23 Requesting physician: Chencho Austin Reason for Consult: Altered mental status History of Present Illness: Patient is a 68-year-old right-handed female with history of hypertension, diabetes, sarcoidosis, came to the hospital early this morning at 4:03 AM for facial paresthesias and left arm numbness. Patient states that about a week ago she visited ER and was diagnosed with UTI and also had sciatic pain in the left leg from previous back issues for which she has been receiving back injection. She was evaluated in the ER and discharged. In the last few days, patient has been noticing that her blood pressure is going up. She feels hot, left arm feels numb and face has paresthesias bilaterally pointing to the cheek region. The symptoms are not continuous, but present more often than not. She was concerned about a stroke or heart attack, therefore decided to come to the ER. Patient feels that she has to force her breathing. She is also complaining of some bad headache, not like her usual migraines. Patient denies any slurred speech, facial droop or any focal weakness, just feels generalized weak. Also has some issues with the legs from back problems. No previous history of strokes or TIA. Patient states that while she was in the waiting room in the ER, she felt dizzy and fell while she was getting up from the wheelchair. Vital signs on arrival blood pressure 178/100, which came down to 185/91, pulse rate 84 temperature 98.2. Blood test shows normal CBC, CMP, troponin, CRP less than 0.5. EKG showed sinus rhythm. CT head showed no acute intracranial hemorrhage or midline shift. No significant change from most recent prior CT on 10/30/2023. I personally reviewed CT head, agree with the findings. Paranasal sinuses are clear. Home medications include Cymbalta 60 mg, metoprolol, metformin, B12, aspirin 81 mg, lisinopril 5 mg twice daily, levothyroxine, Crestor 10 mg, Fioricet, Flexeril, insulin, meloxicam. Patient has history of smoking 2 to 3 pack/week since early 20s, quit 6 years ago in 2017. She drinks alcohol very occasionally. She admits to having some short-term memory cognitive issues as well. Patient believes she has multisystem sarcoidosis, rheumatoid arthritis, collagen vascular connective tissue disease, diabetes for 15 years for which she is on insulin for last 2 years. Also has some "clivus bone lesion" and angiomas in the brain. Review of Systems Constitutional: Reports chronic headaches, Reports chronic pain, Reports sweats, Reports weakness, Denies chills, Denies fever Eyes: denies blurred vision, denies pain, denies loss of vision Ears, nose, mouth and throat: Reports headache, Denies sore throat Cardiovascular: Reports shortness of breath, Denies chest pain Respiratory: Denies cough, Denies excessive sputum Gastrointestinal: Denies abdominal pain, Denies diarrhea, Denies nausea, Denies vomiting Genitourinary: Reports as per HPI (Patient has frequency of urination, but denies any dysuria. She has some pressure in the urine. No hematuria.) Musculoskeletal: Reports low back pain, Reports muscle weakness Integumentary: Denies pruritus, Denies rash Neurological: Reports as per HPI Psychiatric: Reports anxiety, Reports depression, Reports memory loss Past Medical History Past Medical History: Diabetes Mellitus, Fibromyalgia, GERD/Reflux, Hypertension, Pneumonia, Rheumatoid Arthritis (RA), Thyroid Disorder Additional Past Medical History / Comment(s): sarcoidosis, ibs, migraines, optic nerve damage, short term memory issues, chronic back pain, keratodermia, urinary incontinence, glaucoma, brain lesion, pulmonary lesion, eye problems, left buttocks cysts/abscess ongoing History of Any Multi-Drug Resistant Organisms: MRSA Date of last positivie culture/infection: unknown MDRO Source:: buttocks Past Surgical History: Appendectomy, Cholecystectomy Additional Past Surgical History / Comment(s): bronchoscopy, laproscopic young removal, cyst removal, cataracts Past Anesthesia/Blood Transfusion Reactions: No Reported Reaction Past Psychological History: Anxiety, Depression Smoking Status: Former smoker Past Alcohol Use History: Rare Past Drug Use History: None Reported - Past Family History Mother Family Medical History: Cancer, Hyperlipidemia Additional Family Medical History / Comment(s): lung cancer Father Family Medical History: Cancer, Diabetes Mellitus, Hyperlipidemia Medications and Allergies Home Medications Medication Instructions Recorded Confirmed Type DULoxetine HCL [Cymbalta] 60 mg PO DAILY 05/09/14 10/30/23 History Latanoprost Ophth [Xalatan 0.005%] 1 drop BOTH EYES HS 05/09/14 10/30/23 History Omeprazole [PriLOSEC] 20 mg PO AC-BRKFST 05/09/14 10/30/23 History Cyanocobalamin (Vitamin B-12) 5,000 mcg PO Q3D 09/28/19 10/30/23 History [Vitamin B-12] Magnesium Oxide [Mag-Ox] 250 mg PO Q3D 09/28/19 10/30/23 History Metoprolol Succinate [Toprol XL] 25 mg PO DAILY 09/28/19 10/30/23 History Montelukast [Singulair] 10 mg PO HS 09/28/19 10/30/23 History metFORMIN HCL [Glucophage] 1,000 mg PO BID 09/28/19 10/30/23 History Aspirin EC [Ecotrin Low Dose] 81 mg PO DAILY 03/24/22 10/30/23 History Calcium Citrate/Vitamin D3 1 tab PO Q3D 03/24/22 10/30/23 History [Citracal + D Maximum Caplet] Fluticasone Propionate [Flovent 2 puff INHALATION RT-BID 03/24/22 10/30/23 History Hfa 220 mcg] Iron Complex 1 cap PO DAILY 03/24/22 10/30/23 History L.acidoph,Paracasei, B.lactis 1 cap PO Q3D 03/24/22 10/30/23 History [Probiotic] Levothyroxine Sodium [Synthroid] 25 mcg PO AC-BRKFST 03/24/22 10/30/23 History Multivit-Min/FA/Lycopen/Lutein 1 tab PO Q2D 03/24/22 10/30/23 History [Centrum Silver Tablet] Zinc Gluconate [Zinc] 50 mg PO Q3D 03/24/22 10/30/23 History lisinopriL [Zestril] 5 mg PO BID 03/24/22 10/30/23 History Rosuvastatin [Crestor] 10 mg PO HS 06/22/22 10/30/23 History Doxycycline [Vibramycin] 100 mg PO BID #14 capsule 10/28/23 10/30/23 Rx Butalb/APAP/Caff 50-325-40Mg 1 tab PO DAILY PRN 10/30/23 10/30/23 History [Fioricet 50-325-40] Cyclobenzaprine [Flexeril] 10 mg PO TID PRN 10/30/23 10/30/23 History Insulin Glargine,Hum.rec.anlog 26 units SQ DAILY 10/30/23 10/30/23 History [Lantus Solostar Pen] Meloxicam [Mobic] 15 mg PO DAILY PRN 10/30/23 10/30/23 History Potassium Gluconate 99 mg PO WEEKLY 10/30/23 10/30/23 History Allergies Allergy/AdvReac Type Severity Reaction Status Date / Time Penicillins AdvReac Nausea & Verified 10/30/23 08:37 Vomiting Sulfa (Sulfonamide AdvReac Nausea & Verified 10/30/23 08:37 Antibiotics) Vomiting Physical Examination - Vital Signs Vital Signs: Vital Signs Temp Pulse Resp BP Pulse Ox 10/30/23 08:49 98.0 F 70 17 156/76 96 10/30/23 08:09 70 10/30/23 08:00 65 10/30/23 07:30 98.3 F 66 16 177/79 94 L 10/30/23 07:06 96 18 173/84 96 10/30/23 06:02 70 18 175/84 96 10/30/23 05:28 74 18 177/93 96 10/30/23 04:40 78 18 185/91 99 10/30/23 04:11 98.2 F 84 16 178/100 97 Intake and Output 10/29/23 10/30/23 10/30/23 22:59 06:59 14:59 Other: Weight 77.111 kg Patient is an elderly female, very pleasant, no acute distress. Patient is alert awake oriented to time place and person. Speech and language functions are normal. Patient can name and repeat very well. No aphasia or dysarthria. Attention, concentration and fund of knowledge is adequate. On cranial nerve examination, pupils are equal, round and reacting to light, visual cagle are full on confrontation, with no neglect on double simultaneous stimulation. Extraocular muscles are intact with no nystagmus. Face is symmetric, tongue protrudes to the midline. Palatal elevation and sensation normal, hearing and shoulder shrug normal, facial sensation normal. On muscle strength testing, there is no pronator drift and the strength is nor mal in arms and legs distally and proximally except hip flexion which is about 4+ bilaterally. Deep tendon reflexes are (right/left) biceps 2/2, brachioradialis 2/2, knees 2/2, ankles 2/1 and plantars downgoing bilaterally. Sensory to touch is equal with no neglect on double simultaneous stimulation. Cerebellar function showed no ataxia for [id number] testing, although patient was tremulous on the left but not on the right. No dysdiadochokinesia. No ataxia for [id number] testing on either side. Tone and bulk of muscles normal. Gait deferred.. On general examination, there is no carotid bruit or murmur, S1-S2 audible. Chest is clear on consultation. Abdomen is soft nontender. No organomegaly, bowel sounds present. Peripheral pulses are present. No peripheral edema. Results - Laboratory Findings CBC and BMP: 10/30/23 05:08 10/30/23 05:08 Abnormal Lab Findings: Abnormal Labs 10/30/23 05:08 Sodium 136 L Glucose 113 H Assessment and Plan Assessment: * Facial paresthesias, left arm numbness off and on for last "few days", unclear cause. Rule out cerebral ischemia * Hypertension * Diabetes * Hyperlipidemia * Ex tobacco use * Reported history of sarcoidosis * Reported history of rheumatoid arthritis * Migraine headaches * Chronic back pain with sciatica * Anxiety, depression Plan: MRI of the brain with and without contrast, evaluate for acute CVA 2-D echo to rule out PFO Carotid Doppler, rule out stenosis Patient had a normal MRA of mentasta of [place] on 06/19/2014 and CTA of head and neck on 12/23/2019. No aneurysm. Fasting a.m. lipid panel Hemoglobin A1c Permissive hypertension for next 24-48 hours Patient was taking aspirin 81 mg daily. We will add Plavix 75 mg daily for now. Neuro checks every 4 hours. Telemetry monitoring rule out any arrhythmia DVT prophylaxis: Heparin 5000 units subcu every 8 hours Neurology will continue to follow. Thank you for the consult.
[2023-10-30 12:33] LABS: Glucose,Whole Blood 93 mg/dL (70-110)
[2023-10-30] MEDS: ACETAMINOPHEN TAB 325 MG TAB PO PRN (13:16)
[2023-10-30] MEDS: CLOPIDOGREL 75 MG TAB PO SCH (13:17)
[2023-10-30] MEDS: INSULIN DETEMIR (LEVEMIR) 100 UNIT/ML SYR SQ SCH (14:01)
--- NOTE | 2023-10-30 15:33 | US ---
EXAMINATION TYPE: US carotid duplex BILAT DATE OF EXAM: 10/30/2023 COMPARISON: NONE CLINICAL INDICATION: Female, 68 years old with history of TIA; TIA TECHNIQUE: Carotid duplex ultrasound examination. Indirect Doppler criteria was utilized. FINDINGS: EXAM MEASUREMENTS: RIGHT: Peak Systolic Velocity (PSV) cm/sec ----- Right CCA: 68.9 ----- Right ICA: 128.0 ----- Right ECA: 123.0 ICA/CCA ratio: 1.9 RIGHT: End Diastole cm/sec ----- Right CCA: 14.4 ----- Right ICA: 33.7 ----- Right ECA: 11.7 LEFT: Peak Systolic Velocity (PSV) cm/sec ----- Left CCA: 84.9 ----- Left ICA: 158.0 ----- Left ECA: 110.0 ICA/CCA ratio: 1.9 LEFT: End Diastole cm/sec ----- Left CCA: 13.8 ----- Left ICA: 39.0 ----- Left ECA: 4.9 VERTEBRALS (direction of flow): Right Vertebral: Antegrade Left Vertebral: Antegrade Rhythm: Normal ELECTROPLATING WORKER NOTES: Mild heterogeneous plaque with no significant stenosis seen IMPRESSION: 50-69% stenosis of the bilateral carotid bifurcations. Criteria for Assigning % of Stenosis / Diameter reduction (Estimation based on the indirect measurements of the internal carotid artery velocities (ICA PSV). 1. Normal (no stenosis)=ICA PSV < 125 cm/s: ratio < 2.0: ICA EDV<40 cm/s. 2. Less than 50% stenosis=ICA PSV < 125 cm/s: ratio < 2.0: ICA EDV<40 cm/s. 3. 50 to 69% stenosis=ICA PSV of 125 to 230 cm/s: ration 2.0 ? 4.0: ICA EDV 40-100 cm/s. 4. Greater than 70% stenosis to near occlusion= ICA PSV > 230 cm/s: ratio > 4.0: ICA EDV > 100 cm/s. 5. Near occlusion= ICA PSV velocities may be low or undetectable: variable ratio and ICA EDV. 6. Total occlusion=unable to detect flow.
[2023-10-30] MEDS: HYDROmorphone 0.5 MG/0.5 ML SYRINGE IVP STA (16:10)
[2023-10-30 16:42] LABS: Glucose,Whole Blood 104 mg/dL (70-110)
[2023-10-30] MEDS: amLODIPine 10 MG TAB PO STA (17:27)
[2023-10-30 20:24] LABS: Glucose,Whole Blood 148 mg/dL (70-110)
[2023-10-30] MEDS: MONTELUKAST 10 MG TAB PO SCH (20:34)
[2023-10-30] MEDS: ATORVASTATIN 10 MG TAB PO SCH (20:34)
[2023-10-30] MEDS: LATANOPROST 0.005% OPHTH DROPS 2.5 ML BTL BOTH EYES SCH (20:48)
[2023-10-31] MEDS: MAGNESIUM SULFATE-D5W PMX 1 GM in DEXTROSE/WATER 1 100ML.BAG IVPB ONE (00:19)
--- NOTE | 2023-10-31 00:29 | P.HPIM ---
History of Present Illness H&P Date: 10/30/23 Chief Complaint: Left arm numbness Patient is a 68-year-old female with known history of hypertension, diabetes type 2 insulin-dependent, rheumatoid arthritis, hypothyroidism, fibromyalgia and GERD and also history of sarcoidosis, IBS and chronic back pain, receiving back injection previously history of brain lesion and short-term memory loss, anxiety/depression and prior history of smoking. Patient presents to ER with complaints of left arm numbness and facial paresthes ias left more than right. She was also complaining of migraine headache and flushing sensation. Otherwise denies any focal weakness. No facial droop. Denies slurred speech or trouble finding words. Patient was seen in the ER about a week ago and was diagnosed with urinary tract infection. On admission blood pressure 178/100 pulse is 84 respirations 16 pulse ox 97% on room air. Patient does take lisinopril and metoprolol XL at home. Laboratory showed WBC 6.3 hemoglobin 11.9 and platelets 315 sodium 136 potassium 4.5 chloride 104 bicarb is 22 BUN 13 and creatinine 0.68 and blood sugar 113 liver enzymes are not elevated. Magnesium 1.6. EKG showed sinus rhythm with moderate low voltage criteria. CT head showed no acute intracranial hemorrhage or midline shift. No significant change from most recent CT. Carotid duplex showed 50 to 69% stenosis of bilateral carotid bifurcations. Review of Systems Constitutional: Patient denies any fever or chills . No generalized weakness or weight loss. Abdomen: Patient denied nausea vomiting and diarrhea and abdominal pain. Cardiovascular: Patient denies any chest pain or short of breath no palpitations. Respiratory: patient denied any cough or sputum production. No shortness of breath Neurologic: Patient denied any numbness or tingling. no headache. Left arm numbness and facial numbness. Musculoskeletal: Patient denies any complaints of joint swelling or deformity. Skin: Negative Psychiatric: Negative Endocrine: No heat or cold intolerance. No recent weight gain. Genitourinary: No dysuria or hematuria. All other 14 point ROS negative except the above Past Medical History Past Medical History: Diabetes Mellitus, Fibromyalgia, GERD/Reflux, Hypertension, Pneumonia, Rheumatoid Arthritis (RA), Thyroid Disorder Additional Past Medical History / Comment(s): sarcoidosis, ibs, migraines, optic nerve damage, short term memory issues, chronic back pain, keratodermia, urinary incontinence, glaucoma, brain lesion, pulmonary lesion, eye problems, left buttocks cysts/abscess ongoing History of Any Multi-Drug Resistant Organisms: MRSA Date of last positivie culture/infection: unknown MDRO Source:: buttocks Past Surgical History: Appendectomy, Cholecystectomy Additional Past Surgical History / Comment(s): bronchoscopy, laproscopic young removal, cyst removal, cataracts Past Anesthesia/Blood Transfusion Reactions: No Reported Reaction Past Psychological History: Anxiety, Depression Smoking Status: Former smoker Past Alcohol Use History: Rare Past Drug Use History: None Reported - Past Family History Mother Family Medical History: Cancer, Hyperlipidemia Additional Family Medical History / Comment(s): lung cancer Father Family Medical History: Cancer, Diabetes Mellitus, Hyperlipidemia Medications and Allergies Home Medications Medication Instructions Recorded Confirmed Type DULoxetine HCL [Cymbalta] 60 mg PO DAILY 05/09/14 10/30/23 History Latanoprost Ophth [Xalatan 0.005%] 1 drop BOTH EYES HS 05/09/14 10/30/23 History Omeprazole [PriLOSEC] 20 mg PO AC-BRKFST 05/09/14 10/30/23 History Cyanocobalamin (Vitamin B-12) 5,000 mcg PO Q3D 09/28/19 10/30/23 History [Vitamin B-12] Magnesium Oxide [Mag-Ox] 250 mg PO Q3D 09/28/19 10/30/23 History Metoprolol Succinate [Toprol XL] 25 mg PO DAILY 09/28/19 10/30/23 History Montelukast [Singulair] 10 mg PO HS 09/28/19 10/30/23 History metFORMIN HCL [Glucophage] 1,000 mg PO BID 09/28/19 10/30/23 History Aspirin EC [Ecotrin Low Dose] 81 mg PO DAILY 03/24/22 10/30/23 History Calcium Citrate/Vitamin D3 1 tab PO Q3D 03/24/22 10/30/23 History [Citracal + D Maximum Caplet] Fluticasone Propionate [Flovent 2 puff INHALATION RT-BID 03/24/22 10/30/23 History Hfa 220 mcg] Iron Complex 1 cap PO DAILY 03/24/22 10/30/23 History L.acidoph,Paracasei, B.lactis 1 cap PO Q3D 03/24/22 10/30/23 History [Probiotic] Levothyroxine Sodium [Synthroid] 25 mcg PO AC-BRKFST 03/24/22 10/30/23 History Multivit-Min/FA/Lycopen/Lutein 1 tab PO Q2D 03/24/22 10/30/23 History [Centrum Silver Tablet] Zinc Gluconate [Zinc] 50 mg PO Q3D 03/24/22 10/30/23 History lisinopriL [Zestril] 5 mg PO BID 03/24/22 10/30/23 History Rosuvastatin [Crestor] 10 mg PO HS 06/22/22 10/30/23 History Doxycycline [Vibramycin] 100 mg PO BID #14 capsule 10/28/23 10/30/23 Rx Butalb/APAP/Caff 50-325-40Mg 1 tab PO DAILY PRN 10/30/23 10/30/23 History [Fioricet 50-325-40] Cyclobenzaprine [Flexeril] 10 mg PO TID PRN 10/30/23 10/30/23 History Insulin Glargine,Hum.rec.anlog 26 units SQ DAILY 10/30/23 10/30/23 History [Lantus Solostar Pen] Meloxicam [Mobic] 15 mg PO DAILY PRN 10/30/23 10/30/23 History Potassium Gluconate 99 mg PO WEEKLY 10/30/23 10/30/23 History Allergies Allergy/AdvReac Type Severity Reaction Status Date / Time Penicillins AdvReac Nausea & Verified 10/30/23 08:37 Vomiting Sulfa (Sulfonamide AdvReac Nausea & Verified 10/30/23 08:37 Antibiotics) Vomiting Physical Exam Vitals: Vital Signs Temp Pulse Pulse Resp BP BP Pulse Ox 10/30/23 15:00 97.6 F 72 18 189/78 97 10/30/23 10:49 98.6 F 66 17 171/75 97 10/30/23 10:33 98.2 F 76 17 176/85 96 10/30/23 09:00 159/81 10/30/23 08:49 98.0 F 70 17 156/76 96 10/30/23 08:09 70 10/30/23 08:00 65 10/30/23 07:30 98.3 F 66 16 177/79 94 L 10/30/23 07:06 96 18 173/84 96 10/30/23 06:02 70 18 175/84 96 10/30/23 05:28 74 18 177/93 96 10/30/23 04:40 78 18 185/91 99 10/30/23 04:11 98.2 F 84 16 178/100 97 Intake and Output 10/30/23 10/30/23 10/30/23 06:59 14:59 22:59 Other: # Voids 1 Weight 77.111 kg 77.111 kg PHYSICAL EXAMINATION: Patient is lying in the bed comfortably, no acute distress, awake alert and oriented.. HEENT: Normocephalic. Neck is supple. Pupils reactive. Nostrils clear. Oral cavity is moist. Neck reveals no JVD, carotid bruits, or thyromegaly. CHEST EXAMINATION: Trachea is central. Symmetrical expansion. Lung cagle clear to auscultation and percussion. CARDIAC: Normal S1, S2 with no gallops. No murmurs ABDOMEN: Soft. Bowel sounds normal. No organomegaly. No abdominal bruits. Extremities: reveal no edema. No clubbing or cyanosis Neurologically awake, alert, oriented x3 with well-coordinated movements. No focal deficits noted Skin: No rash or skin lesions. Psychiatric: Coperative. Nonsuicidal Musculoskeletal: No joint swelling or deformity. Normal range of motion. Results CBC & Chem 7: 10/30/23 05:08 11/01/23 06:16 Labs: Abnormal Lab Results - Last 24 Hours (Table) 10/30/23 Range/Units 05:08 Sodium 136 L (137-145) mmol/L Glucose 113 H (74-99) mg/dL Thrombosis Risk Factor Assmnt - DVT/VTE Prophylaxis DVT/VTE Prophylaxis: Pharmacologic Prophylaxis ordered Assessment and Plan Assessment: Left arm numbness and facial paresthesia left greater than right. Rule out acute CVA Uncontrolled hypertension Diabetes type 2 insulin-dependent History of sarcoidosis History of rheumatoid arthritis Migraine headaches Chronic back pain with sciatica and a history of back injections GERD Hypothyroidism Anxiety/depression History of brain lesion as per patient Prior history of smoking DVT prophylaxis with heparin subcu GI prophylaxis on Pepcid Plan: Patient will be continued on telemonitoring. Continue neurochecks. Continue with aspirin and statin send Plavix was added as per neurology recommendations. Patient underwent stroke workup including CT head, carotid duplex. MRI of the brain with and without contrast was ordered and with follow-up 2D echocardiogram to rule out PFO. Neurology is on board. Patient was started back on lisinopril and metoprolol XL and titrate blood pressure medications as needed. Replace electrolytes and follow-up closely. Prognosis is guarded. Time with Patient: Greater than 30
[2023-10-31 05:23] LABS: Glucose,Whole Blood 94 mg/dL (70-110)
--- NOTE | 2023-10-31 05:30 | CA ---
Transthoracic Echo Report Name: Bernice Braga Age: 68 Gender: F : 1955 Exam Date: 10/30/2023 18:07 Exam Location: [facility] Ht (in): 67 Wt (lb): 170 Ordering Physician: Brooke Snow MD Attending/Referring Phys: Electronic Console Display Operator Angelina Fink RDCS Procedure CPT: Indications: tia Cardiac Hx: Technical Quality: Fair Contrast 1: Total Dose (mL): Contrast 2: Total Dose (mL): MEASUREMENTS (Male / Female) Normal Values 2D ECHO LV Diastolic Diameter PLAX 3.7 cm 4.2 - 5.9 / 3.9 - 5.3 cm LV Systolic Diameter PLAX 2.5 cm IVS Diastolic Thickness 1.1 cm 0.6 - 1.0 / 0.6 - 0.9 cm LVPW Diastolic Thickness 1.1 cm 0.6 - 1.0 / 0.6 - 0.9 cm LV Relative Wall Thickness 0.6 LA Volume 42.3 cm??? 18 - 58 / 22 - 52 cm??? LA Volume Index 22.0 cm???/m??? 16 - 28 cm???/m??? M-MODE Aortic Root Diameter MM 3.1 cm LA Systolic Diameter MM 3.8 cm LA Ao Ratio MM 1.2 DOPPLER AV Peak Velocity 114.2 cm/s AV Peak Gradient 5.2 mmHg AV Mean Velocity 80.0 cm/s AV Mean Gradient 2.8 mmHg AV Velocity Time Integral 25.6 cm LVOT Peak Velocity 86.5 cm/s LVOT Peak Gradient 3.0 mmHg LVOT Velocity Time Integral 16.5 cm MV Area PHT 3.3 cm??? Mitral E Point Velocity 45.8 cm/s Mitral A Point Velocity 91.5 cm/s Mitral E to A Ratio 0.5 MV Deceleration Time 232.5 ms MV E' Velocity 4.1 cm/s Mitral E to MV E' Ratio 11.1 FINDINGS Left Ventricle Mildly increased left ventricular wall thickness. Left ventricular cavity size normal. Normal left ventricular systolic function with no obvious regional wall motion abnormalities. Left ventricular ejection fraction is estimated at 55-60 %. Grade 1 diastolic dysfunction. Right Ventricle Normal right ventricular size and function. Right ventricular systolic pressure within normal limits. Right Atrium Normal right atrial size. Left Atrium Normal left atrial size. Mitral Valve Structurally normal mitral valve. Mitral valve thickened. Mild mitral annular calcification. Mild mitral regurgitation. Aortic Valve Trileaflet aortic valve. No aortic valve stenosis or regurgitation. Tricuspid Valve Structurally normal tricuspid valve. Mild tricuspid regurgitation. Pulmonic Valve Structurally normal pulmonic valve. Pericardium No pericardial effusion. Aorta Normal size aortic root and proximal ascending aorta. CONCLUSIONS Mildly increased left ventricular wall thickness Left ventricular ejection fraction 55-60% Mild mitral annular calcification Mild mitral regurgitation Mild tricuspid regurgitation Previewed by: Dr. Branden Randall DO (Electronically Signed) Final Date: 31 October 2023 05:30
[2023-10-31 07:04] LABS: Appearance,Urine Clear (Clear); Bilirubin,Urine Negative (Negative); Blood,Urine Negative (Negative); Color,Urine Colorless; Glucose,Urine (UA) Negative (Negative); Ketones,Urine Negative (Negative); Leukocyte Esterase,Urine Negative (Negative); Nitrite,Urine Negative (Negative); PH, Urine 6.5 (5.0-8.0); Protein,Urine Negative (Negative); Specific Gravity,Urine 1.008 (1.001-1.035); Urobilinogen,Urine <2.0 mg/dL (<2.0)
[2023-10-31 07:51] LABS: Glucose,Whole Blood 97 mg/dL (70-110)
[2023-10-31] MEDS: MAGNESIUM OXIDE 400 MG TAB PO SCH (07:51)
[2023-10-31] MEDS: HEPARIN SODIUM,PORCINE 5,000 UNIT/ML 1 ML VIAL SQ SCH (07:52)
[2023-10-31 11:19] LABS: BUN/Creat Ratio 14.33 Ratio (12.00-20.00); Blood Urea Nitrogen 12.9 mg/dL (9.0-27.0); Chloride 102 mmol/L (96-109); Chol/HDL Ratio 2.71 Ratio; Glucose 124 mg/dL (70-110); LDL Cholesterol,Calculated 95.3 mg/dL (0.0-131.0); Potassium 4.9 mmol/L (3.5-5.5); Sodium 143 mmol/L (135-145)
[2023-10-31] MEDS: HYDROmorphone 1 MG/ML 1 ML SYRINGE IVP STA ×2 (11:54→12:06)
[2023-10-31 11:56] LABS: Glucose,Whole Blood 115 mg/dL (70-110)
[2023-10-31] MEDS: ONDANSETRON 4 MG/2 ML VIAL IVP PRN (14:15)
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
[2023-10-31 17:11] LABS: Glucose,Whole Blood 119 mg/dL (70-110)
--- NOTE | 2023-10-31 18:29 | CT ---
EXAMINATION TYPE: CT angio head neck CT DLP: 330.6 mGycm, Automated exposure control for dose reduction was used. DATE OF EXAM: 10/31/2023 6:07 PM COMPARISON: 10/30/2023. CLINICAL INDICATION: Female, 68 years old with history of Possible TIA, carotid stenosis per ultrasou nd.; PHH, Possible TIA, carotid stenosis per ultrasound. TECHNIQUE: Axially acquired helical CT angiogram of the head and neck was obtained with contrast. Axi al images are supplemented with 3D reconstructions and MIP images which were post-processed at an in dependent workstation. NASCET criteria used. Contrast used:65 ml mL of Isovue 370 with IV Contrast, Oral contrast used: None. FINDINGS: CTA HEAD: No evidence of acute intracranial hemorrhage, mass effect, or midline shift. The ventricles, sulci, a nd cisterns are unremarkable. The visualized portions of the internal carotid arteries, middle cerebral arteries, anterior cerebral arteries, and posterior cerebral arteries are patent. The basilar and vertebral arteries are patent. CTA NECK: Right Carotid System: The common carotid and external carotid arteries are patent. There is less than 33% stenosis at the c arotid bifurcation secondary to calcified plaque. The rest of the internal carotid artery is patent. Left Carotid System: The common carotid and external carotid arteries are patent. There is less than 33% stenosis at the c arotid bifurcation secondary to calcified plaque. The rest of the internal carotid artery is patent. Vertebral arteries are patent without evidence hemodynamically significant stenosis. There is a three-vessel aortic arch. The origins of the great vessels are patent. No evidence of hemo dynamically significant stenosis. Upper thorax: IMPRESSION: 1. Carotid bifurcations with calcified predominant plaque and 33% stenosis bilaterally. 2. No evidence of dissection of the cervical internal carotid arteries or vertebral arteries. 3. No evidence of intracranial high-grade stenosis or intracranial aneurysm.
[2023-10-31] MEDS: ATORVASTATIN 40 MG TAB PO SCH (20:51)
[2023-10-31 20:59] LABS: Glucose,Whole Blood 141 mg/dL (70-110)
[2023-11-01 06:18] LABS: Glucose,Whole Blood 95 mg/dL (70-110)
[2023-11-01 07:51] LABS: African American GFR (CKD) 73 (>60 ml/min/1.73 sqM); Anion Gap 8 mmol/L; Blood Urea Nitrogen 16 mg/dL (7-17); Calcium 10.2 mg/dL (8.4-10.2); Carbon Dioxide 27 mmol/L (22-30); Chloride 102 mmol/L (98-107); Glucose 104 mg/dL (74-99); Non-African American GFR(CKD) 63 (>60 ml/min/1.73 sqM); Potassium 4.8 mmol/L (3.5-5.1); Sodium 137 mmol/L (137-145)
[2023-11-01] MEDS: lisinopriL 5 MG TAB PO STA (11:29)
[2023-11-01] MEDS: amLODIPine 5 MG TAB PO SCH (11:29)
[2023-11-01 12:30] LABS: Glucose,Whole Blood 91 mg/dL (70-110)
[2023-11-01 17:20] LABS: Glucose,Whole Blood 176 mg/dL (70-110)
[2023-11-01 20:47] LABS: Glucose,Whole Blood 146 mg/dL (70-110)
[2023-11-01] MEDS: lisinopriL 20 MG TAB PO SCH (22:00)
--- NOTE | 2023-11-02 01:06 | P.PN ---
Subjective Progress Note Date: 10/31/23 Patient is a 68-year-old female with known history of hypertension, diabetes type 2 insulin-dependent, rheumatoid arthritis, hypothyroidism, fibromyalgia and GERD and also history of sarcoidosis, IBS and chronic back pain, receiving back injection previously history of brain lesion and short-term memory loss, anxiety/depression and prior history of smoking. Patient presents to ER with complaints of left arm numbness and facial paresthesias left more than right. She was also complaining of migraine he adache and flushing sensation. Otherwise denies any focal weakness. No facial droop. Denies slurred speech or trouble finding words. Patient was seen in the ER about a week ago and was diagnosed with urinary tract infection. On admission blood pressure 178/100 pulse is 84 respirations 16 pulse ox 97% on room air. Patient does take lisinopril and metoprolol XL at home. Laboratory showed WBC 6.3 hemoglobin 11.9 and platelets 315 sodium 136 potassium 4.5 chloride 104 bicarb is 22 BUN 13 and creatinine 0.68 and blood sugar 113 liver enzymes are not elevated. Magnesium 1.6. EKG showed sinus rhythm with moderate low voltage criteria. CT head showed no acute intracranial hemorrhage or midline shift. No significant change from most recent CT. Carotid duplex showed 50 to 69% stenosis of bilateral carotid bifurcations. 10/31/2023 Patient is lying in the bed. Awake alert and oriented x 3. No complaints of chest pain or shortness of breath. Patient states that she is she feels dizzy and also numbness of the left lower extremity and face. Blood pressure is better compared to yesterday. Laboratory data reviewed. Blood sugar is controlled. Otherwise patient is complaining of increased frequency of urination. Urinalysis was done showed no evidence of infection. Otherwise patient is being continued on aspirin Plavix. Neurology is on board. Pending MRI at this time. Objective - Vital Signs Vital signs: Vital Signs Temp 97.9 F 10/31/23 07:00 Pulse 90 10/31/23 07:00 Resp 18 10/31/23 07:00 BP 149/81 10/31/23 07:00 Pulse Ox 97 10/31/23 07:00 FiO2 Intake & Output 10/30/23 10/31/23 10/31/23 18:59 06:59 18:59 Intake Total 118 236 Balance 118 236 Weight 77.111 kg Intake: Oral 118 236 Other: Voiding Method Toilet Toilet # Voids 1 7 - Exam PHYSICAL EXAMINATION: Patient is lying in the bed comfortably, no acute distress, awake alert and oriented.. HEENT: Normocephalic. Neck is supple. Pupils reactive. Nostrils clear. Oral cavity is moist. Neck reveals no JVD, carotid bruits, or thyromegaly. CHEST EXAMINATION: Trachea is central. Symmetrical expansion. Lung cagle clear to auscultation and percussion. CARDIAC: Normal S1, S2 with no gallops. No murmurs ABDOMEN: Soft. Bowel sounds normal. No organomegaly. No abdominal bruits. Extremities: reveal no edema. No clubbing or cyanosis Neurologically awake, alert, oriented x3 with well-coordinated movements. No focal deficits noted Skin: No rash or skin lesions. Psychiatric: Coperative. Nonsuicidal, anxious. Musculoskeletal: No joint swelling or deformity. Normal range of motion. - Labs CBC & Chem 7: 10/30/23 05:08 11/01/23 06:16 Labs: Abnormal Lab Results - Last 24 Hours (Table) 10/30/23 10/31/23 10/31/23 Range/Units 20:22 04:15 04:15 Anion Gap 13.00 H (4.00-12.00) mmol/L Glucose 124 H (70-110) mg/dL POC Glucose (mg/dL) 148 H (70-110) mg/dL Hemoglobin A1c 7.5 H (<=6.0) % HDL Cholesterol 72.30 H (40.00-60.00) mg/dL 10/31/23 Range/Units 11:55 Anion Gap (4.00-12.00) mmol/L Glucose (70-110) mg/dL POC Glucose (mg/dL) 115 H (70-110) mg/dL Hemoglobin A1c (<=6.0) % HDL Cholesterol (40.00-60.00) mg/dL Assessment and Plan Assessment: Left arm numbness and facial paresthesia left greater than right. Rule out acute CVA Uncontrolled hypertension Diabetes type 2 insulin-dependent History of sarcoidosis History of rheumatoid arthritis Migraine headaches Chronic back pain with sciatica and a history of back injections GERD Hypothyroidism Anxiety/depression History of brain lesion as per patient Prior history of smoking DVT prophylaxis with heparin subcu GI prophylaxis on Pepcid Plan: Patient will be continued on telemonitoring. Continue neurochecks. Continue with aspirin and statin send Plavix was added as per neurology recommendations. Patient underwent stroke workup including CT head, carotid duplex. MRI of the brain with and without contrast was ordered. 2D echocardiogram showed normal EF. No PFO.. Neurology is on board. Patient was started back on lisinopril and metoprolol XL and titrate blood pressure medications as needed. Norvasc 5 mg daily was added. Continue to titrate blood pressure medications. Replace electrolytes and follow-up closely. Prognosis is guarded. Time with Patient: Greater than 30
--- NOTE | 2023-11-02 01:17 | P.PN ---
Subjective Progress Note Date: 11/01/23 Patient is a 68-year-old female with known history of hypertension, diabetes type 2 insulin-dependent, rheumatoid arthritis, hypothyroidism, fibromyalgia and GERD and also history of sarcoidosis, IBS and chronic back pain, receiving back injection previously history of brain lesion and short-term memory loss, anxiety/depression and prior history of smoking. Patient presents to ER with complaints of left arm numbness and facial paresthesias left more than right. She was also complaining of migraine he adache and flushing sensation. Otherwise denies any focal weakness. No facial droop. Denies slurred speech or trouble finding words. Patient was seen in the ER about a week ago and was diagnosed with urinary tract infection. On admission blood pressure 178/100 pulse is 84 respirations 16 pulse ox 97% on room air. Patient does take lisinopril and metoprolol XL at home. Laboratory showed WBC 6.3 hemoglobin 11.9 and platelets 315 sodium 136 potassium 4.5 chloride 104 bicarb is 22 BUN 13 and creatinine 0.68 and blood sugar 113 liver enzymes are not elevated. Magnesium 1.6. EKG showed sinus rhythm with moderate low voltage criteria. CT head showed no acute intracranial hemorrhage or midline shift. No significant change from most recent CT. Carotid duplex showed 50 to 69% stenosis of bilateral carotid bifurcations. 10/31/2023 Patient is lying in the bed. Awake alert and oriented x 3. No complaints of chest pain or shortness of breath. Patient states that she is she feels dizzy and also numbness of the left lower extremity and face. Blood pressure is better compared to yesterday. Laboratory data reviewed. Blood sugar is controlled. Otherwise patient is complaining of increased frequency of urination. Urinalysis was done showed no evidence of infection. Otherwise patient is being continued on aspirin Plavix. Neurology is on board. Pending MRI at this time. 11/01/2023 Patient is lying in the bed. Awake alert and oriented x 3. Feels anxious about her carotid duplex. Patient was explained about CT angiogram of the head and neck showed there is only 33% stenosis bilaterally. No evidence of dissection or intracranial high-grade stenosis or aneurysm. Otherwise patient is also complaining of buzzing in the ear and room spinning like sensation. Also complaining of left lower extremity numbness. MRI is pending. Neurology is on board. Blood pressure is controlled now. Patient is on Toprol-XL, lisinopril and amlodipine. Laboratory data showed electrolytes within normal limits. Blood sugar is controlled. Current medications reviewed. Objective - Vital Signs Vital signs: Vital Signs Temp 98.2 F 11/01/23 20:00 Pulse 104 H 11/01/23 20:00 Resp 20 11/01/23 20:00 BP 123/82 11/01/23 20:00 Pulse Ox 94 L 11/01/23 20:00 FiO2 Intake & Output 11/01/23 11/01/23 11/02/23 06:59 18:59 06:59 Intake Total 594 Balance 594 Intake: Oral 594 Other: Voiding Method Toilet Toilet # Voids 1 6 2 # Bowel Movements 3 3 - Exam PHYSICAL EXAMINATION: Patient is lying in the bed comfortably, no acute distress, awake alert and oriented.. HEENT: Normocephalic. Neck is supple. Pupils reactive. Nostrils clear. Oral cavity is moist. Neck reveals no JVD, carotid bruits, or thyromegaly. CHEST EXAMINATION: Trachea is central. Symmetrical expansion. Lung cagle clear to auscultation and percussion. CARDIAC: Normal S1, S2 with no gallops. No murmurs ABDOMEN: Soft. Bowel sounds normal. No organomegaly. No abdominal bruits. Extremities: reveal no edema. No clubbing or cyanosis Neurologically awake, alert, oriented x3 with well-coordinated movements. No focal deficits noted Skin: No rash or skin lesions. Psychiatric: Coperative. Nonsuicidal, anxious. Musculoskeletal: No joint swelling or deformity. Normal range of motion. - Labs CBC & Chem 7: 10/30/23 05:08 11/01/23 06:16 Labs: Abnormal Lab Results - Last 24 Hours (Table) 11/01/23 11/01/23 11/01/23 Range/Units 06:16 17:15 20:46 Glucose 104 H (74-99) mg/dL POC Glucose (mg/dL) 176 H 146 H (70-110) mg/dL Assessment and Plan Assessment: Left arm numbness and facial paresthesia left greater than right. Rule out acute CVA. MRI pending. Uncontrolled hypertension Diabetes type 2 insulin-dependent History of sarcoidosis History of rheumatoid arthritis Migraine headaches Chronic back pain with sciatica and a history of back injections GERD Hypothyroidism Anxiety/depression History of brain lesion as per patient Prior history of smoking DVT prophylaxis with heparin subcu GI prophylaxis on Pepcid Plan: Patient will be continued on telemonitoring. Continue neurochecks. Continue with aspirin and statin send Plavix was added as per neurology recommendations. Patient underwent stroke workup including CT head, carotid duplex and CTA head and neck.. MRI of the brain with and without contrast was ordered. 2D echocardiogram showed normal EF. No PFO.. Neurology is on board. Patient was started back on lisinopril and metoprolol XL and titrate blood pressure medications as needed. Norvasc 5 mg daily was added. Continue to titrate blood pressure medications. Replace electrolytes and follow-up closely. Prognosis is guarded. Time with Patient: Greater than 30
[2023-11-02 05:41] LABS: Glucose,Whole Blood 126 mg/dL (70-110)
[2023-11-02 08:55] LABS: Basophils # (A) 0.03 X 10*3/uL (0.00-0.10); Basophils % (A) 0.4 %; Eosinophils # (A) 0.19 X 10*3/uL (0.04-0.35); Eosinophils % (A) 2.2 %; HCT 39.1 % (37.2-46.3); HGB 12.4 g/dL (12.0-15.0); Lymphocytes # (A) 3.11 X 10*3/uL (0.90-5.00); Lymphocytes % (A) 36.5 %; MCHC 31.7 g/dL (32.0-37.0); MCV 91.4 FL (80.0-97.0); Mean Platelet Volume 9.5 FL (9.5-12.2); Monocytes # (A) 1.02 X 10*3/uL (0.20-1.00); NRBC Per 100 WBC 0 X 10*3/uL (0.00-0.01); Neutrophils # (A) 4.12 X 10*3/uL (1.80-7.70); Neutrophils % (A) 48.3 %; Platelet Count 343 X 10*3/uL (140-440); RBC 4.28 X 10*6/uL (4.10-5.20); RDW 14.7 % (11.5-14.5); WBC 8.52 X 10*3/uL (4.50-10.00)
[2023-11-02 09:22] VITALS: RESP 16
[2023-11-02 10:26] LABS: BUN/Creat Ratio 17.67 Ratio (12.00-20.00); Blood Urea Nitrogen 15.9 mg/dL (9.0-27.0); Carbon Dioxide 22.1 mmol/L (21.6-31.8); Chloride 103 mmol/L (96-109); Glucose 136 mg/dL (70-110); Potassium 5.1 mmol/L (3.5-5.5); Sodium 140 mmol/L (135-145)
[2023-11-02] MEDS: lisinopriL 10 MG TAB PO SCH (10:28)
--- NOTE | 2023-11-02 10:55 | MR ---
EXAMINATION TYPE: MR brain wo/w con DATE OF EXAM: 11/02/2023 COMPARISON: 6 CT scan 10/31/2023, 07/29/2016, 11/20/2015 HISTORY: Stroke/TIA, history of clivus lesion TECHNIQUE: Multiplanar, multisequence images of the brain and brainstem is performed without and with IV contras t, utilizing 10 mL intravenous Gadavist . FINDINGS: Diffusion weighted images demonstrate no evidence of a recent infarct or other diffusion ab normality. There is mild to moderate degenerative changes. Mild abnormal signal in the white matter most typical of remote microvascular ischemic white matter disease. Interval appearance of the clivus dating back to 2014. No definite fat replacement seen on noncontras t imaging. Finding of indeterminate etiology but given stability presumed to be benign Midline structures demonstrate normal morphology. The craniocervical junction appears within normal limits. Post contrast images demonstrate no abnormal enhancement. Tiny linear enhancement overlying the frontal lobes stable may represent prominent cortical veins versus tiny venous angioma. No signif icant interval change. The dural venous sinuses appear patent. The visualized sinuses are clear and t he globes are intact. IMPRESSION: 1. 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 No destructive changes seen by recent CT scan. Finding is stable dating back to 2014. No significant fat replacement and noncontrast findings. Presumed to be benign. Correlate with PET CT scan as clinically warranted.
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
[2023-11-02 12:39] LABS: Glucose,Whole Blood 115 mg/dL (70-110)
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
[2023-11-02 16:21] VITALS: BP 144/75; PULSE 94; TEMP 98.1
== END 2023-11-02 16:53 | disposition home or self-care (01) ==
LOC: EC 04:03 → 6NMEDSUR 07:17
PROVIDERS: ADMIT Hospitalist; ATTEND Hospitalist
DX: R20.0 Anesthesia of skin (principal); R20.2 Paresthesia of skin; D86.9 Sarcoidosis, unspecified; E11.9 Type 2 diabetes mellitus without complications; K21.9 Gastro-esophageal reflux disease without esophagitis; I10 Essential (primary) hypertension; F32.A Depression, unspecified; F41.9 Anxiety disorder, unspecified; E78.5 Hyperlipidemia, unspecified; M06.9 Rheumatoid arthritis, unspecified; G43.909 Migraine, unspecified, not intractable, without status migrainosus; M54.30 Sciatica, unspecified side; G89.29 Other chronic pain; E03.9 Hypothyroidism, unspecified; K58.9 Irritable bowel syndrome, unspecified; Z87.891 Personal history of nicotine dependence; Z79.1 Long term (current) use of non-steroidal anti-inflammatories (NSAID); Z79.4 Long term (current) use of insulin; Z79.51 Long term (current) use of inhaled steroids; Z79.82 Long term (current) use of aspirin; Z79.84 Long term (current) use of oral hypoglycemic drugs; Z79.890 Hormone replacement therapy; Z79.899 Other long term (current) drug therapy; Z88.0 Allergy status to penicillin; Z88.2 Allergy status to sulfonamides
CPT/HCPCS: 36415; 70450; 70496; 70498; 70553; 80048; 80053; 80061; 81003; 83036; 83735; 84484; 85025; 86140; 93306; 93880; 94640; 96361; 96365; 96375; 96376; 99285

== ENCOUNTER 2023-11-04 14:16 | Emergency (ER) | payer MEDICARE, OTHER ==
[2023-11-04 14:20] VITALS: TEMP 98
--- NOTE | 2023-11-04 15:12 | ED ---
General Adult HPI - General Chief complaint: Recheck/Abnormal Lab/Rx Stated complaint: abn labs, dizzy Time Seen by Provider: 11/04/23 14:30 Source: patient, RN notes reviewed, old records reviewed Mode of arrival: ambulatory Limitations: no limitations - History of Present Illness Initial comments: This is a 68-year-old female who presents to the emergency department because she has a mild headache and her blood pressure was elevated she states systolic pressure was 215 at home. Patient states she has been recently put on new blood pressure medications but they do not appear to be working because she is still elevated. Patient states she has been to the ER multiple times and was recently admitted for 4 days to get her blood pressure straightened out. Patient denies any blurred vision. Patient Nuys any chest pain difficulty breathing shortness of breath. Patient's initial blood pressure in the emergency department was within normal range. Patient denies any back pain. Patient Nuys any other symptoms at this time. - Related Data Home Medications Medication Instructions Recorded Confirmed DULoxetine HCL [Cymbalta] 60 mg PO DAILY 05/09/14 10/30/23 Latanoprost Ophth [Xalatan 0.005%] 1 drop BOTH EYES HS 05/09/14 10/30/23 Omeprazole [PriLOSEC] 20 mg PO AC-BRKFST 05/09/14 10/30/23 Cyanocobalamin (Vitamin B-12) 5,000 mcg PO Q3D 09/28/19 10/30/23 [Vitamin B-12] Magnesium Oxide [Mag-Ox] 250 mg PO Q3D 09/28/19 10/30/23 Metoprolol Succinate [Toprol XL] 25 mg PO DAILY 09/28/19 10/30/23 Montelukast [Singulair] 10 mg PO HS 09/28/19 10/30/23 metFORMIN HCL [Glucophage] 1,000 mg PO BID 09/28/19 10/30/23 Aspirin EC [Ecotrin Low Dose] 81 mg PO DAILY 03/24/22 10/30/23 Calcium Citrate/Vitamin D3 1 tab PO Q3D 03/24/22 10/30/23 [Citracal + D Maximum Caplet] Fluticasone Propionate [Flovent 2 puff INHALATION RT-BID 03/24/22 10/30/23 Hfa 220 mcg] Iron Complex 1 cap PO DAILY 03/24/22 10/30/23 L.acidoph,Paracasei, B.lactis 1 cap PO Q3D 03/24/22 10/30/23 [Probiotic] Levothyroxine Sodium [Synthroid] 25 mcg PO AC-BRKFST 03/24/22 10/30/23 Multivit-Min/FA/Lycopen/Lutein 1 tab PO Q2D 03/24/22 10/30/23 [Centrum Silver Tablet] Zinc Gluconate [Zinc] 50 mg PO Q3D 03/24/22 10/30/23 Butalb/APAP/Caff 50-325-40Mg 1 tab PO DAILY PRN 10/30/23 10/30/23 [Fioricet 50-325-40] Cyclobenzaprine [Flexeril] 10 mg PO TID PRN 10/30/23 10/30/23 Insulin Glargine,Hum.rec.anlog 26 units SQ DAILY 10/30/23 10/30/23 [Lantus Solostar Pen] Meloxicam [Mobic] 15 mg PO DAILY PRN 10/30/23 10/30/23 Potassium Gluconate 99 mg PO WEEKLY 10/30/23 10/30/23 Previous Rx's Medication Instructions Recorded Doxycycline [Vibramycin] 100 mg PO BID #14 capsule 10/28/23 Aspirin 81 mg PO DAILY 21 Days #21 tab 11/02/23 Atorvastatin [Lipitor] 40 mg PO HS #30 tab 11/02/23 Clopidogrel [Plavix] 75 mg PO DAILY #30 tab 11/02/23 amLODIPine [Norvasc] 5 mg PO DAILY #30 tab 11/02/23 lisinopriL [Zestril] 10 mg PO BID #60 tab 11/02/23 Allergies Allergy/AdvReac Type Severity Reaction Status Date / Time Penicillins AdvReac Nausea & Verified 11/04/23 14:20 Vomiting Sulfa (Sulfonamide AdvReac Nausea & Verified 11/04/23 14:20 Antibiotics) Vomiting Review of Systems ROS Statement: Those systems with pertinent positive or pertinent negative responses have been documented in the HPI. ROS Other: All systems not noted in ROS Statement are negative. Past Medical History Past Medical History: Diabetes Mellitus, Fibromyalgia, GERD/Reflux, Hypertension, Pneumonia, Rheumatoid Arthritis (RA), Thyroid Disorder Additional Past Medical History / Comment(s): sarcoidosis, ibs, migraines, optic nerve damage, short term memory issues, chronic back pain, keratodermia, urinary incontinence, glaucoma, brain lesion, pulmonary lesion, eye problems, left buttocks cysts/abscess ongoing History of Any Multi-Drug Resistant Organisms: MRSA Date of last positivie culture/infection: unknown MDRO Source:: buttocks Past Surgical History: Appendectomy, Cholecystectomy Additional Past Surgical History / Comment(s): bronchoscopy, laproscopic young removal, cyst removal, cataracts Past Anesthesia/Blood Transfusion Reactions: No Reported Reaction Past Psychological History: Anxiety, Depression Smoking Status: Former smoker Past Alcohol Use History: Rare Past Drug Use History: None Reported - Past Family History Mother Family Medical History: Cancer, Hyperlipidemia Additional Family Medical History / Comment(s): lung cancer Father Family Medical History: Cancer, Diabetes Mellitus, Hyperlipidemia General Exam - General Exam Comments Initial Comments: GENERAL: Patient is well-developed and well-nourished. Patient is nontoxic and well- hydrated and is in no acute distress. ENT: Neck is soft and supple. No significant lymphadenopathy is noted. Oropharynx is clear. Moist mucous membranes. Neck has full range of motion without el iciting any pain. EYES: The sclera were anicteric and conjunctiva were pink and moist. Extraocular movements were intact and pupils were equal round and reactive to light. Eyelids were unremarkable. PULMONARY: Unlabored respirations. Good breath sounds bilaterally. No audible rales rhonchi or wheezing was noted. CARDIOVASCULAR: There is a regular rate and rhythm without any murmurs gallops or rubs. ABDOMEN: Soft and nontender with normal bowel sounds. No palpable organomegaly was not ed. There is no palpable pulsatile mass. SKIN: Skin is clear with no lesions or rashes and otherwise unremarkable. NEUROLOGIC: Patient is alert and oriented x3. Cranial nerves II through XII are grossly intact. Motor and sensory are also intact. Normal speech, volume and content. Symmetrical smile. MUSCULOSKELETAL: Normal extremities with adequate strength and full range of motion. No lower extremity swelling or edema. No calf tenderness. LYMPHATICS: No significant lymphadenopathy is noted PSYCHIATRIC: Normal psychiatric evaluation. Limitations: no limitations Course Vital Signs 11/04/23 11/04/23 11/04/23 14:18 15:26 15:55 Temperature 98.0 F Pulse Rate 103 H 78 Respiratory 18 18 Rate Blood Pressure 143/85 121/76 131/83 O2 Sat by Pulse 98 99 Oximetry 11/04/23 11/04/23 16:11 16:29 Temperature Pulse Rate 76 Respiratory 16 Rate Blood Pressure 112/70 123/65 O2 Sat by Pulse 99 Oximetry Medical Decision Making - Medical Decision Making EGD is not interpreted by myself. EKG shows sinus rhythm at 81 bpm. Over the 166 QRS is 80 QT interval 3-5 QTc is 423. Patient's EKG shows no ST segment ova tion or depression. Was pt. sent in by a medical professional or institution (, PA, MAT PUNCHER, urgent c are, hospital, or halfway...) When possible be specific @ -No Did you speak to anyone other than the patient for history (EMS, parent, family, police, friend...)? What history was obtained from this source @ -No Did you review nursing and triage notes (agree or disagree)? Why? @ -I reviewed and agree with nursing and triage notes Were old charts reviewed (outside hosp., previous admission, EMS record, old EKG, old radiological studies, urgent care reports/EKG's, halfway records)? Report findings @ -No old charts were reviewed Differential Diagnosis? @ -Hypertensive urgency, hypertensive emergency, cephalgia, this is all not an all-inclusive list EKG interpreted by me (3pts min.). @ -As above X-rays interpreted by me (1pt min.). @ -None done CT interpreted by me (1pt min.). @ -None done U/S interpreted by me (1pt. min.). @ -None done What testing was considered but not performed or refused? (CT, X-rays, U/S, labs)? Why? @ -None What meds were considered but not given or refused? Why? @ -None Did you discuss the management of the patient with other professionals (maile markham i.e. , LALY, [facility] P[facility]CHER, lab, RT, psych nurse, aids social worker, cartoon animator, teacher, co founder and chief strategy officer, rn case manager)? Give summary @ -No Was smoking cessation discussed for >3mins.? @ -No Was critical care preformed (if so, how long)? @ -No Were there social determinants of health that impacted care today? How? (Homelessness, low income, unemployed, alcoholism, drug addiction, transportation, low edu. Level, literacy, decrease access to med. care, usp, rehab)? @ -No Was there de-escalation of care discussed even if they declined (Discuss DNR or withdrawal of care, Hospice)? DNR status @ -No What co-morbidities impacted this encounter? (DM, HTN, Smoking, COPD, CAD, Cancer, CVA, ARF, Chemo, Hep., AIDS, mental health diagnosis, sleep apnea, morbid obesity)? @ -None Was patient admitted / discharged? Hospital course, mention meds given and route, prescriptions, significant lab abnormalities, going to OR and other pertinent info. @ -Patient was sleeping throughout the ED course patient blood pressure was within a reasonable range the whole time she was in the emergency department Undiagnosed new problem with uncertain prognosis? @ -No Drug Therapy requiring intensive monitoring for blood pressures were toxicity (Heparin, Nitro, Insulin, Cardizem)? @ -No Were any procedures done? @ -No Diagnosis/symptom? @ -High blood pressure Acute, or Chronic, or Acute on Chronic? @ -Acute Uncomplicated (without systemic symptoms) or Complicated (systemic symptoms)? @ -Default Side effects of treatment? @ -No Exacerbation, Progression, or Severe Exacerbation? @ -No Poses a threat to life or bodily function? How? (Chest pain, [place], [place], pneumonia, PE, COPD, DKA, ARF, appy, cholecystitis, CVA, Diverticulitis, Homicidal, Suicidal, threat to staff... and all critical care pts) @ -No - Lab Data Result diagrams: 11/04/23 15:11 11/04/23 15:11 Lab Results 11/04/23 11/04/23 11/04/23 Range/Units 15:11 15:11 15:11 WBC 6.4 (3.8-10.6) k/uL RBC 4.23 (3.80-5.40) m/uL Hgb 12.9 (11.4-16.0) gm/dL Hct 38.9 (34.0-46.0) % MCV 91.9 (80.0-100.0) fL MCH 30.4 (25.0-35.0) pg MCHC 33.0 (31.0-37.0) g/dL RDW 14.5 (11.5-15.5) % Plt Count 353 (150-450) k/uL MPV 7.1 Neutrophils % 42 % Lymphocytes % 43 % Monocytes % 9 % Eosinophils % 3 % Basophils % 1 % Neutrophils # 2.7 (1.3-7.7) k/uL Lymphocytes # 2.8 (1.0-4.8) k/uL Monocytes # 0.6 (0-1.0) k/uL Eosinophils # 0.2 (0-0.7) k/uL Basophils # 0.0 (0-0.2) k/uL Hypochromasia Slight Sodium 138 (137-145) mmol/L Potassium 4.3 (3.5-5.1) mmol/L Chloride 102 (98-107) mmol/L Carbon Dioxide 28 (22-30) mmol/L Anion Gap 8 mmol/L BUN 16 (7-17) mg/dL Creatinine 0.98 (0.52-1.04) mg/dL Est GFR (CKD-EPI)AfAm 68 (>60 ml/min/1.73 sqM) Est GFR (CKD-EPI)NonAf 59 (>60 ml/min/1.73 sqM) Glucose 136 H (74-99) mg/dL Calcium 10.3 H (8.4-10.2) mg/dL Magnesium 1.6 (1.6-2.3) mg/dL Total Bilirubin 0.6 (0.2-1.3) mg/dL AST 26 (14-36) U/L ALT 21 (4-34) U/L Alkaline Phosphatase 50 (38-126) U/L Troponin I <0.012 (0.000-0.034) ng/mL Total Protein 7.0 (6.3-8.2) g/dL Albumin 4.5 (3.5-5.0) g/dL Disposition Clinical Impression: Hypertension Disposition: HOME SELF-CARE Condition: Good Instructions (If sedation given, give patient instructions): Hypertension (ED) Is patient prescribed a controlled substance at d/c from ED?: No Referrals: Esther Barragan MD [Primary Care Provider] - 1-2 days Time of Disposition: 17:17
[2023-11-04] MEDS: ACETAMINOPHEN TAB 500 MG TAB PO STA (15:25)
[2023-11-04 15:44] LABS: Basophils % (A) 1 %; Eosinophils # (A) 0.2 k/uL (0-0.7); Eosinophils % (A) 3 %; HCT 38.9 % (34.0-46.0); HGB 12.9 gm/dL (11.4-16.0); Hypochromasia Slight; Lymphocytes # (A) 2.8 k/uL (1.0-4.8); Lymphocytes % (A) 43 %; MCH 30.4 pg (25.0-35.0); MCV 91.9 fL (80.0-100.0); Mean Platelet Volume 7.1; Monocytes # (A) 0.6 k/uL (0-1.0); Monocytes % (A) 9 %; Neutrophils # (A) 2.7 k/uL (1.3-7.7); Neutrophils % (A) 42 %; Platelet Count 353 k/uL (150-450); RBC 4.23 m/uL (3.80-5.40); RDW 14.5 % (11.5-15.5); WBC 6.4 k/uL (3.8-10.6)
[2023-11-04 16:21] LABS: ALT 21 U/L (4-34); AST 26 U/L (14-36); African American GFR (CKD) 68 (>60 ml/min/1.73 sqM); Albumin 4.5 g/dL (3.5-5.0); Alkaline Phosphatase 50 U/L (38-126); Anion Gap 8 mmol/L; Blood Urea Nitrogen 16 mg/dL (7-17); Calcium 10.3 mg/dL (8.4-10.2); Carbon Dioxide 28 mmol/L (22-30); Chloride 102 mmol/L (98-107); Glucose 136 mg/dL (74-99); Magnesium 1.6 mg/dL (1.6-2.3); Non-African American GFR(CKD) 59 (>60 ml/min/1.73 sqM); Potassium 4.3 mmol/L (3.5-5.1); Sodium 138 mmol/L (137-145); Total Bilirubin 0.6 mg/dL (0.2-1.3)
[2023-11-04 17:42] VITALS: BP 138/80; PULSE 83; RESP 18
== END 2023-11-04 17:59 | disposition home or self-care (01) ==
LOC: EC 14:16
CPT/HCPCS: 36415; 80053; 83735; 84484; 85025; 93005; 99284

== ENCOUNTER 2023-11-16 06:59 | Emergency (ER) | payer MEDICARE, OTHER ==
[2023-11-16 07:05] VITALS: TEMP 97.7
[2023-11-16] MEDS: SODIUM CHLORIDE 0.9% 500 ML 500 ML IV STA (07:42)
[2023-11-16] MEDS: ACETAMINOPHEN TAB 500 MG TAB PO STA (07:42)
[2023-11-16] MEDS: KETOROLAC 15 MG/ML 1 ML VIAL IVP STA (07:42)
[2023-11-16 07:51] LABS: Basophils % (A) 1 %; Eosinophils # (A) 0.1 k/uL (0-0.7); Eosinophils % (A) 2 %; HCT 38.5 % (34.0-46.0); HGB 12.3 gm/dL (11.4-16.0); Hypochromasia Slight; Lymphocytes # (A) 2.4 k/uL (1.0-4.8); Lymphocytes % (A) 38 %; MCV 93.6 fL (80.0-100.0); Mean Platelet Volume 6.7; Monocytes # (A) 0.5 k/uL (0-1.0); Monocytes % (A) 7 %; Neutrophils % (A) 48 %; Platelet Count 300 k/uL (150-450); RBC 4.11 m/uL (3.80-5.40); WBC 6.2 k/uL (3.8-10.6)
--- NOTE | 2023-11-16 07:51 | ED ---
Headache HPI - General Chief Complaint: Headache Stated Complaint: HAWK, headache, leg pain Time Seen by Provider: 11/16/23 07:28 Source: patient, RN notes reviewed Mode of arrival: wheelchair Limitations: no limitations - History of Present Illness Initial Comments: This is a 68-year-old female who presents to the emergency department for headaches and right calf pain. Reports problems with elevated blood pressure and headaches over the last several weeks. She had been admitted recently to have her blood pressure straightened out. States that she continues to have intermittent headaches and dizziness associated with this. Additionally, states that her left arm feels numb, which does also happen with these episodes and she feels like she is going to pass out. Yesterday she also started to notice pain in her right calf. Denies any history of blood clots. Denies any chest pain or shortness of breath. MD Complaint: headache - Related Data Home Medications Medication Instructions Recorded Confirmed DULoxetine HCL [Cymbalta] 60 mg PO DAILY 05/09/14 10/30/23 Latanoprost Ophth [Xalatan 0.005%] 1 drop BOTH EYES HS 05/09/14 10/30/23 Omeprazole [PriLOSEC] 20 mg PO AC-BRKFST 05/09/14 10/30/23 Cyanocobalamin (Vitamin B-12) 5,000 mcg PO Q3D 09/28/19 10/30/23 [Vitamin B-12] Magnesium Oxide [Mag-Ox] 250 mg PO Q3D 09/28/19 10/30/23 Metoprolol Succinate [Toprol XL] 25 mg PO DAILY 09/28/19 10/30/23 Montelukast [Singulair] 10 mg PO HS 09/28/19 10/30/23 metFORMIN HCL [Glucophage] 1,000 mg PO BID 09/28/19 10/30/23 Aspirin EC [Ecotrin Low Dose] 81 mg PO DAILY 03/24/22 10/30/23 Calcium Citrate/Vitamin D3 1 tab PO Q3D 03/24/22 10/30/23 [Citracal + D Maximum Caplet] Fluticasone Propionate [Flovent 2 puff INHALATION RT-BID 03/24/22 10/30/23 Hfa 220 mcg] Iron Complex 1 cap PO DAILY 03/24/22 10/30/23 L.acidoph,Paracasei, B.lactis 1 cap PO Q3D 03/24/22 10/30/23 [Probiotic] Levothyroxine Sodium [Synthroid] 25 mcg PO AC-BRKFST 03/24/22 10/30/23 Multivit-Min/FA/Lycopen/Lutein 1 tab PO Q2D 03/24/22 10/30/23 [Centrum Silver Tablet] Zinc Gluconate [Zinc] 50 mg PO Q3D 03/24/22 10/30/23 Butalb/APAP/Caff 50-325-40Mg 1 tab PO DAILY PRN 10/30/23 10/30/23 [Fioricet 50-325-40] Cyclobenzaprine [Flexeril] 10 mg PO TID PRN 10/30/23 10/30/23 Insulin Glargine,Hum.rec.anlog 26 units SQ DAILY 10/30/23 10/30/23 [Lantus Solostar Pen] Meloxicam [Mobic] 15 mg PO DAILY PRN 10/30/23 10/30/23 Potassium Gluconate 99 mg PO WEEKLY 10/30/23 10/30/23 Previous Rx's Medication Instructions Recorded Doxycycline [Vibramycin] 100 mg PO BID #14 capsule 10/28/23 Aspirin 81 mg PO DAILY 21 Days #21 tab 11/02/23 Atorvastatin [Lipitor] 40 mg PO HS #30 tab 11/02/23 Clopidogrel [Plavix] 75 mg PO DAILY #30 tab 11/02/23 amLODIPine [Norvasc] 5 mg PO DAILY #30 tab 11/02/23 lisinopriL [Zestril] 10 mg PO BID #60 tab 11/02/23 Allergies Allergy/AdvReac Type Severity Reaction Status Date / Time Penicillins AdvReac Nausea & Verified 11/16/23 07:02 Vomiting Sulfa (Sulfonamide AdvReac Nausea & Verified 11/16/23 07:02 Antibiotics) Vomiting Review of Systems ROS Statement: Those systems with pertinent positive or pertinent negative responses have been documented in the HPI. ROS Other: All systems not noted in ROS Statement are negative. Past Medical History Past Medical History: Diabetes Mellitus, Fibromyalgia, GERD/Reflux, Hypertension, Pneumonia, Rheumatoid Arthritis (RA), Thyroid Disorder Additional Past Medical History / Comment(s): sarcoidosis, ibs, migraines, optic nerve damage, short term memory issues, chronic back pain, keratodermia, urinary incontinence, glaucoma, brain lesion, pulmonary lesion, eye problems, left buttocks cysts/abscess ongoing History of Any Multi-Drug Resistant Organisms: MRSA Date of last positivie culture/infection: unknown MDRO Source:: buttocks Past Surgical History: Appendectomy, Cholecystectomy Additional Past Surgical History / Comment(s): bronchoscopy, laproscopic young removal, cyst removal, cataracts Past Anesthesia/Blood Transfusion Reactions: No Reported Reaction Past Psychological History: Anxiety, Depression Smoking Status: Former smoker Past Alcohol Use History: Rare Past Drug Use History: None Reported - Past Family History Mother Family Medical History: Cancer, Hyperlipidemia Additional Family Medical History / Comment(s): lung cancer Father Family Medical History: Cancer, Diabetes Mellitus, Hyperlipidemia General Exam Limitations: no limitations General appearance: alert, anxious Head exam: Present: atraumatic, normocephalic, normal inspection Eye exam: Present: normal appearance, PERRL, EOMI. Absent: scleral icterus, conjunctival injection, periorbital swelling Respiratory exam: Present: normal lung sounds bilaterally. Absent: respiratory distress, wheezes, rales, rhonchi, stridor Cardiovascular Exam: Present: regular rate, normal rhythm, normal heart sounds. Absent: systolic murmur, diastolic murmur, rubs, gallop, clicks Extremities exam: Present: other (Tenderness to palpation of the right calf. No swelling or erythema. 2+ DP and PT pulses.) Neurological exam: Present: alert, oriented X3, CN II-XII intact Psychiatric exam: Present: normal affect, normal mood Skin exam: Present: warm, dry, intact, normal color. Absent: rash Course Vital Signs 11/16/23 11/16/23 11/16/23 07:02 07:04 08:04 Temperature 97.7 F Pulse Rate 72 80 71 Respiratory 18 16 20 Rate Blood Pressure 165/76 180/80 161/77 O2 Sat by Pulse 100 96 98 Oximetry 11/16/23 11/16/23 09:00 09:33 Temperature Pulse Rate 65 67 Respiratory 16 20 Rate Blood Pressure 140/70 140/60 O2 Sat by Pulse 98 98 Oximetry Medical Decision Making - Medical Decision Making This is a 68-year-old female who presents to the emergency department for headaches and right calf pain. Was pt. sent in by a medical professional or institution? @ -No Did you speak to anyone other than the patient for history? @ -No Did you review nursing and triage notes? @ -I disagree with the shortness of breath. Patient currently denies any chest pain or shortness of breath. Were old charts reviewed? @ -CT angiogram of the head and neck from 10/30 and MRI of the brain from 11/01 revealing no acute intracranial process. Differential Diagnosis? @ -Differential Headache: Migraine, tension, cluster, carbon monoxide, central venous thrombosis, pension karma temporal arteritis, acute closure glaucoma, intercranial hemorrhage, mastoiditis, sinusitis, head injury, this is not meant to be an all-inclusive list. EKG interpreted by me (3pts min.)? @ -EKG interpreted by me demonstrating the following: Sinus rhythm. Ventricular rate 67 bpm, [place] interval 182 ms, QRS duration 94 ms, QTc 411 ms. X-rays interpreted by me (1pt min.)? @ -Not obtained CT interpreted by me (1pt min.)? @ -Not obtained U/S interpreted by me (1pt. min.)? @ -Duplex ultrasound of the right lower extremity obtained. My interpretation identifies no evidence of a DVT. What testing was considered but not performed? (CT, X-rays, U/S, labs)? Why? @ -None What meds were considered but not given? Why? @ -None Did you discuss the management of the patient with other professionals? @ -No Did you reconcile home meds? @ -No Was smoking cessation discussed for >3mins.? @ -No Was critical care preformed (if so, how long)? @ -No Were there social determinants of health that impacted care today? How? (Homelessness, low income, unemployed, alcoholism, drug addiction, transportation, low edu. Level, literacy, decrease access to med. care, half-way, rehab)? @ -No Was there de-escalation of care discussed even if they declined? (Discuss DNR or withdrawal of care, Hospice)? @ -No What co-morbidities impacted this encounter? (DM, HTN, Smoking, COPD, CAD, Cancer, CVA, Hep., AIDS, mental health diagnosis, sleep apnea, morbid obesity)? @ -HTN Was patient admitted / discharged? @ -Discharged. Lab work unremarkable. Duplex ultrasound of the right lower extremity obtained revealing no evidence of a DVT. She was noted to have a cyst in the popliteal fossa. Her blood pressure also remained at a reasonable level and did not require any intervention on our part. Patient continued to state that she felt strange and was upset about being discharged home. She feels like nobody is taking her seriously or addressing any of her concerns. Advised that she was just admitted for a full workup and had CT scans, angiograms, and MRIs of her brain as well as imaging of her carotids. Nothing has been found to determine a cause of her symptoms she was cleared from a neurological perspective. Advised that there is nothing else we can offer her admission barba here. She then went on to complain that her pain was not any better, whereas when I went to reevaluate her after pain medication she said that she was not experiencing a pain, but more of a fullness in her head. She continued to change her story and say that we were not taking care of her, however I did repeatedly offer her more medication and she continued to decline. Advised that she needs to follow-up with her primary care provider and other specialists outpatient to further evaluate the symptoms. Case discussed with ED attending, Dr. Bennett. Undiagnosed new problem with uncertain prognosis? @ -None Drug Therapy requiring intensive monitoring for toxicity (Heparin, Nitro, Insulin, Cardizem)? @ -None Were any procedures done? @ -None Diagnosis/symptom? @ -Right leg pain, headache Acute, or Chronic, or Acute on Chronic? @ -Acute Uncomplicated (without systemic symptoms) or Complicated (systemic symptoms)? @ -Uncomplicated Side effects of treatment? @ -None Exacerbation, Progression, or Severe Exacerbation] @ -Not applicable Poses a threat to life or bodily function? @ -No - Lab Data Result diagrams: 11/16/23 07:34 11/16/23 07:34 Lab Results 11/16/23 11/16/23 11/16/23 Range/Units 07:34 07:34 07:34 WBC 6.2 (3.8-10.6) k/uL RBC 4.11 (3.80-5.40) m/uL Hgb 12.3 (11.4-16.0) gm/dL Hct 38.5 (34.0-46.0) % MCV 93.6 (80.0-100.0) fL MCH 30.0 (25.0-35.0) pg MCHC 32.0 (31.0-37.0) g/dL RDW 14.0 (11.5-15.5) % Plt Count 300 (150-450) k/uL MPV 6.7 Neutrophils % 48 % Lymphocytes % 38 % Monocytes % 7 % Eosinophils % 2 % Basophils % 1 % Neutrophils # 3.0 (1.3-7.7) k/uL Lymphocytes # 2.4 (1.0-4.8) k/uL Monocytes # 0.5 (0-1.0) k/uL Eosinophils # 0.1 (0-0.7) k/uL Basophils # 0.0 (0-0.2) k/uL Hypochromasia Slight PT 10.1 (10.0-12.5) sec INR 0.9 (<1.2) APTT 22.1 (22.0-30.0) sec Sodium 137 (137-145) mmol/L Potassium 4.9 (3.5-5.1) mmol/L Chloride 102 (98-107) mmol/L Carbon Dioxide 30 (22-30) mmol/L Anion Gap 5 mmol/L BUN 18 H (7-17) mg/dL Creatinine 0.81 (0.52-1.04) mg/dL Est GFR (CKD-EPI)AfAm 86 (>60 ml/min/1.73 sqM) Est GFR (CKD-EPI)NonAf 75 (>60 ml/min/1.73 sqM) Glucose 113 H (74-99) mg/dL Calcium 9.6 (8.4-10.2) mg/dL Magnesium 1.6 (1.6-2.3) mg/dL Total Bilirubin 0.4 (0.2-1.3) mg/dL AST 26 (14-36) U/L ALT 21 (4-34) U/L Alkaline Phosphatase 55 (38-126) U/L Troponin I (0.000-0.034) ng/mL Total Protein 7.0 (6.3-8.2) g/dL Albumin 4.4 (3.5-5.0) g/dL 11/16/23 Range/Units 07:34 WBC (3.8-10.6) k/uL RBC (3.80-5.40) m/uL Hgb (11.4-16.0) gm/dL Hct (34.0-46.0) % MCV (80.0-100.0) fL MCH (25.0-35.0) pg MCHC (31.0-37.0) g/dL RDW (11.5-15.5) % Plt Count (150-450) k/uL MPV Neutrophils % % Lymphocytes % % Monocytes % % Eosinophils % % Basophils % % Neutrophils # (1.3-7.7) k/uL Lymphocytes # (1.0-4.8) k/uL Monocytes # (0-1.0) k/uL Eosinophils # (0-0.7) k/uL Basophils # (0-0.2) k/uL Hypochromasia PT (10.0-12.5) sec INR (<1.2) APTT (22.0-30.0) sec Sodium (137-145) mmol/L Potassium (3.5-5.1) mmol/L Chloride (98-107) mmol/L Carbon Dioxide (22-30) mmol/L Anion Gap mmol/L BUN (7-17) mg/dL Creatinine (0.52-1.04) mg/dL Est GFR (CKD-EPI)AfAm (>60 ml/min/1.73 sqM) Est GFR (CKD-EPI)NonAf (>60 ml/min/1.73 sqM) Glucose (74-99) mg/dL Calcium (8.4-10.2) mg/dL Magnesium (1.6-2.3) mg/dL Total Bilirubin (0.2-1.3) mg/dL AST (14-36) U/L ALT (4-34) U/L Alkaline Phosphatase (38-126) U/L Troponin I <0.012 (0.000-0.034) ng/mL Total Protein (6.3-8.2) g/dL Albumin (3.5-5.0) g/dL - Radiology Data Radiology results: report reviewed, image reviewed Disposition Clinical Impression: Headache, Right leg pain, Bakers cyst Disposition: HOME SELF-CARE Instructions (If sedation given, give patient instructions): Land Cyst (ED), Acute Headache (ED) Additional Instructions: Return to the emergency department with any new, worsening, or concerning symptoms. Follow up with your primary care provider in 1-2 days. Is patient prescribed a controlled substance at d/c from ED?: No Referrals: Esther Barragan MD [Primary Care Provider] - 1-2 days Time of Disposition: 08:53
[2023-11-16 07:57] LABS: ALT 21 U/L (4-34); AST 26 U/L (14-36); African American GFR (CKD) 86 (>60 ml/min/1.73 sqM); Albumin 4.4 g/dL (3.5-5.0); Alkaline Phosphatase 55 U/L (38-126); Anion Gap 5 mmol/L; Blood Urea Nitrogen 18 mg/dL (7-17); Calcium 9.6 mg/dL (8.4-10.2); Carbon Dioxide 30 mmol/L (22-30); Chloride 102 mmol/L (98-107); Glucose 113 mg/dL (74-99); Magnesium 1.6 mg/dL (1.6-2.3); Non-African American GFR(CKD) 75 (>60 ml/min/1.73 sqM); Potassium 4.9 mmol/L (3.5-5.1); Sodium 137 mmol/L (137-145); Total Bilirubin 0.4 mg/dL (0.2-1.3)
[2023-11-16 08:02] LABS: INR 0.9 (<1.2); Partial Thromboplastin Time 22.1 sec (22.0-30.0); Prothrombin Time 10.1 sec (10.0-12.5)
--- NOTE | 2023-11-16 08:20 | US ---
EXAMINATION TYPE: US venous doppler duplex LE RT DATE OF EXAM: 11/16/2023 8:08 AM COMPARISON: NONE CLINICAL INDICATION: Female, 68 years old with history of Calf pain; SIDE PERFORMED: right calf pain. Patient started Plavix 2 weeks ago TECHNIQUE: The lower extremity deep venous system is examined utilizing real time linear array sonog venus with graded compression, doppler sonography and color-flow sonography. VESSELS IMAGED: Common Femoral Vein Deep Femoral Vein Greater Saphenous Vein * Femoral Vein Popliteal Vein Small Saphenous Vein * Proximal Calf Veins (* superficial vessels) Right Leg: No evidence of DVT. Anechoic area right popliteal fossa = 4.4 x 0.9 x 2.9cm, Bakers cyst IMPRESSION: 1. Right lower extremity ultrasound negative for deep venous thrombosis. 2. Popliteal cyst right popliteal fossa [facility], , 11/16/2023 8:17 AM
[2023-11-16 09:36] VITALS: BP 140/60; PULSE 67; RESP 20
== END 2023-11-16 09:35 | disposition home or self-care (01) ==
LOC: EC 06:59
CPT/HCPCS: 36415; 80053; 83735; 84484; 85025; 85610; 85730; 93005; 96374; 96375; 99284

== ENCOUNTER 2023-11-17 06:19 | Emergency (ER) | payer MEDICARE, OTHER ==
[2023-11-17 06:22] VITALS: TEMP 97.8
--- NOTE | 2023-11-17 07:33 | ED ---
General Adult HPI - General Chief complaint: Recheck/Abnormal Lab/Rx Stated complaint: Hypertension Time Seen by Provider: 11/17/23 07:00 Source: patient, RN notes reviewed, old records reviewed Mode of arrival: ambulatory Limitations: no limitations - History of Present Illness Initial comments: This a 68-year-old female who presents to the emergency department complaining of the same thing she has for the last few months. Patient complains that she has got hot feeling all over her body and when she wakes up in the morning blood pressure is high until she takes her blood pressure medication. Patient states she just changed her blood pressure medication from 25 of metoprolol in the morning to 50. Patient states after she took her blood pressure came down. Patient states she continues to get these hot flashes throughout the whole body and it lasts a few seconds and goes away. Patient states when she woke up her blood pressure was elevated but now its back to its normal range. Patient states she always has a headache. It is no different today. Patient denies any palpitations patient denies chest pain patient has difficulty breathing shortness of breath. Patient denies numbness weakness - Related Data Home Medications Medication Instructions Recorded Confirmed DULoxetine HCL [Cymbalta] 60 mg PO DAILY 05/09/14 10/30/23 Latanoprost Ophth [Xalatan 0.005%] 1 drop BOTH EYES 05/09/14 10/30/23 Omeprazole [PriLOSEC] 20 mg PO AC-BRKFST 05/09/14 10/30/23 Cyanocobalamin (Vitamin B-12) 5,000 mcg PO Q3D 09/28/19 10/30/23 [Vitamin B-12] Magnesium Oxide [Mag-Ox] 250 mg PO Q3D 09/28/19 10/30/23 Metoprolol Succinate [Toprol XL] 25 mg PO DAILY 09/28/19 10/30/23 Montelukast [Singulair] 10 mg PO HS 09/28/19 10/30/23 metFORMIN HCL [Glucophage] 1,000 mg PO BID 09/28/19 10/30/23 Aspirin EC [Ecotrin Low Dose] 81 mg PO DAILY 03/24/22 10/30/23 Calcium Citrate/Vitamin D3 1 tab PO Q3D 03/24/22 10/30/23 [Citracal + D Maximum Caplet] Fluticasone Propionate [Flovent 2 puff INHALATION RT-BID 03/24/22 10/30/23 Hfa 220 mcg] Iron Complex 1 cap PO DAILY 03/24/22 10/30/23 L.acidoph,Paracasei, B.lactis 1 cap PO Q3D 03/24/22 10/30/23 [Probiotic] Levothyroxine Sodium [Synthroid] 25 mcg PO AC-BRKFST 03/24/22 10/30/23 Multivit-Min/FA/Lycopen/Lutein 1 tab PO Q2D 03/24/22 10/30/23 [Centrum Silver Tablet] Zinc Gluconate [Zinc] 50 mg PO Q3D 03/24/22 10/30/23 Butalb/APAP/Caff 50-325-40Mg 1 tab PO DAILY PRN 10/30/23 10/30/23 [Fioricet 50-325-40] Cyclobenzaprine [Flexeril] 10 mg PO TID PRN 10/30/23 10/30/23 Insulin Glargine,Hum.rec.anlog 26 units SQ DAILY 10/30/23 10/30/23 [Lantus Solostar Pen] Meloxicam [Mobic] 15 mg PO DAILY PRN 10/30/23 10/30/23 Potassium Gluconate 99 mg PO WEEKLY 10/30/23 10/30/23 Previous Rx's Medication Instructions Recorded Doxycycline [Vibramycin] 100 mg PO BID #14 capsule 10/28/23 Aspirin 81 mg PO DAILY 21 Days #21 tab 11/02/23 Atorvastatin [Lipitor] 40 mg PO HS #30 tab 11/02/23 Clopidogrel [Plavix] 75 mg PO DAILY #30 tab 11/02/23 amLODIPine [Norvasc] 5 mg PO DAILY #30 tab 11/02/23 lisinopriL [Zestril] 10 mg PO BID #60 tab 11/02/23 Allergies Allergy/AdvReac Type Severity Reaction Status Date / Time Penicillins AdvReac Nausea & Verified 11/17/23 10:49 Vomiting Sulfa (Sulfonamide AdvReac Nausea & Verified 11/17/23 10:49 Antibiotics) Vomiting Review of Systems ROS Statement: Those systems with pertinent positive or pertinent negative responses have been documented in the HPI. ROS Other: All systems not noted in ROS Statement are negative. Past Medical History Past Medical History: Diabetes Mellitus, Fibromyalgia, GERD/Reflux, Hypertension, Pneumonia, Rheumatoid Arthritis (RA), Thyroid Disorder Additional Past Medical History / Comment(s): sarcoidosis, ibs, migraines, optic nerve damage, short term memory issues, chronic back pain, keratodermia, urinary incontinence, glaucoma, brain lesion, pulmonary lesion, eye problems, left buttocks cysts/abscess ongoing History of Any Multi-Drug Resistant Organisms: MRSA Date of last positivie culture/infection: unknown MDRO Source:: buttocks Past Surgical History: Appendectomy, Cholecystectomy Additional Past Surgical History / Comment(s): bronchoscopy, laproscopic young removal, cyst removal, cataracts Past Anesthesia/Blood Transfusion Reactions: No Reported Reaction Past Psychological History: Anxiety, Depression Smoking Status: Former smoker Past Alcohol Use History: Rare Past Drug Use History: None Reported - Past Family History Mother Family Medical History: Cancer, Hyperlipidemia Additional Family Medical History / Comment(s): lung cancer Father Family Medical History: Cancer, Diabetes Mellitus, Hyperlipidemia General Exam - General Exam Comments Initial Comments: GENERAL: Patient is well-developed and well-nourished. Patient is nontoxic and well- hydrated and is in no acute distress. ENT: Neck is soft and supple. No significant lymphadenopathy is noted. Oropharynx is clear. Moist mucous membranes. Neck has full range of motion without eliciting any pain. EYES: The sclera were anicteric and conjunctiva were pink and moist. Extraocular movements were intact and pupils were equal round and reactive to light. Eyelids were unremarkable. PULMONARY: Unlabored respirations. Good breath sounds bilaterally. No audible rales rhonchi or wheezing was noted. CARDIOVASCULAR: There is a regular rate and rhythm without any murmurs gallops or rubs. ABDOMEN: Soft and nontender with normal bowel sounds. SKIN: Skin is clear with no lesions or rashes and otherwise unremarkable. NEUROLOGIC: Patient is alert and oriented x3. Cranial nerves II through XII are grossly intact. Motor and sensory are also intact. Normal speech, volume and content. Symmetrical smile. MUSCULOSKELETAL: Normal extremities with adequate strength and full range of motion. LYMPHATICS: No significant lymphadenopathy is noted PSYCHIATRIC: Normal psychiatric evaluation. Limitations: no limitations Course Vital Signs 11/17/23 11/17/23 11/17/23 06:20 07:00 08:15 Temperature 97.8 F Pulse Rate 70 66 73 Respiratory 18 18 18 Rate Blood Pressure 173/85 166/84 174/80 O2 Sat by Pulse 98 97 97 Oximetry 11/17/23 11/17/23 11/17/23 08:44 09:03 09:05 Temperature Pulse Rate 69 67 Respiratory 18 18 Rate Blood Pressure 165/81 168/76 186/83 O2 Sat by Pulse 97 Oximetry 11/17/23 11/17/23 11/17/23 09:15 09:43 10:35 Temperature Pulse Rate 75 75 75 Respiratory 18 18 16 Rate Blood Pressure 158/99 170/83 169/90 O2 Sat by Pulse 96 96 97 Oximetry Medical Decision Making - Medical Decision Making EKG is interpreted by myself. EKG shows sinus rhythm at 68 bpm ND interval is 181 QRS is 98 QT interval 392 QTc is 409. Patient's EKG shows no ST segment ovation or depression. Was pt. sent in by a medical professional or institution ([facility], NUT SHELLER MACHINE OPERATOR, urgent care, hospital, or senior living...) When possible be specific @ -No Did you speak to anyone other than the patient for history (EMS, parent, family, police, friend...)? What history was obtained from this source @ -No Did you review nursing and triage notes (agree or disagree)? Why? @ -I reviewed and agree with nursing and triage notes Were old charts reviewed (outside hosp., previous admission, EMS record, old EK G, old radiological studies, urgent care reports/EKG's, senior living records)? Report findings @ -No old charts were reviewed Differential Diagnosis? @ -Hypertensive emergency, hypertension urgency, electrolyte abnormality, this is not an all-inclusive list EKG interpreted by me (3pts min.). @ -As above X-rays interpreted by me (1pt min.). @ -Chest x-ray shows no acute abnormality CT interpreted by me (1pt min.). @ -None done U/S interpreted by me (1pt. min.). @ -None done What testing was considered but not performed or refused? (CT, X-rays, U/S, labs)? Why? @ -None What meds were considered but not given or refused? Why? @ -None Did you discuss the management of the patient with other professionals (professionals i.e. [facility], NUT SHELLER MACHINE OPERATOR, lab, RT, psych nurse, social services technician, weather forecaster, teacher, sheriffs officer, shoe caser)? Give summary @ -No Was smoking cessation discussed for >3mins.? @ -No Was critical care preformed (if so, how long)? @ -No Were there social determinants of health that impacted care today? How? (Homelessness, low income, unemployed, alcoholism, drug addiction, transpor tation, low edu. Level, literacy, decrease access to med. care, shelter, rehab)? @ -No Was there de-escalation of care discussed even if they declined (Discuss DNR or withdrawal of care, Hospice)? DNR status @ -No What co-morbidities impacted this encounter? (DM, HTN, Smoking, COPD, CAD, Cancer, CVA, ARF, Chemo, Hep., AIDS, mental health diagnosis, sleep apnea, morbid obesity)? @ -None Was patient admitted / discharged? Hospital course, mention meds given and route, prescriptions, significant lab abnormalities, going to OR and other pertinent info. @ -Patient was resting comfortably in the emergency department had to wake her up to speak. Her magnesium was slightly low she did get 1 g of magnesium sulfate. Patient's blood pressure was reasonable with her whole ED visit Undiagnosed new problem with uncertain prognosis? @ -No Drug Therapy requiring intensive monitoring for toxicity (Heparin, Nitro, Insulin, Cardizem)? @ -No Were any procedures done? @ -No Diagnosis/symptom? @ -Hypertension Acute, or Chronic, or Acute on Chronic? @ -Acute Uncomplicated (without systemic symptoms) or Complicated (systemic symptoms)? @ -Comp Side effects of treatment? @ -No Exacerbation, Progression, or Severe Exacerbation? @ -No Poses a threat to life or bodily function? How? (Chest pain, [place], [place], pneumonia, PE, COPD, DKA, ARF, appy, cholecystitis, CVA, Diverticulitis, Homicidal, Suicidal, threat to staff... and all critical care pts) @ -No - Lab Data Result diagrams: 11/17/23 07:00 11/17/23 07:00 Lab Results 11/17/23 11/17/23 11/17/23 Range/Units 07:00 07:00 07:00 WBC 5.8 (3.8-10.6) k/uL RBC 3.96 (3.80-5.40) m/uL Hgb 11.8 (11.4-16.0) gm/dL Hct 36.9 (34.0-46.0) % MCV 93.1 (80.0-100.0) fL MCH 29.8 (25.0-35.0) pg MCHC 32.0 (31.0-37.0) g/dL RDW 14.2 (11.5-15.5) % Plt Count 287 (150-450) k/uL MPV 7.0 Neutrophils % 53 % Lymphocytes % 33 % Monocytes % 8 % Eosinophils % 2 % Basophils % 0 % Neutrophils # 3.1 (1.3-7.7) k/uL Lymphocytes # 1.9 (1.0-4.8) k/uL Monocytes # 0.5 (0-1.0) k/uL Eosinophils # 0.1 (0-0.7) k/uL Basophils # 0.0 (0-0.2) k/uL Sodium 138 (137-145) mmol/L Potassium 4.3 (3.5-5.1) mmol/L Chloride 105 (98-107) mmol/L Carbon Dioxide 25 (22-30) mmol/L Anion Gap 8 mmol/L BUN 16 (7-17) mg/dL Creatinine 0.73 (0.52-1.04) mg/dL Est GFR (CKD-EPI)AfAm >90 (>60 ml/min/1.73 sqM) Est GFR (CKD-EPI)NonAf 85 (>60 ml/min/1.73 sqM) Glucose 94 (74-99) mg/dL Calcium 9.6 (8.4-10.2) mg/dL Magnesium 1.5 L (1.6-2.3) mg/dL Total Bilirubin 0.5 (0.2-1.3) mg/dL AST 23 (14-36) U/L ALT 20 (4-34) U/L Alkaline Phosphatase 56 (38-126) U/L Troponin I <0.012 (0.000-0.034) ng/mL Total Protein 6.6 (6.3-8.2) g/dL Albumin 4.1 (3.5-5.0) g/dL Disposition Clinical Impression: Hypertension, Hypomagnesemia Disposition: HOME SELF-CARE Condition: Good Additional Instructions: Patient follow-up with her PMD and neurologist as soon as possible Is patient prescribed a controlled substance at d/c from ED?: No Referrals: Esther Barragan MD [Primary Care Provider] - 1-2 days Time of Disposition: 10:50
[2023-11-17] MEDS: SODIUM CHLORIDE 0.9% 500 ML 500 ML IV STA (07:56)
[2023-11-17 08:10] LABS: Basophils % (A) 0 %; Eosinophils # (A) 0.1 k/uL (0-0.7); Eosinophils % (A) 2 %; HCT 36.9 % (34.0-46.0); HGB 11.8 gm/dL (11.4-16.0); Lymphocytes # (A) 1.9 k/uL (1.0-4.8); Lymphocytes % (A) 33 %; MCH 29.8 pg (25.0-35.0); MCV 93.1 fL (80.0-100.0); Monocytes # (A) 0.5 k/uL (0-1.0); Monocytes % (A) 8 %; Neutrophils # (A) 3.1 k/uL (1.3-7.7); Neutrophils % (A) 53 %; Platelet Count 287 k/uL (150-450); RBC 3.96 m/uL (3.80-5.40); RDW 14.2 % (11.5-15.5); WBC 5.8 k/uL (3.8-10.6)
--- NOTE | 2023-11-17 08:16 | XR ---
EXAMINATION TYPE: XR chest 2V DATE OF EXAM: 11/17/2023 COMPARISON: 10/29/2023 INDICATION: Chest pain TECHNIQUE: Frontal and lateral views of the chest are obtained. FINDINGS: The heart size is normal. The pulmonary vasculature is normal. The lungs are clear. The previous some higher density small lymph nodes in the mediastinum is stable from comparison IMPRESSION: 1. No acute pulmonary process. Exam stable from comparison [facility], , 11/17/2023 8:14 AM
[2023-11-17 08:21] LABS: ALT 20 U/L (4-34); AST 23 U/L (14-36); African American GFR (CKD) >90 (>60 ml/min/1.73 sqM); Albumin 4.1 g/dL (3.5-5.0); Alkaline Phosphatase 56 U/L (38-126); Anion Gap 8 mmol/L; Blood Urea Nitrogen 16 mg/dL (7-17); Calcium 9.6 mg/dL (8.4-10.2); Carbon Dioxide 25 mmol/L (22-30); Chloride 105 mmol/L (98-107); Glucose 94 mg/dL (74-99); Magnesium 1.5 mg/dL (1.6-2.3); Non-African American GFR(CKD) 85 (>60 ml/min/1.73 sqM); Potassium 4.3 mmol/L (3.5-5.1); Sodium 138 mmol/L (137-145); Total Bilirubin 0.5 mg/dL (0.2-1.3); Total Protein 6.6 g/dL (6.3-8.2)
[2023-11-17] MEDS: MAGNESIUM SULFATE-D5W PMX 1 GM in DEXTROSE/WATER 1 100ML.BAG IVPB ONE (09:39)
[2023-11-17 10:37] VITALS: RESP 16
[2023-11-17 11:34] VITALS: BP 173/81; PULSE 84
== END 2023-11-17 11:25 | disposition home or self-care (01) ==
LOC: EC 06:19
CPT/HCPCS: 36415; 71046; 80053; 83735; 84484; 85025; 93005

== ENCOUNTER → 2023-11-18 | Outpatient (CLI) | payer MEDICARE, OTHER ==
[2023-11-29 19:39] LABS: Metanephrine, Free <25 pg/mL (< OR = 57); Normetanephrine, Free 167 pg/mL (< OR = 148); Total, Free (MN + NMN) 167 pg/mL (< OR = 205)
== END | disposition home or self-care (01) ==
LOC: LABWHC1 10:38
PROVIDERS: ATTEND Internal Medicine Cardiovascular Disease
DX: I10 Essential (primary) hypertension (principal)
CPT/HCPCS: 36415; 82088; 82533; 83835; 84244

== ENCOUNTER → 2024-01-03 | Outpatient (CLI) | payer MEDICARE, OTHER ==
[2024-01-03 12:25] LABS: T4, Free (Free Thyroxine) 0.97 ng/dL (0.80-1.80)
== END | disposition home or self-care (01) ==
LOC: LABWHC1 07:03
PROVIDERS: ATTEND Internal Medicine
DX: R94.7 Abnormal results of other endocrine function studies (principal); E03.8 Other specified hypothyroidism
CPT/HCPCS: 36415; 82533; 84439; 84443

== ENCOUNTER → 2024-06-05 | Outpatient (CLI) | payer MEDICARE, OTHER ==
[2024-06-05 15:18] LABS: Basophils # (A) 0.03 X 10*3/uL (0.00-0.10); Basophils % (A) 0.5 %; Eosinophils # (A) 0.12 X 10*3/uL (0.04-0.35); HCT 39.1 % (37.2-46.3); HGB 12.5 g/dL (12.0-15.0); Lymphocytes # (A) 2.33 X 10*3/uL (0.90-5.00); Lymphocytes % (A) 38.8 %; MCH 28.9 pg (27.0-32.0); MCV 90.3 FL (80.0-97.0); Mean Platelet Volume 9.6 FL (9.5-12.2); Monocytes # (A) 0.48 X 10*3/uL (0.20-1.00); NRBC Per 100 WBC 0 X 10*3/uL (0.00-0.01); Neutrophils # (A) 3.02 X 10*3/uL (1.80-7.70); Neutrophils % (A) 50.4 %; Platelet Count 335 X 10*3/uL (140-440); RBC 4.33 X 10*6/uL (4.10-5.20); RDW 14.6 % (11.5-14.5)
[2024-06-05 15:42] LABS: ALT 19 U/L (8-44); AST 19 U/L (13-35); Albumin 4.3 g/dL (3.8-4.9); Albumin/Globulin Ratio 1.54 Ratio (1.60-3.17); Alkaline Phosphatase 78 U/L (41-126); BUN/Creat Ratio 17.73 Ratio (12.00-20.00); Blood Urea Nitrogen 19.5 mg/dL (9.0-27.0); Calcium 9.4 mg/dL (8.7-10.3); Carbon Dioxide 26.3 mmol/L (21.6-31.8); Chloride 101 mmol/L (96-109); Chol/HDL Ratio 3.22 Ratio; Globulin 2.8 g/dL (1.6-3.3); Glucose 144 mg/dL (70-110); LDL Cholesterol,Calculated 93.1 mg/dL (0.0-131.0); Potassium 4.7 mmol/L (3.5-5.5); Sodium 140 mmol/L (135-145); T4, Free (Free Thyroxine) 0.91 ng/dL (0.80-1.80); Total Bilirubin 0.5 mg/dL (0.3-1.2); Total Protein 7.1 g/dL (6.2-8.2); Uric Acid 4.7 mg/dL (2.9-7.7)
== END | disposition home or self-care (01) ==
LOC: LABWHC1 11:29
PROVIDERS: ATTEND Family Medicine
DX: I10 Essential (primary) hypertension (principal); E78.2 Mixed hyperlipidemia; E11.65 Type 2 diabetes mellitus with hyperglycemia; E03.9 Hypothyroidism, unspecified; E55.9 Vitamin D deficiency, unspecified; Z79.4 Long term (current) use of insulin
CPT/HCPCS: 36415; 80053; 80061; 82306; 83036; 84432; 84439; 84443; 84550; 85025; 86800